=== PATIENT | female | born 1960 | race Caucasian/White ===

== ENCOUNTER 2021-09-11 23:03 | Emergency (ER) | payer OTHER, SELFPAY ==
[2021-09-11 23:04] VITALS: BP 136/82; PULSE 90; RESP 18; TEMP 37.3; O2SAT 97; BMI 29.8
--- NOTE | 2021-09-11 23:27 | XR_ITS ---
PROCEDURE INFORMATION: Exam: XR Chest Exam date and time: 09/11/2021 11:27 PM Age: 60 years old Clinical indication: Patient HX: Dry cough, denies chest pain or SOA. Nonsmoker TECHNIQUE: Imaging protocol: XR of the chest. Views: 2 views. COMPARISON: CR XR CHEST 2V 11/11/2019 4:42 PM FINDINGS: Lungs: There are several patchy/nodular opacities within the periphery of both lungs, right more conspicuous than left, likely representing multifocal pneumonia. Pleural spaces: No pleural effusion. No pneumothorax. Heart/Mediastinum: Normal heart size. Bones/joints: Unremarkable. IMPRESSION: Several bilateral patchy/nodular opacities, likely representing multifocal pneumonia. Follow-up to resolution is recommended.
--- NOTE | 2021-09-11 23:31 | HMH.EDURI ---
ED Disposition Clinical Impression: Pneumonia due to COVID-19 virus Disposition: Home, Self-Care Condition on Discharge: Good Instructions: DI for COVID-19 (Suspected or Confirmed ) Additional Instructions: use meds and call pcp for follow up Prescriptions: Brompheniramine/Pseudoephed/Dm [Bromfed Dm Cough Syrup] 10 ml PO QID #180 ml Prescription Printed dexAMETHasone [Decadron] 6 mg PO DAILY #7 tab Prescription Printed Azithromycin [Zithromax 250mg tab] 250 mg PO DIRECTED #6 tab Prescription Printed Referrals: Sendy Moran [Primary Care Provider] - - Critical Care Critical Care Time: No Attestation: On 09/11/21, the high probability of a clinically significant, sudden or life threatening deterioration of the following system(s) required my full and direct attention, intervention and personal management. The time I documented below is in addition to time spent performing reported procedures but includes the following listed in this critical care notation. Medical Decision Making - Medical Records Medical records reviewed: Yes: I reviewed the patient's medical records. - Jignesh Inquiry Pt receiving controlled substance: No Vital Signs: 09/11/21 23:04 Temperature 99.1 F Temperature Source Oral Pulse Rate [Apical] 90 Respiratory Rate 18 Blood Pressure [Right Arm] 136/82 Blood Pressure Mean [Right Arm] 100 Blood Pressure Source [Right Arm] Automatic Cuff Blood Pressure Position [Right Arm] Sitting 02 Sat by Pulse Oximetry 97 Oxygen Delivery Method Room Air - Lab Data Lab results reviewed: Yes: I reviewed the patient's lab results. Lab Results 09/11/21 23:15: SARS-CoV-2 (PCR) Detected A, Influenza A Untype (PCR) Not detected, Influenza Type B (PCR) Not detected Orders (Tests/Meds): ED MEDICATIONS Generic Name Dose Route Start Last Admin Trade Name Freq PRN Reason Stop Dose Admin Benzonatate 100 mg 09/12/21 01:15 Benzonatate 100mg Capsule PO 10/12/21 01:14 ONCE FLORINA Discontinued Medications Generic Name Dose Route Start Last Admin Trade Name Freq PRN Reason Stop Dose Admin Dexamethasone 10 mg 09/12/21 01:05 Dexamethasone 4mg Tablet PO 09/12/21 01:06 ONCE ONE - Radiology Data #1 Image(s): Chest Image Reviewed: Yes I have reviewed radiologist's interpretation Preliminary Findings: Abnormal (see report ) Medical Decision Narrative: has covid-19 with stable vital signs URI/Sore Throat HPI - General Chief Complaint: Shortness of Breath/Dyspnea Stated Complaint: Cough,right earache Time Seen by Provider: 09/11/21 23:32 Mode of Arrival: Ambulatory Source of Information: Patient, Medical Record Limitations: No Limitations Description of Symptoms (Recalled from ER Triage Doc. by RN): Patient states that 8 days ago she began running a fever with a headache, chills and cough. Since then she has had a dry hacking cough that she can't sleep for the cough - History of Present Illness HPI Narrative: uri sx and fever with cough with no known exposure MD Complaint: cough Onset (ago): day(s) Duration: intermittent Severity: moderate Able to tolerate fluids by mouth: Yes Associated symptoms: denies other symptoms Treatments prior to arrival: none - Related Data Home Medications Medication Instructions Recorded Confirmed Atorvastatin Calcium [Atorvastatin 10 mg PO HS 11/11/19 11/11/19 10mg Tab] Levothyroxine Sodium 75 mcg PO DAILY 11/11/19 11/11/19 [Levothyroxine 75mcg (0.075mg) Tab] Previous Rx's Medication Instructions Recorded Benzonatate [Benzonatate 200mg Cap] 200 mg PO TID PRN 10 Days #30 cap 11/11/19 Promethazine/Dextromethorphan 5 ml PO Q4HP PRN 10 Days #180 ml 11/11/19 [Promethazine-Dm Syrup] levoFLOXacin [Levaquin 500mg 500 mg PO DAILY #10 tab 11/11/19 tab] predniSONE [Prednisone 20mg 20 mg PO BID 5 Days #10 tab 11/11/19 Tab] Azithromycin [Zithromax 250mg 250 mg PO DIRECTE
[2021-09-11 23:39] LABS: Influenza A, PCR Not Detected (NotDetected); Influenza B, PCR Not Detected (NotDetected)
[2021-09-11 23:58] LABS: Coronavirus 19, PCR Detected (NotDetected)
[2021-09-12 01:21] VITALS: BP 151/80; PULSE 78; RESP 20; TEMP 36.9; O2SAT 98
[2021-09-12 01:26] VITALS: BP 151/80; PULSE 78; RESP 20; TEMP 36.8; O2SAT 98
== END 2021-09-12 01:28 | disposition home or self-care (01) ==
PROVIDERS: Emergency Provider Emergency Medicine; PCP Family Medicine
DX: U07.1 COVID-19 (principal); J12.82 Pneumonia due to coronavirus disease 2019
CPT/HCPCS: 71046; 99282; C9803; U0003; U0005

== ENCOUNTER 2023-05-02 07:59 | Emergency (ER) | payer OTHER, SELFPAY ==
[2023-05-02 08:01] VITALS: BP 136/91; PULSE 92; RESP 18; TEMP 36.6; O2SAT 97; BMI 28.2
--- NOTE | 2023-05-02 08:16 | XR_ITS ---
PROCEDURE INFORMATION: Exam: XR Chest Exam date and time: 05/02/2023 8:13 AM Age: 62 years old Clinical indication: Cough TECHNIQUE: Imaging protocol: Radiologic exam of the chest. Views: 2 views. COMPARISON: CR XR CHEST 2V 09/11/2021 11:31 PM FINDINGS: Lungs: Unremarkable. No consolidation. Pleural spaces: Unremarkable. No pleural effusion. No pneumothorax. Heart/Mediastinum: Unremarkable. No cardiomegaly. Bones/joints: Unremarkable. IMPRESSION: No acute findings.
--- NOTE | 2023-05-02 08:28 | EXP.UTC ---
Discharge Plan Disposition Patient Disposition: Home, Self-Care Condition: Good Prescriptions Prescriptions: New benzonatate [benzonatate] 100 mg capsule 100 mg PO TIDP PRN (Reason: Cough) Qty: 30 0RF methylprednisolone 4 mg Tablets,Dose Pack 4 mg PO DIRECTED Qty: 21 0RF cefdinir 300 mg capsule 300 mg PO BID Qty: 20 0RF No Action atorvastatin 10 MG tablet 10 mg PO HS levothyroxine 75 tablet 75 mcg PO DAILY promethazine-DM 120 ML syrup 5 ml PO Q4HP PRN (Reason: Cough) 10 Days Qty: 180 0RF benzonatate 200 MG capsule 200 mg PO TID PRN (Reason: Cough) 10 Days Qty: 30 0RF prednisone 20 MG tablet 20 mg PO BID 5 Days Qty: 10 0RF levofloxacin 500 MG tablet 500 mg PO DAILY Qty: 10 0RF azithromycin 250 MG tablet 250 mg PO DIRECTED Qty: 6 0RF Rx Instructions: Take two (2) tablets on day #1, then one (1) tablet day #2 thru #5 dexamethasone 6 MG tablet 6 mg PO DAILY Qty: 7 0RF thqjgqtsabfhqar-bmcyzcrws-WU 118 ML syrup 10 ml PO QID Qty: 180 0RF Referrals Follow up/Referrals: eSndy Moran [Primary Care Provider] - See instructions Activity Restrictions/Add. Instructions Additional Instructions/Restrictions: Drink plenty of fluids. Take tylenol for pain or fever. Take the medications as directed. Follow up with your regular doctor. GO TO THE ER FOR ANY WORSENING SYMPTOMS Don't start the oral steroids until tomorrow, since you had the shot here today. Clinical Impressions Clinical Impression: Acute bronchitis Instructions Patient Instructions: Acute Bronchitis, DI for Acute Bronchitis Discharge ED Provider: Chevy Hunt [facility] [place] HPI General Stated complaint: cough sore throat congestion Mode of Arrival: Ambulatory Source of Information: Patient Limitations: No Limitations Time Seen by Provider: 05/02/23 08:28 Description of Symptoms (Recalled from Triage Doc. by RN): Patient reports possibly having pneumonia. Complaint of cough, scratchy throat and lung pain. HEENT Symptoms (Recalled from RN notes): Yes Resp Symptoms (Recalled from RN notes): Yes Skin Symptoms (Recalled from RN notes): No MS Symptoms (Recalled from RN notes): No Functional Status (Recalled from RN notes): wnl History of Present Illness Provider Complaint: She states that for the past 4 days she has had sinus congestion and runny nose. Related Data Home Medications Medication Instructions Recorded Confirmed atorvastatin 10 mg tablet 10 mg PO HS Cholesterol 11/11/19 11/11/19 levothyroxine 75 mcg tablet 75 mcg PO DAILY THYROID REPLACEMENT 11/11/19 11/11/19 Previous Rx's Medication Instructions Recorded benzonatate 200 mg capsule 200 mg PO TID PRN Cough 10 days 11/11/19 #30 caps levofloxacin 500 mg tablet 500 mg PO DAILY #10 tabs 11/11/19 prednisone 20 mg tablet 20 mg PO BID 5 days #10 tabs 11/11/19 promethazine-DM 6.25 mg-15 mg/5 mL 5 ml PO Q4HP PRN Cough 10 days 11/11/19 oral syrup #180 mL azithromycin 250 mg tablet 250 mg PO DIRECTED #6 tabs 09/12/21 blfzydutdbzoqho-pfeddzpumqhqlmo-PP 10 ml PO QID #180 mL 09/12/21 2 mg-30 mg-10 mg/5 mL oral syrup dexamethasone 6 mg tablet 6 mg PO DAILY #7 tabs 09/12/21 benzonatate 100 mg capsule 100 mg PO TIDP PRN Cough #30 caps 05/02/23 cefdinir 300 mg capsule 300 mg PO BID #20 caps 05/02/23 methylprednisolone 4 mg tablets in 4 mg PO DIRECTED #21 tabs 05/02/23 a dose pack Allergies Allergy/AdvReac Type Severity Reaction Status Date / Time No Known Allergies Allergy Verified 11/11/19 16:42 Worker's Comp Is this a Worker's Comp case?: [facility] Disclaimer: The information contained in this section may have been updated after the patient was seen, as this information can be updated by other users. Social History Smoking Status: Former smoker alcohol intake: never current occupational status: other Travel in the last
[2023-05-02 09:07] VITALS: BP 136/91; PULSE 92; RESP 18; TEMP 36.6; O2SAT 97
== END 2023-05-02 09:08 | disposition home or self-care (01) ==
PROVIDERS: Emergency Provider Nurse Practitioner Family; PCP Family Medicine
DX: J20.9 Acute bronchitis, unspecified (principal); Z87.891 Personal history of nicotine dependence
CPT/HCPCS: 71046; 96372; 99204; 99212; G0463; J0696

== ENCOUNTER 2023-05-07 07:59 | Emergency (ER) | payer OTHER, SELFPAY ==
[2023-05-07 08:00] VITALS: BP 123/80; PULSE 87; RESP 18; TEMP 36.8; O2SAT 98; BMI 28.2
--- NOTE | 2023-05-07 08:21 | EXP.UTC ---
Discharge Plan Disposition Patient Disposition: Home, Self-Care Condition: Good Prescriptions Prescriptions: New amoxicillin-pot clavulanate 875-125 mg Tablet 1 tab PO Q12H Qty: 20 0RF No Action atorvastatin 10 MG tablet 10 mg PO HS levothyroxine 75 tablet 75 mcg PO DAILY promethazine-DM 120 ML syrup 5 ml PO Q4HP PRN (Reason: Cough) 10 Days Qty: 180 0RF benzonatate 200 MG capsule 200 mg PO TID PRN (Reason: Cough) 10 Days Qty: 30 0RF prednisone 20 MG tablet 20 mg PO BID 5 Days Qty: 10 0RF levofloxacin 500 MG tablet 500 mg PO DAILY Qty: 10 0RF azithromycin 250 MG tablet 250 mg PO DIRECTED Qty: 6 0RF Rx Instructions: Take two (2) tablets on day #1, then one (1) tablet day #2 thru #5 dexamethasone 6 MG tablet 6 mg PO DAILY Qty: 7 0RF pxwwpkicacniuzk-bibcrfnyl-KI 118 ML syrup 10 ml PO QID Qty: 180 0RF benzonatate [benzonatate] 100 mg capsule 100 mg PO TIDP PRN (Reason: Cough) Qty: 30 0RF methylprednisolone 4 mg Tablets,Dose Pack 4 mg PO DIRECTED Qty: 21 0RF cefdinir 300 mg capsule 300 mg PO BID Qty: 20 0RF Referrals Follow up/Referrals: Sendy Moran [Primary Care Provider] - See instructions Activity Restrictions/Add. Instructions Additional Instructions/Restrictions: Stop the cefdinir, start the amoxicillin that we prescribed today. Finish the steroids (methylprednisone) that you are already on. Take tylenol or ibuprofen for pain or fever. Take the medications as directed. Follow up with your regular doctor within 48 hours if you are no better. GO TO THE ER FOR ANY WORSENING SYMPTOMS Clinical Impressions Clinical Impression: Lymphadenitis Instructions Patient Instructions: DI for Lymphadenopathy Discharge ED Provider: Chevy Hunt [facility] [place] HPI General Stated complaint: Possible reaction to med, Neck inflammation Mode of Arrival: Ambulatory Source of Information: Patient Limitations: No Limitations Time Seen by Provider: 05/07/23 08:21 Description of Symptoms (Recalled from Triage Doc. by RN): Patient reports swollen neck. States she was started on medicine on Thursday and had some shots in the [facility]. Patient reports possible adverse reaction. HEENT Symptoms (Recalled from RN notes): No Resp Symptoms (Recalled from RN notes): No Skin Symptoms (Recalled from RN notes): No MS Symptoms (Recalled from RN notes): Yes Functional Status (Recalled from RN notes): wnl History of Present Illness Provider Complaint: She is back today with c/o swelling of the lymph nodes in her neck. Related Data Home Medications Medication Instructions Recorded Confirmed atorvastatin 10 mg tablet 10 mg PO HS Cholesterol 11/11/19 11/11/19 levothyroxine 75 mcg tablet 75 mcg PO DAILY THYROID REPLACEMENT 11/11/19 11/11/19 Previous Rx's Medication Instructions Recorded benzonatate 200 mg capsule 200 mg PO TID PRN Cough 10 days 11/11/19 #30 caps levofloxacin 500 mg tablet 500 mg PO DAILY #10 tabs 11/11/19 prednisone 20 mg tablet 20 mg PO BID 5 days #10 tabs 11/11/19 promethazine-DM 6.25 mg-15 mg/5 mL 5 ml PO Q4HP PRN Cough 10 days 11/11/19 oral syrup #180 mL azithromycin 250 mg tablet 250 mg PO DIRECTED #6 tabs 09/12/21 ovoyivgszfcbunl-madpgojgtkjpyqr-RL 10 ml PO QID #180 mL 09/12/21 2 mg-30 mg-10 mg/5 mL oral syrup dexamethasone 6 mg tablet 6 mg PO DAILY #7 tabs 09/12/21 benzonatate 100 mg capsule 100 mg PO TIDP PRN Cough #30 caps 05/02/23 cefdinir 300 mg capsule 300 mg PO BID #20 caps 05/02/23 methylprednisolone 4 mg tablets in 4 mg PO DIRECTED #21 tabs 05/02/23 a dose pack amoxicillin 875 mg-potassium 1 tab PO Q12H #20 tabs 05/07/23 clavulanate 125 mg tablet Allergies Allergy/AdvReac Type Severity Reaction Status Date / Time No Known Allergies Allergy Verified 11/11/19 16:42 Worker's Comp Is this a Worker's Comp case?: No [facility] Disclaimer: The information contained in this section may h
[2023-05-07 09:01] LABS: Monoscreen (Rapid) Negative (Negative)
[2023-05-07 09:30] LABS: Anion Gap 11.7 mEq/L (5-15); Blood Urea Nitrogen 16 mg/dl (7-17); Calcium 9.4 mg/dl (8.4-10.2); Carbon Dioxide 29 mmol/L (22.0-30.0); Chloride 103 mmol/L (98-107); Creatinine Clearance Estimated 71 mL/min (50-200); Estimated Glomerular Filt Rate 63 ml/min (>60); GFR (African American) 76 ML/MIN (>60); Glucose 103 mg/dl (74-100); Potassium 3.7 mmoL/L (3.5-5.1); Sodium 140 mmol/L (136-145)
[2023-05-07 10:35] LABS: Hematocrit 42.3 % (37.0-47.0); Hemoglobin 13.9 g/dL (12.2-16.2); Mean Corpuscular HGB Conc 32.9 g/dL (31.8-35.4); Mean Corpuscular Hemoglobin 29.6 pg (27.0-31.2); Red Cell Distribution Width 13.5 % (11.5-17.5)
[2023-05-07 10:36] LABS: Basophils % 0.1 % (0.1-2.0); Eosinophils # 0.1 K/mm3 (0.0-0.4); Eosinophils % 0.6 % (0.1-12.0); Lymphocytes # 4.8 K/mm3 (0.7-4.5); Lymphocytes % 29.5 % (10-50); Mean Platelet Volume 11.2 fl (7.4-10.4); Monocytes # 1.6 K/mm3 (0.1-1.0); Monocytes % 9.6 % (1.7-9.3); Neutrophils # 9.8 K/mm3 (1.8-7.8); Neutrophils % 59.7 % (37.0-80.0); Platelet Count 253 K/mm3 (142-424)
[2023-05-07 10:37] LABS: MANUAL DIFFERENTIAL MANUAL DIFFERENTIAL (MANUAL DIFF); White Blood Count 16.3 K/mm3 (4.8-10.8)
[2023-05-07 10:47] VITALS: BP 123/80; PULSE 87; RESP 18; TEMP 36.8; O2SAT 98
[2023-05-07 11:15] LABS: Lymphocytes % 31 % (10-50); Monocytes % 9 % (2-9); Neutrophils % 60 % (42-76); Platelet Estimate Normal; RBC Morphology Normal; Total Cells Counted 100
== END 2023-05-07 10:48 | disposition home or self-care (01) ==
PROVIDERS: Emergency Provider Nurse Practitioner Family; PCP Family Medicine
DX: I88.9 Nonspecific lymphadenitis, unspecified (principal); Z87.891 Personal history of nicotine dependence
CPT/HCPCS: 80048; 85007; 85025; 86318; 87070; 99212; 99214; G0463

== ENCOUNTER 2024-02-29 10:46 | Outpatient (CLI) | payer MEDICARE, SELFPAY ==
[2024-02-29 17:42] LABS: Microscopic, Urine URINE MICROSCOPIC (MICROSCOPIC)
[2024-02-29 18:19] LABS: Appearance,Urine CLEAR (Clear); Bilirubin,Urine Negative (Negative); Blood, Urine Negative (Negative); Color,Urine YELLOW (Yellow); Glucose,Urine (UA) Negative (Negative); Ketones,Urine Negative (Negative); Leukocyte Esterase,Urine 2+ (Negative); Nitrate,Urine Negative (Negative); Protein,Urine Negative (Negative); Specific Gravity, Urine <= 1.005 (1.005-1.030); Urobilinogen,Urine 0.2 EU/dl (0.2)
[2024-02-29 19:21] LABS: Squamous Epithelial Cell,Urine Occasional #/hpf (0-5); WBC,Urine Occasional #/hpf (0-3)
[2024-03-03 06:48] LABS: Neisseria gonorrhoeae, NAA Negative (Negative)
== END 2024-02-29 23:59 | disposition home or self-care (01) ==
LOC: LAB.DROPOF 03-01 10:47
PROVIDERS: PCP Nurse Practitioner Family; Visit Provider Nurse Practitioner Family
DX: N39.0 Urinary tract infection, site not specified (principal); Z11.3 Encounter for screening for infections with a predominantly sexual mode of transmission
CPT/HCPCS: 81001; 87086; 87491; 87591

== ENCOUNTER 2024-03-02 14:21 | Outpatient (CLI) | payer MEDICARE, SELFPAY ==
[2024-03-02 15:16] LABS: Basophils # 0.1 K/mm3 (0-0.2); Basophils % 1.1 % (0.1-2.0); Eosinophils # 0.1 K/mm3 (0.0-0.4); Eosinophils % 2.2 % (0.1-12.0); Hemoglobin 13.8 g/dL (12.2-16.2); Lymphocytes # 2.5 K/mm3 (0.7-4.5); Mean Corpuscular HGB Conc 32.2 g/dL (31.8-35.4); Mean Corpuscular Hemoglobin 30.7 pg (27.0-31.2); Mean Corpuscular Volume 95.5 fl (81-99); Mean Platelet Volume 9.3 fl (7.4-10.4); Monocytes # 0.3 K/mm3 (0.1-1.0); Monocytes % 5.5 % (1.7-9.3); Neutrophils # 2.9 K/mm3 (1.8-7.8); Neutrophils % 49.2 % (37.0-80.0); Platelet Count 230 K/mm3 (142-424); Red Blood Count 4.51 M/mm3 (4.20-5.40); Red Cell Distribution Width 14.3 % (11.5-17.5); White Blood Count 5.8 K/mm3 (4.8-10.8)
[2024-03-02 15:41] LABS: Chol/HDL Ratio 2.8 (1-3.5); Cholesterol 265 mg/dl (140-200); HDL Cholesterol 95 mg/dl (40-60); Triglycerides 135 mg/dl (30-150); VLDL Cholesterol 27 mg/dL (0-40)
[2024-03-02 15:44] LABS: Alanine Aminotransferase 23 U/L (12-78); Albumin Level 4.3 g/dl (3.5-5.0); Albumin/Globulin Ratio 1.7 (1.1-1.8); Alkaline Phosphatase 78 U/L (38-126); Anion Gap 13.1 mEq/L (5-15); Aspartate Amino Transferase 31 U/L (14-36); Bilirubin,Total 0.7 mg/dl (0.2-1.3); Blood Urea Nitrogen 18 mg/dl (7-17); Calcium 9.8 mg/dl (8.4-10.2); Carbon Dioxide 25 mmol/L (22.0-30.0); Chloride 106 mmol/L (98-107); Estimated Glomerular Filt Rate 63 ml/min (>60); GFR (African American) 76 ML/MIN (>60); Globulin 2.6 g/dL (1.3-3.2); Glucose 89 mg/dl (74-100); Potassium 4.1 mmoL/L (3.5-5.1); Sodium 140 mmol/L (136-145); Total Protein,Serum 6.9 g/dl (6.3-8.2)
[2024-03-02 15:52] LABS: Direct LDL Cholesterol 124.85 mg/dL (100-129)
[2024-03-02 15:58] LABS: Free T4 (Free Thyroxine) 1.28 ng/dl (0.78-2.19)
[2024-03-02 15:59] LABS: 25-OH Vitamin D, Total 34.9 ng/mL (30-100)
[2024-03-02 16:16] LABS: Thyroid Stimulating Hormone 1.99 uIU/mL (0.465-4.68)
[2024-03-02 16:35] LABS: Vitamin B12 254 pg/mL (239-931)
[2024-03-02 17:30] LABS: Hemoglobin A1C 5.3 % (4.0-6.0)
[2024-03-04 11:14] LABS: HIV Screen 4th Generation wRfx Non Reactive (Non Reactive)
[2024-03-04 13:04] LABS: Rapid Plasma Reagin Ab Titer Non Reactive titer (NonRea<1:1)
[2024-03-04 13:10] LABS: HBsAg Screen Negative (Negative); HCV Ab Non Reactive (Non Reactive); Hep A Ab, IGM Negative (Negative); Hep B Core Ab, IgM Negative (Negative)
== END 2024-03-02 23:59 | disposition home or self-care (01) ==
LOC: LAB.DROPOF 14:22
PROVIDERS: PCP Nurse Practitioner Family; Visit Provider Nurse Practitioner Family
DX: R53.83 Other fatigue (principal); R73.03 Prediabetes; Z11.3 Encounter for screening for infections with a predominantly sexual mode of transmission; E03.9 Hypothyroidism, unspecified; E55.9 Vitamin D deficiency, unspecified; Z13.220 Encounter for screening for lipoid disorders
CPT/HCPCS: 80053; 80061; 80074; 82306; 82607; 83036; 84439; 84443; 85025; 86593; 86703; G0432

== ENCOUNTER 2024-04-05 08:35 | Outpatient (CLI) | payer MEDICARE, SELFPAY ==
--- NOTE | 2024-04-05 08:36 | XR_ITS ---
FINAL REPORT TECHNIQUE: Bone densitometry calculations of the lumbar spine and left hip were obtained. CLINICAL HISTORY: screening osteoporosis COMPARISON: None FINDINGS: Using L1-4, the bone mineral density of the spine is 1.107 g/cm2, corresponding to T-score of 0.5. Using the left hip, the bone mineral density of the femoral neck is 0.881 g/cm2, corresponding to a T-score of -0.5. NOTE: T-score: Standard deviation compared with peak bone mass of young adult mean. *Following the recommendations of the International Society of Bone densitometry, classification of hip BMD is based on the lower of two T-scores; total hip or femoral neck. IMPRESSION: Normal bone mineral density of the lumbar spine and hip. Reviewed, Interpreted and Dictated by Sixto España MD Transcribed by Mylene Lechuga Authenticated and [facility]
== END 2024-04-05 23:59 | disposition home or self-care (01) ==
LOC: RAD 08:35
PROVIDERS: PCP Nurse Practitioner Family; Visit Provider Nurse Practitioner Family
DX: N95.9 Unspecified menopausal and perimenopausal disorder (principal); Z13.820 Encounter for screening for osteoporosis
CPT/HCPCS: 77080

== ENCOUNTER 2024-05-23 10:23 | Outpatient (CLI) | payer MEDICARE, SELFPAY ==
[2024-05-23 10:49] LABS: Blood Urea Nitrogen 14 mg/dl (7-17); Estimated Glomerular Filt Rate 72 ml/min (>60); GFR (African American) 87 ML/MIN (>60)
[2024-05-27 17:43] LABS: Atopobium vaginae Low - 0 Score (.); BVAB2 Low - 0 Score (.); Candida albicans NAA Negative (Negative); Candida glabrata Negative (Negative); Chlamydia Trachomatis NAA Negative (Negative); HSV 1 NAA Negative (Negative); HSV 2 NAA Negative (Negative); Megasphaera 1 Low - 0 Score (.); Neisseria gonorrhoeae NAA Negative (Negative); Trich vag NAA Negative (Negative)
== END 2024-05-23 23:59 | disposition home or self-care (01) ==
LOC: LAB 10:24
PROVIDERS: PCP Nurse Practitioner Family; Visit Provider Urology
DX: N39.0 Urinary tract infection, site not specified (principal); N89.8 Other specified noninflammatory disorders of vagina
CPT/HCPCS: 36415; 82565; 84520; 87491; 87529; 87591; 87661; 87798; 87801

== ENCOUNTER 2024-06-06 12:21 | Outpatient (CLI) | payer MEDICARE, MEDICAID, SELFPAY ==
--- NOTE | 2024-06-06 12:21 | XR_ITS ---
FINAL REPORT CLINICAL HISTORY: UTI COMPARISON: None FINDINGS: SINGLE VIEW ABDOMEN A single view of the abdomen was obtained. There is a nonobstructive bowel gas pattern. No abnormal calcifications are identified. There are few phleboliths in the right hemipelvis. IMPRESSION: No abnormal calcifications. Reviewed, Interpreted and Dictated by Han Gonzalez MD Transcribed by Angela Doyle Authenticated and [facility]
--- NOTE | 2024-06-06 12:21 | US_ITS ---
FINAL REPORT CLINICAL HISTORY: UTI COMPARISON: None FINDINGS: ULTRASOUND BLADDER WITH POST VOID RESIDUAL Bladder volumes were estimated based on 3 dimensional measurements, pre- and postvoid. Prevoid bladder volume: 366 mls Postvoid bladder volume: 14 mls IMPRESSION: Estimated bladder volumes as above with small postvoid residual . Reviewed, Interpreted and Dictated by Han Gonzalez MD Transcribed by Angela Doyle Authenticated and [facility]
--- NOTE | 2024-06-06 12:21 | US_ITS ---
FINAL REPORT CLINICAL HISTORY: .utis COMPARISON: None FINDINGS: RENAL ULTRASOUND Ultrasound images of the kidneys were obtained. The right kidney measures 9.8 cm in length. It is normal echogenicity. There is no hydronephrosis. The left kidney measures 9.7 cm in length. There is a 6 mm left renal cyst. There is no hydronephrosis. IMPRESSION: Left renal cyst. Reviewed, Interpreted and Dictated by Han Gonzalez MD Transcribed by Angela Doyle Authenticated and . [facility]
== END 2024-06-06 23:59 | disposition home or self-care (01) ==
LOC: RAD 12:21
PROVIDERS: PCP Nurse Practitioner Family; Visit Provider Urology
DX: N39.0 Urinary tract infection, site not specified (principal)
CPT/HCPCS: 74018; 76770; 76857

== ENCOUNTER 2024-12-26 09:22 | Outpatient (CLI) | payer MEDICARE, MEDICAID, SELFPAY | END 2024-12-26 23:59 | disposition home or self-care (01) | LOC: LAB.DROPOF 12-28 09:23 | PROVIDERS: PCP Nurse Practitioner Family; Visit Provider Student in an Organized Health Care Education/Training Program | DX: R35.0 Frequency of micturition (principal) | CPT/HCPCS: 87086; 87088; 87186 ==

== ENCOUNTER 2025-03-06 13:13 | Outpatient (CLI) | payer MEDICARE, MEDICAID, SELFPAY ==
[2025-03-06 18:17] LABS: Microscopic, Urine URINE MICROSCOPIC (MICROSCOPIC)
[2025-03-06 20:28] LABS: Appearance,Urine CLEAR (Clear); Bilirubin,Urine Negative (Negative); Blood, Urine Negative (Negative); Color,Urine YELLOW (Yellow); Glucose,Urine (UA) Negative (Negative); Ketones,Urine Negative (Negative); Leukocyte Esterase,Urine Negative (Negative); Nitrate,Urine Negative (Negative); Protein,Urine Negative (Negative); Urobilinogen,Urine 0.2 EU/dl (0.2)
[2025-03-06 20:59] LABS: Bacteria,Urine Trace /lpf; WBC,Urine Occasional #/hpf (0-3)
--- OUTSIDE RECORDS SUMMARY | 2025-03-06 22:09 | XMS_ITS | Data Portability ---
Author Organization [facility] Address [address] [facility] [place] [address] Assessment Encounter Date Assessment Date Assessment LastModified by Organization Details LastModified Time 05/27/2022 05/27/2022 Deirdre presents for annual wellness exam. She has some occasional shoulder soreness and hip arthritis, but continues to stay active. She has some recurrent symptoms of urinary frequency and what sounds like bladder spasms. She has been treated previously for possible urinary tract infections but in every case the cultures have not shown any infection. She does drink some dark colored sodas nearly daily and we discussed cutting back on those and see if the symptoms improve. We are awaiting the present urine culture and if needed we will treat. She is working on healthy lifestyle practices. She is up to date on mammogram. She had a negative cologuard screen in 2019 and a negative immunoassay last year, so will be due another cologuard next year. Medications are reviewed. Lipids have improved significantly on the generic lipitor and with her family history we recommend she continue that for primary cardiovascular prevention. She could try to cut it back to every other day and see if the muscle and joint pains decrease some. Labs are otherwise basically normal. Vaccines are reviewed and she has not taken the covid vaccines which we highly encourage. This years influenza vaccine is recommended by July when it becomes available at her pharmacy. We encourage weight management for best health. Not available 05/28/2022 23:48:38 10/17/2022 10/17/2022 Deirdre has an acute lower respiratory infection. She is prone to pneumonia and wheezing. We will cover with a zpack and treat the respiratory symptoms. She can use over counter cough syrups and expectorants. A rapid flu is negative but her symptoms warrant further evaluation with respiratory pathogens. Not available 10/17/2022 09:52:35 01/22/2023 01/22/2023 Deirdre has a symptomatic bladder infection that will be treated. She does drink her water. Culture is pending. Not available 01/22/2023 15:37:19 07/16/2023 07/16/2023 She likely had a bout of shingles a few months ago and now has symptoms of a mild post-herpetic neuralgia but it is not bad enough to use any medications she was just curious about it. Her BP is a bit elevated and improved during her visit. We will continue observation as she has a follow up soon. Not available 07/17/2023 07:53:46 08/04/2023 08/04/2023 Deirdre presents for annual wellness exam and pap smear. She has some occasional shoulder soreness and hip arthritis, but continues to stay active. She has an area of the skin on the left upper back that may have been a focus of shingles but presently appears to be slightly hyperpigmented and scaly so is most consistent with the development of lichen simplex. We will recommend breaking the scratch itch cycle with topical steroids. She is working on healthy lifestyle practices and has lost over 40 pounds the past six years. She is up to date on mammogram. She had a negative cologuard screen in 2019 and a negative immunoassay in 2020, so is due another cologuard this year. Medications are reviewed. Lipids have improved significantly on the generic lipitor and with her family history we recommend she continue that for primary cardiovascular prevention. Labs are otherwise basically normal. Vaccines are reviewed and she has not taken the covid vaccines which we highly encourage. This years influenza vaccine is recommended by July when it becomes available at her pharmacy but she declines that as well. She has taken the Shingles vaccines. A ten year calculated cardiovascular risk is low at 3.37%. We encourage weight management for best health. [email or web address] Not available 08/05/2023 22:53:12 Plan of Treatment Reminders Order Date Submit Date Provider Last Modified By Organization Details Last Modified Time Details Appointments None recorded. Lab noninvasive colorectal cancer DNA + occult blood screening, QL, stool 2022 023 REINALDO Not available 3 23:19:39 pap, LB 2022 023 REINALDO [facility], [address], [place], [address], 3 14:24:16 urinalysis, dipstick [address], [address] [place], [address], 3 13:59:24 culture, urine 2022 023 REINALDO [facility], [address], [place], [address], 3 07:38:25 urinalysis, dipstick [address], [address] [place], [address], 3 14:32:26 SARS CoV 2 RNA (COVID-19), QL, 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, [address] [place], [address], 2 09:54:23 culture, urine 2021 022 [facility], [address] [place], [address], 2 02:16:46 urinalysis, dipstick [address] [facility], [address] [place], [address], 2 10:11:47 Referral None recorded. Procedures None recorded. Surgeries None recorded. Imaging MAMMO, screening, digital, bilateral - due after 12/27/23[email or web address] [place] [address] ([facility], [address] [place], [address], 4 16:05:01 Medication Orders triamcinolo ne acetonide 0.1 % topical cream 2022 023 [facility], [address] [place], [address], 3 10:10:05 nitrofurant oin monohydrate /macrocryst als 100 mg capsule 2022 [address]23 [address] [place], [address], 3 09:14:30 gentamicin 40 mg/mL injection solution [address]/Pharmacy #3016, [address] [place], [address], 3 09:14:25 azithromyci n 250 mg tablet [address]/Pharmacy [facility]3016, [address] [place], [address], 3 14:26:36 methylpredn isolone 4 mg tablets in a dose pack 122021 [email or web address] n5 [facility], [address] [place], [address], 3 09:14:34 dexamethaso ne sodium phosphate 4 mg/mL injection solution 2021 [email or web address] [email or web address] [facility]/Pharmacy #3016, [address] [facility] [place], [address], 3 14:26:33 Ventolin HFA 90 mcg/actuati on aerosol inhaler 2021 REINALDO [facility], [address] [place], [address], 09:54:27 Patient TargetsNo targets recorded. Patient Instructions Encounter Date Encounter Id Patient Instructions Last Modified By Organization Details Last Modified Time 05/27/2022 [id number] learning about healthy weight Not available 05/28/2022 23:49:29 Reason for Referral None Reported. Results Created Date Observation Date Name Description Value Unit Range Abnormal Flag Note LastModifiedBy Organization Detail LastModifiedTime 05/26/2005/27/2022 LIPID PANEL , STAND EDVIN cholesterol, total 162 mg/dL <200 normal Not Available [facility] [address] [place], [address], 05/27/2022 08:18:56 05/26/2005/27/2022 LIPID PANEL , STAND EDVIN HDL cholesterol 71 mg/dL > or = 50 normal Not Available [facility] [address] [place], [address], 05/27/2022 08:18:56 05/26/2005/27/2022 LIPID PANEL , STAND EDVIN triglyceride s 113 mg/dL <150 normal Not Available [facility] [address] [place], [address], 05/27/2022 08:18:56 05/26/20 22 05/27/2022 LIPID PANEL , STAND EDVIN LDL-choleste rol 71 mg/dL _(trini c) normal Refer ence range : <100 Anne able range <100 mg/dL for prima ry preve ntion ; <70 mg/dL for patie nts with CHD or diabe tic patie nts with > or = 2 CHD risk facto rs. LDL-C is now calcu lated using the Velvet n-Hop kins calcu mary n, which is a valid ated novel metho d provi ding mya r accur acy than the Fried fausto equat ion in the estim ation of LDL-C . Velvet n SS et al. DESIREE. 2013; 310(1 9): 2061- 2068 (http ://ed ucati on.Viyet borisGingerd. [employer]/f aq/FA Q164) Not Available [facility] [address] [facility], [place], [address], 05/27/2022 08:18:56 05/26/20 22 05/27/2022 LIPID PANEL , STAND EDVIN chol/HDLC ratio 2.3 (calc ) <5.0 normal Not Available [facility] [address] [facility], [place], [address], 05/27/2022 08:18:56 05/26/20 22 05/27/2022 LIPID PANEL , STAND EDVIN non HDL cholesterol 91 mg/dL _(trini c) <130 normal For patie nts with diabe ovi plus 1 major ASCVD risk facto r, treat ing to a non-H DL-C goal of <100 mg/dL (LDL- C of <70 mg/dL ) is consi dered a thera peuti c optio n. Not Available [facility] [address], [place], [address], 05/27/2022 08:18:56 05/26/20 22 05/27/2022 COMPR EHENS HOMAR METAB OLIC PANEL glucose 105 mg/dL 65-99 high Fasti ng refer ence inter edy For someo ne witho ut known diabe ovi, a gluco se value betwe en 100 and 125 mg/dL is consi stent with predi abete s and shoul d be confi rmed with a follo w-up test. Not Available [facility] [address] [place], [address], 05/27/2022 08:18:57 05/26/20 22 05/27/2022 COMPR EHENS HOMAR METAB OLIC PANEL urea nitrogen (BUN) 14 mg/dL 7-25 normal Not Available [facility] [address] [place], [address], 05/27/2022 08:18:57 05/26/20 22 05/27/2022 COMPR EHENS HOMAR METAB OLIC PANEL creatinine 0.83 mg/dL 0.50-1 .05 normal Not Available [facility] [address] [place], [address], 05/27/2022 08:18:57 05/26/20 22 05/27/2022 COMPR EHENS HOMAR METAB OLIC PANEL eGFR 79 mL/mi n/1.7 3m2 > or = 60 normal The eGFR is based on the CKD-E PI 2020 equat ion. To calcu late the new eGFR from a previ ous Creat inine or Cysta tin C resul t, go to https ://chelsea mata.felipa gregg/mando hebert s/ kdoqi /gfr% 5Fcal culat or Not Available [facility] [address] [place], [address], 05/27/2022 08:18:57 05/26/20 22 05/27/2022 COMPR EHENS HOMAR METAB OLIC PANEL BUN/creatini ne ratio NOT APPLIC ABLE (calc ) 6-22 Not Available [facility] [address] [place], [address], 05/27/2022 08:18:57 05/26/20 22 05/27/2022 COMPR EHENS HOMAR METAB OLIC PANEL sodium 140 mmol/ L 135-14 6 normal Not Available [facility] [address] [place], [address], 05/27/2022 08:18:57 05/26/20 22 05/27/2022 COMPR EHENS HOMAR METAB OLIC PANEL potassium 4.1 mmol/ L 3.5-5. 3 normal Not Available [facility] [address] [place], [address], 05/27/2022 08:18:57 05/26/20 22 05/27/2022 COMPR EHENS HOMAR METAB OLIC PANEL chloride 108 mmol/ L 98-110 normal Not Available [facility] [address] [place], [address], 05/27/2022 08:18:57 05/26/20 22 05/27/2022 COMPR EHENS HOMAR METAB OLIC PANEL carbon dioxide 25 mmol/ L 20-32 normal Not Available [facility] [address] [place], [address], 05/27/2022 08:18:57 05/26/20 22 05/27/2022 COMPR EHENS HOMAR METAB OLIC PANEL calcium 9.5 mg/dL 8.6-10 .4 normal Not Available [facility] [address] [place], [address], 05/27/2022 08:18:57 05/26/20 22 05/27/2022 COMPR EHENS HOMAR METAB OLIC PANEL protein, total 6.4 g/dL 6.1-8. 1 normal Not Available [facility] [address] [place], [address], 05/27/2022 08:18:57 05/26/20 22 05/27/2022 COMPR EHENS HOMAR METAB OLIC PANEL albumin 4.3 g/dL 3.6-5. 1 normal Not Available [facility] [address] [place], [address], 05/27/2022 08:18:57 05/26/20 22 05/27/2022 COMPR EHENS HOMAR METAB OLIC PANEL globulin 2.1 g/dL_ (calc ) 1.9-3. 7 normal Not Available [facility] [address] [place], [address], 05/27/2022 08:18:57 05/26/20 22 05/27/2022 COMPR EHENS HOMAR METAB OLIC PANEL albumin/glob ulin ratio 2.0 (calc ) 1.0-2. 5 normal Not Available [facility] [employer] [facility] [address] [place], [address], 05/27/2022 08:18:57 05/26/20 22 05/27/2022 COMPR EHENS HOMAR METAB OLIC PANEL bilirubin, total 0.6 mg/dL 0.2-1. 2 normal Not Available [facility] [employer] [facility] [address] [place], [address], 05/27/2022 08:18:57 05/26/20 22 05/27/2022 COMPR EHENS HOMAR METAB OLIC PANEL alkaline phosphatase 93 U/L 37-153 normal Not Available [facility] [employer] [facility] [address] [place], [address], 05/27/2022 08:18:57 05/26/20 22 05/27/2022 COMPR EHENS HOMAR METAB OLIC PANEL AST 17 U/L 10-35 normal Not Available [facility] [employer] [facility] [address] [place] [place], [address], 05/27/2022 08:18:57 05/26/20 22 05/27/2022 COMPR EHENS HOMAR METAB OLIC PANEL ALT 14 U/L 6-29 normal Not Available [facility] [address] [place], [address], 05/27/2022 08:18:57 05/26/20 22 05/27/2022 TSH TSH 1.03 mIU/L 0.40-4 .50 normal Not Available [facility] [address] [place], [address], 05/27/2022 08:18:58 05/26/20 22 05/27/2022 CBC (INCL UDES DIFF/ PLT) white blood cell count 6.0 thous and/u L 3.8-10 .8 normal Not Available [facility] [address] [place], [address], 05/27/2022 08:18:58 05/26/20 22 05/27/2022 CBC (INCL UDES DIFF/ PLT) red blood cell count 4.48 charley on/uL 3.80-5 .10 normal Not Available [facility] [address] [place], [address], 05/27/2022 08:18:58 05/26/20 22 05/27/2022 CBC (INCL UDES DIFF/ PLT) hemoglobin 13.2 g/dL 11.7-1 5.5 normal Not Available [facility] [address] [place], [address], 05/27/2022 08:18:58 05/26/20 22 05/27/2022 CBC (INCL UDES DIFF/ PLT) hematocrit 41.4 % 35.0-4 5.0 normal Not Available [facility] [address] [place], [address], 05/27/2022 08:18:58 05/26/20 22 05/27/2022 CBC (INCL UDES DIFF/ PLT) MCV 92.4 fL 80.0-1 00.0 normal Not Available [facility] [address] [place], [address], 05/27/2022 08:18:58 05/26/20 22 05/27/2022 CBC (INCL UDES DIFF/ PLT) MCH 29.5 pg 27.0-3 3.0 normal Not Available [facility] [address] [place], [address], 05/27/2022 08:18:58 05/26/20 22 05/27/2022 CBC (INCL UDES DIFF/ PLT) MCHC 31.9 g/dL 32.0-3 6.0 low Not Available [facility] [address] [place], [address], 05/27/2022 08:18:58 05/26/20 22 05/27/2022 CBC (INCL UDES DIFF/ PLT) RDW 13.2 % 11.0-1 5.0 normal Not Available [facility] [address] [place], [address], 05/27/2022 08:18:58 05/26/20 22 05/27/2022 CBC (INCL UDES DIFF/ PLT) platelet count 210 thous and/u L 140-40 0 normal Not Available [facility] [address] [place], [address], 05/27/2022 08:18:58 05/26/20 22 05/27/2022 CBC (INCL UDES DIFF/ PLT) MPV 11.0 fL 7.5-12 .5 normal Not Available [facility] [address] [place], [address], 05/27/2022 08:18:58 05/26/20 22 05/27/2022 CBC (INCL UDES DIFF/ PLT) absolute neutrophils 2724 cells /uL 1500-7 800 normal Not Available [facility] [address], [address], 05/27/2022 08:18:58 05/26/20 22 05/27/2022 CBC (INCL UDES DIFF/ PLT) absolute lymphocytes 2580 cells /uL 850-39 00 normal Not Available [facility] [address] [place], [address], 05/27/2022 08:18:58 05/26/20 22 05/27/2022 CBC (INCL UDES DIFF/ PLT) absolute monocytes 558 cells /uL 200-95 0 normal Not Available [facility] [address], [place], [address], 05/27/2022 08:18:58 05/26/20 22 05/27/2022 CBC (INCL UDES DIFF/ PLT) absolute eosinophils 90 cells /uL 15-500 normal Not Available [facility] [address], [place], [address], 05/27/2022 08:18:58 05/26/20 22 05/27/2022 CBC (INCL UDES DIFF/ PLT) absolute basophils 48 cells /uL 0-200 normal Not Available [facility] [address], [place], [address], 05/27/2022 08:18:58 05/26/20 22 05/27/2022 CBC (INCL UDES DIFF/ PLT) neutrophils 45.4 % normal Not Available [facility] [address], [place], [address], 05/27/2022 08:18:58 05/26/20 22 05/27/2022 CBC (INCL UDES DIFF/ PLT) lymphocytes 43.0 % normal Not Available [facility] [address], [place], [address], 05/27/2022 08:18:58 05/26/20 22 05/27/2022 CBC (INCL UDES DIFF/ PLT) monocytes 9.3 % normal Not Available [facility] [address] [place], [address], 05/27/2022 08:18:58 05/26/20 22 05/27/2022 CBC (INCL UDES DIFF/ PLT) eosinophils 1.5 % normal Not Available [facility] [address] [place], [address], 05/27/2022 08:18:58 05/26/20 22 05/27/2022 CBC (INCL UDES DIFF/ PLT) basophils 0.8 % normal Not Available [facility] [address] [place], [address], 05/27/2022 08:18:58 05/27/20 22 05/29/2022 CULTU RE, URINE , ROUTI NE culture, urine, routine CULTU RE, URINE , ROUTI NE Micro Numbe r: [id number] Test Statu s: Final Speci men Sourc e: Urine Speci men Quali ty: Adequ ate Resul t: Mixed genit al bijan isola stefan. These super ficia l bacte maco are not indic ative of a urina ry tract infec tion. No furth er organ ism ident ifica tion is warra nted on this speci men. If clini luis indic ated, recol lect clean -catc h, mid-s tream urine and trans holly immed iatel y to Urine Cultu re Trans port Tube. Not Available [facility] [address] [place], [address], 05/29/2022 02:16:45 05/27/2005/27/2022 urina lysis , dipst ick Leukocytes Modera te Not Available [address], [address], 05/27/2022 10:11:09 05/27/20 22 05/27/2022 urina lysis , dipst ick Nitrite negati ve Not Available [facility] [address] [place], [address], 05/27/2022 10:11:09 05/27/20 22 05/27/2022 urina lysis , dipst ick Urobilinogen .[address] Not [address] [facility] [address] [place], [address], 05/27/2022 10:11:09 05/27/20 22 05/27/2022 urina lysis , dipst ick Protein Negati ve Not Available [facility] [address] [place], [address], 05/27/2022 10:11:09 05/27/20 22 05/27/2022 urina lysis , dipst ick pH 6.0 Not Available [facility] [address] [place], [address], 05/27/2022 10:11:09 05/27/20 22 05/27/2022 urina lysis , dipst ick Blood Negati ve Not Available [facility] [address] [place], [address], 05/27/2022 10:11:09 05/27/20 22 05/27/2022 urina lysis , dipst ick Specific [place] 1.[address] Not Available [facility] [address] [place], [address], 05/27/2022 10:11:09 05/27/20 22 05/27/2022 urina lysis , dipst ick Ketone Negati ve Not Available [facility] [address] [place], [address], 05/27/2022 10:11:09 05/27/20 22 05/27/2022 urina lysis , dipst ick Bilirubin Negati ve Not Available [facility] [address] [place], [address], 05/27/2022 10:11:09 05/27/20 22 05/27/2022 urina lysis , dipst ick Glucose Negati ve Not Available [facility] [address] [facility], [place], [address], 05/27/2022 10:11:09 10/17/20 22 10/18/2022 SARS COV2 RNA(C OVID1 9) AND RESP PATHO GEN PNL, NAAT sars cov 2 RNA DETECT ED not detect ed abnormal A Detec stefan resul t indic ates that the patie nt's speci men was posit homar for SARS- CoV-2 RNA. Test Metho d: Nucle ic Acid Ampli ficat ion Test inclu ding rever se trans cript ion polym erase chain react ion (RT-P CR) and trans cript ion media stefan ampli ficat ion (TMA) . The test metho d meets the [place] Cente rs for Disea se Contr ol and preve ntion (CDC) pre depar ture and arriv al requi remen t for viral test for COVID -19 dated 2020. Testi ng requi remen ts for nika harmon february solis e with time. The patie nt is respo nsibl e for deter minin g the test requi remen ts for each natio n while they are nika harmon. This test has been autho rized by the FDA under an Emerg ency Use Autho rizat ion (EUA) for use by autho rized labor atori es. Pleas e revie w the Fact Sheet s and FDA autho rized label ing avail able for healt h care provi ders and patie nts using the follo wing websi ovi: https ://ww w.que stdia gnost ics.c om/ho me/Co vid-1 9/HCP /NAAT /fact -shee t2 https ://ww w.que stdia gnost ics.c om/ho me/Co vid-1 9/Pat ients /NAAT / fact- sheet 2 Due to the curre nt publi c healt h emerg ency, [facility] is accep ting sampl es from appro priat e clini trini sourc es colle cted using wide varie ty of swabs and trans port media for COVID -19. Not detec stefan test resul ts deriv ed from speci mens recei carissa in non- comme rcial ly manuf actur ed viral colle ction kits or those not yet autho rized by FDA for COVID -19 testi ng shoul d be cauti ously evalu ated and take extra preca ution s such as addit ional clini trini monit oring , inclu ding colle ction of an addit ional speci men. Addit ional infor matio n about COVID -19 can be found at the [facility] websi te: www.Q uestD iagno [employer] .[employer]/ Covid 19. For patie nts with a Detec stefan or Incon clusi ve test resul t, pleas e see CDC's COVID -19 Treat ments and Medic ation s page locat ed at https ://ww w.cdc .gov/ coron aviru s/201 9-nco v/you r-hea lth/t reatm ents- for- sever e-ill ness. html for infor matdeborah n on COVID -19 thera peuti cs. For patie nts with a Not Detec stefan test resul t, pleas e see CDC's Vacci isha for COVID -19 page locat ed at https ://ww w.cdc .gov/ coron aviru s/201 9-nco v/vac cines /inde x.htm l for infor matio n on COVID -19 vacci isha. Not Available [facility] [address], [place], [address], 10/18/2022 19:58:56 10/17/20 22 10/18/2022 SARS COV2 RNA(C OVID1 9) AND RESP PATHO GEN PNL, NAAT adenovirus NOT DETECT ED not detect ed normal Not Available [facility] [address], [place], [address], 10/18/2022 19:58:56 10/17/20 22 10/18/2022 SARS COV2 RNA(C OVID1 9) AND RESP PATHO GEN PNL, NAAT rhinovirus/e nterovirus NOT DETECT ED not detect ed normal Not Available [facility] [address] [place], [address], 10/18/2022 19:58:56 10/17/20 22 10/18/2022 SARS COV2 RNA(C OVID1 9) AND RESP PATHO GEN PNL, NAAT influenza A NOT DETECT ED not detect ed normal Not Available [facility] [address] [place], [address], 10/18/2022 19:58:56 10/17/20 22 10/18/2022 SARS COV2 RNA(C OVID1 9) AND RESP PATHO GEN PNL, NAAT influenza A subtype H1 NOT DETECT ED not detect ed normal Not Available [facility] [address] [place], [address], 10/18/2022 19:58:56 10/17/20 22 10/18/2022 SARS COV2 RNA(C OVID1 9) AND RESP PATHO GEN PNL, NAAT influenza A subtype H3 NOT DETECT ED not detect ed normal Not Available [facility] [address] [place], [address], 10/18/2022 19:58:56 10/17/20 22 10/18/2022 SARS COV2 RNA(C OVID1 9) AND RESP PATHO GEN PNL, NAAT influenza B NOT DETECT ED not detect ed normal Not Available [facility] [address] [place], [address], 10/18/2022 19:58:56 10/17/20 22 10/18/2022 SARS COV2 RNA(C OVID1 9) AND RESP PATHO GEN PNL, NAAT human metapneumovi wendy NOT DETECT ED not detect ed normal Not Available [facility] [address], [place], [address], 10/18/2022 19:58:56 10/17/20 22 10/18/2022 SARS COV2 RNA(C OVID1 9) AND RESP PATHO GEN PNL, NAAT human RSV A NOT DETECT ED not detect ed normal Not Available [facility] [address] [facility] [place], [address], 10/18/2022 19:58:56 10/17/20 22 10/18/2022 SARS COV2 RNA(C OVID1 9) AND RESP PATHO GEN PNL, NAAT human RSV B NOT DETECT ED not detect ed normal Not Available [facility] [address] [facility], [place], [address], 10/18/2022 19:58:56 10/17/20 22 10/18/2022 SARS COV2 RNA(C OVID1 9) AND RESP PATHO GEN PNL, NAAT human parainflu virus 1 NOT DETECT ED not detect ed normal Not Available [facility] [address] [facility], [place], [address], 10/18/2022 19:58:56 10/17/20 22 10/18/2022 SARS COV2 RNA(C OVID1 9) AND RESP PATHO GEN PNL, NAAT human parainflu virus 2 NOT DETECT ED not detect ed normal Not Available [facility] [address], [place], [address], 10/18/2022 19:58:56 10/17/20 22 10/18/2022 SARS COV2 RNA(C OVID1 9) AND RESP PATHO GEN PNL, NAAT human parainflu virus 3 NOT DETECT ED not detect ed normal Not Available [facility] [address], [place], [address], 10/18/2022 19:58:56 10/17/20 22 10/18/2022 SARS COV2 RNA(C OVID1 9) AND RESP PATHO GEN PNL, NAAT human parainflu virus 4 NOT DETECT ED not detect ed normal Not Available [facility] [address] [place], [address], 10/18/2022 19:58:56 10/17/20 22 10/18/2022 SARS COV2 RNA(C OVID1 9) AND RESP PATHO GEN PNL, NAAT coronavirus 229E NOT DETECT ED not detect ed normal Not Available [facility] [address] [facility], [place], [address], 10/18/2022 19:58:56 10/17/20 22 10/18/2022 SARS COV2 RNA(C OVID1 9) AND RESP PATHO GEN PNL, NAAT coronavirus oc43 NOT DETECT ED not detect ed normal Not Available [facility] [address] [facility], [place], [address], 10/18/2022 19:58:56 10/17/20 22 10/18/2022 SARS COV2 RNA(C OVID1 9) AND RESP PATHO GEN PNL, NAAT coronavirus [id number] NOT DETECT ED not detect ed normal Not Available [facility] [address] [facility], [place], [address], 10/18/2022 19:58:56 10/17/20 22 10/18/2022 SARS COV2 RNA(C OVID1 9) AND RESP PATHO GEN PNL, NAAT coronavirus hku1 NOT DETECT ED not detect ed normal Not Available [facility] [address] [facility], [place], [address], 10/18/2022 19:58:56 10/17/20 22 10/18/2022 SARS COV2 RNA(C OVID1 9) AND RESP PATHO GEN PNL, NAAT human bocavirus NOT DETECT ED not detect ed normal Not Available [facility] [address], [place], [address], 10/18/2022 19:58:56 10/17/20 22 10/18/2022 SARS COV2 RNA(C OVID1 9) AND RESP PATHO GEN PNL, NAAT chlamydophil a pneumoniae NOT DETECT ED not detect ed normal Not Available [facility] [address] [place], [address], 10/18/2022 19:58:56 10/17/20 22 10/18/2022 SARS COV2 RNA(C OVID1 9) AND RESP PATHO GEN PNL, NAAT mycoplasma pneumoniae NOT DETECT ED not detect ed normal Not Available [facility] [address] [place], [address], 10/18/2022 19:58:56 10/17/20 22 10/18/2022 SARS COV2 RNA(C OVID1 9) AND RESP PATHO GEN PNL, NAAT comment THIS ASSAY WILL NOT DETEC T SARS- CoV-2 (COVI D-19) This test is perfo rmed using the Easy[employer] Lumin ex Techn ology . Limit ation s: A negat homar resul t does not rule out respi rator y patho gen infec tion below the sensi tivit y limit of the assay . The sensi tivit y depen ds on patho gen and sampl e type. This assay canno t relia selena disti nguis h betwe en Rhino virus and Enter oviru s due to rhett ic simil ariti es betwe en the virus es. Not Available [facility] [address] [facility], [place], [address], 10/18/2022 19:58:56 10/17/20 22 10/17/2022 rapid flu (A+B) rapid flu negati ve Not Available [address], [place], [address], 10/17/2022 09:50:59 01/23/20 23 01/24/2023 CULTU RE, URINE , ROUTI NE culture, urine, routine CULTU RE, URINE , ROUTI NE Micro Numbe r: [id number] Test Statu s: Final Speci men Sourc e: Urine Speci men Quali ty: Adequ ate Resul t: Mixed genit al bijan isola stefan. These super ficia l bacte maco are not indic ative of a urina ry tract infec tion. No furth er organ ism ident ifica tion is warra nted on this speci men. If clini luis indic ated, recol lect clean -catc h, mid-s tream urine and trans holly immed iatel y to Urine Cultu re Trans port Tube. Not Available [facility] [address] [facility], [place], [address], 01/24/2023 07:38:25 01/23/20 23 01/22/2023 urina lysis , dipst ick Leukocytes Small Not Available [facility] [address] [place], [address], 01/22/2023 14:31:20 01/23/20 23 01/22/2023 urina lysis , dipst ick Nitrite negati ve Not Available [facility] [address] [place], [address], 01/22/2023 14:31:20 01/23/20 23 01/22/2023 urina lysis , dipst ick Urobilinogen .[address] Not [address] [facility] [address] [place], [address], 01/22/2023 14:31:20 01/23/20 23 01/22/2023 urina lysis , dipst ick Protein Negati ve Not Available [facility] [address] [place], [address], 01/22/2023 14:31:20 01/23/20 23 01/22/2023 urina lysis , dipst ick pH 6.0 Not Available [facility] [address] [place], [address], 01/22/2023 14:31:20 01/23/20 23 01/22/2023 urina lysis , dipst ick Blood Negati ve Not Available [facility] [address] [place], [address], 01/22/2023 14:31:20 01/23/20 23 01/22/2023 urina lysis , dipst ick Specific [place] 1.030 Not Available [facility] [address] [place], [address], 01/22/2023 14:31:20 01/23/20 23 01/22/2023 urina lysis , dipst ick Ketone Negati ve Not Available [facility] [address] [place], [address], 01/22/2023 14:31:20 01/23/20 23 01/22/2023 urina lysis , dipst ick Bilirubin Negati ve Not Available [facility] [address] [place], [address], 01/22/2023 14:31:20 01/23/20 23 01/22/2023 urina lysis , dipst ick Glucose Negati ve Not Available [facility] [address] [place], [address], 01/22/2023 14:31:20 07/16/20 23 07/16/2023 urina lysis , dipst ick Leukocytes Negati ve Not Available [facility] [address] [place], [address], 07/16/2023 13:59:01 07/16/20 23 07/16/2023 urina lysis , dipst ick Nitrite negati ve Not Available [facility] [address] [place], [address], 07/16/2023 13:59:01 07/16/20 23 07/16/2023 urina lysis , dipst ick Urobilinogen .[address] Not [address] [facility] [address] [place], [address], 07/16/2023 13:59:01 07/16/20 23 07/16/2023 urina lysis , dipst ick Protein Negati ve Not Available [facility] [address] [place], [address], 07/16/2023 13:59:01 07/16/20 23 07/16/2023 urina lysis , dipst ick pH 6.0 Not Available [facility] [address] [place], [address], 07/16/2023 13:59:01 07/16/20 23 07/16/2023 urina lysis , dipst ick Blood Negati ve Not Available [facility] [address] [place], [address], 07/16/2023 13:59:01 07/16/20 23 07/16/2023 urina lysis , dipst ick Specific [place] 1.[address] Not [address] [facility] [address] [place], [address], 07/16/2023 13:59:01 07/16/20 23 07/16/2023 urina lysis , dipst ick Ketone Negati ve Not Available [facility] [address] [place], [address], 07/16/2023 13:59:01 07/16/20 23 07/16/2023 urina lysis , dipst ick Bilirubin Negati ve Not Available [facility] [address] [place], [address], 07/16/2023 13:59:01 07/16/20 23 07/16/2023 urina lysis , dipst ick Glucose Negati ve Not Available [facility] [address] [place], [address], 07/16/2023 13:59:01 07/30/2007/31/2023 LIPID PANEL (REFL ) cholesterol, total 168 mg/dL <200 normal Not Available [facility] [address] [facility], [place], [address], 07/31/2023 09:40:42 07/30/2007/31/2023 LIPID PANEL (REFL ) HDL cholesterol 69 mg/dL > or = 50 normal Not Available [facility] [address] [facility], [place], [address], 07/31/2023 09:40:42 07/30/2007/31/2023 LIPID PANEL (REFL ) triglyceride s 75 mg/dL <150 normal Not Available [facility] [address] [facility], [place], [address], 07/31/2023 09:40:42 07/30/2007/31/2023 LIPID PANEL (REFL ) LDL-choleste rol 83 mg/dL _(trini c) normal Refer ence range : <100 Anne able range <100 mg/dL for prima ry preve ntion ; <70 mg/dL for patie nts with CHD or diabe tic patie nts with > or = 2 CHD risk facto rs. LDL-C is now calcu lated using the Velvet pineda-Hop kins rylanu mary n, which is a valid ated novel lydiao manny roque r accur acy than the Fried fausto equat ion in the estim ation of LDL-C . Velvet pineda SS et al. DESIREE. 2013; 310(1 9): 2061- 2068 (http ://ed jhonatanati on.Qu Cornell benoits. com/f aq/FA Q164) Not Available [facility] [address], [place], [address], 07/31/2023 09:40:42 07/30/2007/31/2023 LIPID PANEL (REFL ) chol/HDLC ratio 2.4 (calc ) <5.0 normal Not Available [facility] [address] [place], [address], 07/31/2023 09:40:42 07/30/2007/31/2023 LIPID PANEL (REFL ) non HDL cholesterol 99 mg/dL _(trini c) <130 normal For patie nts with diabe ovi plus 1 major ASCVD risk facto r, treat ing to a non-H DL-C goal of <100 mg/dL (LDL- C of <70 mg/dL ) is consi dered a thera peuti c optio n. Not Available [facility] [address] [place], [address], 07/31/2023 09:40:42 07/30/2007/31/2023 COMPR EHENS HOMAR METAB OLIC PANEL glucose 101 mg/dL 65-99 high Fasti ng refer ence inter edy For someo ne witho ut known diabe ovi, a gluco se value betwe en 100 and 125 mg/dL is consi stent with predi abete s and shoul d be confi rmed with a follo w-up test. Not Available [facility] [address] [place], [address], 07/31/2023 09:40:42 07/30/2007/31/2023 COMPR EHENS HOMAR METAB OLIC PANEL urea nitrogen (BUN) 23 mg/dL 7-25 normal Not Available [facility] [address] [place], [address], 07/31/2023 09:40:42 07/30/2007/31/2023 COMPR EHENS HOMAR METAB OLIC PANEL creatinine 1.03 mg/dL 0.50-1 .05 normal Not Available [facility] [address] [place], [address], 07/31/2023 09:40:42 07/30/2007/31/2023 COMPR EHENS HOMAR METAB OLIC PANEL eGFR 61 mL/mi n/1.7 3m2 > or = 60 normal Not Available [facility] [address] [place], [address], 07/31/2023 09:40:42 07/30/2007/31/2023 COMPR EHENS HOMAR METAB OLIC PANEL BUN/creatini ne ratio SEE NOTE: (calc ) 6-22 Not Repor stefan: BUN and Creat inine are withi n refer ence range . Not Available [facility] [address] [place], [address], 07/31/2023 09:40:42 07/30/2007/31/2023 COMPR EHENS HOMAR METAB OLIC PANEL sodium 139 mmol/ L 135-14 6 normal Not Available [facility] [address] [place], [address], 07/31/2023 09:40:42 07/30/2007/31/2023 COMPR EHENS HOMAR METAB OLIC PANEL potassium 4.2 mmol/ L 3.5-5. 3 normal Not Available [facility] [address] [place], [address], 07/31/2023 09:40:42 07/30/2007/31/2023 COMPR EHENS HOMAR METAB OLIC PANEL chloride 107 mmol/ L 98-110 normal Not Available [facility] [address] [place], [address], 07/31/2023 09:40:42 07/30/2007/31/2023 COMPR EHENS HOMAR METAB OLIC PANEL carbon dioxide 25 mmol/ L 20-32 normal Not Available [facility] [address] [place], [address], 07/31/2023 09:40:42 07/30/2007/31/2023 COMPR EHENS HOMAR METAB OLIC PANEL calcium 9.3 mg/dL 8.6-10 .4 normal Not Available [facility] [address] [place] [place], [address], 07/31/2023 09:40:42 07/30/2007/31/2023 COMPR EHENS HOMAR METAB OLIC PANEL protein, total 6.4 g/dL 6.1-8. 1 normal Not Available [facility] [address] [facility] [facility] [place], [address], 07/31/2023 09:40:42 07/30/2007/31/2023 COMPR EHENS HOMAR METAB OLIC PANEL albumin 4.1 g/dL 3.6-5. 1 normal Not Available [facility] [address] [place], [address], 07/31/2023 09:40:42 07/30/2007/31/2023 COMPR EHENS HOMAR METAB OLIC PANEL globulin 2.3 g/dL_ (calc ) 1.9-3. 7 normal Not Available [facility] [address] [place], [address], 07/31/2023 09:40:42 07/30/2007/31/2023 COMPR EHENS HOMAR METAB OLIC PANEL albumin/glob ulin ratio 1.8 (calc ) 1.0-2. 5 normal Not Available [facility] [address] [place], [address], 07/31/2023 09:40:42 07/30/2007/31/2023 COMPR EHENS HOMAR METAB OLIC PANEL bilirubin, total 0.4 mg/dL 0.2-1. 2 normal Not Available [facility] [address] [place], [address], 07/31/2023 09:40:42 07/30/2007/31/2023 COMPR EHENS HOMAR METAB OLIC PANEL alkaline phosphatase 69 U/L 37-153 normal Not Available [facility] [employer] [facility] [address], [place], [address], 07/31/2023 09:40:42 07/30/2007/31/2023 COMPR EHENS HOMAR METAB OLIC PANEL AST 15 U/L 10-35 normal Not Available [facility] [address], [place], [address], 07/31/2023 09:40:42 07/30/2007/31/2023 COMPR EHENS HOMAR METAB OLIC PANEL ALT 13 U/L 6-29 normal Not Available [facility] [employer] [facility] [address] [facility], [place], [address], 07/31/2023 09:40:42 07/30/2007/31/2023 TSH TSH 2.44 mIU/L 0.40-4 .50 normal Not Available [facility] [facility] [address] [place], [address], 07/31/2023 09:40:43 07/30/2007/31/2023 CBC (INCL UDES DIFF/ PLT) white blood cell count 6.7 thous and/u L 3.8-10 .8 normal Not Available [employer] [facility] [address] [facility], [place], [address], 07/31/2023 09:40:44 07/30/2007/31/2023 CBC (INCL UDES DIFF/ PLT) red blood cell count 4.37 charley on/uL 3.80-5 .10 normal Not Available [facility] [address] [facility], [place], [address], 07/31/2023 09:40:44 07/30/2007/31/2023 CBC (INCL UDES DIFF/ PLT) hemoglobin 13.1 g/dL 11.7-1 5.5 normal Not Available [facility] [address] [place], [address], 07/31/2023 09:40:44 07/30/2007/31/2023 CBC (INCL UDES DIFF/ PLT) hematocrit 40.0 % 35.0-4 5.0 normal Not Available [facility] [address] [place], [address], 07/31/2023 09:40:44 07/30/2007/31/2023 CBC (INCL UDES DIFF/ PLT) MCV 91.5 fL 80.0-1 00.0 normal Not Available [facility] [address] [place], [address], 07/31/2023 09:40:44 07/30/2007/31/2023 CBC (INCL UDES DIFF/ PLT) MCH 30.0 pg 27.0-3 3.0 normal Not Available [facility] [address] [place], [address], 07/31/2023 09:40:44 07/30/2007/31/2023 CBC (INCL UDES DIFF/ PLT) MCHC 32.8 g/dL 32.0-3 6.0 normal Not Available [facility] [address] [place], [address], 07/31/2023 09:40:44 07/30/2007/31/2023 CBC (INCL UDES DIFF/ PLT) RDW 13.4 % 11.0-1 5.0 normal Not Available [facility] [address] [place], [address], 07/31/2023 09:40:44 07/30/2007/31/2023 CBC (INCL UDES DIFF/ PLT) platelet count 222 thous and/u L 140-40 0 normal Not Available [facility] [address] [place], [address], 07/31/2023 09:40:44 07/30/2007/31/2023 CBC (INCL UDES DIFF/ PLT) MPV 11.6 fL 7.5-12 .5 normal Not Available [facility] [address] [place], [address], 07/31/2023 09:40:44 07/30/2007/31/2023 CBC (INCL UDES DIFF/ PLT) absolute neutrophils 3229 cells /uL 1500-7 800 normal Not Available [facility] [address] [place], [address], 07/31/2023 09:40:44 07/30/2007/31/2023 CBC (INCL UDES DIFF/ PLT) absolute lymphocytes 2680 cells /uL 850-39 00 normal Not Available [facility] [address] [place], [address], 07/31/2023 09:40:44 07/30/2007/31/2023 CBC (INCL UDES DIFF/ PLT) absolute monocytes 643 cells /uL 200-95 0 normal Not Available [facility] [place], [address], 07/31/2023 09:40:44 07/30/2007/31/2023 CBC (INCL UDES DIFF/ PLT) absolute eosinophils 107 cells /uL 15-500 normal Not Available [facility] [address] [place], [address], 07/31/2023 09:40:44 07/30/2007/31/2023 CBC (INCL UDES DIFF/ PLT) absolute basophils 40 cells /uL 0-200 normal Not Available [facility] [address] [place] [address] [place], [address], 07/31/2023 09:40:44 07/30/2007/31/2023 CBC (INCL UDES DIFF/ PLT) neutrophils 48.2 % normal Not Available [facility] [address] [place], [address], 07/31/2023 09:40:44 07/30/2007/31/2023 CBC (INCL UDES DIFF/ PLT) lymphocytes 40.0 % normal Not Available [facility] [place], [address], 07/31/2023 09:40:44 07/30/2007/31/2023 CBC (INCL UDES DIFF/ PLT) monocytes 9.6 % normal Not Available [facility] [address] [place], [place] [address] [place], [address], 07/31/2023 09:40:44 07/30/2007/31/2023 CBC (INCL UDES DIFF/ PLT) eosinophils 1.6 % normal Not Available [facility] [place], [address], 07/31/2023 09:40:44 07/30/2007/31/2023 CBC (INCL UDES DIFF/ PLT) basophils 0.6 % normal Not Available [facility] [facility] [facility] [place], [address], 07/31/2023 09:40:44 08/04/2008/06/2023 THINP REP TIS PAP clinical information: normal Lina l exam Not Available [facility] [address] [place], [address], 08/06/2023 14:24:15 08/04/2008/06/2023 THINP REP TIS PAP LMP: normal UNKNO WN Not Available [facility] [address] [place], [address], 08/06/2023 14:24:15 08/04/2008/06/2023 THINP REP TIS PAP prev. Pap: normal UNKNO WN Not Available [facility] [address] [place], [address], 08/06/2023 14:24:15 08/04/2008/06/2023 THINP REP TIS PAP prev. BX: normal UNKNO WN Not Available [facility] [address] [place], [address], 08/06/2023 14:24:15 08/04/2008/06/2023 THINP REP TIS PAP source: normal Vagin a, Cervi x, Endoc ervix Not Available [facility] [address] [place], [address], 08/06/2023 14:24:15 08/04/2008/06/2023 THINP REP TIS PAP statement of adequacy: normal Satis facto ry for evalu ation . Endoc ervic al/tr ansfo rmati on zone compo nent prese nt. Not Available [facility] [address] [place], [address], 08/06/2023 14:24:15 08/04/2008/06/2023 THINP REP TIS PAP interpretati on/result: normal Cytol ogy Resul ts: Negat homar for intra epith elial lesio n or malig haydee . Not Available [facility] [address] [place], [address], 08/06/2023 14:24:15 08/04/2008/06/2023 THINP REP TIS PAP comment: normal This Pap test has been evalu ated with compu ter perla stefan techn ology . Not Available [facility] [employer] [facility] [address] [place], [address], 08/06/2023 14:24:15 08/04/20 23 08/06/2023 THINP REP TIS PAP cytotechnolo gist: normal ESL, CT( CP) CT Scree yvonne Locat ion: [facility] [place] [address] [facility] [place] [address] Not Available [facility] [address] [place], [address], 08/06/2023 14:24:15 08/04/20 23 08/06/2023 THINP REP TIS PAP comment EXPLA NATOR Y NOTE: The Pap is a scree yvonne test for cervi trini cance r. It is not a diagn ostic test and is subje ct to false negat homar and false posit homar resul ts. It is most relia ble when a satis facto ry sampl e, regul trish obtai alverto, is submi tted with relev ant clini trini findi ngs and histo ry, and when the Pap resul t is evalu ated along with histo vanessa and curre nt clini trini infor matio n. Not Available [facility] [address] [facility], [place], [address], 08/06/2023 14:24:15 08/11/20 23 08/11/2023 nonin vasiv e color ectal cance r DNA + occul t blood scree yvonne, QL, stool cologuard negati ve normal Not Available Not Available 18:04:55 12/27/19 23 12/26/2022 MAMMO , scree yvonne, digit al, bilat eral [facility] [address] [address] Phone: Fax: Name: DEIRDRE ORTEZ Exam Date: 023 : 9[birth year] Age 62 Gender : F Access ion: [id number] Physic jim: RONDA GAMBLE Facili ty: [place] Facili ty HSV: Outpat ient Exam: SCREEN MAMMO W CAD BILAT MAMMOG SURINDER SCREEN ING BILATE RAL WITH TOMOSY NTHESI S HISTOR Y: Routin e screen ing exam COMPAR MADELINE: December 20, 2021 FINDIN GS: Standa rd views were obtain ed. There are scatte red fibrog landul ar densit ies. Benign -appea ring calcif icatio ns are presen t. No mass, suspic ious calcif icatio ns or gracia ectura l distor tion is presen t. IMPRES MACARENA: No mammog raphic eviden ce of malign andrei. BI-RAD S 2: Benign RECOMM ENDATI ON: Annual mammog violeta CAD was utiliz ed during interp retati on. The patien t will be sent a letter from the mammog violeta depart ment with their mammog violeta findin gs. Dictat ed By: RONDA JENSEN Transc ribed By: RONDA JENSEN Transc ribed On: 023 3:30 PM Electr onical ly signed by: RONDA JENSEN 023 [facility] Legall y authen ticate d by POPE RONDA Deshpande DO 12-26 15:30: 31 CC'ed Logic: Orderi ng Provid er: CHANCE Blackwell CC Provid er: CHANCE Blackwell Attend ing Provid er: CHANCE Blacwkell Referr ing Provid er: CHANCE Blackwell Admitt ing Provid er: CHANCE almazan[address] [place] [address] (Radiology) [address] , [place], [address], 12/28/2022 18:32:26 05/02/20 23 05/02/2023 XR, chest , 2 view No observ ation record ed. franck [facility] [address], [place], [address], 05/02/2023 10:57:17 01/25/20 24 01/25/2024 MAMMO , scree yvonne, digit al, bilat eral [facility] [address] [place] [address] Phone: Fax: Name: DEIRDRE ORTEZ Exam Date: 01/25/20 : [birth year] Age 63 years Gender : F Access ion: [id number] Physic jim: RONDA GAMBLE Facili ty: [facility] Facili ty HSV: Outpat ient Exam: SCREEN MAMMO W CAD BILAT MAMMOG SURINDER SCREEN ING BILATE RAL HISTOR Y: Routin e screen ing exam COMPAR MADELINE: December 26, 2022 TECHNI QUE: Standa rd digita l 2-D views with 3-D tomosy nthesi s DENSIT Y: There are scatte red areas of fibrog landul ar densit y FINDIN GS: Benign calcif icatio ns. Scatte red areas of focal asymme try are noted. No suspic ious mass, suspic ious calcif icatio ns or gracia ectura l distor tion is presen t. IMPRES MACARENA: No mammog raphic eviden ce of malign andrei BI-RAD S 2: Benign findin g RECOMM ENDATI ON: Annual mammog violeta CAD was utiliz ed during interp retati on. The patien t will be sent a letter from the mammog violeta depart ment with their mammog violeta result s. Dictat ed By: ROXANNE CHANG Transc ribed By: ROXANNE CHANG Transc ribed On: 01/25/20 1:27 PM Electr onical ly signed by: ROXANNE CHANG 01/25/20 Thank you for referr ing DEIRDRE ORTEZ to [facility]. Legall y authen ticate d by BERNARDO Kaur MD 01-24 13:27: 57 CC'ed Logic: Orderi ng Provid er: CHANCE Blackwell CC Provid er: CHANCE Blackwell Attend ing Provid er: CHANCE Blackwell Referr ing Provid er: CHANCE Blackwell Admitt ing Provid er: CHANCE juárez [facility] (Radiology) [address], [place], [address], 01/25/2024 16:04:49 Result Notes None recorded. Problems Name Problem SNOMED Code Status Onset Date Resolution Date Notes Provider Name and Address Organization Details Recorded Time Generalized osteoarthri tis 806454316 Active Not Available [facility] 3 03:01:15 Disorder of bursa of shoulder region 28894441 Active 1999 chose not to have surgery Not Available [facility] 3 03:01:15 Urinary tract infectious disease 45231421 Active Not Available [facility] 3 03:01:15 Acute bronchopneu monia 940561698 Active Sendy Moran MD [address], [address] [place] [address] , [place] [facility] 4 14:26:56 Pain of hip region 76641518 Active Sendy Moran MD [address], [address] [place] [address] , [place] - [facility] 4 10:34:43 Anti-nuclea r factor detected 412558087 Active Sendy Moran MD [address], [address] [place] [address] , [place] - [facility] 4 10:34:43 Sinusitis 39826156 Active Sendy Moran MD [address], [address] [place] [address] , [place] - [facility] 4 10:34:43 Hyperlipide chinmay 78707266 Active Sendy Moran MD [address], [address] [place] [address] , [place] [facility] 4 10:34:43 Dysuria 89001755 Active Sendy Moran MD [address], [address] [place] [address] , [facility] 4 10:34:43 Palpitation s 86582758 Active Sendy Moran MD [address], [address] [place] [address] , [facility] 4 10:34:43 Arthritis of hip 07409187 Active Sendy Moran MD [address] [place] [address] , [place] [facility] 4 12:09:57 Acute sinusitis 59826971 Active Sendy Moran MD [address] [facility] 5 14:25:19 Serous otitis media 39395442 Active Sendy Moran MD [address] [facility] 5 14:25:19 Acute bronchitis 35305345 Active Sendy Moran MD [address] [facility] 5 14:25:19 Problem Notes None recorded. Procedures Surgical History Date Name Laterality Status Provider Name and Address Organization Details Recorded Time 8 I&D completed Sendy Moran MD [address], [address] [place] [address] [facility] 04/10/2018 21:48:32 7 I&D completed Sendy Moran MD [address], [address] [place] [address] [facility] 06/09/2017 14:43:13 7 Tonsillectomy completed [facility] 09/20/2012 13:18:49 Imaging Results Imaging Date Name Status LastModified by Organiz ation Details LastModified Time 12/26/2022 MAMMO, screening, digital, bilateral completed [address] (Radiology) [address] [facility] , [place], [address], 12/28/2022 18:32:26 05/02/2023 XR, chest, 2 view completed [address], [place], [address], 05/02/2023 10:57:17 01/25/2024 MAMMO, screening, digital, bilateral completed [address] (Radiology) [address] [facility] , [place], [address], 01/25/2024 16:04:49 Procedure Notes None recorded. Medical Equipment None Reported. Allergies Allergen ID Allergen Name Allergen Category Reaction Reaction Severity Criticality Documentation Date Start Date Code Code System Note Provider Name and Address Organization Details Recorded Time 89125 cefdinir medicatio n angioedem a severe high 07/16/2023 01952 RxNorm Sendy Moran MD [address] [facility], [address], [place], [address] [facility] 3 14:56:57 Medications Name Sig Start Date Stop Date Status Note LastModified by Organization Details LastModified Time amoxicilli n 500 mg capsule Take 2 capsules every 12 hours by oral route for 10 days. 11/24 completed Not Available Not Available Not Available promethazi ne-DM 6.25 mg-15 mg/5 mL oral syrup 05/21 completed Not Available Not Available Not Available prednisone 10 mg tablet 05/21 completed Not Available Not Available Not Available atorvastat in 10 mg tablet TAKE 1 TABLET BY MOUTH EVERY DAY IN THE EVENING OR TRY EVERY OTHER DAY. active Not Available Not Available No t Available azithromyc in 250 mg tablet TAKE 2 TABLETS BY MOUTH TODAY, THEN TAKE 1 TABLET DAILY FOR 4 DAYS 01/22 completed Not Available Not Available Not Available fluconazol e 150 mg tablet TAKE ONE TABLET TODAY AND ONE TABLET IN THREE DAYS 05/27 completed Not Available Not Available Not Available benzonatat e 200 mg capsule Take 1 capsule 3 times a day by oral route as needed. 05/21 completed Not Available Not Available Not Available Claritin 10 mg tablet Take 1 tablet every day by oral route as needed. 08/09 completed Not Available Not Available Not Available dexamethas one 6 mg tablet 01/27 completed Not Available Not Available Not Available ciprofloxa moises 250 mg tablet TAKE 1 TABLET BY MOUTH EVERY 12 HOURS 06/18 completed Not Available Not Available Not Available aspirin 81 mg tablet,del ayed release Take 3 tablets every day by oral route. 12/20 completed Not Available Not Available Not Available triamcinol one acetonide 0.1 % topical cream APPLY THIN COAT TO AFFECTED AREA TWICE A DAY NEEDED active Not Available Not Available No t Available levothyrox ine 25 mcg tablet Take 1 tablet every day by oral route. 04/09 completed Not Available Not Available Not Available levothyrox ine 75 mcg tablet TAKE 1 TABLET BY MOUTH EVERY DAY active Not Available Not Available No t Available hydrocorti sone 2.5 % topical cream with perineal applicator APPLY A THIN LAYER TO THE AFFECTED AREA(S) BY TOPICAL ROUTE 2-4 TIMES DAILY prn 04/06 completed states she is not on this med Not Available Not Available Not Available ceftriaxon e 1 gram solution for injection Take 1 g by injectio n route. 12/29 completed Not Available Not Available Not Available benzonatat e 100 mg capsule TAKE 1 CAPSULE BY MOUTH THREE TIMES A DAY NEEDED FOR COUGH 08/04 completed Not Available Not Available Not Available levothyrox ine 50 mcg tablet TAKE 1 TABLET BY MOUTH EVERY DAY 12/15 completed Not Available Not Available Not Available hydrocodon e 7.5 mg-acetami nophen 325 mg tablet TAKE 1 TO 2 TABLETS EVERY 4 TO 6 HOURS NEEDED FOR PAIN 05/27 completed Not Available Not Available Not Available hydrocorti sone 2.5 % topical cream APPLY A THIN LAYER TO THE AFFECTED AREA TOPICALL Y 2-4 TIMES A DAY NEEDED 08/09 completed Not Available Not Available Not Available dexamethas one sodium phosphate 4 mg/mL injection solution Inject 1 mL by intramus cular route. 01/22 completed Not Available Not Available Not Available levofloxac in 500 mg tablet 12/29 completed Not Available Not Available Not Available estradiol 0.01% (0.1 mg/gram) vaginal cream APPLY A PEA SIZED AMOUNT TO EXTERNAL URETHRAL AREA 3 NIGHTS WEEKLY AND INSERT 1 GRAM TWICE WEEKLY active Not Available Not Available No t Available gentamicin 40 mg/mL injection solution Take 2 mL by injectio n route. 08/04 completed Not Available Not Available Not Available methylpred nisolone 4 mg tablets in a dose pack TAKE 6 TABLETS ON DAY 1 DIRECTED ON PACKAGE AND DECREASE BY 1 TAB EACH DAY FOR A TOTAL OF 6 DAYS 08/04 completed Not Available Not Available Not Available albuterol sulfate HFA 90 mcg/actuat ion aerosol inhaler Inhale by inhalati on route for 16 days. active Not Available Not Available No t Available bromphenir amine-pseu doephedrin e-DM 2 mg-30 mg-10 mg/5 mL oral syrup Take 10 mL every 4-6 hours by oral route for 15 days. 05/27 completed Not Available Not Available Not Available cefdinir 300 mg capsule TAKE 1 CAPSULE BY MOUTH TWICE A DAY 08/04 completed Not Available Not Available Not Available naproxen 500 mg tablet 11/24 completed Not Available Not Available Not Available amoxicilli n 875 mg-potassi um clavulanat e 125 mg tablet TAKE 1 TABLET BY MOUTH EVERY 12 HOURS 08/04 completed Not Available Not Available Not Available nitrofuran toin monohydrat e/macrocry stals 100 mg capsule TAKE 1 CAPSULE BY MOUTH EVERY 12 HOURS WITH MEALS active Not Available Not Available No t Available Boostrix Tdap 2.5 Lf unit-8 mcg-5 Lf/0.5 mL intramuscu lar syringe TO BE ADMINIST ERED BY PHARMACI ST FOR IMMUNIZA TION 12/15 completed Not Available Not Available Not Available Aleve takes 1 rarely 12/05 completed Not Available Not Available Not Available ibuprofen only as needed. active Not Available Not Available No t Available Claritin 11/24 completed Not Available Not Available Not Available Flucelvax Quad [id number] (PF) 60 mcg (15 mcg x 4)/0.5 mL IM syringe TO BE ADMINIST ERED BY PHARMACI ST FOR IMMUNIZA TION 08/12 completed Not Available Not Available Not Available Vitals Date Recorded Body height Body mass index (BMI) Body weight Heart rate Oxygen saturation Oxygen saturation in Arterial blood by Pulse oximetry Body temperature Systolic blood pressure Diastolic blood pressure Provider Name and Address Organization Details Last Updated DateTime 2 167.64 cm 30.2 kg/m2 52445.4 7 g 80 /min 98 % 98 % 97 [degF] 129 mm[Hg] 78 mm[Hg] [facility] 2 10:07:41 Date Recorded Body height Body mass index (BMI) Body weight Heart rate Oxygen saturation Oxygen saturation in Arterial blood by Pulse oximetry Body temperature Systolic blood pressure Diastolic blood pressure Provider Name and Address Organization Details Last Updated DateTime 2 167.64 cm 29.7 kg/m2 80924.7 g 98 /min 98 % 98 % 96.8 [degF] 126 mm[Hg] 72 mm[Hg] [facility] 2 09:16:34 Date Recorded Body height Body weight Heart rate Oxygen saturation Oxygen saturation in Arterial blood by Pulse oximetry Body temperature Systolic blood pressure Diastolic blood pressure Provider Name and Address Organization Details Last Updated DateTime 3 167.64 cm 40119.6 9 g 86 /min 95 % 95 % 96.6 [degF] 140 mm[Hg] 85 mm[Hg] [facility] 3 14:25:54 Date Recorded Body height Body mass index (BMI) Body weight Heart rate Oxygen saturation Oxygen saturation in Arterial blood by Pulse oximetry Body temperature Systolic blood pressure Diastolic blood pressure Provider Name and Address Organization Details Last Updated DateTime 3 167.64 cm 28.2 kg/m2 05368.6 6 g 75 /min 96 % 96 % 97.5 [degF] 155 mm[Hg] 103 mm[Hg] [facility] 3 13:58:29 Date Recorded Systolic blood pressure Diastolic blood pressure Provider Name and Address Organization Details Last Updated DateTime 07/16/2023 148 mm[Hg] 83 mm[Hg] Sendy Moran MD [address] [facility], [facility], [place], [address], [facility] 07/16/2023 15:07:47 Date Recorded Body height Body mass index (BMI) Body weight Heart rate Oxygen saturation Oxygen saturation in Arterial blood by Pulse oximetry Body temperature Systolic blood pressure Diastolic blood pressure Provider Name and Address Organization Details Last Updated DateTime 3 167.64 cm 28.4 kg/m2 28238.6 6 g 98 /min 97 % 97 % 97 [degF] 116 mm[Hg] 80 mm[Hg] [facility] 3 09:13:18 Social History Question Answer Notes LastModified by Organizat ion Details LastModified Time Tobacco Smoking Status Never Smoker Not Available [facility] 08/14/2020 03:11:19 Do You Have An Advance Directive? No [id number] Information not available 08/14/2020 Animal Exposure? Yes Informat ion not available 09/20/2012 Auto Related Injury? No Information not available 09/20/2012 Is Blood Transfusion Acceptable In An Emergency? Yes [id number] Information not available 08/14/2020 What Is Your Level Of Caffeine Consumption? Moderate [id number] Information not available 08/14/2020 How Much Tobacco Do You Chew? None [id number] Information not available 08/14/2020 Diabetes No Information no t available 09/20/2012 What Type Of Diet Are You Following? REGULAR [id number] Information not available 08/14/2020 Education 9 GED Information no t available 09/20/2012 What Is The Highest Grade Or Level Of School You Have Completed Or The Highest Degree You Have Received? [id number] Information not available 08/04/2023 Family History Of Heart Disease? Yes Information not available 09/20/2012 Which Of Your Hands Is Dominant? Right [id number] Information not available 08/14/2020 High Blood Pressure No Information not available 09/20/2012 High Cholesterol No Informat ion not available 09/20/2012 Live Alone Or With Others? With Others Information not available 09/20/2012 Marital Status [email or web address] Informatio n not available 11/25/2016 What Was The Date Of Your Most Recent Tobacco Screening? 08/04/2023 Information not available 08/04/2023 How Many Children Do You Have? 2 [id number] Information not available 08/14/2020 What Is Your Relationship Status? Information not available 08/04/2023 Do You Use Your Seat Belt Or Car Seat Routinely? Yes [id number] Information not available 08/14/2020 Seat Belts Used Routinely Yes Information not available 09/20/2012 Smoke Alarm In Home Yes Information not available 09/20/2012 General Stress Level Medium Information not available 09/20/2012 Do You Use Sunscreen Routinely? No [id number] Information not available 08/14/2020 Work Related Injury? No Information not available 09/20/2012 Sex: Unknown Functional Status Question Answer Note LastModified by Organizat ion Details LastModified Time What is your level of alcohol consumption? None [id number] Information not available 08/14/2020 Are you currently employed? No [id number] Information not available 08/14/2020 Are you able to care for yourself? Yes [id number] Information not available 08/14/2020 What is your occupation? RETIRED [id number] Information not available 08/14/2020 What is your exercise level? Occasional [id number] Information not available 08/14/2020 Mental Status Question Answer Note LastModified by Organization D etails LastModified Time Do you feel stressed (tense, restless, nervous, or anxious, or unable to sleep at night)? [id number] Information not available 08/04/2023 Family History Relationship Description Onset Age of this Age Resolved Age Notes LastModified by Organization Details LastModified Time Mother Heart disease ALIVE (previ ously record ed as Heart Proble m) Not available 11/16/2014 13:52:36 Mother Malignant neoplastic disease 82 previo usly record ed as Cancer ,oral Not available 05/21/2020 09:16:33 Father Malignant neoplastic disease 73 previo usly record ed as Cancer Not available 11/16/2014 13:52:36 Brother Heart disease 50 has enlarg ed heart Not available 11/16/2014 13:52:36 Sister Cardiac pacemaker in situ 52 Not available 2017 15:46:34 Notes:strong family history on mother's side of heart problems Medical History Condition Response Coronary Artery Disease N Gout N Kidney Stones N Blood Diseases N Hyperthyroidism N Depression N Hypothyroidism N COPD N Developmental or Behavioral Disorders N Eczema, Hives or other skin conditions N Anxiety Disorder N Muscle, Joint, or Bone Problems N Vision or Eye Problems N Arthritis N Serious Illness or Injuries N Congenital Anomalies N Cancer N Stroke N Bladder or Kidney Problems N Hospital Admission other than N High Cholesterol N Liver Disease N Fibromyalgia N Kidney Disease N Heart Problems N Ear or Hearing Problems N ADD or ADHD N Thyroid Problems N Skin Problems N Anemia N Constipation N Diabetes N Bedwetting N Seizures/Epilepsy N Tuberculosis N Diverticulitis N Allergies Y Asthma N GERD/Reflux N Heart Disease N Pulmonary Embolism N Hypertension N Osteoporosis N Chicken Pox N Gynecological History Statement/Question Response Menses Monthly N If Post Menopausal, Age at Menopause 35 Obstetrics History GPAL:G 2 P 2 0 0 2 Type Value Full Term 2 Living 2 Total 2 Immunizations Vaccine Type Date Status Note Provider Nam e and Address Organization Details Recorded Time Influenza, split virus, quadrivalent, preservative 7 completed Sendy Moran MD [address] [facility], [place] [address], [place], [address], [facility] 09/18/2017 23:22:27 Tdap 8 completed Sendy Moran MD [address], [address], [facility] 12/19/2017 16:17:18 Influenza, split virus, quadrivalent, preservative 8 completed Sendy Moran MD [address], [address], [place] [facility] 10/15/2018 21:15:51 Influenza, split virus, quadrivalent, preservative 9 completed Sendy Moran MD [address], [address], [facility] 10/24/2019 11:27:59 Td (adult) 7 completed Sendy Moran MD [address], [address], [place] [facility] 09/20/2012 14:17:20 zoster recombinant 8 completed Sendy Moran MD [address], [address], [facility] 08/04/2023 09:58:10 zoster recombinant 8 completed Sendy Moran MD [address], [address], [facility] 08/04/2023 09:58:20 Past Encounters Encounter ID Performer Location Encounter Start Date Encounter Closed Date Diagnosis/Indication Diagnosis SNOMED-CT Code Diagnosis ICD10 Code Diagnosis Note [id number] Sendy Moran MD [facility] [address] [address] 09/20/2012 13:06:49 09/20/2012 19:43:29 [id number] Sendy Moran MD [facility] [address] [place] [address] 06/09/2014 13:29:06 06/09/2014 18:19:24 Acute bronchopneumonia 989405303 [id number] Sendy Moran MD [facility] [address] [address] 09/04/2014 08:54:53 09/04/2014 10:50:40 Adult health examination 307518729 Screening for cancer 50905321 Pain of hip region 79040999 Anti-nucle ar factor detected 134466050 Sinusitis 53171118 Hyperlipidemia 88572254 Screening mammography 57400038 Screening for malignant neoplasm of cervix 432947859 Dysuria 97412014 Palpitations 71526401 [id number] Sendy Moran MD [facility] [address] [place] [address] 11/16/2014 13:42:56 11/16/2014 16:46:33 Acute sinusitis 78895422 Serous otitis media 90553273 Acute bronchitis 01336685 [id number] Sendy Moran MD [facility] [address] [place] [id number] 11/25/2016 08:19:58 11/25/2016 18:31:51 History of urinary disease 301439269 Z87.448 Adult heal th examination 278650195 Z00.01 Screening mammography 24 014440 Z12.31 Screening for malignant neoplasm of cervix 012114791 Z12.4 Body mass index 30+ - obesity 590482433 Z68.33 Hyperlipidemia 88028012 E78.5 Screening for malignant neoplasm of colon 378092795 Z12.11 [id number] Sendy Moran MD [address] [address] 06/09/2017 13:43:53 06/10/2017 09:05:13 Urinary tract infectious disease 94314449 N39.0 Body mass index 30+ - obesity 698198494 Z68.32 [id number] Sendy Moran MD [facility] [address] [address] 12/10/2017 13:51:40 12/10/2017 16:01:26 Acute bronchitis 48214859 J20.9 [id number] Sendy Moran MD [facility] [address] [address] 12/15/2017 09:40:52 12/23/2017 09:42:32 Adult health examination 259959046 Z00.01 Screening for malignant neoplasm of colon 589020937 Z12.11 Depression screening 171 454003 Z13.89 Hypothyroidism 92646262 E03.9 Body mass index 30+ - obesity 956460580 Z68.30 Hemorrhoids 56110419 K64 .9 Hyperlipidemia 68489681 E78.5 [id number] Sendy Moran MD [facility] [address] [address] 04/09/2018 15:10:58 04/12/2018 16:38:05 Urinary tract infectious disease 87595895 N39.0 Hypothyroidism 83750490 E03.9 [id number] Sendy Moran MD [facility] [place] [id number] 08/03/2018 13:49:58 08/04/2018 08:26:12 Atypical chest pain 206568613 R07.89 Intermitte nt palpitations 322997691 R00.2 essu [id number] Sendy Moran MD [facility] [place] [id number] 08/09/2018 10:22:51 08/09/2018 13:42:21 Atypical chest pain 494721208 R07.89 Glucose le bjorn outside reference range 283928774 R73.09 Hyperlipidemia 52454393 E78.5 [id number] Sendy Moran MD [facility] [address] [address] 12/20/2018 13:24:51 12/26/2018 15:00:54 Adult health examination 105432641 Z00.01 Hypothyroidism 69303297 E03.9 Hyperlipidemia 02221235 E78.5 Depression screening 171 064606 Z13.89 Body mass index 30+ - obesity 583539828 Z68.30 [id number] Sendy Moran MD [facility] [address] [address] 09/30/2019 15:14:26 10/03/2019 08:47:20 Increased frequency of urination 166964666 R35.0 Screening for malignant neoplasm of colon 218097428 Z12.11 Hypothyroidism 69528968 E03.9 Hyperlipidemia 66903075 E78.5 k Depression screening 171 577001 Z13.89 Body mass index 30+ - obesity 972256088 Z68.30 [id number] Sendy Moran MD [facility] [address] [address] 10/24/2019 10:25:42 10/24/2019 12:09:05 Acute lower respiratory tract infection 254861566 J22 [id number] Sendy Moran MD [facility] [address] [address] 05/21/2020 08:57:05 05/22/2020 08:12:35 Hyperlipidemia 89310242 E78.5 Adult heal th examination 247979688 Z00.01 Hypothyroidism 18705810 E03.9 Depression screening 171 101619 Z13.89 Body mass index 30+ - obesity 754527637 Z68.30 Screening for malignant neoplasm of cervix 723420986 Z12.4 Hypertensi on screening 070164385 Z13.6 [id number] Sendy Moran MD [facility] [address] [address] 05/24/2021 09:43:08 05/27/2021 09:43:32 Increased frequency of urination 748529676 R35.0 Urinary tr act infectious disease 28649932 N39.0 Adult heal th examination 372277884 Z00.01 Hyperlipidemia 67335464 E78.5 Hypothyroidism 38346430 E03.9 Depression screening 171 539395 Z13.89 Body mass index 30+ - obesity 622452899 Z68.31 Hypertensi on screening 531247880 Z13.6 Screening for malignant neoplasm of colon 180436109 Z12.11 [id number] Sendy Moran MD [facility] [address] [address] 01/27/2022 13:28:44 01/28/2022 08:18:10 Urinary tract infectious disease 25133334 N39.0 Recurrent urinary tract infection 853406475 N39.0 [id number] Sendy Moran MD [facility] [address] [address] 05/27/2022 09:54:52 05/29/2022 10:15:50 Increased frequency of urination 050522823 R35.0 Urinary tr act infectious disease 25256784 N39.0 Adult heal th examination 210778229 Z00.01 Hyperlipidemia 88591822 E78.5 Hypothyroidism 60976692 E03.9 Depression screening 171 439278 Z13.89 Body mass index 30+ - obesity 509573227 Z68.30 Hypertensi on screening 110979357 Z13.6 [id number] Sendy Moran MD [facility] [address] [place] [address] 10/17/2022 09:15:18 10/17/2022 16:53:09 Acute lower respiratory tract infection 852430678 2 [facility] 59404551 R06.2 [id number] Sendy Moran MD [facility] [address] [place] [address] 01/22/2023 14:11:35 01/22/2023 15:54:47 Increased frequency of urination 298636028 R35.0 Urinary tr act infectious disease 44035248 N39.0 [id number] Sendy Moran MD [facility] [address] [place] [id number] 07/16/2023 13:35:28 07/17/2023 09:17:51 Increased frequency of urination 273125211 R35.0 Intercosta l post-herpetic neuralgia 315605915 B02.29 Abnormal b lood pressure 79032030 Z01.31 [id number] Sendy Moran MD [address] [address] 08/04/2023 08:38:50 08/06/2023 09:14:30 Adult health examination 515031797 Z00.01 Hyperlipidemia 66692759 E78.5 Hypothyroidism 50350181 E03.9 Depression screening 171 999412 Z13.89 Hypertensi on screening 388221403 Z13.6 Screening for malignant neoplasm of cervix 727463581 Z12.4 Screening for malignant neoplasm of colon 515111972 Z12.11 Lichen sim plex chronicus 56553608 L28.0 Screening mammography 24 077923 Z12.31 Health Concerns Section Related Observation LastModified by Organization Detai ls LastModified Time None Recorded Concern Status LastModified by Organization Details LastModified Time None Recorded Advance Directives Directive N: Payers Encounter Date Sequence Insurance Name Policy Number Policy Diez Covered Member ID Diez Member ID Guarantor Name 05/27/2022 1 [employer] [facility] (MEDICAID HMO) Deirdre Ortez [id number] Deirdre Ortez 10/17/2022 1 [employer] [facility] (MEDICAID HMO) Deirdre Harty [id number] Deirdre Manleyaley 01/22/2023 1 [employer] [facility] (MEDICAID HMO) Deirdre Manleyaley [id number] Deirdre Manleyaley 07/16/2023 1 [employer] [facility] (MEDICAID HMO) Deirdre Manleyaley [id number] Deirdre Manleyaley 08/04/2023 1 [employer] [facility] (MEDICAID HMO) Deirdre Harty [id number] Deirdre Ortez Notes Date Note Type Note Provider Name and Address Organization Details Recorded Time 05/27/2022 text/html Feels her only problem is arthritis pain; left hip and both knees and ankles especially when she gets up in the morning. Sometimes gets muscle spasms in the toes. Sendy Moran MD [address], [address], [facility] 05/28/2022 23:49:35 10/17/2022 text/html started with congestion last night and it is productive phlegm. She has a history of past pneumonias She has not had the flu or covid vaccines. She had covid last August. Started with a sore throat. Sendy Moran MD [address] [address], [place], [address], [facility] 10/17/2022 09:56:54 01/22/2023 text/html started with frequency and dysuria for 3 days No fevers or chills. Sendy Moran MD [address], [address], [facility] 01/22/2023 15:39:48 07/16/2023 text/html she had shingles over left posterior shoulder about 5 months ago and now has a skin sensation that itches and sometimes saha just below the left scapulaNo rash or skin issue noted now.Has lost 12 pounds.She had sinus and was given cefdinir and had neck swelling so they changed her to augmentin. Sendy Moran MD [address] [facility], [address], [place], [address], [facility] 07/17/2023 07:54:06 OBGyn Episode No OBEpisode recorded.
== END 2025-03-06 23:59 | disposition home or self-care (01) ==
LOC: LAB.DROPOF 22:07
PROVIDERS: PCP Nurse Practitioner Family; Visit Provider Nurse Practitioner Family
DX: Z00.00 Encounter for general adult medical examination without abnormal findings (principal); N39.0 Urinary tract infection, site not specified; E03.9 Hypothyroidism, unspecified; R73.03 Prediabetes; R53.83 Other fatigue; Z13.220 Encounter for screening for lipoid disorders
CPT/HCPCS: 81001; 87086

== ENCOUNTER 2025-03-11 09:06 | Outpatient (CLI) | payer MEDICARE, MEDICAID, SELFPAY ==
--- OUTSIDE RECORDS SUMMARY | 2025-03-11 09:10 | XMS_ITS | Data Portability ---
Author Organization [facility] ADMIN Address [address] [place] [id number] Assessment No assessment recorded. Plan of Treatment Reminders Order Date Submit Date Provider Last Modified By Organization Details Last Modified Time Details Appointments None record ed. Lab None record ed. Referral None record ed. Procedures None record ed. Surgeries None record ed. Imaging None record ed. Medication Orders None record ed. Patient TargetsNo targets recorded. Patient InstructionsNo instructions recorded. Reason for Referral None Reported. Results Created Date Observation Date Name Description Value Unit Range Abnormal Flag Note LastModifiedBy Organization Detail LastModifiedTime 09/01/20 23 09/01/2023 audio gram No observ ation record ed. BARCODE Not Available 2022 14:03:44 Result Notes None recorded. 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 Procedures Surgical History None recorded. Imaging Results Imaging Date Name Status LastModified by Organiz ation Details LastModified Time 09/01/2023 audiogram completed BARCODE Information no t available 09/01/2023 14:03:44 Procedure Notes None recorded. Medical Equipment None Reported. Medications Name Sig Start Date Stop Date Status Note LastModified by Organization Details LastModified Time atorvastatin 10 mg tablet TAKE 1 TABLET BY MOUTH EVERY DAY IN THE EVENING OR TRY EVERY OTHER DAY. active Not Available Not Available No t Available Vitals None Recorded Social History None recorded. Functional Status None recorded. Mental Status None recorded. Family History Nothing Reported. Medical History No medical history recorded. Gynecological HistoryNo gynecological history recorded. Obstetrics History GPAL:G 0 P 0 0 0 0 Past Encounters Encounter ID Performer Location Encounter Start Date Encounter Closed Date Diagnosis/Indication Diagnosis SNOMED-CT Code Diagnosis ICD10 Code Diagnosis Note [id number] JACKIE [facility] [facility], [facility] [place] [address] 09/01/2023 13:17:08 09/01/2023 13:34:36 Mixed conductive and sensorineural hearing loss of right ear [id number] 9105 H90.A31 Health Concerns Section Related Observation LastModified by Organization Detai ls LastModified Time None Recorded Concern Status LastModified by Organization Details LastModified Time None Recorded Advance Directives Directive None Recorded Payers Insurance Date Sequence Insurance Name Policy Number Policy Diez Covered Member ID Diez Member ID Guarantor Name 09/01/2023 1 [facility] (MEDICAID HMO) Deirdre Chapman [id number] Deirdre Chapman Notes Date Note Type Note Provider Name and Address Organization Details Recorded Time 09/01/2023 text/html Ms. Chapman was s een today for an audiologic evaluation due to long-standing, asymmetrical (R worse than L) hearing loss. Ms. Chapman reports that she had a tympanoplasty of the RE approx. 30 years ago. She reports that she has not been able to hear as well in the RE since that operation. 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 Audiometric testing revealed a mild, sloping to moderate, high freq SNHL in the LE with good word rec scores. Findings in the RE revealed a mild, sloping to moderate, mixed hearing loss with good word rec scores. Type A Tympanogram LEType A(s) in the RE (reduced compliance) 1-Discussed findings with Ms. Chapman. 2-F/u hearing testing annually to monitor. 3-F/u for hearing aid trial if she decides this is something that she wants to do. PAVAN SIM, AUD [address] [facility], [place], [address], [facility] [place] [facility] [place] 09/01/2023 13:40:13 OBGyn Episode No OBEpisode recorded.
--- OUTSIDE RECORDS SUMMARY | 2025-03-11 09:10 | XMS_ITS | Data Portability ---
Author Organization [facility] Address [address] [facility] [place] [place] [id number] Assessment Encounter Date Assessment Date Assessment LastModified [...] 3 23:19:39 pap, LB 2022 023 REINALDO [facility], [address], [place], [address], 3 14:24:16 urinalysis, dipstick [address], [address] [place], [address], 3 13:59:24 culture, urine 2022 023 REINALDO [facility], [address], [place], [address], 3 07:38:25 urinalysis, dipstick [address], [address] [place], [address], 3 14:32:26 SARS CoV 2 RNA (COVID-19), QL, 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 Procedures None recorded. Surgeries None recorded. Imaging MAMMO, screening, digital, bilateral - due after 12/27/23[address] [place] [address] ([facility], [address] [place], [address], 4 16:05:01 Medication Orders triamcinolo ne acetonide 0.1 % topical cream 2022 023 [facility]acy [facility]3016, [address] [place], [address], 3 10:10:05 nitrofurant oin monohydrate /macrocryst als 100 mg capsule 2022 023 [address] [place], [address], 3 09:14:30 gentamicin 40 mg/mL injection solution [address]/Pharmacy #3016, [address] [place], [address], 3 09:14:25 azithromyci n 250 mg tablet [address]/Pharmacy #3016, [address] [place], [address], 3 14:26:36 methylpredn isolone 4 mg tablets in a dose pack 122021 jstapleto n5 [facility], [address] [place], [address], 3 09:14:34 dexamethaso ne sodium phosphate 4 mg/mL injection solution 2021 jstapleto n5 [facility]/Pharmacy #3016, [address] [facility] [place], [address], 3 14:26:33 Ventolin HFA 90 mcg/actuati on aerosol inhaler 2021 REINALDO [facility]/Pharmacy #3016, [address] [place], [address], 09:54:27 Patient TargetsNo targets recorded. Patient Instructions Encounter Date Encounter Id Patient Instructions Last Modified By Organization Details Last Modified Time 05/27/2022 [id number] learning about healthy weight Not available 05/28/2022 23:49:29 Reason for Referral None Reported. Results Created Date Observation Date Name Description Value Unit Range Abnormal Flag Note LastModifiedBy Organization Detail LastModifiedTime 05/26/2005/27/2022 LIPID PANEL , STAND EDVIN cholesterol, total 162 mg/dL <200 normal Not Available [facility] [address] [place], [address], 05/27/2022 08:18:56 05/26/2005/27/2022 LIPID PANEL , STAND EDVIN HDL cholesterol 71 mg/dL > or = 50 normal Not Available [facility] [address] [facility] [place], [address], 05/27/2022 08:18:56 05/26/2005/27/2022 LIPID PANEL , STAND EDVIN triglyceride s 113 mg/dL <150 normal Not Available [facility] [address] [facility] [place], [address], 05/27/2022 08:18:56 05/26/20 22 05/27/2022 LIPID PANEL [...] 310(1 9): 2061- 2068 (http ://ed ucati on.[employer] borisHands-On Mobile. MK2Media/f aq/FA Q164) Not Available [facility] [address] [facility], [place], [address], 05/27/2022 08:18:56 05/26/20 22 05/27/2022 LIPID PANEL , STAND EDVIN chol/HDLC ratio 2.3 (calc ) <5.0 normal Not Available [facility] [address] [facility], [place], [address], 05/27/2022 08:18:56 05/26/20 22 05/27/2022 LIPID PANEL , STAND EDVIN non HDL cholesterol 91 mg/dL _(trini c) <130 normal For patie nts with diabe ovi plus 1 major ASCVD risk facto r, treat ing to a non-H DL-C goal of <100 mg/dL (LDL- C of <70 mg/dL ) is consi dered a thera peuti c optio n. Not Available [facility] [address] [address], [place], [address], 05/27/2022 08:18:56 05/26/20 22 05/27/2022 COMPR EHENS HOMAR METAB OLIC PANEL glucose 105 mg/dL 65-99 high Fasti ng refer ence inter edy For someo ne witho ut known diabe ovi, a gluco se value betwe en 100 and 125 mg/dL is consi stent with predi abete s and shoul d be confi rmed with a follo w-up test. Not Available [facility] [address] [place], [address], 05/27/2022 08:18:57 05/26/20 22 05/27/2022 COMPR EHENS HOMAR METAB OLIC PANEL urea nitrogen (BUN) 14 mg/dL 7-25 normal Not Available [facility] [address] [place], [address], 05/27/2022 08:18:57 05/26/20 22 05/27/2022 COMPR EHENS HOMAR METAB OLIC PANEL creatinine 0.83 mg/dL 0.50-1 .05 normal Not Available [facility] [address] [place], [address], 05/27/2022 08:18:57 05/26/20 22 05/27/2022 COMPR EHENS [...] culat or Not Available [facility] [address] [place], [address], 05/27/2022 08:18:57 05/26/20 22 05/27/2022 COMPR EHENS HOMAR METAB OLIC PANEL BUN/creatini ne ratio NOT APPLIC ABLE (calc ) 6-22 Not Available [facility] [address] [place], [address], 05/27/2022 08:18:57 05/26/20 22 05/27/2022 COMPR EHENS HOMAR METAB OLIC PANEL sodium 140 mmol/ L 135-14 6 normal Not Available [facility] [address] [facility] [place], [address], 05/27/2022 08:18:57 05/26/20 22 05/27/2022 COMPR EHENS HOMAR METAB OLIC PANEL potassium 4.1 mmol/ L 3.5-5. 3 normal Not Available [facility] [address] [facility] [place], [address], 05/27/2022 08:18:57 05/26/20 22 05/27/2022 COMPR EHENS HOMAR METAB OLIC PANEL chloride 108 mmol/ L 98-110 normal Not Available [facility] [address] [facility] [place], [address], 05/27/2022 08:18:57 05/26/20 22 05/27/2022 COMPR EHENS HOMAR METAB OLIC PANEL carbon dioxide 25 mmol/ L 20-32 normal Not Available [facility] [address] [facility] [place], [address], 05/27/2022 08:18:57 05/26/20 22 05/27/2022 COMPR EHENS HOMAR METAB OLIC PANEL calcium 9.5 mg/dL 8.6-10 .4 normal Not Available [facility] [address] [facility] [place], [address], 05/27/2022 08:18:57 05/26/20 22 05/27/2022 COMPR EHENS HOMAR METAB OLIC PANEL protein, total 6.4 g/dL 6.1-8. 1 normal Not Available [facility] [address] [facility] [place], [address], 05/27/2022 08:18:57 05/26/20 22 05/27/2022 COMPR EHENS HOMAR METAB OLIC PANEL albumin 4.3 g/dL 3.6-5. 1 normal Not Available [facility] [address] [place], [address], 05/27/2022 08:18:57 05/26/20 22 05/27/2022 COMPR EHENS HOMAR METAB OLIC PANEL globulin 2.1 g/dL_ (calc ) 1.9-3. 7 normal Not Available [facility] [address] [place], [address], 05/27/2022 08:18:57 05/26/20 22 05/27/2022 COMPR EHENS HOMAR METAB OLIC PANEL albumin/glob ulin ratio 2.0 (calc ) 1.0-2. 5 normal Not Available [facility] [employer] [facility] [address] [place], [address], 05/27/2022 08:18:57 05/26/20 22 05/27/2022 COMPR EHENS HOMAR METAB OLIC PANEL bilirubin, total 0.6 mg/dL 0.2-1. 2 normal Not Available [facility] [employer] [facility] [address] [place], [address], 05/27/2022 08:18:57 05/26/20 22 05/27/2022 COMPR EHENS HOMAR METAB OLIC PANEL alkaline phosphatase 93 U/L 37-153 normal Not Available [facility] [employer] [facility] [facility] [address] [place], [address], 05/27/2022 08:18:57 05/26/20 22 05/27/2022 COMPR EHENS HOMAR METAB OLIC PANEL AST 17 U/L 10-35 normal Not Available [facility] [employer] [facility] [address] [place], [address], 05/27/2022 08:18:57 05/26/20 22 05/27/2022 COMPR EHENS HOMAR METAB OLIC PANEL ALT 14 U/L 6-29 normal Not Available [facility] [address] [facility] [place], [address], 05/27/2022 08:18:57 05/26/20 22 05/27/2022 TSH TSH 1.03 mIU/L 0.40-4 .50 normal Not Available [facility] [address] [facility] [place], [address], 05/27/2022 08:18:58 05/26/20 22 05/27/2022 CBC (INCL UDES DIFF/ PLT) white blood cell count 6.0 thous and/u L 3.8-10 .8 normal Not Available [facility] [address] [facility] [place], [address], 05/27/2022 08:18:58 05/26/20 22 05/27/2022 CBC (INCL UDES DIFF/ PLT) red blood cell count 4.48 charley on/uL 3.80-5 .10 normal Not Available [facility] [address] [facility] [place], [address], 05/27/2022 08:18:58 05/26/20 22 05/27/2022 CBC (INCL UDES DIFF/ PLT) hemoglobin 13.2 g/dL 11.7-1 5.5 normal Not Available [facility] [address] [facility] [place], [address], 05/27/2022 08:18:58 05/26/20 22 05/27/2022 CBC (INCL UDES DIFF/ PLT) hematocrit 41.4 % 35.0-4 5.0 normal Not Available [facility] [address] [facility] [place], [address], 05/27/2022 08:18:58 05/26/20 22 05/27/2022 CBC (INCL UDES DIFF/ PLT) MCV 92.4 fL 80.0-1 00.0 normal Not Available [facility] [address] [place], [address], 05/27/2022 08:18:58 05/26/20 22 05/27/2022 CBC (INCL UDES DIFF/ PLT) MCH 29.5 pg 27.0-3 3.0 normal Not Available [facility] [address] [place], [address], 05/27/2022 08:18:58 05/26/20 22 05/27/2022 CBC (INCL UDES DIFF/ PLT) MCHC 31.9 g/dL 32.0-3 6.0 low Not Available [facility] [address] [place], [address], 05/27/2022 08:18:58 05/26/20 22 05/27/2022 CBC (INCL UDES DIFF/ PLT) RDW 13.2 % 11.0-1 5.0 normal Not Available [facility] [address] [place], [address], 05/27/2022 08:18:58 05/26/20 22 05/27/2022 CBC (INCL UDES DIFF/ PLT) platelet count 210 thous and/u L 140-40 0 normal Not Available [facility] [address] [place], [address], 05/27/2022 08:18:58 05/26/20 22 05/27/2022 CBC (INCL UDES DIFF/ PLT) MPV 11.0 fL 7.5-12 .5 normal Not Available [facility] [address] [place], [address], 05/27/2022 08:18:58 05/26/20 22 05/27/2022 CBC (INCL UDES DIFF/ PLT) absolute neutrophils 2724 cells /uL 1500-7 800 normal Not Available [facility] [address] [place], [address], 05/27/2022 08:18:58 05/26/20 22 05/27/2022 CBC (INCL UDES DIFF/ PLT) absolute lymphocytes 2580 cells /uL 850-39 00 normal Not Available [facility] [address] [place], [address], 05/27/2022 08:18:58 05/26/20 22 05/27/2022 CBC (INCL UDES DIFF/ PLT) absolute monocytes 558 cells /uL 200-95 0 normal Not Available [facility] [address], [place], [address], 05/27/2022 08:18:58 05/26/20 22 05/27/2022 CBC (INCL UDES DIFF/ PLT) absolute eosinophils 90 cells /uL 15-500 normal Not Available [facility] [address] [facility] [address], [place], [address], 05/27/2022 08:18:58 05/26/20 22 05/27/2022 CBC (INCL UDES DIFF/ PLT) absolute basophils 48 cells /uL 0-200 normal Not Available [facility] [address], [place], [address], 05/27/2022 08:18:58 05/26/20 22 05/27/2022 CBC (INCL UDES DIFF/ PLT) neutrophils 45.4 % normal Not Available [facility] [address], [place], [address], 05/27/2022 08:18:58 05/26/20 22 05/27/2022 CBC (INCL UDES DIFF/ PLT) lymphocytes 43.0 % normal Not Available [facility] [address], [place], [address], 05/27/2022 08:18:58 05/26/20 22 05/27/2022 CBC (INCL UDES DIFF/ PLT) monocytes 9.3 % normal Not Available [facility] [address] [place], [address], 05/27/2022 08:18:58 05/26/20 22 05/27/2022 CBC (INCL UDES DIFF/ PLT) eosinophils 1.5 % normal Not Available [facility] [address] [place], [address], 05/27/2022 08:18:58 05/26/20 22 05/27/2022 CBC (INCL UDES DIFF/ PLT) basophils 0.8 % normal Not Available [facility] [address] [place], [address], 05/27/2022 08:18:58 05/27/20 22 05/29/2022 CULTU RE, URINE , ROUTI NE culture, urine, routine CULTU RE, URINE , ROUTI NE Micro Numbe r: [id number] Test Statu s: Final Speci men [...] port Tube. Not Available [facility] [address] [place], [address], 05/29/2022 02:16:45 05/27/2005/27/2022 urina lysis , dipst ick Leukocytes Modera te Not Available [address], [address], 05/27/2022 10:11:09 05/27/20 22 05/27/2022 urina lysis , dipst ick Nitrite negati ve Not Available [facility] [address] [place], [address], 05/27/2022 10:11:09 05/27/20 22 05/27/2022 urina lysis , dipst ick Urobilinogen .2 Not Available [facility] [address] [place], [address], 05/27/2022 10:11:09 05/27/20 22 05/27/2022 urina lysis , dipst ick Protein Negati ve Not Available [facility] [address] [place], [address], 05/27/2022 10:11:09 05/27/20 22 05/27/2022 urina lysis , dipst ick pH 6.0 Not Available [facility] [address] [place], [address], 05/27/2022 10:11:09 05/27/20 22 05/27/2022 urina lysis , dipst ick Blood Negati ve Not Available [facility] [address] [place], [address], 05/27/2022 10:11:09 05/27/20 22 05/27/2022 urina lysis , dipst ick Specific Munday 1.010 Not Available [facility] [address] [place], [address], 05/27/2022 10:11:09 05/27/20 22 05/27/2022 urina lysis , dipst ick Ketone Negati ve Not Available [facility] [address] [place], [address], 05/27/2022 10:11:09 05/27/20 22 05/27/2022 urina lysis , dipst ick Bilirubin Negati ve Not Available [facility] [address] [place], [address], 05/27/2022 10:11:09 05/27/20 22 05/27/2022 urina lysis , dipst ick Glucose Negati ve Not Available [facility] [address] [facility], [place], [address], 05/27/2022 10:11:09 10/17/20 22 10/18/2022 SARS COV2 [...] ostic s websi te: www.Q uestD iagno Jibestream .MK2Media/ Covid 19. For patie nts with a [...] vacci isha. Not Available [facility] [address], [place], [address], 10/18/2022 19:58:56 10/17/20 22 10/18/2022 SARS COV2 RNA(C OVID1 9) AND RESP PATHO GEN PNL, NAAT adenovirus NOT DETECT ED not detect ed normal Not Available [facility] [address], [place], [address], 10/18/2022 19:58:56 10/17/20 22 10/18/2022 SARS COV2 RNA(C OVID1 9) AND RESP PATHO GEN PNL, NAAT rhinovirus/e nterovirus NOT DETECT ED not detect ed normal Not Available [facility] [address] [facility] [place], [address], 10/18/2022 19:58:56 10/17/20 22 10/18/2022 SARS COV2 RNA(C OVID1 9) AND RESP PATHO GEN PNL, NAAT influenza A NOT DETECT ED not detect ed normal Not Available [facility] [address] [facility] [place], [address], 10/18/2022 19:58:56 10/17/20 22 10/18/2022 SARS COV2 RNA(C OVID1 9) AND RESP PATHO GEN PNL, NAAT influenza A subtype H1 NOT DETECT ED not detect ed normal Not Available [facility] [address] [facility] [place], [address], 10/18/2022 19:58:56 10/17/20 22 10/18/2022 SARS COV2 RNA(C OVID1 9) AND RESP PATHO GEN PNL, NAAT influenza A subtype H3 NOT DETECT ED not detect ed normal Not Available [facility] [address] [facility] [place], [address], 10/18/2022 19:58:56 10/17/20 22 10/18/2022 SARS COV2 RNA(C OVID1 9) AND RESP PATHO GEN PNL, NAAT influenza B NOT DETECT ED not detect ed normal Not Available [facility] [address] [facility] [place], [address], 10/18/2022 19:58:56 10/17/20 22 10/18/2022 SARS COV2 RNA(C OVID1 9) AND RESP PATHO GEN PNL, NAAT human metapneumovi wendy NOT DETECT ED not detect ed normal Not Available [facility] [address], [place], [address], 10/18/2022 19:58:56 10/17/20 22 10/18/2022 SARS COV2 RNA(C OVID1 9) AND RESP PATHO GEN PNL, NAAT human RSV A NOT DETECT ED not detect ed normal Not Available [facility] [address] [facility], [place], [address], 10/18/2022 19:58:56 10/17/20 22 10/18/2022 SARS COV2 RNA(C OVID1 9) AND RESP PATHO GEN PNL, NAAT human RSV B NOT DETECT ED not detect ed normal Not Available [facility] [address] [facility], [place], [address], 10/18/2022 19:58:56 10/17/20 22 10/18/2022 SARS COV2 RNA(C OVID1 9) AND RESP PATHO GEN PNL, NAAT human parainflu virus 1 NOT DETECT ED not detect ed normal Not Available [facility] [address] [facility], [place], [address], 10/18/2022 19:58:56 10/17/20 22 10/18/2022 SARS COV2 RNA(C OVID1 9) AND RESP PATHO GEN PNL, NAAT human parainflu virus 2 NOT DETECT ED not detect ed normal Not Available [facility] [address], [place], [address], 10/18/2022 19:58:56 10/17/20 22 10/18/2022 SARS COV2 RNA(C OVID1 9) AND RESP PATHO GEN PNL, NAAT human parainflu virus 3 NOT DETECT ED not detect ed normal Not Available [facility] [address], [place], [address], 10/18/2022 19:58:56 10/17/20 22 10/18/2022 SARS COV2 RNA(C OVID1 9) AND RESP PATHO GEN PNL, NAAT human parainflu virus 4 NOT DETECT ED not detect ed normal Not Available [facility] [address] [facility] [place], [address], 10/18/2022 19:58:56 10/17/20 22 10/18/2022 SARS COV2 RNA(C OVID1 9) AND RESP PATHO GEN PNL, NAAT coronavirus 229E NOT DETECT ED not detect ed normal Not Available [facility] [address] [facility], [place], [address], 10/18/2022 19:58:56 10/17/20 22 10/18/2022 SARS COV2 RNA(C OVID1 9) AND RESP PATHO GEN PNL, NAAT coronavirus oc43 NOT DETECT ED not detect ed normal Not Available [facility] [address] [facility], [place], [address], 10/18/2022 19:58:56 10/17/20 22 10/18/2022 SARS COV2 RNA(C OVID1 9) AND RESP PATHO GEN PNL, NAAT coronavirus nl63 NOT DETECT ED not detect ed normal Not Available [facility] [address] [facility], [place], [address], 10/18/2022 19:58:56 10/17/20 22 10/18/2022 SARS COV2 RNA(C OVID1 9) AND RESP PATHO GEN PNL, NAAT coronavirus hku1 NOT DETECT ED not detect ed normal Not Available [facility] [address] [facility], [place], [address], 10/18/2022 19:58:56 10/17/20 22 10/18/2022 SARS COV2 RNA(C OVID1 9) AND RESP PATHO GEN PNL, NAAT human bocavirus NOT DETECT ED not detect ed normal Not Available [facility] [address] [facility] [address] [facility] [address], [place], [address], 10/18/2022 19:58:56 10/17/20 22 10/18/2022 SARS COV2 RNA(C OVID1 9) AND RESP PATHO GEN PNL, NAAT chlamydophil a pneumoniae NOT DETECT ED not detect ed normal Not Available [facility] [address] [facility] [place], [address], 10/18/2022 19:58:56 10/17/20 22 10/18/2022 SARS COV2 RNA(C OVID1 9) AND RESP PATHO GEN PNL, NAAT mycoplasma pneumoniae NOT DETECT ED not detect ed normal Not Available [facility] [address] [place], [address], 10/18/2022 19:58:56 10/17/20 22 10/18/2022 SARS COV2 RNA(C OVID1 9) AND RESP PATHO GEN PNL, NAAT comment THIS ASSAY WILL NOT DETEC T SARS- CoV-2 (COVI D-19) This test is perfo rmed using the Exergyn Lumin ex Techn ology . Limit ation [...] virus es. Not Available [facility] [address] [facility], [place], [address], 10/18/2022 19:58:56 10/17/20 22 10/17/2022 rapid flu (A+B) rapid flu negati ve Not Available [address], [place], [address], 10/17/2022 09:50:59 01/23/20 23 01/24/2023 CULTU RE, URINE , ROUTI NE culture, urine, routine CULTU RE, URINE , ROUTI NE Micro Numbe r: [id number] Test Statu s: Final Speci men [...] port Tube. Not Available [facility] [address] [facility], [place], [address], 01/24/2023 07:38:25 01/23/20 23 01/22/2023 urina lysis , dipst ick Leukocytes Small Not Available [facility] [address] [place], [address], 01/22/2023 14:31:20 01/23/20 23 01/22/2023 urina lysis , dipst ick Nitrite negati ve Not Available [facility] [address] [place], [address], 01/22/2023 14:31:20 01/23/20 23 01/22/2023 urina lysis , dipst ick Urobilinogen .2 Not Available [facility] [address] [place], [address], 01/22/2023 14:31:20 01/23/20 23 01/22/2023 urina lysis , dipst ick Protein Negati ve Not Available [facility] [address] [place], [address], 01/22/2023 14:31:20 01/23/20 23 01/22/2023 urina lysis , dipst ick pH 6.0 Not Available [facility] [address] [place], [address], 01/22/2023 14:31:20 01/23/20 23 01/22/2023 urina lysis , dipst ick Blood Negati ve Not Available [facility] [address] [place], [address], 01/22/2023 14:31:20 01/23/20 23 01/22/2023 urina lysis , dipst ick Specific Munday 1.030 Not Available [facility] [address] [place], [address], 01/22/2023 14:31:20 01/23/20 23 01/22/2023 urina lysis , dipst ick Ketone Negati ve Not Available [facility] [address] [place], [address], 01/22/2023 14:31:20 01/23/20 23 01/22/2023 urina lysis , dipst ick Bilirubin Negati ve Not Available [facility] [address] [place], [address], 01/22/2023 14:31:20 01/23/20 23 01/22/2023 urina lysis , dipst ick Glucose Negati ve Not Available [facility] [address] [place], [address], 01/22/2023 14:31:20 07/16/20 23 07/16/2023 urina lysis , dipst ick Leukocytes Negati ve Not Available [facility] [address] [place], [address], 07/16/2023 13:59:01 07/16/20 23 07/16/2023 urina lysis , dipst ick Nitrite negati ve Not Available [facility] [address] [place], [address], 07/16/2023 13:59:01 07/16/20 23 07/16/2023 urina lysis , dipst ick Urobilinogen .2 Not Available [facility] [address] [place], [address], 07/16/2023 13:59:01 07/16/20 23 07/16/2023 urina lysis , dipst ick Protein Negati ve Not Available [facility] [facility] [address] [place], [address], 07/16/2023 13:59:01 07/16/20 23 07/16/2023 urina lysis , dipst ick pH 6.0 Not Available [facility] [address] [place], [address], 07/16/2023 13:59:01 07/16/20 23 07/16/2023 urina lysis , dipst ick Blood Negati ve Not Available [facility] [address] [place], [address], 07/16/2023 13:59:01 07/16/20 23 07/16/2023 urina lysis , dipst ick Specific Munday 1.010 Not Available [facility] [address] [place], [address], 07/16/2023 13:59:01 07/16/20 23 07/16/2023 urina lysis , dipst ick Ketone Negati ve Not Available [facility] [address] [place], [address], 07/16/2023 13:59:01 07/16/20 23 07/16/2023 urina lysis , dipst ick Bilirubin Negati ve Not Available [facility] [address] [place], [address], 07/16/2023 13:59:01 07/16/20 23 07/16/2023 urina lysis , dipst ick Glucose Negati ve Not Available [facility] [address] [place], [address], 07/16/2023 13:59:01 07/30/2007/31/2023 LIPID PANEL (REFL ) cholesterol, total 168 mg/dL <200 normal Not Available [facility] [address] [facility], [place], [address], 07/31/2023 09:40:42 07/30/2007/31/2023 LIPID PANEL (REFL ) HDL cholesterol 69 mg/dL > or = 50 normal Not Available [facility] [address] [facility], [place], [address], 07/31/2023 09:40:42 07/30/2007/31/2023 LIPID PANEL (REFL ) triglyceride s 75 mg/dL <150 normal Not Available [facility] [address] [facility], [place], [address], 07/31/2023 09:40:42 07/30/2007/31/2023 LIPID PANEL (REFL ) [...] aq/FA Q164) Not Available [facility] [address], [place], [address], 07/31/2023 09:40:42 07/30/2007/31/2023 LIPID PANEL (REFL ) chol/HDLC ratio 2.4 (calc ) <5.0 normal Not Available [facility] [address] [facility] [place], [address], 07/31/2023 09:40:42 07/30/2007/31/2023 LIPID PANEL (REFL ) non HDL cholesterol 99 mg/dL _(trini c) <130 normal For patie nts with diabe ovi plus 1 major ASCVD risk facto r, treat ing to a non-H DL-C goal of <100 mg/dL (LDL- C of <70 mg/dL ) is consi dered a thera peuti c optio n. Not Available [facility] [address] [facility] [place], [address], 07/31/2023 09:40:42 07/30/2007/31/2023 COMPR EHENS HOMAR METAB OLIC PANEL glucose 101 mg/dL 65-99 high Fasti ng refer ence inter edy For someo ne witho ut known diabe ovi, a gluco se value betwe en 100 and 125 mg/dL is consi stent with predi abete s and shoul d be confi rmed with a follo w-up test. Not Available [facility] [address] [facility] [place], [address], 07/31/2023 09:40:42 07/30/2007/31/2023 COMPR EHENS HOMAR METAB OLIC PANEL urea nitrogen (BUN) 23 mg/dL 7-25 normal Not Available [facility] [address] [facility] [place], [address], 07/31/2023 09:40:42 07/30/2007/31/2023 COMPR EHENS HOMAR METAB OLIC PANEL creatinine 1.03 mg/dL 0.50-1 .05 normal Not Available [facility] [address] [facility] [place], [address], 07/31/2023 09:40:42 07/30/2007/31/2023 COMPR EHENS HOMAR METAB OLIC PANEL eGFR 61 mL/mi n/1.7 3m2 > or = 60 normal Not Available [facility] [address] [facility] [place], [address], 07/31/2023 09:40:42 07/30/2007/31/2023 COMPR EHENS HOMAR METAB OLIC PANEL BUN/creatini ne ratio SEE NOTE: (calc ) 6-22 Not Repor stefan: BUN and Creat inine are withi n refer ence range . Not Available [facility] [address] [facility] [place], [address], 07/31/2023 09:40:42 07/30/2007/31/2023 COMPR EHENS HOMAR METAB OLIC PANEL sodium 139 mmol/ L 135-14 6 normal Not Available [facility] [address] [facility] [place], [address], 07/31/2023 09:40:42 07/30/2007/31/2023 COMPR EHENS HOMAR METAB OLIC PANEL potassium 4.2 mmol/ L 3.5-5. 3 normal Not Available [facility] [address] [facility] [place], [address], 07/31/2023 09:40:42 07/30/2007/31/2023 COMPR EHENS HOMAR METAB OLIC PANEL chloride 107 mmol/ L 98-110 normal Not Available [facility] [address] [facility] [place], [address], 07/31/2023 09:40:42 07/30/2007/31/2023 COMPR EHENS HOMAR METAB OLIC PANEL carbon dioxide 25 mmol/ L 20-32 normal Not Available [facility] [address] [place], [address], 07/31/2023 09:40:42 07/30/2007/31/2023 COMPR EHENS HOMAR METAB OLIC PANEL calcium 9.3 mg/dL 8.6-10 .4 normal Not Available [facility] [address] [facility] [place], [address], 07/31/2023 09:40:42 07/30/2007/31/2023 COMPR EHENS HOMAR METAB OLIC PANEL protein, total 6.4 g/dL 6.1-8. 1 normal Not Available [facility] [address] [facility] [place], [address], 07/31/2023 09:40:42 07/30/2007/31/2023 COMPR EHENS HOMAR METAB OLIC PANEL albumin 4.1 g/dL 3.6-5. 1 normal Not Available [facility] [address] [facility] [place], [address], 07/31/2023 09:40:42 07/30/2007/31/2023 COMPR EHENS HOMAR METAB OLIC PANEL globulin 2.3 g/dL_ (calc ) 1.9-3. 7 normal Not Available [facility] [address] [facility] [place], [address], 07/31/2023 09:40:42 07/30/2007/31/2023 COMPR EHENS HOMAR METAB OLIC PANEL albumin/glob ulin ratio 1.8 (calc ) 1.0-2. 5 normal Not Available [facility] [address] [facility] [place], [address], 07/31/2023 09:40:42 07/30/2007/31/2023 COMPR EHENS HOMAR METAB OLIC PANEL bilirubin, total 0.4 mg/dL 0.2-1. 2 normal Not Available [facility] [address] [facility] [place], [address], 07/31/2023 09:40:42 07/30/2007/31/2023 COMPR EHENS HOMRA METAB OLIC PANEL alkaline phosphatase 69 U/L 37-153 normal Not Available [facility] [employer] [facility] [address] [facility] [place], [place], [address], 07/31/2023 09:40:42 07/30/2007/31/2023 COMPR EHENS HOMAR METAB OLIC PANEL AST 15 U/L 10-35 normal Not Available [facility] [address] [facility] [address], [place], [address], 07/31/2023 09:40:42 07/30/2007/31/2023 COMPR EHENS HOMAR METAB OLIC PANEL ALT 13 U/L 6-29 normal Not Available [facility] [employer] [facility] [address] [facility], [place], [address], 07/31/2023 09:40:42 07/30/2007/31/2023 TSH TSH 2.44 mIU/L 0.40-4 .50 normal Not Available [employer] [facility] [address] [facility] [place], [address], 07/31/2023 09:40:43 07/30/2007/31/2023 CBC (INCL UDES DIFF/ PLT) white blood cell count 6.7 thous and/u L 3.8-10 .8 normal Not Available [employer] [facility] [address] [facility], [place], [address], 07/31/2023 09:40:44 07/30/2007/31/2023 CBC (INCL UDES DIFF/ PLT) red blood cell count 4.37 charley on/uL 3.80-5 .10 normal Not Available [facility] [address] [facility], [place], [address], 07/31/2023 09:40:44 07/30/2007/31/2023 CBC (INCL UDES DIFF/ PLT) hemoglobin 13.1 g/dL 11.7-1 5.5 normal Not Available [facility] [address] [place], [address], 07/31/2023 09:40:44 07/30/2007/31/2023 CBC (INCL UDES DIFF/ PLT) hematocrit 40.0 % 35.0-4 5.0 normal Not Available [facility] [address] [facility] [place], [address], 07/31/2023 09:40:44 07/30/2007/31/2023 CBC (INCL UDES DIFF/ PLT) MCV 91.5 fL 80.0-1 00.0 normal Not Available [facility] [address] [place], [address], 07/31/2023 09:40:44 07/30/2007/31/2023 CBC (INCL UDES DIFF/ PLT) MCH 30.0 pg 27.0-3 3.0 normal Not Available [facility] [address] [place], [address], 07/31/2023 09:40:44 07/30/2007/31/2023 CBC (INCL UDES DIFF/ PLT) MCHC 32.8 g/dL 32.0-3 6.0 normal Not Available [facility] [address] [place], [address], 07/31/2023 09:40:44 07/30/2007/31/2023 CBC (INCL UDES DIFF/ PLT) RDW 13.4 % 11.0-1 5.0 normal Not Available [facility] [address] [place], [address], 07/31/2023 09:40:44 07/30/2007/31/2023 CBC (INCL UDES DIFF/ PLT) platelet count 222 thous and/u L 140-40 0 normal Not Available [facility] [address] [facility] [place], [address], 07/31/2023 09:40:44 07/30/2007/31/2023 CBC (INCL UDES DIFF/ PLT) MPV 11.6 fL 7.5-12 .5 normal Not Available [facility] [address] [facility] [place], [address], 07/31/2023 09:40:44 07/30/2007/31/2023 CBC (INCL UDES DIFF/ PLT) absolute neutrophils 3229 cells /uL 1500-7 800 normal Not Available [facility] [address] [facility] [place], [address], 07/31/2023 09:40:44 07/30/2007/31/2023 CBC (INCL UDES DIFF/ PLT) absolute lymphocytes 2680 cells /uL 850-39 00 normal Not Available [facility] [address] [facility] [place], [address], 07/31/2023 09:40:44 07/30/2007/31/2023 CBC (INCL UDES DIFF/ PLT) absolute monocytes 643 cells /uL 200-95 0 normal Not Available [facility] [facility] [place], [address], 07/31/2023 09:40:44 07/30/2007/31/2023 CBC (INCL UDES DIFF/ PLT) absolute eosinophils 107 cells /uL 15-500 normal Not Available [facility] [address] [facility] [place], [address], 07/31/2023 09:40:44 07/30/2007/31/2023 CBC (INCL UDES DIFF/ PLT) absolute basophils 40 cells /uL 0-200 normal Not Available [facility] [address] [place] [address] [place], [address], 07/31/2023 09:40:44 07/30/2007/31/2023 CBC (INCL UDES DIFF/ PLT) neutrophils 48.2 % normal Not Available [facility] [address] [facility] [place], [address], 07/31/2023 09:40:44 07/30/2007/31/2023 CBC (INCL UDES DIFF/ PLT) lymphocytes 40.0 % normal Not Available [facility] [place], [address], 07/31/2023 09:40:44 07/30/2007/31/2023 CBC (INCL UDES DIFF/ PLT) monocytes 9.6 % normal Not Available [facility] [address] [place], [place] [address]aline[facility] [place], [address], 07/31/2023 09:40:44 07/30/2007/31/2023 CBC (INCL UDES DIFF/ PLT) eosinophils 1.6 % normal Not Available [facility] [place], [address], 07/31/2023 09:40:44 07/30/2007/31/2023 CBC (INCL UDES DIFF/ PLT) basophils 0.6 % normal Not Available [facility] [place], [address], 07/31/2023 09:40:44 08/04/2008/06/2023 THINP REP TIS PAP clinical information: normal Lina l exam Not Available [facility] [address] [place], [address], 08/06/2023 14:24:15 08/04/2008/06/2023 THINP REP TIS PAP LMP: normal UNKNO WN Not Available [facility] [address] [place], [address], 08/06/2023 14:24:15 08/04/2008/06/2023 THINP REP TIS PAP prev. Pap: normal UNKNO WN Not Available [facility] [address] [facility] [place], [address], 08/06/2023 14:24:15 08/04/2008/06/2023 THINP REP TIS PAP prev. BX: normal UNKNO WN Not Available [facility] [address] [place], [address], 08/06/2023 14:24:15 08/04/2008/06/2023 THINP REP TIS PAP source: normal Vagin a, Cervi x, Endoc ervix Not Available [facility] [address] [place], [address], 08/06/2023 14:24:15 08/04/2008/06/2023 THINP REP TIS PAP statement of adequacy: normal Satis facto ry for evalu ation . Endoc ervic al/tr ansfo rmati on zone compo nent prese nt. Not Available [facility] [address] [place], [address], 08/06/2023 14:24:15 08/04/2008/06/2023 THINP REP TIS PAP interpretati on/result: normal Cytol ogy Resul ts: Negat homar for intra epith elial lesio n or malig haydee . Not Available [facility] [address] [facility] [place], [address], 08/06/2023 14:24:15 08/04/2008/06/2023 THINP REP TIS PAP comment: normal This Pap test has been evalu ated with compu ter perla stefan techn ology . Not Available [facility] [employer] [facility] [address] [place], [address], 08/06/2023 14:24:15 08/04/20 23 08/06/2023 THINP REP TIS PAP cytotechnolo gist: normal ESL, CT( CP) CT Scree yvonne Locat ion: [facility] [place] [address] [facility] [address] Not Available [facility] [address] [place], [address], 08/06/2023 14:24:15 08/04/20 23 08/06/2023 THINP REP [...] matio n. Not Available [facility] [address] [facility], [place], [address], 08/06/2023 14:24:15 08/11/20 23 08/11/2023 nonin vasiv e color ectal cance r DNA + occul t blood scree yvonne, QL, stool cologuard negati ve normal Not Available Not Available 18:04:55 12/27/19 23 12/26/2022 MAMMO , scree yvonne, digit al, bilat eral [facility] [address] [address] Phone: Fax: Name: DEIRDRE ORTEZ Exam Date: 023 : 9[birth year] Age 62 Gender : F Access ion: [id number] Physic jim: RONDA GAMBLE Facili ty: [facility] Facili ty HSV: Outpat ient Exam: SCREEN [...] [facility] Legall y authen ticate d by POPE RONDA Deshpande DO 12-26 15:30: 31 CC'ed Logic: Orderi ng Provid er: CHANCE Blackwell CC Provid er: CHANCE Blackwell Attend ing Provid er: CHANCE Blackwell Referr ing Provid er: CHANCE Blackwell Admitt ing Provid er: CHANCE almazan[address] [place] [address] (Radiology) [address] , [place], [address], 12/28/2022 18:32:26 05/02/20 23 05/02/2023 XR, chest , 2 view No observ ation record ed. franck [facility] [address], [place], [address], 05/02/2023 10:57:17 01/25/20 24 01/25/2024 MAMMO , scree yvonne, digit al, bilat eral [facility] [address] [place] [address] Phone: Fax: Name: DEIRDRE ORTEZ Exam Date: 01/25/20 : [birth year] Age 63 years Gender : F Access ion: [id number] Physic jim: RONDA GAMBLE Facili ty: [facility] Facili ty HSV: Outpat ient Exam: SCREEN [...] for referr ing DEIRDRE ORTEZ to [facility]. Legall y authen ticate d by BERNARDO Kaur MD 01-24 13:27: 57 CC'ed Logic: Orderi ng Provid er: CHANCE Blackwell CC Provid er: CHANCE Blackwell Attend ing Provid er: CHANCE Blackwell Referr ing Provid er: CHANCE Blackwell Admitt ing Provid er: CHANCE juárez [facility] (Radiology) [address], [place], [address], 01/25/2024 16:04:49 Result Notes None recorded. Problems Name Problem SNOMED Code Status Onset Date Resolution Date Notes Provider Name and Address Organization Details Recorded Time Generalized osteoarthri tis 120180973 Active Not Available [facility] 3 03:01:15 Disorder of bursa of shoulder region 80199303 Active 1999 chose not to have surgery Not Available [facility] 3 03:01:15 Urinary tract infectious disease 28923601 Active Not Available [facility] 3 03:01:15 Acute bronchopneu monia 073516782 Active Sendy Moran MD [address], [address] [place] [address] , [place] [facility] 4 14:26:56 Pain of hip region 75877385 Active Sendy Moran MD [address], [address] [place] [address] , [place] - [facility] 4 10:34:43 Anti-nuclea r factor detected 056566188 Active Sendy Moran MD [address], [address] [place] [address] , [place] [facility] 4 10:34:43 Sinusitis 47997640 Active Sendy Moran MD [address], [address] [place] [address] , [place] - [facility] 4 10:34:43 Hyperlipide chinmay 14424170 Active Sendy Moran MD [address], [address] [place] [address] , [place] [facility] 4 10:34:43 Dysuria 17754039 Active Sendy Moran MD [address], [address] [place] [address] , [facility] [facility] 4 10:34:43 Palpitation s 10399199 Active Sendy Moran MD [address], [address] [place] [address] , [facility] 4 10:34:43 Arthritis of hip 77562976 Active Sendy Moran MD [address] [place] [address] , [place] [facility] 4 12:09:57 Acute sinusitis 31028467 Active Sendy Moran MD [address] [facility] 5 14:25:19 Serous otitis media 37224948 Active Sendy Moran MD [address] [facility] 5 14:25:19 Acute bronchitis 94961366 Active Sendy Moran MD [address] [facility] 5 14:25:19 Problem Notes None recorded. Procedures Surgical History Date Name Laterality Status Provider Name and Address Organization Details Recorded Time 8 I&D completed Sendy Moran MD [address], [address] [place] [address] [facility] 04/10/2018 21:48:32 7 I&D completed Sendy Moran MD [address], [address] [place] [address] [facility] 06/09/2017 14:43:13 7 Tonsillectomy completed [facility] 09/20/2012 13:18:49 Imaging Results Imaging Date Name Status LastModified by Organiz ation Details LastModified Time 12/26/2022 MAMMO, screening, digital, bilateral completed [address] (Radiology) [address] , [place], [address], 12/28/2022 18:32:26 05/02/2023 XR, chest, 2 view [address], [place], [address], 05/02/2023 10:57:17 01/25/2024 MAMMO, screening, digital, bilateral completed [address] (Radiology) [address] , [place], [address], 01/25/2024 16:04:49 Procedure Notes None recorded. Medical Equipment None Reported. Allergies Allergen ID Allergen Name Allergen Category Reaction Reaction Severity Criticality Documentation Date Start Date Code Code System Note Provider Name and Address Organization Details Recorded Time 40446 cefdinir medicatio n angioedem a severe high 07/16/2023 20143 RxNorm Sendy Moran MD [address] [facility], [address], [place], [address] - [facility] 3 [...] Available Not Available Not Available Flucelvax Quad 2830-0165 (PF) 60 mcg (15 mcg x 4)/0.5 [...] Updated DateTime 2 167.64 cm 30.2 kg/m2 28279.4 7 g 80 /min 98 % 98 [...] Updated DateTime 2 167.64 cm 29.7 kg/m2 34749.7 g 98 /min 98 % 98 % 96.8 [degF] 126 mm[Hg] 72 mm[Hg] Y[facility]iko [facility] 2 09:16:34 Date Recorded Body height Body weight Heart rate Oxygen saturation Oxygen saturation in Arterial blood by Pulse oximetry Body temperature Systolic blood pressure Diastolic blood pressure Provider Name and Address Organization Details Last Updated DateTime 3 167.64 cm 13621.6 9 g 86 /min 95 % 95 [...] Updated DateTime 3 167.64 cm 28.2 kg/m2 07443.6 6 g 75 /min 96 % 96 % 97.5 [degF] 155 mm[Hg] 103 mm[Hg] [facility] 3 13:58:29 Date Recorded Systolic blood pressure Diastolic blood pressure Provider Name and Address Organization Details Last Updated DateTime 07/16/2023 148 mm[Hg] 83 mm[Hg] Sendy Moran MD [address] [facility], [facility], [place], [address], [facility] 07/16/2023 15:07:47 Date Recorded Body height Body mass index (BMI) Body weight Heart rate Oxygen saturation Oxygen saturation in Arterial blood by Pulse oximetry Body temperature Systolic blood pressure Diastolic blood pressure Provider Name and Address Organization Details Last Updated DateTime 3 167.64 cm 28.4 kg/m2 00790.6 6 g 98 /min 97 % 97 % 97 [degF] 116 mm[Hg] 80 mm[Hg] Yumiko Hernandez [facility] 3 09:13:18 Social History Question Answer Notes LastModified by Organizat ion Details LastModified Time Tobacco Smoking Status Never Smoker Not Available [facility] 08/14/2020 03:11:19 Do You Have An Advance Directive? No [id number] Information not available 08/14/2020 Animal Exposure? Yes Informat ion not available 09/20/2012 Auto Related Injury? No Information not available 09/20/2012 Is Blood Transfusion Acceptable In An Emergency? Yes [id number] Information not available 08/14/2020 What Is Your Level Of Caffeine Consumption? Moderate [id number] Information not available 08/14/2020 How Much Tobacco Do You Chew? None [id number] Information not available 08/14/2020 Diabetes No Information no t available 09/20/2012 What Type Of Diet Are You Following? REGULAR [id number] Information not available 08/14/2020 Education 9 GED Information no t available 09/20/2012 What Is The Highest Grade Or Level Of School You Have Completed Or The Highest Degree You Have Received? [id number] Information not available 08/04/2023 Family History Of Heart Disease? Yes Information not available 09/20/2012 Which Of Your Hands Is Dominant? Right [id number] Information not available 08/14/2020 High Blood Pressure No Information not available 09/20/2012 High Cholesterol No Informat ion not available 09/20/2012 Live Alone Or With Others? With Others Information not available 09/20/2012 Marital Status [email or web address] Informatio n not available 11/25/2016 What Was The Date Of Your Most Recent Tobacco Screening? 08/04/2023 Information not available 08/04/2023 How Many Children Do You Have? 2 [id number] Information not available 08/14/2020 What Is Your Relationship Status? Information not available 08/04/2023 Do You Use Your Seat Belt Or Car Seat Routinely? Yes [id number] Information not available 08/14/2020 Seat Belts Used Routinely Yes Information not available 09/20/2012 Smoke Alarm In Home Yes Information not available 09/20/2012 General Stress Level Medium Information not available 09/20/2012 Do You Use Sunscreen Routinely? No [id number] Information not available 08/14/2020 Work Related Injury? No Information not available 09/20/2012 Sex: Unknown Functional Status Question Answer Note LastModified by Organizat ion Details LastModified Time What is your level of alcohol consumption? None [id number] Information not available 08/14/2020 Are you currently employed? No [id number] Information not available 08/14/2020 Are you able to care for yourself? Yes [id number] Information not available 08/14/2020 What is your occupation? RETIRED [id number] Information not available 08/14/2020 What is your exercise level? Occasional [id number] Information not available 08/14/2020 Mental Status Question Answer Note LastModified by Organization D etails LastModified Time Do you feel stressed (tense, restless, nervous, or anxious, or unable to sleep at night)? [id number] Information not available 08/04/2023 Family History Relationship [...] Stones N Blood Diseases N Hyperthyroidism N Hypothyroidism N Depression N COPD N Developmental or Behavioral Disorders [...] N Seizures/Epilepsy N Tuberculosis N Diverticulitis N Asthma N Allergies Y GERD/Reflux N Heart Disease N Pulmonary Embolism [...] preservative 7 completed Sendy Moran MD 2016 [facility], [place] [address], [place], [address], [facility] 09/18/2017 23:22:27 Tdap 8 completed Sendy Moran MD [address], [address], [facility] 12/19/2017 16:17:18 Influenza, split virus, quadrivalent, preservative 8 completed Sendy Moran MD [address], [address], [place] [facility] 10/15/2018 21:15:51 Influenza, split virus, quadrivalent, preservative 9 completed Sendy Moran MD [address], [address], [facility] 10/24/2019 11:27:59 Td (adult) 7 completed Sendy Moran MD [address], [address], [facility] 09/20/2012 14:17:20 zoster recombinant 8 completed Sendy Moran MD [address], [address], [facility] 08/04/2023 09:58:10 zoster recombinant 8 completed Sendy Moran MD [address], [address], [facility] 08/04/2023 09:58:20 Past Encounters Encounter ID Performer Location Encounter Start Date Encounter Closed Date Diagnosis/Indication Diagnosis SNOMED-CT Code Diagnosis ICD10 Code Diagnosis Note [id number] Sendy Moran MD [facility] [address] [id number] 09/20/2012 13:06:49 09/20/2012 19:43:29 [id number] Sendy Moran MD [facility] [address] [place] [id number] 06/09/2014 13:29:06 06/09/2014 18:19:24 Acute bronchopneumonia 670801781 [id number] Sendy Moran MD [facility] [address] [address] 09/04/2014 08:54:53 09/04/2014 10:50:40 Adult health examination 196369096 Screening for cancer 96822087 Pain of hip region 21486977 Anti-nucle ar factor detected 885495818 Sinusitis 96779483 Hyperlipidemia 95945908 Screening mammography 44893346 Screening for malignant neoplasm of cervix 546515483 Dysuria 96155388 Palpitations 44664017 [id number] Sendy Moran MD [facility] [address] [place] [id number] 7 11/16/2014 13:42:56 11/16/2014 16:46:33 Acute sinusitis 59987086 Serous otitis media 48802498 Acute bronchitis 03137431 [id number] Sendy Moran MD [facility] [address] [place] [id number] 11/25/2016 08:19:58 11/25/2016 18:31:51 History of urinary disease 518569933 Z87.448 Adult heal th examination 081040734 Z00.01 Screening mammography 24 955152 Z12.31 Screening for malignant neoplasm of cervix 092453078 Z12.4 Body mass index 30+ - obesity 396861626 Z68.33 Hyperlipidemia 06445749 E78.5 Screening for malignant neoplasm of colon 699737690 Z12.11 [id number] Sendy Moran MD [address] [address] 06/09/2017 13:43:53 06/10/2017 09:05:13 Urinary tract infectious disease 79735406 N39.0 Body mass index 30+ - obesity 676485496 Z68.32 [id number] Sendy Moran MD [facility] [address] [address] 12/10/2017 13:51:40 12/10/2017 16:01:26 Acute bronchitis 81294768 J20.9 [id number] Sendy Moran MD [facility] [address] [address] 12/15/2017 09:40:52 12/23/2017 09:42:32 Adult health examination 337079595 Z00.01 Screening for malignant neoplasm of colon 707908725 Z12.11 Depression screening 171 832423 Z13.89 Hypothyroidism 50963990 E03.9 Body mass index 30+ - obesity 671388817 Z68.30 Hemorrhoids 08607691 K64 .9 Hyperlipidemia 74107955 E78.5 [id number] Sendy Moran MD [facility] [address] [address] 04/09/2018 15:10:58 04/12/2018 16:38:05 Urinary tract infectious disease 06396555 N39.0 Hypothyroidism 93781744 E03.9 [id number] Sendy Moran MD [facility] [place] [id number] 08/03/2018 13:49:58 08/04/2018 08:26:12 Atypical chest pain 459299910 R07.89 Intermitte nt palpitations 146764008 R00.2 essu [id number] Snedy Moran MD [facility] [place] [id number] 7 08/09/2018 10:22:51 08/09/2018 13:42:21 Atypical chest pain 701447016 R07.89 Glucose le bjorn outside reference range 256127678 R73.09 Hyperlipidemia 33021071 E78.5 [id number] Sendy Moran MD [facility] [address] [address] 12/20/2018 13:24:51 12/26/2018 15:00:54 Adult health examination 171557530 Z00.01 Hypothyroidism 73678602 E03.9 Hyperlipidemia 32049289 E78.5 Depression screening 171 221730 Z13.89 Body mass index 30+ - obesity 936602500 Z68.30 [id number] Sendy Moran MD [facility] [address] [address] 09/30/2019 15:14:26 10/03/2019 08:47:20 Increased frequency of urination 177437218 R35.0 Screening for malignant neoplasm of colon 604810515 Z12.11 Hypothyroidism 66031546 E03.9 Hyperlipidemia 40530201 E78.5 k Depression screening 171 559943 Z13.89 Body mass index 30+ - obesity 040787614 Z68.30 [id number] Sendy Moran MD [facility] [address] [address] 10/24/2019 10:25:42 10/24/2019 12:09:05 Acute lower respiratory tract infection 348653158 J22 [id number] Sendy Moran MD [facility] [address] [id number] 05/21/2020 08:57:05 05/22/2020 08:12:35 Hyperlipidemia 43584428 E78.5 Adult heal th examination 229564843 Z00.01 Hypothyroidism 11740645 E03.9 Depression screening 171 642742 Z13.89 Body mass index 30+ - obesity 329484694 Z68.30 Screening for malignant neoplasm of cervix 900838515 Z12.4 Hypertensi on screening 379745980 Z13.6 [id number] Sendy Moran MD [facility] [address] [id number] 05/24/2021 09:43:08 05/27/2021 09:43:32 Increased frequency of urination 014606473 R35.0 Urinary tr act infectious disease 04977299 N39.0 Adult heal th examination 706530924 Z00.01 Hyperlipidemia 62469848 E78.5 Hypothyroidism 92293326 E03.9 Depression screening 171 079829 Z13.89 Body mass index 30+ - obesity 039840713 Z68.31 Hypertensi on screening 514395453 Z13.6 Screening for malignant neoplasm of colon 368335224 Z12.11 [id number] Sendy Moran MD [facility] [address] [id number] 01/27/2022 13:28:44 01/28/2022 08:18:10 Urinary tract infectious disease 20063786 N39.0 Recurrent urinary tract infection 772432271 N39.0 [id number] Sendy Moran MD [facility] [address] [id number] 7 05/27/2022 09:54:52 05/29/2022 10:15:50 Increased frequency of urination 008354395 R35.0 Urinary tr act infectious disease 52508250 N39.0 Adult heal th examination 370546035 Z00.01 Hyperlipidemia 03489073 E78.5 Hypothyroidism 45075098 E03.9 Depression screening 171 418185 Z13.89 Body mass index 30+ - obesity 868504012 Z68.30 Hypertensi on screening 507290644 Z13.6 [id number] Sendy Moran MD [facility] [address] [place] [id number] 7 10/17/2022 09:15:18 10/17/2022 16:53:09 Acute lower respiratory tract infection 511075422 2 [facility] 44625396 R06.2 [id number] Sendy Moran MD [facility] [address] [place] [id number] 7 01/22/2023 14:11:35 01/22/2023 15:54:47 Increased frequency of urination 960188130 R35.0 Urinary tr act infectious disease 32961468 N39.0 [id number] Sendy Moran MD [facility] [address] [place] [id number] 07/16/2023 13:35:28 07/17/2023 09:17:51 Increased frequency of urination 795010726 R35.0 Intercosta l post-herpetic neuralgia 884966307 B02.29 Abnormal b lood pressure 72434226 Z01.31 [id number] Sendy Moran MD [address] [address] 08/04/2023 08:38:50 08/06/2023 09:14:30 Adult health examination 240234130 Z00.01 Hyperlipidemia 10018645 E78.5 Hypothyroidism 42999199 E03.9 Depression screening 171 549787 Z13.89 Hypertensi on screening 265494530 Z13.6 Screening for malignant neoplasm of cervix 366205555 Z12.4 Screening for malignant neoplasm of colon 198115200 Z12.11 Lichen sim plex chronicus 72500111 L28.0 Screening mammography 24 668738 Z12.31 Health Concerns Section Related Observation LastModified by Organization Detai ls LastModified Time None Recorded Concern Status LastModified by Organization Details LastModified Time None Recorded Advance Directives Directive N: Payers Encounter Date Sequence Insurance Name Policy Number Policy Diez Covered Member ID Diez Member ID Guarantor Name 05/27/2022 1 [facility] (MEDICAID HMO) Deirdre Ortez [id number] Deirdre Ortez 10/17/2022 1 [facility] [facility] (MEDICAID HMO) Deirdre Harty [id number] Deirdre Manleyaley 01/22/2023 1 [employer] [facility] (MEDICAID HMO) Deirdre Manleyaley [id number] Deirdre Manleyaley 07/16/2023 1 [employer] [facility] (MEDICAID HMO) Deirdre Manleyaley [id number] Deirdre Manleyaley 08/04/2023 1 [employer] [facility] (MEDICAID HMO) Deirdre Harty [id number] Deirdre Ortez Notes Date Note Type Note Provider Name and Address Organization Details Recorded Time 05/27/2022 text/html Feels her only problem is arthritis pain; left hip and both knees and ankles especially when she gets up in the morning. Sometimes gets muscle spasms in the toes. Sendy Moran MD [address], [address], [facility] 05/28/2022 23:49:35 10/17/2022 text/html started with congestion last night and it is productive phlegm. She has a history of past pneumonias She has not had the flu or covid vaccines. She had covid last August. Started with a sore throat. Sendy Moran MD [address] [address], [place], [address], [facility] 10/17/2022 09:56:54 01/22/2023 text/html started with frequency and dysuria for 3 days No fevers or chills. Sendy Moran MD [address], [address], [facility] 01/22/2023 15:39:48 07/16/2023 text/html she had shingles over left posterior shoulder about 5 months ago and now has a skin sensation that itches and sometimes saha just below the left scapulaNo rash or skin issue noted now.Has lost 12 pounds.She had sinus and was given cefdinir and had neck swelling so they changed her to augmentin. Sendy Moran MD 2017 [facility], [address], [place], [address], [facility] 07/17/2023 07:54:06 OBGyn Episode No OBEpisode recorded.
[2025-03-11 09:50] LABS: Basophils % 0.5 % (0.1-2.0); Eosinophils # 0.2 Kmm3 (0.0-0.4); Eosinophils % 2.6 % (0.1-12.0); Hematocrit 40.8 % (37.0-47.0); Hemoglobin 12.8 g/dL (12.2-16.2); Immature Granulocytes # 0 10^3uL; Immature Granulocytes % 0 %; Lymphocytes # 2.2 K/mm3 (0.7-4.5); Lymphocytes % 37.6 % (10-50); Mean Corpuscular HGB Conc 31.4 g/dL (31.8-35.4); Mean Corpuscular Hemoglobin 28.8 pg (27.0-31.2); Mean Corpuscular Volume 91.9 fl (81-99); Mean Platelet Volume 11.2 fl (7.4-10.4); Monocytes # 0.5 K/mm3 (0.1-1.0); Monocytes % 8.3 % (1.7-9.3); Nucleated Red Blood Cells # 0 10^3/uL; Nucleated Red Blood Cells % 0 %; Platelet Count 215 K/mm3 (142-424); Red Blood Count 4.44 M/mm3 (4.20-5.40); Red Cell Distribution Width 13.6 % (11.5-17.5); Red Cell Distribution Width-SD 46.1 fL; White Blood Count 5.9 K/mm3 (4.8-10.8)
[2025-03-11 11:07] LABS: Albumin Level 4.2 g/dl (3.5-5.0); Chloride 110 mmol/L (98-107); Sodium 139 mmol/L (136-145)
[2025-03-11 11:08] LABS: Potassium 4.5 mmoL/L (3.5-5.1)
[2025-03-11 11:10] LABS: Alanine Aminotransferase 21 U/L (12-78); Albumin/Globulin Ratio 1.8 (1.1-1.8); Alkaline Phosphatase 77 U/L (38-126); Anion Gap 6.5 mEq/L (5-15); Aspartate Amino Transferase 27 U/L (14-36); Bilirubin,Total 0.4 mg/dl (0.2-1.3); Blood Urea Nitrogen 21 mg/dl (7-17); Carbon Dioxide 27 mmol/L (22.0-30.0); Cholesterol 252 mg/dl (140-200); Estimated Glomerular Filt Rate 72 ml/min (>60); GFR (African American) 87 ML/MIN (>60); Globulin 2.4 g/dL (1.3-3.2); Iron 67 ug/dL (37-170); Total Protein,Serum 6.6 g/dl (6.3-8.2); Triglycerides 146 mg/dl (30-150); VLDL Cholesterol 29 mg/dL (0-40)
[2025-03-11 11:11] LABS: Calcium 9.5 mg/dl (8.4-10.2); Chol/HDL Ratio 3.5 (1-3.5); Glucose 107 mg/dl (74-100); HDL Cholesterol 72 mg/dl (40-60)
[2025-03-11 11:22] LABS: Direct LDL Cholesterol 111.18 mg/dL (100-129)
[2025-03-11 11:26] LABS: Total Iron Binding Capacity 240 ug/dL (265-497)
[2025-03-11 11:29] LABS: Free T4 (Free Thyroxine) 1.21 ng/dl (0.78-2.19)
[2025-03-11 11:42] LABS: Thyroid Stimulating Hormone 1.62 uIU/mL (0.465-4.68)
[2025-03-11 11:46] LABS: Ferritin 66.9 ng/ml (11.1-264)
[2025-03-11 13:32] LABS: Hemoglobin A1C 5.3 % (4.0-6.0)
[2025-03-11 13:34] LABS: Vitamin B12 249 pg/mL (239-931)
== END 2025-03-11 23:59 | disposition home or self-care (01) ==
LOC: LAB 09:08
PROVIDERS: PCP Nurse Practitioner Family; Visit Provider Nurse Practitioner Family
DX: Z00.00 Encounter for general adult medical examination without abnormal findings (principal); N39.0 Urinary tract infection, site not specified; E03.9 Hypothyroidism, unspecified; E11.9 Type 2 diabetes mellitus without complications; G47.33 Obstructive sleep apnea (adult) (pediatric); R41.3 Other amnesia; R53.83 Other fatigue; I10 Essential (primary) hypertension; Z13.220 Encounter for screening for lipoid disorders
CPT/HCPCS: 36415; 80053; 80061; 82607; 82728; 83036; 83540; 83550; 84439; 84443; 85025

== ENCOUNTER 2025-04-05 10:37 | Outpatient (CLI) | payer MEDICARE, MEDICAID, SELFPAY ==
--- OUTSIDE RECORDS SUMMARY | 2025-04-05 10:42 | XMS_ITS | Data Portability ---
Author Organization [facility] ADMIN Address [address] [place] [address] Assessment No assessment recorded. 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 Medical Equipment None Reported. [...] SNOMED-CT Code Diagnosis ICD10 Code Diagnosis Note [id number] JACKIE [facility]YS [facility] [place] [address], [facility] [place] [address]561[facility] 09/01/2023 13:17:08 09/01/2023 13:34:36 Mixed conductive and sensorineural hearing loss of right ear 2058195977 9105 H90.A31 Health Concerns Section Related Observation LastModified by Organization Detai ls LastModified Time None Recorded Concern Status LastModified by Organization Details LastModified Time None Recorded Advance Directives Directive None Recorded Payers Insurance Date Sequence Insurance Name Policy Number Policy Diez Covered Member ID Diez Member ID Guarantor Name 09/01/2023 1 [facility] (MEDICAID HMO) Dierdre Chapman [id number] Deirdre Chapman Notes Date Note Type Note [...] is something that she wants to do. JACKIE HAYS [address] [facility], [place], [address], [facility] [place] 09/01/2023 13:40:13 OBGyn Episode No OBEpisode recorded.
--- OUTSIDE RECORDS SUMMARY | 2025-04-05 10:42 | XMS_ITS | Data Portability ---
Author Organization [facility] Address [address] [facility] [place] [address] Assessment Encounter Date Assessment Date Assessment LastModified [...] 3 23:19:39 pap, LB 2022 023 REINALDO [facility], [address], [place], [address], 3 14:24:16 urinalysis, dipstick [address], [address] [place], [address], 3 13:59:24 culture, urine 2022 023 REINALDO [facility], [address], [place], [address], 3 07:38:25 urinalysis, dipstick [address], [address] [place], [address], 3 14:32:26 SARS CoV 2 RNA (COVID-19), QL, release of information clerk-PCR, respiratory specimen [address] [facility], [address] [place], [address], 3 09:35:24 respiratory pathogens DNA and RNA panel, PCR, nasopharynx [address] [facility], [address] [place], [address], 3 09:35:24 rapid flu (A+B) 2021 022 [facility], [address] [place], [address], 2 09:54:23 culture, urine 2021 022 [facility], [address] [place], [address], 2 02:16:46 urinalysis, dipstick [address] [facility], [address] [place], [address], 2 10:11:47 Referral None recorded. Procedures None recorded. Surgeries None recorded. Imaging MAMMO, screening, digital, bilateral - due after 12/27/23[address] [place] [address] ([facility], [address] [place], [address], 4 16:05:01 Medication Orders triamcinolo ne acetonide 0.1 % topical cream 2022 023 [facility]3016, [address] [place], [address], 3 10:10:05 nitrofurant oin monohydrate /macrocryst als 100 mg capsule 2022 [address]23 [address] [place], [address], 3 09:14:30 gentamicin 40 mg/mL injection solution [address]/Pharmacy #3016, [address] [place], [address], 3 09:14:25 azithromyci n 250 mg tablet [address]/Pharmacy [facility]016, [address] [place], [address], 3 14:26:36 methylpredn isolone 4 mg tablets in a dose pack 122021 jstapleto n5 [facility], [address] [place], [address], 3 09:14:34 dexamethaso ne sodium phosphate 4 mg/mL injection solution 2021 jstapleto n5 [facility], [address] [facility] [place], [address], 3 14:26:33 Ventolin HFA 90 mcg/actuati on aerosol inhaler 2021 REINALDO [facility]3016, [address] [place], [address], 09:54:27 Patient TargetsNo targets recorded. Patient Instructions Encounter Date Encounter Id Patient Instructions Last Modified By Organization Details Last Modified Time 05/27/2022 [id number] learning about healthy weight Not available 05/28/2022 23:49:29 Reason for Referral None Reported. Results Created Date Observation Date Name Description Value Unit Range Abnormal Flag Note LastModifiedBy Organization Detail LastModifiedTime 05/26/2005/27/2022 LIPID PANEL , STAND EDVIN cholesterol, total 162 mg/dL <200 normal Not Available [facility] [address] [place], [address], 05/27/2022 08:18:56 05/26/2005/27/2022 LIPID PANEL , STAND EDVIN HDL cholesterol 71 mg/dL > or = 50 normal Not Available [facility] [address] [facility] [place], [address], 05/27/2022 08:18:56 05/26/2005/27/2022 LIPID PANEL , STAND EDVIN triglyceride s 113 mg/dL <150 normal Not Available [facility] [address] [facility] [place], [address], 05/27/2022 08:18:56 05/26/20 22 05/27/2022 LIPID PANEL [...] 310(1 9): 2061- 2068 (http ://ed ucati on.RF nano borisGotaCopy. [employer]/f aq/FA Q164) Not Available [facility] [address] [facility] [place], [address], 05/27/2022 08:18:56 05/26/20 22 05/27/2022 LIPID PANEL , STAND EDVIN chol/HDLC ratio 2.3 (calc ) <5.0 normal Not Available [facility] [address] [facility], [place], [address], 05/27/2022 08:18:56 05/26/20 22 05/27/2022 LIPID PANEL , STAND EDVIN non HDL cholesterol 91 mg/dL _(trini c) <130 normal For patie nts with diabe ovi plus 1 major ASCVD risk facto r, treat ing to a non-H DL-C goal of <100 mg/dL (LDL- C of <70 mg/dL ) is consi dered a thera peuti c optio n. Not Available [facility] [address] [facility] [address], [place], [address], 05/27/2022 08:18:56 05/26/20 22 05/27/2022 COMPR EHENS HOMAR METAB OLIC PANEL glucose 105 mg/dL 65-99 high Fasti ng refer ence inter edy For someo ne witho ut known diabe ovi, a gluco se value betwe en 100 and 125 mg/dL is consi stent with predi abete s and shoul d be confi rmed with a follo w-up test. Not Available [facility] [address] [place], [address], 05/27/2022 08:18:57 05/26/20 22 05/27/2022 COMPR EHENS HOMAR METAB OLIC PANEL urea nitrogen (BUN) 14 mg/dL 7-25 normal Not Available [facility] [address] [place], [address], 05/27/2022 08:18:57 05/26/20 22 05/27/2022 COMPR EHENS HOMAR METAB OLIC PANEL creatinine 0.83 mg/dL 0.50-1 .05 normal Not Available [facility] [address] [place], [address], 05/27/2022 08:18:57 05/26/20 22 05/27/2022 COMPR EHENS [...] culat or Not Available [facility] [address] [place], [address], 05/27/2022 08:18:57 05/26/20 22 05/27/2022 COMPR EHENS HOMAR METAB OLIC PANEL BUN/creatini ne ratio NOT APPLIC ABLE (calc ) 6-22 Not Available [facility] [address] [place], [address], 05/27/2022 08:18:57 05/26/20 22 05/27/2022 COMPR EHENS HOMAR METAB OLIC PANEL sodium 140 mmol/ L 135-14 6 normal Not Available [facility] [address] [facility] [place], [address], 05/27/2022 08:18:57 05/26/20 22 05/27/2022 COMPR EHENS HOMAR METAB OLIC PANEL potassium 4.1 mmol/ L 3.5-5. 3 normal Not Available [facility] [address] [facility] [place], [address], 05/27/2022 08:18:57 05/26/20 22 05/27/2022 COMPR EHENS HOMAR METAB OLIC PANEL chloride 108 mmol/ L 98-110 normal Not Available [facility] [address] [facility] [place], [address], 05/27/2022 08:18:57 05/26/20 22 05/27/2022 COMPR EHENS HOMAR METAB OLIC PANEL carbon dioxide 25 mmol/ L 20-32 normal Not Available [facility] [address] [facility] [place], [address], 05/27/2022 08:18:57 05/26/20 22 05/27/2022 COMPR EHENS HOMAR METAB OLIC PANEL calcium 9.5 mg/dL 8.6-10 .4 normal Not Available [facility] [address] [facility] [place], [address], 05/27/2022 08:18:57 05/26/20 22 05/27/2022 COMPR EHENS HOMAR METAB OLIC PANEL protein, total 6.4 g/dL 6.1-8. 1 normal Not Available [facility] [address] [facility] [place], [address], 05/27/2022 08:18:57 05/26/20 22 05/27/2022 COMPR EHENS HOMAR METAB OLIC PANEL albumin 4.3 g/dL 3.6-5. 1 normal Not Available [facility] [address] [place], [address], 05/27/2022 08:18:57 05/26/20 22 05/27/2022 COMPR EHENS HOMAR METAB OLIC PANEL globulin 2.1 g/dL_ (calc ) 1.9-3. 7 normal Not Available [facility] [address] [place], [address], 05/27/2022 08:18:57 05/26/20 22 05/27/2022 COMPR EHENS HOMAR METAB OLIC PANEL albumin/glob ulin ratio 2.0 (calc ) 1.0-2. 5 normal Not Available [facility] [address] [place], [address], 05/27/2022 08:18:57 05/26/20 22 05/27/2022 COMPR EHENS HOMAR METAB OLIC PANEL bilirubin, total 0.6 mg/dL 0.2-1. 2 normal Not Available [facility] [address] [place], [address], 05/27/2022 08:18:57 05/26/20 22 05/27/2022 COMPR EHENS HOMAR METAB OLIC PANEL alkaline phosphatase 93 U/L 37-153 normal Not Available [facility] [address] [place], [address], 05/27/2022 08:18:57 05/26/20 22 05/27/2022 COMPR EHENS HOMAR METAB OLIC PANEL AST 17 U/L 10-35 normal Not Available [facility] [address] [place], [address], 05/27/2022 08:18:57 05/26/20 22 05/27/2022 COMPR EHENS HOMAR METAB OLIC PANEL ALT 14 U/L 6-29 normal Not Available [facility] [address] [facility] [place], [address], 05/27/2022 08:18:57 05/26/20 22 05/27/2022 TSH TSH 1.03 mIU/L 0.40-4 .50 normal Not Available [facility] [address] [facility] [place], [address], 05/27/2022 08:18:58 05/26/20 22 05/27/2022 CBC (INCL UDES DIFF/ PLT) white blood cell count 6.0 thous and/u L 3.8-10 .8 normal Not Available [facility] [address] [facility] [place], [address], 05/27/2022 08:18:58 05/26/20 22 05/27/2022 CBC (INCL UDES DIFF/ PLT) red blood cell count 4.48 charley on/uL 3.80-5 .10 normal Not Available [facility] [address] [facility] [place], [address], 05/27/2022 08:18:58 05/26/20 22 05/27/2022 CBC (INCL UDES DIFF/ PLT) hemoglobin 13.2 g/dL 11.7-1 5.5 normal Not Available [facility] [address] [facility] [place], [address], 05/27/2022 08:18:58 05/26/20 22 05/27/2022 CBC (INCL UDES DIFF/ PLT) hematocrit 41.4 % 35.0-4 5.0 normal Not Available [facility] [address] [facility] [place], [address], 05/27/2022 08:18:58 05/26/20 22 05/27/2022 CBC (INCL UDES DIFF/ PLT) MCV 92.4 fL 80.0-1 00.0 normal Not Available [facility] [address] [place], [address], 05/27/2022 08:18:58 05/26/20 22 05/27/2022 CBC (INCL UDES DIFF/ PLT) MCH 29.5 pg 27.0-3 3.0 normal Not Available [facility] [address] [place], [address], 05/27/2022 08:18:58 05/26/20 22 05/27/2022 CBC (INCL UDES DIFF/ PLT) MCHC 31.9 g/dL 32.0-3 6.0 low Not Available [facility] [address] [place], [address], 05/27/2022 08:18:58 05/26/20 22 05/27/2022 CBC (INCL UDES DIFF/ PLT) RDW 13.2 % 11.0-1 5.0 normal Not Available [facility] [address] [place], [address], 05/27/2022 08:18:58 05/26/20 22 05/27/2022 CBC (INCL UDES DIFF/ PLT) platelet count 210 thous and/u L 140-40 0 normal Not Available [facility] [address] [place], [address], 05/27/2022 08:18:58 05/26/20 22 05/27/2022 CBC (INCL UDES DIFF/ PLT) MPV 11.0 fL 7.5-12 .5 normal Not Available [facility] [address] [place], [address], 05/27/2022 08:18:58 05/26/20 22 05/27/2022 CBC (INCL UDES DIFF/ PLT) absolute neutrophils 2724 cells /uL 1500-7 800 normal Not Available [facility] [address] [place], [address], 05/27/2022 08:18:58 05/26/20 22 05/27/2022 CBC (INCL UDES DIFF/ PLT) absolute lymphocytes 2580 cells /uL 850-39 00 normal Not Available [facility] [address] [place], [address], 05/27/2022 08:18:58 05/26/20 22 05/27/2022 CBC (INCL UDES DIFF/ PLT) absolute monocytes 558 cells /uL 200-95 0 normal Not Available [facility] [address], [place], [address], 05/27/2022 08:18:58 05/26/20 22 05/27/2022 CBC (INCL UDES DIFF/ PLT) absolute eosinophils 90 cells /uL 15-500 normal Not Available [facility] [address] [facility] [address], [place], [address], 05/27/2022 08:18:58 05/26/20 22 05/27/2022 CBC (INCL UDES DIFF/ PLT) absolute basophils 48 cells /uL 0-200 normal Not Available [facility] [address], [place], [address], 05/27/2022 08:18:58 05/26/20 22 05/27/2022 CBC (INCL UDES DIFF/ PLT) neutrophils 45.4 % normal Not Available [facility] [address], [place], [address], 05/27/2022 08:18:58 05/26/20 22 05/27/2022 CBC (INCL UDES DIFF/ PLT) lymphocytes 43.0 % normal Not Available [facility] [address], [place], [address], 05/27/2022 08:18:58 05/26/20 22 05/27/2022 CBC (INCL UDES DIFF/ PLT) monocytes 9.3 % normal Not Available [facility] [address] [place], [address], 05/27/2022 08:18:58 05/26/20 22 05/27/2022 CBC (INCL UDES DIFF/ PLT) eosinophils 1.5 % normal Not Available [facility] [address] [place], [address], 05/27/2022 08:18:58 05/26/20 22 05/27/2022 CBC (INCL UDES DIFF/ PLT) basophils 0.8 % normal Not Available [facility] [address] [place], [address], 05/27/2022 08:18:58 05/27/20 22 05/29/2022 CULTU RE, URINE , ROUTI NE culture, urine, routine CULTU RE, URINE , ROUTI NE Micro Numbe r: [id number] Test Statu s: Final Speci men [...] port Tube. Not Available [facility] [address] [place], [address], 05/29/2022 02:16:45 05/27/2005/27/2022 urina lysis , dipst ick Leukocytes Modera te Not Available [address], [address], 05/27/2022 10:11:09 05/27/20 22 05/27/2022 urina lysis , dipst ick Nitrite negati ve Not Available [facility] [address] [place], [address], 05/27/2022 10:11:09 05/27/20 22 05/27/2022 urina lysis , dipst ick Urobilinogen .2 Not Available [facility] [address] [place], [address], 05/27/2022 10:11:09 05/27/20 22 05/27/2022 urina lysis , dipst ick Protein Negati ve Not Available [facility] [address] [place], [address], 05/27/2022 10:11:09 05/27/20 22 05/27/2022 urina lysis , dipst ick pH 6.0 Not Available [facility] [address] [place], [address], 05/27/2022 10:11:09 05/27/20 22 05/27/2022 urina lysis , dipst ick Blood Negati ve Not Available [facility] [address] [place], [address], 05/27/2022 10:11:09 05/27/20 22 05/27/2022 urina lysis , dipst ick Specific [place] 1.010 Not Available [facility] [address] [place], [address], 05/27/2022 10:11:09 05/27/20 22 05/27/2022 urina lysis , dipst ick Ketone Negati ve Not Available [facility] [address] [place], [address], 05/27/2022 10:11:09 05/27/20 22 05/27/2022 urina lysis , dipst ick Bilirubin Negati ve Not Available [facility] [address] [place], [address], 05/27/2022 10:11:09 05/27/20 22 05/27/2022 urina lysis , dipst ick Glucose Negati ve Not Available [facility] [address] [facility], [place], [address], 05/27/2022 10:11:09 10/17/20 22 10/18/2022 SARS COV2 [...] ostic s websi te: www.Q uestD iagno [employer] .[employer]/ Covid 19. For patie nts with a [...] vacci isha. Not Available [facility] [address], [place], [address], 10/18/2022 19:58:56 10/17/20 22 10/18/2022 SARS COV2 RNA(C OVID1 9) AND RESP PATHO GEN PNL, NAAT adenovirus NOT DETECT ED not detect ed normal Not Available [facility] [address], [place], [address], 10/18/2022 19:58:56 10/17/20 22 10/18/2022 SARS COV2 RNA(C OVID1 9) AND RESP PATHO GEN PNL, NAAT rhinovirus/e nterovirus NOT DETECT ED not detect ed normal Not Available [facility] [address] [facility] [place], [address], 10/18/2022 19:58:56 10/17/20 22 10/18/2022 SARS COV2 RNA(C OVID1 9) AND RESP PATHO GEN PNL, NAAT influenza A NOT DETECT ED not detect ed normal Not Available [facility] [address] [facility] [place], [address], 10/18/2022 19:58:56 10/17/20 22 10/18/2022 SARS COV2 RNA(C OVID1 9) AND RESP PATHO GEN PNL, NAAT influenza A subtype H1 NOT DETECT ED not detect ed normal Not Available [facility] [address] [facility] [place], [address], 10/18/2022 19:58:56 10/17/20 22 10/18/2022 SARS COV2 RNA(C OVID1 9) AND RESP PATHO GEN PNL, NAAT influenza A subtype H3 NOT DETECT ED not detect ed normal Not Available [facility] [address] [facility] [place], [address], 10/18/2022 19:58:56 10/17/20 22 10/18/2022 SARS COV2 RNA(C OVID1 9) AND RESP PATHO GEN PNL, NAAT influenza B NOT DETECT ED not detect ed normal Not Available [facility] [address] [facility] [place], [address], 10/18/2022 19:58:56 10/17/20 22 10/18/2022 SARS COV2 RNA(C OVID1 9) AND RESP PATHO GEN PNL, NAAT human metapneumovi wendy NOT DETECT ED not detect ed normal Not Available [facility] [address], [place], [address], 10/18/2022 19:58:56 10/17/20 22 10/18/2022 SARS COV2 RNA(C OVID1 9) AND RESP PATHO GEN PNL, NAAT human RSV A NOT DETECT ED not detect ed normal Not Available [facility] [address] [facility] [place], [address], 10/18/2022 19:58:56 10/17/20 22 10/18/2022 SARS COV2 RNA(C OVID1 9) AND RESP PATHO GEN PNL, NAAT human RSV B NOT DETECT ED not detect ed normal Not Available [facility] [address] [facility], [place], [address], 10/18/2022 19:58:56 10/17/20 22 10/18/2022 SARS COV2 RNA(C OVID1 9) AND RESP PATHO GEN PNL, NAAT human parainflu virus 1 NOT DETECT ED not detect ed normal Not Available [facility] [address] [facility], [place], [address], 10/18/2022 19:58:56 10/17/20 22 10/18/2022 SARS COV2 RNA(C OVID1 9) AND RESP PATHO GEN PNL, NAAT human parainflu virus 2 NOT DETECT ED not detect ed normal Not Available [facility] [address] [facility] [address] [address], [place], [address], 10/18/2022 19:58:56 10/17/20 22 10/18/2022 SARS COV2 RNA(C OVID1 9) AND RESP PATHO GEN PNL, NAAT human parainflu virus 3 NOT DETECT ED not detect ed normal Not Available [facility] [address], [place], [address], 10/18/2022 19:58:56 10/17/20 22 10/18/2022 SARS COV2 RNA(C OVID1 9) AND RESP PATHO GEN PNL, NAAT human parainflu virus 4 NOT DETECT ED not detect ed normal Not Available [facility] [address] [facility] [place], [address], 10/18/2022 19:58:56 10/17/20 22 10/18/2022 SARS COV2 RNA(C OVID1 9) AND RESP PATHO GEN PNL, NAAT coronavirus 229E NOT DETECT ED not detect ed normal Not Available [facility] [address] [facility], [place], [address], 10/18/2022 19:58:56 10/17/20 22 10/18/2022 SARS COV2 RNA(C OVID1 9) AND RESP PATHO GEN PNL, NAAT coronavirus oc43 NOT DETECT ED not detect ed normal Not Available [facility] [address] [facility] [place], [address], 10/18/2022 19:58:56 10/17/20 22 10/18/2022 SARS COV2 RNA(C OVID1 9) AND RESP PATHO GEN PNL, NAAT coronavirus nl63 NOT DETECT ED not detect ed normal Not Available [facility] [address] [facility], [place], [address], 10/18/2022 19:58:56 10/17/20 22 10/18/2022 SARS COV2 RNA(C OVID1 9) AND RESP PATHO GEN PNL, NAAT coronavirus hku1 NOT DETECT ED not detect ed normal Not Available [facility] [address] [facility], [place], [address], 10/18/2022 19:58:56 10/17/20 22 10/18/2022 SARS COV2 RNA(C OVID1 9) AND RESP PATHO GEN PNL, NAAT human bocavirus NOT DETECT ED not detect ed normal Not Available [facility] [address] [facility] [address], [place], [address], 10/18/2022 19:58:56 10/17/20 22 10/18/2022 SARS COV2 RNA(C OVID1 9) AND RESP PATHO GEN PNL, NAAT chlamydophil a pneumoniae NOT DETECT ED not detect ed normal Not Available [facility] [address] [facility] [place], [address], 10/18/2022 19:58:56 10/17/20 22 10/18/2022 SARS COV2 RNA(C OVID1 9) AND RESP PATHO GEN PNL, NAAT mycoplasma pneumoniae NOT DETECT ED not detect ed normal Not Available [facility] [address] [place], [address], 10/18/2022 19:58:56 10/17/20 22 10/18/2022 SARS COV2 RNA(C OVID1 9) AND RESP PATHO GEN PNL, NAAT comment THIS ASSAY WILL NOT DETEC T SARS- CoV-2 (COVI D-19) This test is perfo rmed using the [employer]umin ex Techn ology . Limit ation [...] virus es. Not Available [facility] [address] [facility] [place], [address], 10/18/2022 19:58:56 10/17/20 22 10/17/2022 rapid flu (A+B) rapid flu negati ve Not Available [address], [place], [address], 10/17/2022 09:50:59 01/23/20 23 01/24/2023 CULTU RE, URINE , ROUTI NE culture, urine, routine CULTU RE, URINE , ROUTI NE Micro Numbe r: [id number] Test Statu s: Final Speci men Sourc e: Urine Speci men Quali ty: Adequ ate Resul t: Mixed genit al bijan isola setfan. These super ficia l bacte maco are not indic ative of a urina ry tract infec tion. No furth er organ ism ident ifica tion is warra nted on this speci men. If clini luis indic ated, recol lect clean -catc h, mid-s tream urine and trans holly immed iatel y to Urine Cultu re Trans port Tube. Not Available [facility] [address] [facility], [place], [address], 01/24/2023 07:38:25 01/23/20 23 01/22/2023 urina lysis , dipst ick Leukocytes Small Not Available [facility] [address] [place], [address], 01/22/2023 14:31:20 01/23/20 23 01/22/2023 urina lysis , dipst ick Nitrite negati ve Not Available [facility] [address] [place], [address], 01/22/2023 14:31:20 01/23/20 23 01/22/2023 urina lysis , dipst ick Urobilinogen .2 Not Available [facility] [address] [place], [address], 01/22/2023 14:31:20 01/23/20 23 01/22/2023 urina lysis , dipst ick Protein Negati ve Not Available [facility] [address] [place], [address], 01/22/2023 14:31:20 01/23/20 23 01/22/2023 urina lysis , dipst ick pH 6.0 Not Available [facility] [address] [place], [address], 01/22/2023 14:31:20 01/23/20 23 01/22/2023 urina lysis , dipst ick Blood Negati ve Not Available [facility] [address] [place], [address], 01/22/2023 14:31:20 01/23/20 23 01/22/2023 urina lysis , dipst ick Specific [place] 1.030 Not Available [facility] [address] [place], [address], 01/22/2023 14:31:20 01/23/20 23 01/22/2023 urina lysis , dipst ick Ketone Negati ve Not Available [facility] [address] [place], [address], 01/22/2023 14:31:20 01/23/20 23 01/22/2023 urina lysis , dipst ick Bilirubin Negati ve Not Available [facility] [address] [place], [address], 01/22/2023 14:31:20 01/23/20 23 01/22/2023 urina lysis , dipst ick Glucose Negati ve Not Available [facility] [address] [place], [address], 01/22/2023 14:31:20 07/16/20 23 07/16/2023 urina lysis , dipst ick Leukocytes Negati ve Not Available [facility] [address] [place], [address], 07/16/2023 13:59:01 07/16/20 23 07/16/2023 urina lysis , dipst ick Nitrite negati ve Not Available [facility] [address] [place], [address], 07/16/2023 13:59:01 07/16/20 23 07/16/2023 urina lysis , dipst ick Urobilinogen .2 Not Available [facility] [address] [place], [address], 07/16/2023 13:59:01 07/16/20 23 07/16/2023 urina lysis , dipst ick Protein Negati ve Not Available [facility] [address] [place], [address], 07/16/2023 13:59:01 07/16/20 23 07/16/2023 urina lysis , dipst ick pH 6.0 Not Available [facility] [address] [place], [address], 07/16/2023 13:59:01 07/16/20 23 07/16/2023 urina lysis , dipst ick Blood Negati ve Not Available [facility] [address] [place], [address], 07/16/2023 13:59:01 07/16/20 23 07/16/2023 urina lysis , dipst ick Specific [place] 1.010 Not Available [facility] [address] [place], [address], 07/16/2023 13:59:01 07/16/20 23 07/16/2023 urina lysis , dipst ick Ketone Negati ve Not Available [facility] [address] [place], [address], 07/16/2023 13:59:01 07/16/20 23 07/16/2023 urina lysis , dipst ick Bilirubin Negati ve Not Available [facility] [address] [place], [address], 07/16/2023 13:59:01 07/16/20 23 07/16/2023 urina lysis , dipst ick Glucose Negati ve Not Available [facility] [address] [place], [address], 07/16/2023 13:59:01 07/30/2007/31/2023 LIPID PANEL (REFL ) cholesterol, total 168 mg/dL <200 normal Not Available [facility] [address] [facility], [place], [address], 07/31/2023 09:40:42 07/30/2007/31/2023 LIPID PANEL (REFL ) HDL cholesterol 69 mg/dL > or = 50 normal Not Available [facility] [address] [facility], [place], [address], 07/31/2023 09:40:42 07/30/2007/31/2023 LIPID PANEL (REFL ) triglyceride s 75 mg/dL <150 normal Not Available [facility] [address] [facility], [place], [address], 07/31/2023 09:40:42 07/30/2007/31/2023 LIPID PANEL (REFL ) [...] 2061- 2068 (http ://ed jhonatanati on.Qu Cornell beniots. com/f aq/FA Q164) Not Available [facility] [address], [place], [address], 07/31/2023 09:40:42 07/30/2007/31/2023 LIPID PANEL (REFL ) chol/HDLC ratio 2.4 (calc ) <5.0 normal Not Available [facility] [address] [facility] [place], [address], 07/31/2023 09:40:42 07/30/2007/31/2023 LIPID PANEL (REFL ) non HDL cholesterol 99 mg/dL _(trini c) <130 normal For patie nts with diabe ovi plus 1 major ASCVD risk facto r, treat ing to a non-H DL-C goal of <100 mg/dL (LDL- C of <70 mg/dL ) is consi dered a thera peuti c optio n. Not Available [facility] [address] [facility] [place], [address], 07/31/2023 09:40:42 07/30/2007/31/2023 COMPR EHENS HOMAR METAB OLIC PANEL glucose 101 mg/dL 65-99 high Fasti ng refer ence inter edy For someo ne witho ut known diabe ovi, a gluco se value betwe en 100 and 125 mg/dL is consi stent with predi abete s and shoul d be confi rmed with a follo w-up test. Not Available [facility] [address] [facility] [place], [address], 07/31/2023 09:40:42 07/30/2007/31/2023 COMPR EHENS HOMAR METAB OLIC PANEL urea nitrogen (BUN) 23 mg/dL 7-25 normal Not Available [facility] [address] [facility] [place], [address], 07/31/2023 09:40:42 07/30/2007/31/2023 COMPR EHENS HOMAR METAB OLIC PANEL creatinine 1.03 mg/dL 0.50-1 .05 normal Not Available [facility] [address] [facility] [place], [address], 07/31/2023 09:40:42 07/30/2007/31/2023 COMPR EHENS HOMAR METAB OLIC PANEL eGFR 61 mL/mi n/1.7 3m2 > or = 60 normal Not Available [facility] [address] [facility] [place], [address], 07/31/2023 09:40:42 07/30/2007/31/2023 COMPR EHENS HOMAR METAB OLIC PANEL BUN/creatini ne ratio SEE NOTE: (calc ) 6-22 Not Repor stefan: BUN and Creat inine are withi n refer ence range . Not Available [facility] [address] [facility] [place], [address], 07/31/2023 09:40:42 07/30/2007/31/2023 COMPR EHENS HOMAR METAB OLIC PANEL sodium 139 mmol/ L 135-14 6 normal Not Available [facility] [address] [facility] [place], [address], 07/31/2023 09:40:42 07/30/2007/31/2023 COMPR EHENS HOMAR METAB OLIC PANEL potassium 4.2 mmol/ L 3.5-5. 3 normal Not Available [facility] [address] [facility] [place], [address], 07/31/2023 09:40:42 07/30/2007/31/2023 COMPR EHENS HOMAR METAB OLIC PANEL chloride 107 mmol/ L 98-110 normal Not Available [facility] [address] [facility] [place], [address], 07/31/2023 09:40:42 07/30/2007/31/2023 COMPR EHENS HOMAR METAB OLIC PANEL carbon dioxide 25 mmol/ L 20-32 normal Not Available [facility] [address] [place], [address], 07/31/2023 09:40:42 07/30/2007/31/2023 COMPR EHENS HOMAR METAB OLIC PANEL calcium 9.3 mg/dL 8.6-10 .4 normal Not Available [facility] [address] [facility] [place], [address], 07/31/2023 09:40:42 07/30/2007/31/2023 COMPR EHENS HOMAR METAB OLIC PANEL protein, total 6.4 g/dL 6.1-8. 1 normal Not Available [facility] [address] [facility] [place], [address], 07/31/2023 09:40:42 07/30/2007/31/2023 COMPR EHENS HOMAR METAB OLIC PANEL albumin 4.1 g/dL 3.6-5. 1 normal Not Available [facility] [address] [facility] [place], [address], 07/31/2023 09:40:42 07/30/2007/31/2023 COMPR EHENS HOMAR METAB OLIC PANEL globulin 2.3 g/dL_ (calc ) 1.9-3. 7 normal Not Available [facility] [address] [facility] [place], [address], 07/31/2023 09:40:42 07/30/2007/31/2023 COMPR EHENS HOMAR METAB OLIC PANEL albumin/glob ulin ratio 1.8 (calc ) 1.0-2. 5 normal Not Available [facility] [address] [facility] [place], [address], 07/31/2023 09:40:42 07/30/2007/31/2023 COMPR EHENS HOMAR METAB OLIC PANEL bilirubin, total 0.4 mg/dL 0.2-1. 2 normal Not Available [facility] [address] [facility] [place], [address], 07/31/2023 09:40:42 07/30/2007/31/2023 COMPR EHENS HOMAR METAB OLIC PANEL alkaline phosphatase 69 U/L 37-153 normal Not Available [facility] [address] [facility] [address], [place], [address], 07/31/2023 09:40:42 07/30/2007/31/2023 COMPR EHENS HOMAR METAB OLIC PANEL AST 15 U/L 10-35 normal Not Available [facility] [address] [facility] [address], [place], [address], 07/31/2023 09:40:42 07/30/2007/31/2023 COMPR EHENS HOMAR METAB OLIC PANEL ALT 13 U/L 6-29 normal Not Available [facility] [address] [facility], [place], [address], 07/31/2023 09:40:42 07/30/2007/31/2023 TSH TSH 2.44 mIU/L 0.40-4 .50 normal Not Available [facility] [address] [facility] [place], [address], 07/31/2023 09:40:43 07/30/2007/31/2023 CBC (INCL UDES DIFF/ PLT) white blood cell count 6.7 thous and/u L 3.8-10 .8 normal Not Available [facility] [address] [facility], [place], [address], 07/31/2023 09:40:44 07/30/2007/31/2023 CBC (INCL UDES DIFF/ PLT) red blood cell count 4.37 charley on/uL 3.80-5 .10 normal Not Available [facility] [address] [facility], [place], [address], 07/31/2023 09:40:44 07/30/2007/31/2023 CBC (INCL UDES DIFF/ PLT) hemoglobin 13.1 g/dL 11.7-1 5.5 normal Not Available [facility] [address] [place], [address], 07/31/2023 09:40:44 07/30/2007/31/2023 CBC (INCL UDES DIFF/ PLT) hematocrit 40.0 % 35.0-4 5.0 normal Not Available [facility] [address] [facility] [place], [address], 07/31/2023 09:40:44 07/30/2007/31/2023 CBC (INCL UDES DIFF/ PLT) MCV 91.5 fL 80.0-1 00.0 normal Not Available [facility] [address] [place], [address], 07/31/2023 09:40:44 07/30/2007/31/2023 CBC (INCL UDES DIFF/ PLT) MCH 30.0 pg 27.0-3 3.0 normal Not Available [facility] [address] [place], [address], 07/31/2023 09:40:44 07/30/2007/31/2023 CBC (INCL UDES DIFF/ PLT) MCHC 32.8 g/dL 32.0-3 6.0 normal Not Available [facility] [address] [place], [address], 07/31/2023 09:40:44 07/30/2007/31/2023 CBC (INCL UDES DIFF/ PLT) RDW 13.4 % 11.0-1 5.0 normal Not Available [facility] [address] [place], [address], 07/31/2023 09:40:44 07/30/2007/31/2023 CBC (INCL UDES DIFF/ PLT) platelet count 222 thous and/u L 140-40 0 normal Not Available [facility] [address] [facility] [place], [address], 07/31/2023 09:40:44 07/30/2007/31/2023 CBC (INCL UDES DIFF/ PLT) MPV 11.6 fL 7.5-12 .5 normal Not Available [facility] [address] [facility] [place], [address], 07/31/2023 09:40:44 07/30/2007/31/2023 CBC (INCL UDES DIFF/ PLT) absolute neutrophils 3229 cells /uL 1500-7 800 normal Not Available [facility] [address] [facility] [place], [address], 07/31/2023 09:40:44 07/30/2007/31/2023 CBC (INCL UDES DIFF/ PLT) absolute lymphocytes 2680 cells /uL 850-39 00 normal Not Available [facility] [address] [facility] [place], [address], 07/31/2023 09:40:44 07/30/2007/31/2023 CBC (INCL UDES DIFF/ PLT) absolute monocytes 643 cells /uL 200-95 0 normal Not Available [facility] [facility] [place], [address], 07/31/2023 09:40:44 07/30/2007/31/2023 CBC (INCL UDES DIFF/ PLT) absolute eosinophils 107 cells /uL 15-500 normal Not Available [facility] [address] [facility] [place], [address], 07/31/2023 09:40:44 07/30/2007/31/2023 CBC (INCL UDES DIFF/ PLT) absolute basophils 40 cells /uL 0-200 normal Not Available [facility] [address] [place] [address] [place], [address], 07/31/2023 09:40:44 07/30/2007/31/2023 CBC (INCL UDES DIFF/ PLT) neutrophils 48.2 % normal Not Available [facility] [address] [facility] [place], [address], 07/31/2023 09:40:44 07/30/2007/31/2023 CBC (INCL UDES DIFF/ PLT) lymphocytes 40.0 % normal Not Available [facility] [place], [address], 07/31/2023 09:40:44 07/30/2007/31/2023 CBC (INCL UDES DIFF/ PLT) monocytes 9.6 % normal Not Available [facility] [address] [place], [place] [address]aline[facility] [place], [address], 07/31/2023 09:40:44 07/30/2007/31/2023 CBC (INCL UDES DIFF/ PLT) eosinophils 1.6 % normal Not Available [facility] [place], [address], 07/31/2023 09:40:44 07/30/2007/31/2023 CBC (INCL UDES DIFF/ PLT) basophils 0.6 % normal Not Available [facility]5 [facility] [place], [address], 07/31/2023 09:40:44 08/04/2008/06/2023 THINP REP TIS PAP clinical information: normal Lina l exam Not Available [facility] [address] [place], [address], 08/06/2023 14:24:15 08/04/2008/06/2023 THINP REP TIS PAP LMP: normal UNKNO WN Not Available [facility] [address] [place], [address], 08/06/2023 14:24:15 08/04/2008/06/2023 THINP REP TIS PAP prev. Pap: normal UNKNO WN Not Available [facility] [address] [facility] [place], [address], 08/06/2023 14:24:15 08/04/2008/06/2023 THINP REP TIS PAP prev. BX: normal UNKNO WN Not Available [facility] [address] [place], [address], 08/06/2023 14:24:15 08/04/2008/06/2023 THINP REP TIS PAP source: normal Vagin a, Cervi x, Endoc ervix Not Available [facility] [address] [place], [address], 08/06/2023 14:24:15 08/04/2008/06/2023 THINP REP TIS PAP statement of adequacy: normal Satis facto ry for evalu ation . Endoc ervic al/tr ansfo rmati on zone compo nent prese nt. Not Available [facility] [address] [place], [address], 08/06/2023 14:24:15 08/04/2008/06/2023 THINP REP TIS PAP interpretati on/result: normal Cytol ogy Resul ts: Negat homar for intra epith elial lesio n or malig haydee . Not Available [facility] [address] [facility] [place], [address], 08/06/2023 14:24:15 08/04/2008/06/2023 THINP REP TIS PAP comment: normal This Pap test has been evalu ated with compu ter perla stefan techn ology . Not Available [facility] [address] [place], [address], 08/06/2023 14:24:15 08/04/20 23 08/06/2023 THINP REP TIS PAP cytotechnolo gist: normal ESL, CT( CP) CT Scree yvonne [facility]at ion: [facility] [place] [address] [place] [address] Not Available [facility] [address] [place], [address], 08/06/2023 14:24:15 08/04/20 23 08/06/2023 THINP REP [...] matio n. Not Available [facility] [address] [facility], [place], [address], 08/06/2023 14:24:15 08/11/20 23 08/11/2023 nonin vasiv e color ectal cance r DNA + occul t blood scree yvonne, QL, stool cologuard negati ve normal Not Available Not Available 18:04:55 12/27/19 23 12/26/2022 MAMMO , scree yvonne, digit al, bilat eral [facility] [address] [address] Phone: Fax: Name: DEIRDRE ORTEZ Exam Date: 023 : [birth year] Age 62 Gender : F Access ion: [id number] Physic jim: RONDA GAMBLE Facili ty: [facility] Facili ty HSV: Outpat ient [...] [facility] Legall y authen ticate d by POPE RONDA Deshpande DO 12-26 15:30: 31 CC'ed Logic: Orderi ng Provid er: CHANCE Blackwell CC Provid er: CHANCE Blackwell Attend ing Provid er: CHANCE Blackwell Referr ing Provid er: CHANCE Blackwell Admitt ing Provid er: CHANCE [email or web address] [place] [address] (Radiology) [address] , [place], [address], 12/28/2022 18:32:26 05/02/20 23 05/02/2023 XR, chest , 2 view No observ ation record ed. franck [facility] [address], [place], [address], 05/02/2023 10:57:17 01/25/20 24 01/25/2024 MAMMO , scree yvonne, digit al, bilat eral [facility] [address] [place] [address] Phone: Fax: Name: DEIRDRE ORTEZ Exam Date: 01/25/20 : [birth year] Age 63 years Gender : F Access ion: [id number] Physic jim: RONDA GAMBLE Facili ty: [facility] Facili ty HSV: Outpat ient Exam: [...] for referr ing DEIRDRE ORTEZ to [facility]. Legall y authen ticate d by BERNARDO Kaur MD 01-24 13:27: 57 CC'ed Logic: Orderi ng Provid er: CHANCE Blackwell CC Provid er: CHANCE Blackwell Attend ing Provid er: CHANCE Blackwell Referr ing Provid er: CHANCE Blackwell Admitt ing Provid er: CHANCE [email or web address] [facility] (Radiology) [address] [place], [address], 01/25/2024 16:04:49 Result Notes Documentation Provider Name and Address Organization Details Recorded Time Mammo, Screening, Digital, Bilateral : [address] [place] [address] Name: DEIRDRE ORTEZ Exam Date: 12/26/2022 : 1960 Age 62 Gender: F Physician: SENDY MORAN Facility: [facility] Facility HSV: Outpatient Exam: SCREEN MAMMO W CAD BILAT MAMMOGRAM SCREENING BILATERAL WITH TOMOSYNTHESIS HISTORY: Routine screening exam COMPARISON: December 20, 2021 FINDINGS: Standard views were obtained. There are scattered fibroglandular densities. Benign-appearing calcifications are present. No mass, suspicious calcifications or architectural distortion is present. IMPRESSION: No mammographic evidence of malignancy. BI-RADS 2: Benign RECOMMENDATION: Annual mammography CAD was utilized during interpretation. The patient will be sent a letter from the mammography department with their mammography findings. Dictated By: RONDA JENSEN Transcribed By: RONDA JENSEN Transcribed On: 12/26/2022 3:30 PM Electronically signed by: RONDA JENSEN 12/26/2022 Thank you for referring DEIRDRE ORTEZ to [facility]. Legally authenticated by POPE RONDA Deshpande DO 2022-12-26 15:30:31 CC'ed Logic: Ordering Provider: LUISA MCCORD CC Provider: LUISA MCCORD Attending Provider: LUISA MCCORD Referring Provider: LUISA MCCORD Admitting Provider: LUISA Moran MD [address] [facility], [address], [place], [address], [place] [facility] 12/28/2022 18:32:26 Mammo, Screening, Digital, Bilateral : [address] [place] [address] Name: DEIRDRE ORTEZ Exam Date: 01/25/2024 : 1960 Age 63 years Gender: F Physician: SENDY MORAN Facility: [facility] Facility HSV: Outpatient Exam: SCREEN MAMMO W CAD BILAT MAMMOGRAM SCREENING BILATERAL HISTORY: Routine screening exam COMPARISON: December 26, 2022 TECHNIQUE: Standard digital 2-D views with 3-D tomosynthesis DENSITY: There are scattered areas of fibroglandular density FINDINGS: Benign calcifications. Scattered areas of focal asymmetry are noted. No suspicious mass, suspicious calcifications or architectural distortion is present. IMPRESSION: No mammographic evidence of malignancy BI-RADS 2: Benign finding RECOMMENDATION: Annual mammography CAD was utilized during interpretation. The patient will be sent a letter from the mammography department with their mammography results. Dictated By: ROXANNE CHANG Transcribed By: ROXANNE CHANG Transcribed On: 01/25/2024 1:27 PM Electronically signed by: ROXANNE CHANG 01/25/2024 Thank you for referring DEIRDRE ORTEZ to [facility]. Legally authenticated by MARIA DEL ROSARIO Kaur MD 2024-01-25 13:27:57 CC'ed Logic: Ordering Provider: LUISA MCCORD CC Provider: LUISA MCCORD Attending Provider: LUISA MCCORD Referring Provider: LUISA MCCORD Admitting Provider: LUISA Moran MD [address] [facility], [facility] [address], [address], [place] [facility] 01/25/2024 16:04:49 Problems Name Problem SNOMED Code Status Onset Date Resolution Date Notes Provider Name and Address Organization Details Recorded Time Generalized osteoarthri tis 302401451 Active Not Available [facility] 3 03:01:15 Disorder of bursa of shoulder region 88516217 Active 1999 chose not to have surgery Not Available [facility] 3 03:01:15 Urinary tract infectious disease 26003147 Active Not Available [facility] 3 03:01:15 Acute bronchopneu monia 224373203 Active Sendy Moran MD [address] [facility], [facility] [address], [place], [address] [place] [address] , [place] [facility] 4 14:26:56 Pain of hip region 02417106 Active Sendy Moran MD [address], [address] [place] [address] , [place] [facility] 4 10:34:43 Anti-nuclea r factor detected 013337595 Active Sendy Moran MD [address], [address] [place] [address] , [place] [facility] 4 10:34:43 Sinusitis 14922189 Active Sendy Moran MD [address], [address] [place] [address] , [place] [facility] 4 10:34:43 Hyperlipide chinmay 55343456 Active Sendy Moran MD [address], [address] [place] [address] , [place] [facility] 4 10:34:43 Dysuria 07285387 Active Sendy Moran MD [address], [address] [place] [address] , [place] [facility] 4 10:34:43 Palpitation s 97990378 Active Sendy Moran MD [address], [address] [place] [address] , [place] [facility] 4 10:34:43 Arthritis of hip 85638641 Active Sendy Moran MD [address] [place] [address] , [place] [facility] 4 12:09:57 Acute sinusitis 65267826 Active Sendy Moran MD [address] [place] [address] , [place] [facility] 5 14:25:19 Serous otitis media 70706741 Active Sendy Moran MD [address], [address] [place] [address] , [place] [facility] 5 14:25:19 Acute bronchitis 88202869 Active Sendy Moran MD [address] [place] [address] , [place] [facility] 5 14:25:19 Problem Notes None recorded. Procedures Surgical History Date Name Laterality Status Provider Name and Address Organization Details Recorded Time 8 I&D completed Sendy Moran MD [address] [place] [address], [place] [facility] 04/10/2018 21:48:32 7 I&D completed Sendy Moran MD [address] [place] [address], [place] [facility] 06/09/2017 14:43:13 7 Tonsillectomy completed [facility] 09/20/2012 13:18:49 Imaging Results None recorded. Procedure Notes None recorded. Medical Equipment None Reported. Allergies Allergen ID Allergen Name Allergen Category Reaction Reaction Severity Criticality Documentation Date Start Date Code Code System Note Provider Name and Address Organization Details Recorded Time 72251 cefdinir medicatio n angioedem a severe high 07/16/2023 27824 RxNorm Sendy Moran MD [address], [address] [place] [address], [place] [facility] 3 14:56:57 Medications Name Sig Start [...] Available Not Available Not Available Flucelvax Quad 7565-4531 (PF) 60 mcg (15 mcg x 4)/0.5 mL IM syringe TO BE ADMINIST ERED BY PHARMACI ST FOR IMMUNIZA TION 08/12 completed Not Available Not Available Not Available Vitals Date Recorded Body height Body weight Heart rate Oxygen saturation Oxygen saturation in Arterial blood by Pulse oximetry Body temperature Systolic blood pressure Diastolic blood pressure Provider Name and Address Organization Details Last Updated DateTime 3 167.64 cm 08057.6 9 g 86 /min 95 % 95 % 96.6 [degF] 140 mm[Hg] 85 mm[Hg] [facility] 3 14:25:54 Date Recorded Body height Body mass index (BMI) Body weight Heart rate Oxygen saturation Oxygen saturation in Arterial blood by Pulse oximetry Body temperature Systolic blood pressure Diastolic blood pressure Provider Name and Address Organization Details Last Updated DateTime 2 167.64 cm 30.2 kg/m2 26969.4 7 g 80 /min 98 % 98 % 97 [degF] 129 mm[Hg] 78 mm[Hg] [facility] 2 10:07:41 Date Recorded Systolic blood pressure Diastolic blood pressure Provider Name and Address Organization Details Last Updated DateTime 07/16/2023 148 mm[Hg] 83 mm[Hg] Sendy Moran MD 2017 [facility], [address], [place], [address], [facility] 07/16/2023 15:07:47 Date Recorded Body height Body mass index (BMI) Body weight Heart rate Oxygen saturation Oxygen saturation in Arterial blood by Pulse oximetry Body temperature Systolic blood pressure Diastolic blood pressure Provider Name and Address Organization Details Last Updated DateTime 3 167.64 cm 28.2 kg/m2 84741.6 6 g 75 /min 96 % 96 % 97.5 [degF] 155 mm[Hg] 103 mm[Hg] [facility] 3 13:58:29 Date Recorded Body height Body mass index (BMI) Body weight Heart rate Oxygen saturation Oxygen saturation in Arterial blood by Pulse oximetry Body temperature Systolic blood pressure Diastolic blood pressure Provider Name and Address Organization Details Last Updated DateTime 3 167.64 cm 28.4 kg/m2 39131.6 6 g 98 /min 97 % 97 % 97 [degF] 116 mm[Hg] 80 mm[Hg] [facility] 3 09:13:18 Date Recorded Body height Body mass index (BMI) Body weight Heart rate Oxygen saturation Oxygen saturation in Arterial blood by Pulse oximetry Body temperature Systolic blood pressure Diastolic blood pressure Provider Name and Address Organization Details Last Updated DateTime 2 167.64 cm 29.7 kg/m2 52052.7 g 98 /min 98 % 98 % 96.8 [degF] 126 mm[Hg] 72 mm[Hg] [facility] 2 09:16:34 Social History Question Answer Notes LastModified by Organizat ion Details LastModified Time Tobacco Smoking Status Never Smoker Not Available [facility] 08/14/2020 03:11:19 Do You Have An Advance Directive? No [id number] Information not available 08/14/2020 Animal Exposure? Yes Informat ion not available 09/20/2012 Auto Related Injury? No Information not available 09/20/2012 Is Blood Transfusion Acceptable In An Emergency? Yes [id number] Information not available 08/14/2020 What Is Your Level Of Caffeine Consumption? Moderate [id number] Information not available 08/14/2020 How Much Tobacco Do You Chew? None [id number] Information not available 08/14/2020 Diabetes No Information no t available 09/20/2012 What Type Of Diet Are You Following? REGULAR [id number] Information not available 08/14/2020 Education 9 GED Information no t available 09/20/2012 What Is The Highest Grade Or Level Of School You Have Completed Or The Highest Degree You Have Received? [id number] Information not available 08/04/2023 Family History Of Heart Disease? Yes Information not available 09/20/2012 Which Of Your Hands Is Dominant? Right [id number] Information not available 08/14/2020 High Blood Pressure No Information not available 09/20/2012 High Cholesterol No Informat ion not available 09/20/2012 Live Alone Or With Others? With Others Information not available 09/20/2012 Marital Status [email or web address] Informatio n not available 11/25/2016 What Was The Date Of Your Most Recent Tobacco Screening? 08/04/2023 Information not available 08/04/2023 How Many Children Do You Have? 2 [id number] Information not available 08/14/2020 What Is Your Relationship Status? Information not available 08/04/2023 Do You Use Your Seat Belt Or Car Seat Routinely? Yes [id number] Information not available 08/14/2020 Seat Belts Used Routinely Yes Information not available 09/20/2012 Smoke Alarm In Home Yes Information not available 09/20/2012 General Stress Level Medium Information not available 09/20/2012 Do You Use Sunscreen Routinely? No [id number] Information not available 08/14/2020 Work Related Injury? No Information not available 09/20/2012 Sex: Unknown Functional Status Question Answer Note LastModified by Organizat ion Details LastModified Time What is your level of alcohol consumption? None [id number] Information not available 08/14/2020 Are you currently employed? No [id number] Information not available 08/14/2020 Are you able to care for yourself? Yes [id number] Information not available 08/14/2020 What is your occupation? RETIRED [id number] Information not available 08/14/2020 What is your exercise level? Occasional [id number] Information not available 08/14/2020 Mental Status Question Answer Note LastModified by Organization D etails LastModified Time Do you feel stressed (tense, restless, nervous, or anxious, or unable to sleep at night)? [id number] Information not available 08/04/2023 Family History Relationship [...] Blood Diseases N Hyperthyroidism N Depression N COPD N Hypothyroidism N Developmental or Behavioral Disorders N Eczema, [...] Disease N Pulmonary Embolism N Hypertension N Chicken Pox N Osteoporosis N Gynecological History Statement/Question Response Menses Monthly N If Post Menopausal, Age at Menopause 35 Obstetrics History GPAL:G 2 P 2 0 0 2 Type Value Full Term 2 Living 2 Total 2 Immunizations Vaccine Type Date Status Note Provider Nam e and Address Organization Details Recorded Time Influenza, split virus, quadrivalent, preservative 7 completed Sendy Moran MD 2017 [facility], [facility], [place], [place], [address] [place] [address], [place] - [facility] 09/18/2017 23:22:27 Tdap 8 completed Sendy Moran MD [address] [place] [address], [place], [address] [place] [address], [place] [facility] 12/19/2017 16:17:18 Influenza, split virus, quadrivalent, preservative 8 completed Sendy Moran MD [address], [address] [place] [address], [place] - [facility] 10/15/2018 21:15:51 Influenza, split virus, quadrivalent, preservative 9 completed Sendy Moran MD [address] [place] [address], [address] [place] [address], [place] [facility] 10/24/2019 11:27:59 Td (adult) 7 completed Sendy Moran MD [address] [place] [address], [place], [address] [place] [address], [place] [facility] 09/20/2012 14:17:20 zoster recombinant 8 completed Sendy Moran MD [address] [place] [address], [address] [place] [address], [place] [facility] 08/04/2023 09:58:10 zoster recombinant 8 completed Sendy Moran MD [address] [place] [address], [address] [place] [address], [place] - [facility] 08/04/2023 09:58:20 Past Encounters Encounter ID Performer Location Encounter Start Date Encounter Closed Date Diagnosis/Indication Diagnosis SNOMED-CT Code Diagnosis ICD10 Code Diagnosis Note [id number] Sendy Moran MD [address] [address] 09/20/2012 13:06:49 09/20/2012 19:43:29 [id number] Sendy Moran MD [facility] [address] [address] 06/09/2014 13:29:06 06/09/2014 18:19:24 Acute bronchopneumonia 890857471 [id number] Sendy Moran MD [address] [address] 09/04/2014 08:54:53 09/04/2014 10:50:40 Adult health examination 236831129 Screening for cancer 52307999 Pain of hip region 33040845 Anti-nucle ar factor detected 646983679 Sinusitis 56290308 Hyperlipidemia 45506551 Screening mammography 98189555 Screening for malignant neoplasm of cervix 112372932 Dysuria 85321638 Palpitations 55670920 [id number] Sendy Moran MD [facility] [address] [address] 11/16/2014 13:42:56 11/16/2014 16:46:33 Acute sinusitis 05385979 Serous otitis media 09345168 Acute bronchitis 83234075 [id number] Sendy Moran MD [address] [address] 11/25/2016 08:19:58 11/25/2016 18:31:51 History of urinary disease 081739699 Z87.448 Adult heal th examination 506876584 Z00.01 Screening mammography 24 280575 Z12.31 Screening for malignant neoplasm of cervix 418402920 Z12.4 Body mass index 30+ - obesity 882621122 Z68.33 Hyperlipidemia 74645634 E78.5 Screening for malignant neoplasm of colon 523770994 Z12.11 [id number] Sendy Moran MD [facility] [address] [address] 06/09/2017 13:43:53 06/10/2017 09:05:13 Urinary tract infectious disease 72312283 N39.0 Body mass index 30+ - obesity 823481588 Z68.32 [id number] Sendy Moran MD [facility] [address] [address] 12/10/2017 13:51:40 12/10/2017 16:01:26 Acute bronchitis 45326975 J20.9 [id number] Sendy Moran MD [facility] [address] [address] 12/15/2017 09:40:52 12/23/2017 09:42:32 Adult health examination 897955118 Z00.01 Screening for malignant neoplasm of colon 893019781 Z12.11 Depression screening 171 218599 Z13.89 Hypothyroidism 81634601 E03.9 Body mass index 30+ - obesity 960655700 Z68.30 Hemorrhoids 31355764 K64 .9 Hyperlipidemia 93902617 E78.5 [id number] Sendy Moran MD [facility] [address] [address] 04/09/2018 15:10:58 04/12/2018 16:38:05 Urinary tract infectious disease 72962894 N39.0 Hypothyroidism 88071742 E03.9 [id number] Sendy Moran MD [facility] [address] [address] 08/03/2018 13:49:58 08/04/2018 08:26:12 Atypical chest pain 677561658 R07.89 Intermitte nt palpitations 282119247 R00.2 essu [id number] Sendy Moran MD [facility] [address] [address] 08/09/2018 10:22:51 08/09/2018 13:42:21 Atypical chest pain 893440140 R07.89 Glucose le bjorn outside reference range 632813985 R73.09 Hyperlipidemia 41952207 E78.5 [id number] Sendy Moran MD [facility] [address] [address] 12/20/2018 13:24:51 12/26/2018 15:00:54 Adult health examination 930684297 Z00.01 Hypothyroidism 76456903 E03.9 Hyperlipidemia 02043002 E78.5 Depression screening 171 288676 Z13.89 Body mass index 30+ - obesity 342334795 Z68.30 [id number] Sendy Moran MD [facility] [address] [address] 09/30/2019 15:14:26 10/03/2019 08:47:20 Increased frequency of urination 024777820 R35.0 Screening for malignant neoplasm of colon 315057187 Z12.11 Hypothyroidism 08151846 E03.9 Hyperlipidemia 70028972 E78.5 k Depression screening 171 597762 Z13.89 Body mass index 30+ - obesity 766748939 Z68.30 [id number] Sendy Moran MD [facility] [address] [address] 10/24/2019 10:25:42 10/24/2019 12:09:05 Acute lower respiratory tract infection 974321806 J22 [id number] Sendy Moran MD [facility] [address] [address] 05/21/2020 08:57:05 05/22/2020 08:12:35 Hyperlipidemia 03521809 E78.5 Adult heal th examination 745373501 Z00.01 Hypothyroidism 11666739 E03.9 Depression screening 171 340110 Z13.89 Body mass index 30+ - obesity 804461273 Z68.30 Screening for malignant neoplasm of cervix 755313535 Z12.4 Hypertensi on screening 810294133 Z13.6 [id number] Sendy Moran MD [address] [address] 05/24/2021 09:43:08 05/27/2021 09:43:32 Increased frequency of urination 274934913 R35.0 Urinary tr act infectious disease 31709872 N39.0 Adult heal th examination 821030700 Z00.01 Hyperlipidemia 23312552 E78.5 Hypothyroidism 60174878 E03.9 Depression screening 171 368425 Z13.89 Body mass index 30+ - obesity 503398686 Z68.31 Hypertensi on screening 663042017 Z13.6 Screening for malignant neoplasm of colon 002661949 Z12.11 [id number] Sendy Moran MD [address] [address] 01/27/2022 13:28:44 01/28/2022 08:18:10 Urinary tract infectious disease 81021697 N39.0 Recurrent urinary tract infection 566962413 N39.0 [id number] Sendy Moran MD [facility] [place] [id number] 7 05/27/2022 09:54:52 05/29/2022 10:15:50 Increased frequency of urination 714241867 R35.0 Urinary tr act infectious disease 75997595 N39.0 Adult heal th examination 428615508 Z00.01 Hyperlipidemia 82304077 E78.5 Hypothyroidism 36960684 E03.9 Depression screening 171 550548 Z13.89 Body mass index 30+ - obesity 363174017 Z68.30 Hypertensi on screening 538958364 Z13.6 [id number] Sendy Moran MD [facility] [address] [place], [place] [address] 10/17/2022 09:15:18 10/17/2022 16:53:09 Acute lower respiratory tract infection 497612220 J22 Wheezing 51900991 R06.2 [id number] Sendy Moran MD [facility] [address] [place], [place] [address] 01/22/2023 14:11:35 01/22/2023 15:54:47 Increased frequency of urination 932772794 R35.0 Urinary tr act infectious disease 66037524 N39.0 [id number] Sendy Moran MD [facility] [place] [address] 7 07/16/2023 13:35:28 07/17/2023 09:17:51 Increased frequency of urination 065565433 R35.0 Intercosta l post-herpetic neuralgia 530429685 B02.29 Abnormal b lood pressure 11140288 Z01.31 [id number] Sendy Moran MD [facility] [address] [place] [address] 08/04/2023 08:38:50 08/06/2023 09:14:30 Adult health examination 123024032 Z00.01 Hyperlipidemia 13093574 E78.5 Hypothyroidism 33748836 E03.9 Depression screening 171 921086 Z13.89 Hypertensi on screening 142026999 Z13.6 Screening for malignant neoplasm of cervix 170219767 Z12.4 Screening for malignant neoplasm of colon 393264630 Z12.11 Lichen sim plex chronicus 87517546 L28.0 Screening mammography 24 922348 Z12.31 Health Concerns Section Related Observation LastModified by Organization Detai ls LastModified Time None Recorded Concern Status LastModified by Organization Details LastModified Time None Recorded Advance Directives Directive N: Payers Insurance Date Sequence Insurance Name Policy Number Policy Diez Covered Member ID Diez Member ID Guarantor Name 05/26/2022 1 [employer] ONE (PPO) [id number] Deirdre J Ari [id number] Deirdre J Ari 05/26/2022 1 [employer] (PPO) [id number] Deirdre J Ari [id number] Deirdre J Ari 05/26/2022 1 [id number] Deirdre J Ari [id number] Deirdre J Ari 05/26/2022 1 [place] [id number] Deirdre J Ari [id number] Deirdre Feng Ari 05/26/2022 1 [id number] Deirdre J Ari [id number] Deirdre J Ari 09/02/2023 1 [facility] eDirdre Toney Ari [id number] Deirdre J Ari Notes Date Note Type Note Provider Name and Address Organization Details Recorded Time 05/27/2022 text/html Feels her only problem is arthritis pain; left hip and both knees and ankles especially when she gets up in the morning. Sometimes gets muscle spasms in the toes. Sendy Moran MD 2017 [facility], [address], [place], [address], [facility] 05/28/2022 23:49:35 10/17/2022 text/html started with congestion last night and it is productive phlegm. She has a history of past pneumonias She has not had the flu or covid vaccines. She had covid last August. Started with a sore throat. Sendy oMran MD 2017 [facility], [place], [address], [facility] 10/17/2022 09:56:54 01/22/2023 text/html started with frequency and dysuria for 3 days No fevers or chills. Sendy Moran MD [address] [place] [address], [place], [address], [facility] 01/22/2023 15:39:48 07/16/2023 text/html she had shingles over left posterior shoulder about 5 months ago and now has a skin sensation that itches and sometimes saha just below the left scapulaNo rash or skin issue noted now.Has lost 12 pounds.She had sinus and was given cefdinir and had neck swelling so they changed her to augmentin. Sendy Moran MD [address] [place] [address], [place], [address], [facility] 07/17/2023 07:54:06 OBGyn Episode No OBEpisode recorded.
--- OUTSIDE RECORDS SUMMARY | 2025-04-05 10:42 | XMS_ITS | Clinical Summary ---
Author Organization Healthcare Address [address] [place] [address] Care Team Providers Care Architecture Professor Name Role Phone Sendy Moran MD Primary Care Provider Family History Medical History Relation Name Comments Other cancer Father Other cancer Mother Relation Name Status Comments Father Mother Social History Tobacco Use Types Packs/Day Years Used Date Smoking Tobacco: Never Comments Unknown Sex and Gender Information Value Date Recorded Sex Assigned at Not on file Legal Sex Female 8:28 PM EDT Gender Identity Not on file Sexual Orientation Not on file Last Filed Vital Signs Vital Sign Reading Time Taken Comments Blood Pressure - - Pulse - - Temperature - - Respiratory Rate - - Oxygen Saturation - - Inhaled Oxygen Concentration - - Weight 93.1 kg (205 lb 4 oz) 11/08/2014 12:54 PM EST Height 167.6 cm (5' 6 ) 11/08/2014 12:54 PM EST Body Mass Index 33.13 11/08/2014 12:54 PM EST Plan of Treatment Health Maintenance Due Date Last Done Comments [facility]-Bone Density Scan 1960 [facility]-Depression Screening 1960 [facility]-Infant/Child/Adol SDOH Screenings 1960 [facility]- SDOH Screenings 1976 [facility]-Adult SDOH Screenings 1976 [facility]-DTaP,Tdap,and Td Vaccines (1 - Tdap) 1977 CT Colonography 2003 Colonoscopy 2003 FIT-DNA 2003 FIT 2003 FOBT 2003 Sigmoidoscopy 2003 [facility]-Colorectal Cancer Screening 2003 [facility]-Pneumococcal Vaccine: 50+ Years (1 of 1 - PCV) 2008 [facility]-Zoster Vaccines (1 of 2) 2008 VBN-UPIWK-95 Vaccine ( season) 2024 [facility]-Influenza Vaccine (Season Ended) 2025 [facility]-RSV Vaccine: 60+ Years or (1 - 1-dose 75+ series) 2033 [facility]-Cervical Cancer Screening Discontinued [facility]-HPV/Cotest Discontinued 10/08/2005, 07/20, 09/13/2002, Additional history exists [facility]-Pap Smear Discontinued 10/08/2005, 07/20, 09/13/2002, Additional history exists HPV Vaccines Aged Out No longer eligi ble based on patient's age to complete this topic [facility]-HIB Vaccines Aged Out No longer e ligible based on patient's age to complete this topic [facility]-Hepatitis A Vaccines Aged Out No longer eligible based on patient's age to complete this topic [facility]-IPV Vaccines Aged Out No longer e ligible based on patient's age to complete this topic [facility]-Rotavirus Vaccines Aged Out No lo nger eligible based on patient's age to complete this topic Procedures Procedure Name Priority Date/Time Associated Diagnosis Comments CYTO DATA CONVERSION Routine 10/08/2005 12:00 AM EST from Last 3 Months or Most Recently Relevant to Health Maintenance Results * Cytology (10/08/2005 12:00 AM EST) 10/08/2005 10/09/2005 11: 34 AM EST Narrative [facility]QUEST - 10/15/2005 10:12 AM EST [facility] MR #: [id number] [facility] [facility] [place] [address] 1960 (Age: 44) FW Collect Date: 10/08/2005 00:00 Receipt Date: 10/09/2005 11:34 Page 1 DEPARTMENT OF PATHOLOGY AND LABORATORY MEDICINE CYTOPATHOLOGY REPORT Email: [email or web address] [phone] ATTENDING MD/Practitioner: Rishi Hahn Service: [facility] Location: [facility] Reported: 10/15/2005 10:12 Collected: 10/08/2005 00:00 INTERPRETATION THIN PREP (CERVICAL/VAGINAL): NEGATIVE FOR INTRAEPITHELIAL LESION OR MALIGNANCY. SATISFACTORY FOR EVALUATION; ENDOCERVICAL/ TRANSFORMATION ZONE COMPONENT PRESENT. Slide scanned and imaged by [employer] ThinPrep Imaging System with manual review of all selected luque. Electronically Signed Out By ANDREW Pedro (ASCP) ANDREW Delatorre(ASCP) ANDREW Pedro (ASCP) Cervical cytology is a screening test primarily for squamous cancers and precursors and has associated false negative and positive results. New technologies such as liquid based sampling may decrease but will not eliminate all false negative results. Regular screening and follow-up of unexplained clinical signs and symptoms are recommended to minimize false negative results. Please see the ASCCP website (www.asccp.org) for followup recommendations. If HPV testing was requested, correlation with the results is suggested (please call Microbiology at [phone] for results). CLINICAL INFORMATION: Menstrual History: Cyclic Date of Last Menstrual Period: 09/12/05 Other Clinical Conditions: Per computer, patient has a history of previous abnormal pap: and bx 09/2003 If ASCUS and > 24 years of age, HPV/DNA testing requested. SPECIMEN DESCRIPTION: A: THIN PREP (CERVICAL/VAGINAL) THIN PREP PROCESS CELLULAR ENHANCEMENT ICD: 622.11 MILD DYSPLASIA OF CERVIX (NORMAN I) F: A; DX IMAGE 19940 SNOMED CODES: A; T4M384 C44402 M-04117 M-41588 In cases where a pathologist has signed out the report, the service has been rendered in part by a resident. The signing pathologist has performed and is responsible for the reported pathologic evaluation. Ni Washburn APRN LAB PATHOLOGY ORDERABLES F inal Result Red Stamp from Last 3 Months or Most Recently Relevant to Health Maintenance Care Teams Architecture Professor Relationship Specialty Start Date End Date Sendy Moran MD [address] [place] [address] [address] [place] [id number] PCP - General 03/01/21
--- NOTE | 2025-04-05 11:00 | MM_ITS ---
PROCEDURE INFORMATION: Exam: MG Bilateral Screening 3D Mammography Exam date and time: 04/05/2025 10:57 AM Age: 64 years old Clinical indication: Screening. A maternal aunt had breast cancer. TECHNIQUE: Imaging protocol: Bilateral Screening tomosynthesis and 2D mammography including computer-aided detection (CAD) when performed. COMPARISON: 1. MG SCREEN MAMMO W CAD BILAT 01/25/2024 11:24 AM 2. MG SCREEN MAMMO W CAD BILAT 12/26/2022 10:48 AM 3. MG SCREEN MAMMO W CAD BILAT 12/20/2021 1:00 PM 4. MG Screening-Bilateral Mammography 12/19/2020 1:00 PM FINDINGS: MAMMOGRAPHY: Breast composition: There are scattered areas of fibroglandular density. Mass: No suspicious mass. Architectural distortion: None. Calcifications: No suspicious calcifications. Asymmetric density: None. Skin thickening: None. Axillary adenopathy: None. IMPRESSION: No mammographic evidence of malignancy. Annual screening is recommended unless otherwise clinically indicated. ASSESSMENT: BI-RADS Category 1: Negative.
== END 2025-04-05 23:59 | disposition home or self-care (01) ==
LOC: RAD 10:38
PROVIDERS: PCP Nurse Practitioner Family; Visit Provider Nurse Practitioner Family
DX: Z12.31 Encounter for screening mammogram for malignant neoplasm of breast (principal); Z00.00 Encounter for general adult medical examination without abnormal findings; R92.323 Mammographic fibroglandular density, bilateral breasts; N39.0 Urinary tract infection, site not specified; E03.9 Hypothyroidism, unspecified; R73.03 Prediabetes; R53.83 Other fatigue; Z13.220 Encounter for screening for lipoid disorders
CPT/HCPCS: 77063; 77067

== ENCOUNTER 2025-04-13 08:30 | Outpatient (CLI) | payer MEDICARE, MEDICAID, SELFPAY ==
[2025-04-13 16:07] LABS: Cholesterol 156 mg/dl (140-200); HDL Cholesterol 77 mg/dl (40-60); Triglycerides 82 mg/dl (30-150); VLDL Cholesterol 16 mg/dL (0-40)
[2025-04-13 16:18] LABS: Direct LDL Cholesterol 51.29 mg/dL (100-129)
--- OUTSIDE RECORDS SUMMARY | 2025-04-14 10:22 | XMS_ITS | Data Portability ---
Author Organization [facility] ADMIN Address [address] [place] [address] Assessment No assessment recorded. 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 Medical [...] SNOMED-CT Code Diagnosis ICD10 Code Diagnosis Note [id number] JACKIE HAYS [facility] P-2340 [address] [facility] [place] [address] 09/01/2023 13:17:08 09/01/2023 13:34:36 Mixed conductive and sensorineural hearing loss of right ear 5689968998 9105 H90.A31 Health Concerns Section Related Observation LastModified by Organization Detai ls LastModified Time None Recorded Concern Status LastModified by Organization Details LastModified Time None Recorded Advance Directives Directive None Recorded Payers Insurance Date Sequence Insurance Name Policy Number Policy Diez Covered Member ID Diez Member ID Guarantor Name 09/01/2023 1 [facility] (MEDICAID HMO) Deirdre Chapman [id number] Deirdre Chapman Notes Date Note Type Note [...] that she wants to do. JACKIE HAYS [address] [facility], [place], [address], [facility] [place] 09/01/2023 13:40:13 OBGyn Episode No OBEpisode recorded.
--- OUTSIDE RECORDS SUMMARY | 2025-04-14 10:22 | XMS_ITS | Clinical Summary ---
Author Organization Healthcare Address [address] [place] [address] Care Team Providers Care Mobile Home Installer Name Role Phone Sendy Moran MD Primary [...] 2008 UKY-Zoster Vaccines (1 of 2) 2008 [id number] Vaccine ( season) 2024 UKY-Influenza Vaccine (Season [...] Narrative SUNQUEST - 10/15/2005 10:12 AM EST [facility] MR #: [id number] [facility] [address] [id number] (Age: 44) FW Collect Date: 10/08/2005 00:00 Receipt Date: 10/09/2005 11:34 Page 1 DEPARTMENT OF PATHOLOGY AND LABORATORY MEDICINE CYTOPATHOLOGY REPORT Email: [email or web address] [phone] ATTENDING MD/Practitioner: Rishi Hahn Service: [facility] [place] [facility] [place]: 10/15/2005 10:12 Collected: 10/08/2005 00:00 INTERPRETATION THIN PREP (CERVICAL/VAGINAL): NEGATIVE FOR INTRAEPITHELIAL LESION OR MALIGNANCY. SATISFACTORY FOR EVALUATION; ENDOCERVICAL/ TRANSFORMATION ZONE COMPONENT PRESENT. Slide scanned and imaged by [employer] ThinPrep Imaging System with manual review of all selected luque. Electronically Signed Out By ANDREW Pedro (ASCP) ANDREW Delatorre(ASCP) NADREW Pedro (ASCP) Cervical cytology is a screening [...] results is suggested (please call Microbiology at [phone] for results). CLINICAL INFORMATION: Menstrual History: Cyclic Date of Last Menstrual Period: 09/12/05 Other Clinical Conditions: Per computer, patient has a history of previous abnormal pap: and bx 09/2003 If ASCUS and > 24 years of age, HPV/DNA testing requested. SPECIMEN DESCRIPTION: A: THIN PREP (CERVICAL/VAGINAL) THIN PREP PROCESS CELLULAR ENHANCEMENT ICD: 622.11 MILD DYSPLASIA OF CERVIX (NORMAN I) F: A; DX IMAGE [id number] SNOMED CODES: A; [id number] In cases where a pathologist has signed out the report, the service has been rendered in part by a resident. The signing pathologist has performed and is responsible for the reported pathologic evaluation. Ni Washburn APRN LAB PATHOLOGY ORDERABLES F inal Result Hashdoc from Last 3 Months or Most Recently Relevant to Health Maintenance Care Teams Mobile Home Installer Relationship Specialty Start Date End Date Sendy Moran MD [address] [place] [address] [address] [place] [id number] PCP - General 03/01/21
--- OUTSIDE RECORDS SUMMARY | 2025-04-14 10:22 | XMS_ITS | Data Portability ---
Author Organization [facility] Address [address] [facility] [facility] [facility] [place] [address] Assessment Encounter Date Assessment Date Assessment LastModified [...] weight management for best health. Not available 08/05/2023 22:53:12 Plan of Treatment Reminders Order Date Submit Date Provider Last Modified By Organization Details Last Modified Time Details Appointments None recorded. Lab noninvasive colorectal cancer DNA + occult blood screening, QL, stool 2022 023 REINALDO Not available 3 23:19:39 pap, LB 2022 023 [facility], [address], [place], [address], 3 14:24:16 urinalysis, dipstick [address], [address] [place], [address], 3 13:59:24 culture, urine 2022 023 [facility], [address], [place], [address], 3 07:38:25 urinalysis, dipstick [address], [address] [place], [address], 3 14:32:26 SARS CoV 2 RNA (COVID-19), QL, 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, 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 Procedures None recorded. Surgeries None recorded. Imaging MAMMO, screening, digital, bilateral - due after 12/27/2320[email or web address] [place] [address] ([facility]), [address] [place], [address], 4 16:05:01 Medication Orders triamcinolo ne acetonide 0.1 % topical cream [address] [facility]016, [address] [place], [address], 3 10:10:05 nitrofurant oin monohydrate /macrocryst als 100 mg capsule [address]/Pharmacy #3016, [address] [place], [address], 3 09:14:30 gentamicin 40 mg/mL injection solution [address]/Pharmacy [facility]3016, [address] [place], [address], 3 09:14:25 azithromyci n 250 mg tablet [address]/Pharmacy #3016, [address] [place], [address], 3 14:26:36 methylpredn isolone 4 mg tablets in a dose pack 2021 [email or web address] [email or web address] [facility], [address] [place], [address], 3 09:14:34 dexamethaso ne sodium phosphate 4 mg/mL injection solution 2021 022 [email or web address] n5 [facility]/Pharmacy #3016, [address] [place], [address], 3 14:26:33 Ventolin HFA 90 mcg/actuati on aerosol inhaler 2021 REINALDO [facility]/Pharmacy #3016, [address] [place], [address], 09:54:27 Patient TargetsNo targets recorded. Patient Instructions Encounter Date Encounter Id Patient Instructions Last Modified By Organization Details Last Modified Time 05/27/2022 [id number] learning about healthy weight Not available 05/28/2022 23:49:29 Reason for Referral None Reported. Results Created Date Observation Date Name Description Value Unit Range Abnormal Flag Note LastModifiedBy Organization Detail LastModifiedTime 05/26/2005/27/2022 LIPID PANEL , STAND EDVIN cholesterol, total 162 mg/dL <200 normal Not Available [facility] [address] [place], [address], 05/27/2022 08:18:56 05/26/2005/27/2022 LIPID PANEL , STAND EDVIN HDL cholesterol 71 mg/dL > or = 50 normal Not Available [facility] [address] [facility] [place], [address], 05/27/2022 08:18:56 05/26/2005/27/2022 LIPID PANEL , STAND EDVIN triglyceride s 113 mg/dL <150 normal Not Available [facility] [address] [facility] [place], [address], 05/27/2022 08:18:56 05/26/20 22 05/27/2022 LIPID PANEL [...] 310(1 9): 2061- 2068 (http ://ed ucati on.Qu Cornell Kodkod. com/f aq/FA Q164) Not Available [facility] [address] [facility], [place], [address], 05/27/2022 08:18:56 05/26/20 22 05/27/2022 LIPID PANEL , STAND EDVIN chol/HDLC ratio 2.3 (calc ) <5.0 normal Not Available [facility] [address] [facility], [place], [address], 05/27/2022 08:18:56 05/26/20 22 05/27/2022 LIPID PANEL , STAND EDVIN non HDL cholesterol 91 mg/dL _(trini c) <130 normal For patie nts with diabe ovi plus 1 major ASCVD risk facto r, treat ing to a non-H DL-C goal of <100 mg/dL (LDL- C of <70 mg/dL ) is consi dered a thera peuti c optio n. Not Available [facility] [address] [facility], [place], [address], 05/27/2022 08:18:56 05/26/20 22 05/27/2022 COMPR EHENS HOMAR METAB OLIC PANEL glucose 105 mg/dL 65-99 high Fasti ng refer ence inter edy For someo ne witho ut known diabe ovi, a gluco se value betwe en 100 and 125 mg/dL is consi stent with predi abete s and shoul d be confi rmed with a follo w-up test. Not Available [facility] [address] [place], [address], 05/27/2022 08:18:57 05/26/20 22 05/27/2022 COMPR EHENS HOMAR METAB OLIC PANEL urea nitrogen (BUN) 14 mg/dL 7-25 normal Not Available [facility] [address] [place], [address], 05/27/2022 08:18:57 05/26/20 22 05/27/2022 COMPR EHENS HOMAR METAB OLIC PANEL creatinine 0.83 mg/dL 0.50-1 .05 normal Not Available [facility] [address] [place], [address], 05/27/2022 08:18:57 05/26/20 22 05/27/2022 COMPR EHENS [...] culat or Not Available [facility] [address] [place], [address], 05/27/2022 08:18:57 05/26/20 22 05/27/2022 COMPR EHENS HOMAR METAB OLIC PANEL BUN/creatini ne ratio NOT APPLIC ABLE (calc ) 6-22 Not Available [facility] [address] [place], [address], 05/27/2022 08:18:57 05/26/20 22 05/27/2022 COMPR EHENS HOMAR METAB OLIC PANEL sodium 140 mmol/ L 135-14 6 normal Not Available [facility] [address] [facility] [place], [address], 05/27/2022 08:18:57 05/26/20 22 05/27/2022 COMPR EHENS HOMAR METAB OLIC PANEL potassium 4.1 mmol/ L 3.5-5. 3 normal Not Available [facility] [address] [facility] [place], [address], 05/27/2022 08:18:57 05/26/20 22 05/27/2022 COMPR EHENS HOMAR METAB OLIC PANEL chloride 108 mmol/ L 98-110 normal Not Available [facility] [address] [facility] [place], [address], 05/27/2022 08:18:57 05/26/20 22 05/27/2022 COMPR EHENS HOMAR METAB OLIC PANEL carbon dioxide 25 mmol/ L 20-32 normal Not Available [facility] [address] [facility] [place], [address], 05/27/2022 08:18:57 05/26/20 22 05/27/2022 COMPR EHENS HOMAR METAB OLIC PANEL calcium 9.5 mg/dL 8.6-10 .4 normal Not Available [facility] [address] [facility] [place], [address], 05/27/2022 08:18:57 05/26/20 22 05/27/2022 COMPR EHENS HOMAR METAB OLIC PANEL protein, total 6.4 g/dL 6.1-8. 1 normal Not Available [facility] [address] [facility] [place], [address], 05/27/2022 08:18:57 05/26/20 22 05/27/2022 COMPR EHENS HOMAR METAB OLIC PANEL albumin 4.3 g/dL 3.6-5. 1 normal Not Available [facility] [address] [place], [address], 05/27/2022 08:18:57 05/26/20 22 05/27/2022 COMPR EHENS HOMAR METAB OLIC PANEL globulin 2.1 g/dL_ (calc ) 1.9-3. 7 normal Not Available [facility] [address] [place], [address], 05/27/2022 08:18:57 05/26/20 22 05/27/2022 COMPR EHENS HOMAR METAB OLIC PANEL albumin/glob ulin ratio 2.0 (calc ) 1.0-2. 5 normal Not Available [facility] [address] [place], [address], 05/27/2022 08:18:57 05/26/20 22 05/27/2022 COMPR EHENS HOMAR METAB OLIC PANEL bilirubin, total 0.6 mg/dL 0.2-1. 2 normal Not Available [facility] [address] [place], [address], 05/27/2022 08:18:57 05/26/20 22 05/27/2022 COMPR EHENS HOMAR METAB OLIC PANEL alkaline phosphatase 93 U/L 37-153 normal Not Available [facility] [address] [place], [address], 05/27/2022 08:18:57 05/26/20 22 05/27/2022 COMPR EHENS HOMAR METAB OLIC PANEL AST 17 U/L 10-35 normal Not Available [facility] [address] [place], [address], 05/27/2022 08:18:57 05/26/20 22 05/27/2022 COMPR EHENS HOMAR METAB OLIC PANEL ALT 14 U/L 6-29 normal Not Available [facility] [address] [facility] [place], [address], 05/27/2022 08:18:57 05/26/20 22 05/27/2022 TSH TSH 1.03 mIU/L 0.40-4 .50 normal Not Available [facility] [address] [facility] [place], [address], 05/27/2022 08:18:58 05/26/20 22 05/27/2022 CBC (INCL UDES DIFF/ PLT) white blood cell count 6.0 thous and/u L 3.8-10 .8 normal Not Available [facility] [address] [facility] [place], [address], 05/27/2022 08:18:58 05/26/20 22 05/27/2022 CBC (INCL UDES DIFF/ PLT) red blood cell count 4.48 charley on/uL 3.80-5 .10 normal Not Available [facility] [address] [facility] [place], [address], 05/27/2022 08:18:58 05/26/20 22 05/27/2022 CBC (INCL UDES DIFF/ PLT) hemoglobin 13.2 g/dL 11.7-1 5.5 normal Not Available [facility] [address] [facility] [place], [address], 05/27/2022 08:18:58 05/26/20 22 05/27/2022 CBC (INCL UDES DIFF/ PLT) hematocrit 41.4 % 35.0-4 5.0 normal Not Available [facility] [address] [facility] [place], [address], 05/27/2022 08:18:58 05/26/20 22 05/27/2022 CBC (INCL UDES DIFF/ PLT) MCV 92.4 fL 80.0-1 00.0 normal Not Available [facility] [address] [place], [address], 05/27/2022 08:18:58 05/26/20 22 05/27/2022 CBC (INCL UDES DIFF/ PLT) MCH 29.5 pg 27.0-3 3.0 normal Not Available [facility] [address] [place], [address], 05/27/2022 08:18:58 05/26/20 22 05/27/2022 CBC (INCL UDES DIFF/ PLT) MCHC 31.9 g/dL 32.0-3 6.0 low Not Available [facility] [address] [place], [address], 05/27/2022 08:18:58 05/26/20 22 05/27/2022 CBC (INCL UDES DIFF/ PLT) RDW 13.2 % 11.0-1 5.0 normal Not Available [facility] [address] [place], [address], 05/27/2022 08:18:58 05/26/20 22 05/27/2022 CBC (INCL UDES DIFF/ PLT) platelet count 210 thous and/u L 140-40 0 normal Not Available [facility] [address] [place], [address], 05/27/2022 08:18:58 05/26/20 22 05/27/2022 CBC (INCL UDES DIFF/ PLT) MPV 11.0 fL 7.5-12 .5 normal Not Available [facility] [address] [place], [address], 05/27/2022 08:18:58 05/26/20 22 05/27/2022 CBC (INCL UDES DIFF/ PLT) absolute neutrophils 2724 cells /uL 1500-7 800 normal Not Available [facility] [address] [place], [address], 05/27/2022 08:18:58 05/26/20 22 05/27/2022 CBC (INCL UDES DIFF/ PLT) absolute lymphocytes 2580 cells /uL 850-39 00 normal Not Available [facility] [address] [place], [address], 05/27/2022 08:18:58 05/26/20 22 05/27/2022 CBC (INCL UDES DIFF/ PLT) absolute monocytes 558 cells /uL 200-95 0 normal Not Available [facility] [address], [place], [address], 05/27/2022 08:18:58 05/26/20 22 05/27/2022 CBC (INCL UDES DIFF/ PLT) absolute eosinophils 90 cells /uL 15-500 normal Not Available [facility] [address], [place], [address], 05/27/2022 08:18:58 05/26/20 22 05/27/2022 CBC (INCL UDES DIFF/ PLT) absolute basophils 48 cells /uL 0-200 normal Not Available [facility] [address], [place], [address], 05/27/2022 08:18:58 05/26/20 22 05/27/2022 CBC (INCL UDES DIFF/ PLT) neutrophils 45.4 % normal Not Available [facility] [address], [place], [address], 05/27/2022 08:18:58 05/26/20 22 05/27/2022 CBC (INCL UDES DIFF/ PLT) lymphocytes 43.0 % normal Not Available [facility] [address], [place], [address], 05/27/2022 08:18:58 05/26/20 22 05/27/2022 CBC (INCL UDES DIFF/ PLT) monocytes 9.3 % normal Not Available [facility] [address] [place], [address], 05/27/2022 08:18:58 05/26/20 22 05/27/2022 CBC (INCL UDES DIFF/ PLT) eosinophils 1.5 % normal Not Available [facility] [address] [place], [address], 05/27/2022 08:18:58 05/26/20 22 05/27/2022 CBC (INCL UDES DIFF/ PLT) basophils 0.8 % normal Not Available [facility] [address] [place], [address], 05/27/2022 08:18:58 05/27/20 22 05/29/2022 CULTU RE, URINE , ROUTI NE culture, urine, routine CULTU RE, URINE , ROUTI NE Micro Numbe r: [id number] Test Statu s: Final Speci men [...] port Tube. Not Available [facility] [address] [facility], [place], [address], 05/29/2022 02:16:45 05/27/2005/27/2022 urina lysis , dipst ick Leukocytes Modera te Not Available [address], [place], [address], 05/27/2022 10:11:09 05/27/20 22 05/27/2022 urina lysis , dipst ick Nitrite negati ve Not Available [facility] [address] [place], [address], 05/27/2022 10:11:09 05/27/20 22 05/27/2022 urina lysis , dipst ick Urobilinogen .2 Not Available [facility] [address] [place], [address], 05/27/2022 10:11:09 05/27/20 22 05/27/2022 urina lysis , dipst ick Protein Negati ve Not Available [facility] [address] [place], [address], 05/27/2022 10:11:05/27/20 22 05/27/2022 urina lysis , dipst ick pH 6.0 Not Available [facility] [address] [place], [address], 05/27/2022 10:11:09 05/27/20 22 05/27/2022 urina lysis , dipst ick Blood Negati ve Not Available [facility] [address] [place], [address], 05/27/2022 10:11:09 05/27/20 22 05/27/2022 urina lysis , dipst ick Specific [place] 1.010 Not Available [facility] [address] [place], [address], 05/27/2022 10:11:09 05/27/20 22 05/27/2022 urina lysis , dipst ick Ketone Negati ve Not Available [facility] [address] [place], [address], 05/27/2022 10:11:09 05/27/20 22 05/27/2022 urina lysis , dipst ick Bilirubin Negati ve Not Available [facility] [address] [place], [address], 05/27/2022 10:11:09 05/27/20 22 05/27/2022 urina lysis , dipst ick Glucose Negati ve Not Available [facility] [address] [facility], [place], [address], 05/27/2022 10:11:09 10/17/20 22 10/18/2022 SARS COV2 [...] ng requi remen ts for nika harmon ga solis e with time. The patie nt is respo nsibl e for deter minimiriam g the test requi remen ts for [...] the [facility] websi te: www.[employer] uab&jb properties and servicesD [employer]/ Covid 19. For patie nts with a Detec stefan or Incon clusi ve test resul t, pleas e see CDC's COVID -19 Treat ments and Medic ation s page locat ed at https ://ww w.cdc .gov/ coron aviru s/201 9-nco v/you r-hea [facility]/t reatm ents- for- sever e-ill ness. html for infor matio n on COVID -19 thera peuti cs. For patie nts with a Not Detec stefan test resul t, pleas e see CDC's Vacci isha for COVID -19 page locat ed at https ://ww w.cdc .gov/ coron aviru s/201 9-nco v/vac cines /inde x.htm l for infor matio n on COVID -19 vacci isha. Not Available [facility] [address], [place], [address], 10/18/2022 19:58:56 10/17/20 22 10/18/2022 SARS COV2 RNA(C OVID1 9) AND RESP PATHO GEN PNL, NAAT adenovirus NOT DETECT ED not detect ed normal Not Available [facility] [address], [place], [address], 10/18/2022 19:58:56 10/17/20 22 10/18/2022 SARS COV2 RNA(C OVID1 9) AND RESP PATHO GEN PNL, NAAT rhinovirus/e nterovirus NOT DETECT ED not detect ed normal Not Available [facility] [address] [facility] [place], [address], 10/18/2022 19:58:56 10/17/20 22 10/18/2022 SARS COV2 RNA(C OVID1 9) AND RESP PATHO GEN PNL, NAAT influenza A NOT DETECT ED not detect ed normal Not Available [facility] [address] [facility] [place], [address], 10/18/2022 19:58:56 10/17/20 22 10/18/2022 SARS COV2 RNA(C OVID1 9) AND RESP PATHO GEN PNL, NAAT influenza A subtype H1 NOT DETECT ED not detect ed normal Not Available [facility] [address] [facility] [place], [address], 10/18/2022 19:58:56 10/17/20 22 10/18/2022 SARS COV2 RNA(C OVID1 9) AND RESP PATHO GEN PNL, NAAT influenza A subtype H3 NOT DETECT ED not detect ed normal Not Available [facility] [address] [facility] [place], [address], 10/18/2022 19:58:56 10/17/20 22 10/18/2022 SARS COV2 RNA(C OVID1 9) AND RESP PATHO GEN PNL, NAAT influenza B NOT DETECT ED not detect ed normal Not Available [facility] [address] [facility] [place], [address], 10/18/2022 19:58:56 10/17/20 22 10/18/2022 SARS COV2 RNA(C OVID1 9) AND RESP PATHO GEN PNL, NAAT human metapneumovi wendy NOT DETECT ED not detect ed normal Not Available [facility] [address], [place], [address], 10/18/2022 19:58:56 10/17/20 22 10/18/2022 SARS COV2 RNA(C OVID1 9) AND RESP PATHO GEN PNL, NAAT human RSV A NOT DETECT ED not detect ed normal Not Available [facility] [address] [facility], [place], [address], 10/18/2022 19:58:56 10/17/20 22 10/18/2022 SARS COV2 RNA(C OVID1 9) AND RESP PATHO GEN PNL, NAAT human RSV B NOT DETECT ED not detect ed normal Not Available [facility] [address], [place], [address], 10/18/2022 19:58:56 10/17/20 22 10/18/2022 SARS COV2 RNA(C OVID1 9) AND RESP PATHO GEN PNL, NAAT human parainflu virus 1 NOT DETECT ED not detect ed normal Not Available [facility] [address] [facility], [place], [address], 10/18/2022 19:58:56 10/17/20 22 10/18/2022 SARS COV2 RNA(C OVID1 9) AND RESP PATHO GEN PNL, NAAT human parainflu virus 2 NOT DETECT ED not detect ed normal Not Available [facility] [address], [place], [address], 10/18/2022 19:58:56 10/17/20 22 10/18/2022 SARS COV2 RNA(C OVID1 9) AND RESP PATHO GEN PNL, NAAT human parainflu virus 3 NOT DETECT ED not detect ed normal Not Available [facility] [address], [place], [address], 10/18/2022 19:58:56 10/17/20 22 10/18/2022 SARS COV2 RNA(C OVID1 9) AND RESP PATHO GEN PNL, NAAT human parainflu virus 4 NOT DETECT ED not detect ed normal Not Available [facility] [address] [facility], [place], [address], 10/18/2022 19:58:56 10/17/20 22 10/18/2022 SARS COV2 RNA(C OVID1 9) AND RESP PATHO GEN PNL, NAAT coronavirus 229E NOT DETECT ED not detect ed normal Not Available [facility] [address], [place], [address], 10/18/2022 19:58:56 10/17/20 22 10/18/2022 SARS COV2 RNA(C OVID1 9) AND RESP PATHO GEN PNL, NAAT coronavirus oc43 NOT DETECT ED not detect ed normal Not Available [facility] [address], [place], [address], 10/18/2022 19:58:56 10/17/20 22 10/18/2022 SARS COV2 RNA(C OVID1 9) AND RESP PATHO GEN PNL, NAAT coronavirus nl63 NOT DETECT ED not detect ed normal Not Available [facility] [address], [place], [address], 10/18/2022 19:58:56 10/17/20 22 10/18/2022 SARS COV2 RNA(C OVID1 9) AND RESP PATHO GEN PNL, NAAT coronavirus hku1 NOT DETECT ED not detect ed normal Not Available [facility] [address], [place], [address], 10/18/2022 19:58:56 10/17/20 22 10/18/2022 SARS COV2 RNA(C OVID1 9) AND RESP PATHO GEN PNL, NAAT human bocavirus NOT DETECT ED not detect ed normal Not Available [facility] [address], [place], [address], 10/18/2022 19:58:56 10/17/20 22 10/18/2022 SARS COV2 RNA(C OVID1 9) AND RESP PATHO GEN PNL, NAAT chlamydophil a pneumoniae NOT DETECT ED not detect ed normal Not Available [facility] [address] [facility], [place], [address], 10/18/2022 19:58:56 10/17/20 22 10/18/2022 SARS COV2 RNA(C OVID1 9) AND RESP PATHO GEN PNL, NAAT mycoplasma pneumoniae NOT DETECT ED not detect ed normal Not Available [facility] [address] [facility], [place], [address], 10/18/2022 19:58:56 10/17/20 22 10/18/2022 SARS COV2 RNA(C OVID1 9) AND RESP PATHO GEN PNL, NAAT comment THIS ASSAY WILL NOT DETEC T SARS- CoV-2 (COVI D-19) This test is perfo rmed using the [employer] ex Techn ology . Limit ation [...] virus es. Not Available [facility] [address] [facility] [facility], [place], [address], 10/18/2022 19:58:56 10/17/20 22 10/17/2022 rapid flu (A+B) rapid flu negati ve Not Available [address], [place], [address], 10/17/2022 09:50:59 01/23/20 23 01/24/2023 CULTU RE, URINE , ROUTI NE culture, urine, routine CULTU RE, URINE , ROUTI NE Micro Numbe r: [id number] Test Statu s: Final Speci men [...] port Tube. Not Available [facility] [address] [facility], [place], [address], 01/24/2023 07:38:25 01/23/20 23 01/22/2023 urina lysis , dipst ick Leukocytes Small Not Available [facility] [address] [place], [address], 01/22/2023 14:31:20 01/23/20 23 01/22/2023 urina lysis , dipst ick Nitrite negati ve Not Available [facility] [address] [place], [address], 01/22/2023 14:31:20 01/23/20 23 01/22/2023 urina lysis , dipst ick Urobilinogen .2 Not Available [facility] [address] [place], [address], 01/22/2023 14:31:20 01/23/20 23 01/22/2023 urina lysis , dipst ick Protein Negati ve Not Available [facility] [address] [place], [address], 01/22/2023 14:31:20 01/23/20 23 01/22/2023 urina lysis , dipst ick pH 6.0 Not Available [facility] [address] [place], [address], 01/22/2023 14:31:20 01/23/20 23 01/22/2023 urina lysis , dipst ick Blood Negati ve Not Available [facility] [address] [place], [address], 01/22/2023 14:31:20 01/23/20 23 01/22/2023 urina lysis , dipst ick Specific Elgin 1.030 Not Available [facility] [address] [place], [address], 01/22/2023 14:31:20 01/23/20 23 01/22/2023 urina lysis , dipst ick Ketone Negati ve Not Available [facility] [address] [place], [address], 01/22/2023 14:31:20 01/23/20 23 01/22/2023 urina lysis , dipst ick Bilirubin Negati ve Not Available [facility] [address] [place], [address], 01/22/2023 14:31:20 01/23/20 23 01/22/2023 urina lysis , dipst ick Glucose Negati ve Not Available [facility] [address] [place], [address], 01/22/2023 14:31:20 07/16/20 23 07/16/2023 urina lysis , dipst ick Leukocytes Negati ve Not Available [facility] [address] [place], [address], 07/16/2023 13:59:01 07/16/20 23 07/16/2023 urina lysis , dipst ick Nitrite negati ve Not Available [facility] [address] [place], [address], 07/16/2023 13:59:01 07/16/20 23 07/16/2023 urina lysis , dipst ick Urobilinogen .2 Not Available [place] [place], [address], 07/16/2023 13:59:01 07/16/20 23 07/16/2023 urina lysis , dipst ick Protein Negati ve Not Available [facility] [address] [place], [address], 07/16/2023 13:59:01 07/16/20 23 07/16/2023 urina lysis , dipst ick pH 6.0 Not Available [facility] [address] [place], [address], 07/16/2023 13:59:01 07/16/20 23 07/16/2023 urina lysis , dipst ick Blood Negati ve Not Available [facility] [address] [place], [address], 07/16/2023 13:59:01 07/16/20 23 07/16/2023 urina lysis , dipst ick Specific [place] 1.010 Not Available [address], [address], 07/16/2023 13:59:01 07/16/20 23 07/16/2023 urina lysis , dipst ick Ketone Negati ve Not Available [facility] [address] [place], [address], 07/16/2023 13:59:01 07/16/20 23 07/16/2023 urina lysis , dipst ick Bilirubin Negati ve Not Available [facility] [address] [place], [address], 07/16/2023 13:59:01 07/16/20 23 07/16/2023 urina lysis , dipst ick Glucose Negati ve Not Available [facility] [address] [facility], [place], [address], 07/16/2023 13:59:01 07/30/2007/31/2023 LIPID PANEL (REFL ) cholesterol, total 168 mg/dL <200 normal Not Available [facility] [address], [place], [address], 07/31/2023 09:40:42 07/30/2007/31/2023 LIPID PANEL (REFL ) HDL cholesterol 69 mg/dL > or = 50 normal Not Available [facility] [address], [place], [address], 07/31/2023 09:40:42 07/30/2007/31/2023 LIPID PANEL (REFL ) triglyceride s 75 mg/dL <150 normal Not Available [facility] [address], [place], [address], 07/31/2023 09:40:42 07/30/2007/31/2023 LIPID PANEL (REFL ) LDL-choleste rol 83 mg/dL _(trini c) normal Refer ence range : <100 Anne able range <100 mg/dL for prima ry preve ntion ; <70 mg/dL for patie nts with CHD or diabe tic patie nts with > or = 2 CHD risk facto rs. LDL-C is now calcu lated using the Velvet n-Hop kins rylanu mary n, which is a valid ated novel lydiao d loulou roque r accur acy than the Fried fausto equat ion in the estim ation of LDL-C . Velvet pineda SS et al. DESIREE. 2013; 310(1 9): 2061- 2068 (http ://ed jhonatanati on.Qu Cornell benoits. com/f aq/FA Q164) Not Available [facility] [address], [place], [address], 07/31/2023 09:40:42 07/30/2007/31/2023 LIPID PANEL (REFL ) chol/HDLC ratio 2.4 (calc ) <5.0 normal Not Available [facility] [address] [place] [place], [address], 07/31/2023 09:40:42 07/30/2007/31/2023 LIPID PANEL (REFL ) non HDL cholesterol 99 mg/dL _(trini c) <130 normal For patie nts with diabe ovi plus 1 major ASCVD risk facto r, treat ing to a non-H DL-C goal of <100 mg/dL (LDL- C of <70 mg/dL ) is consi dered a thera peuti c optio n. Not Available [facility] [facility] [address] [facility] [place], [address], 07/31/2023 09:40:42 07/30/2007/31/2023 COMPR EHENS HOMAR METAB OLIC PANEL glucose 101 mg/dL 65-99 high Fasti ng refer ence inter edy For someo ne witho ut known diabe ovi, a gluco se value betwe en 100 and 125 mg/dL is consi stent with predi abete s and shoul d be confi rmed with a follo w-up test. Not Available [facility] [address] [facility] [place], [address], 07/31/2023 09:40:42 07/30/2007/31/2023 COMPR EHENS HOMAR METAB OLIC PANEL urea nitrogen (BUN) 23 mg/dL 7-25 normal Not Available [facility] [address] [facility] [place], [address], 07/31/2023 09:40:42 07/30/2007/31/2023 COMPR EHENS HOMAR METAB OLIC PANEL creatinine 1.03 mg/dL 0.50-1 .05 normal Not Available [facility] [address] [facility] [place], [address], 07/31/2023 09:40:42 07/30/2007/31/2023 COMPR EHENS HOMAR METAB OLIC PANEL eGFR 61 mL/mi n/1.7 3m2 > or = 60 normal Not Available [facility] [address] [place], [address], 07/31/2023 09:40:42 07/30/2007/31/2023 COMPR EHENS HOMAR METAB OLIC PANEL BUN/creatini ne ratio SEE NOTE: (calc ) 6-22 Not Repor stefan: BUN and Creat inine are withi n refer ence range . Not Available [facility] [address] [place], [address], 07/31/2023 09:40:42 07/30/2007/31/2023 COMPR EHENS HOMAR METAB OLIC PANEL sodium 139 mmol/ L 135-14 6 normal Not Available [facility] [address] [place], [address], 07/31/2023 09:40:42 07/30/2007/31/2023 COMPR EHENS HOMAR METAB OLIC PANEL potassium 4.2 mmol/ L 3.5-5. 3 normal Not Available [facility] [address] [place], [address], 07/31/2023 09:40:42 07/30/2007/31/2023 COMPR EHENS HOMAR METAB OLIC PANEL chloride 107 mmol/ L 98-110 normal Not Available [facility] [address] [facility] [place], [address], 07/31/2023 09:40:42 07/30/2007/31/2023 COMPR EHENS HOMAR METAB OLIC PANEL carbon dioxide 25 mmol/ L 20-32 normal Not Available [facility] [address] [place], [address], 07/31/2023 09:40:42 07/30/2007/31/2023 COMPR EHENS HOMAR METAB OLIC PANEL calcium 9.3 mg/dL 8.6-10 .4 normal Not Available [facility] [address] [facility] [place], [address], 07/31/2023 09:40:42 07/30/2007/31/2023 COMPR EHENS HOMAR METAB OLIC PANEL protein, total 6.4 g/dL 6.1-8. 1 normal Not Available [facility] [address] [place], [address], 07/31/2023 09:40:42 07/30/2007/31/2023 COMPR EHENS HOMAR METAB OLIC PANEL albumin 4.1 g/dL 3.6-5. 1 normal Not Available [facility] [address] [place], [address], 07/31/2023 09:40:42 07/30/2007/31/2023 COMPR EHENS HOMAR METAB OLIC PANEL globulin 2.3 g/dL_ (calc ) 1.9-3. 7 normal Not Available [facility] [address] [facility] [place], [address], 07/31/2023 09:40:42 07/30/2007/31/2023 COMPR EHENS HOMAR METAB OLIC PANEL albumin/glob ulin ratio 1.8 (calc ) 1.0-2. 5 normal Not Available [facility] [address] [facility] [place], [address], 07/31/2023 09:40:42 07/30/2007/31/2023 COMPR EHENS HOMAR METAB OLIC PANEL bilirubin, total 0.4 mg/dL 0.2-1. 2 normal Not Available [facility] [address] [facility] [place], [address], 07/31/2023 09:40:42 07/30/2007/31/2023 COMPR EHENS HOMAR METAB OLIC PANEL alkaline phosphatase 69 U/L 37-153 normal Not Available [facility] t PT [employer] [facility] [address] [facility], [place], [address], 07/31/2023 09:40:42 07/30/2007/31/2023 COMPR EHENS HOMAR METAB OLIC PANEL AST 15 U/L 10-35 normal Not Available [facility] [address] [facility], [place], [address], 07/31/2023 09:40:42 07/30/2007/31/2023 COMPR EHENS HOMAR METAB OLIC PANEL ALT 13 U/L 6-29 normal Not Available [facility] PT [employer] [facility] [address] [facility], [place], [address], 07/31/2023 09:40:42 07/30/2007/31/2023 TSH TSH 2.44 mIU/L 0.40-4 .50 normal Not Available [employer] [facility] [address] [facility] [place], [address], 07/31/2023 09:40:43 07/30/2007/31/2023 CBC (INCL UDES DIFF/ PLT) white blood cell count 6.7 thous and/u L 3.8-10 .8 normal Not Available [employer] [facility] [address] [facility], [place], [address], 07/31/2023 09:40:44 07/30/2007/31/2023 CBC (INCL UDES DIFF/ PLT) red blood cell count 4.37 charley on/uL 3.80-5 .10 normal Not Available [employer] [facility] [address] [facility], [place], [address], 07/31/2023 09:40:44 07/30/2007/31/2023 CBC (INCL UDES DIFF/ PLT) hemoglobin 13.1 g/dL 11.7-1 5.5 normal Not Available [facility] [address] [facility] [place], [address], 07/31/2023 09:40:44 07/30/2007/31/2023 CBC (INCL UDES DIFF/ PLT) hematocrit 40.0 % 35.0-4 5.0 normal Not Available [facility] [address] [facility] [place], [address], 07/31/2023 09:40:44 07/30/2007/31/2023 CBC (INCL UDES DIFF/ PLT) MCV 91.5 fL 80.0-1 00.0 normal Not Available [facility] [address] [place], [address], 07/31/2023 09:40:44 07/30/2007/31/2023 CBC (INCL UDES DIFF/ PLT) MCH 30.0 pg 27.0-3 3.0 normal Not Available [facility] [address] [facility] [place], [address], 07/31/2023 09:40:44 07/30/2007/31/2023 CBC (INCL UDES DIFF/ PLT) MCHC 32.8 g/dL 32.0-3 6.0 normal Not Available [facility] [address] [facility] [place], [address], 07/31/2023 09:40:44 07/30/2007/31/2023 CBC (INCL UDES DIFF/ PLT) RDW 13.4 % 11.0-1 5.0 normal Not Available [facility] [address] [facility] [place], [address], 07/31/2023 09:40:44 07/30/2007/31/2023 CBC (INCL UDES DIFF/ PLT) platelet count 222 thous and/u L 140-40 0 normal Not Available [facility] [address] [facility], [place], [address], 07/31/2023 09:40:44 07/30/2007/31/2023 CBC (INCL UDES DIFF/ PLT) MPV 11.6 fL 7.5-12 .5 normal Not Available [facility] [address] [facility], [place], [address], 07/31/2023 09:40:44 07/30/2007/31/2023 CBC (INCL UDES DIFF/ PLT) absolute neutrophils 3229 cells /uL 1500-7 800 normal Not Available [facility] [address] [facility], [place], [address], 07/31/2023 09:40:44 07/30/2007/31/2023 CBC (INCL UDES DIFF/ PLT) absolute lymphocytes 2680 cells /uL 850-39 00 normal Not Available [facility], [place], [address], 07/31/2023 09:40:44 07/30/2007/31/2023 CBC (INCL UDES DIFF/ PLT) absolute monocytes 643 cells /uL 200-95 0 normal Not Available [facility] [address] [facility], [place], [address], 07/31/2023 09:40:44 07/30/2007/31/2023 CBC (INCL UDES DIFF/ PLT) absolute eosinophils 107 cells /uL 15-500 normal Not Available [facility] [address] [facility], [place], [address], 07/31/2023 09:40:44 07/30/2007/31/2023 CBC (INCL UDES DIFF/ PLT) absolute basophils 40 cells /uL 0-200 normal Not Available [facility] [address] [facility] [place], [address], 07/31/2023 09:40:44 07/30/2007/31/2023 CBC (INCL UDES DIFF/ PLT) neutrophils 48.2 % normal Not Available [facility] [address] [facility] [place], [address], 07/31/2023 09:40:44 07/30/2007/31/2023 CBC (INCL UDES DIFF/ PLT) lymphocytes 40.0 % normal Not Available [facility] [address] [facility] [place], [address], 07/31/2023 09:40:44 07/30/2007/31/2023 CBC (INCL UDES DIFF/ PLT) monocytes 9.6 % normal Not Available [facility] [address] [facility] [place], [address], 07/31/2023 09:40:44 07/30/2007/31/2023 CBC (INCL UDES DIFF/ PLT) eosinophils 1.6 % normal Not Available [facility] [address] [facility] [place], [address], 07/31/2023 09:40:44 07/30/2007/31/2023 CBC (INCL UDES DIFF/ PLT) basophils 0.6 % normal Not Available [facility] [address] [facility] [place], [address], 07/31/2023 09:40:44 08/04/2008/06/2023 THINP REP TIS PAP clinical information: normal Lina l exam Not Available [facility] [address], [place], [address], 08/06/2023 14:24:15 08/04/2008/06/2023 THINP REP TIS PAP LMP: normal UNKNO WN Not Available [facility] [address] [facility], [place], [address], 08/06/2023 14:24:15 08/04/2008/06/2023 THINP REP TIS PAP prev. Pap: normal UNKNO WN Not Available [facility] [address] [facility] [place], [address], 08/06/2023 14:24:15 08/04/2008/06/2023 THINP REP TIS PAP prev. BX: normal UNKNO WN Not Available [facility] [address] [place], [address], 08/06/2023 14:24:15 08/04/2008/06/2023 THINP REP TIS PAP source: normal Vagin a, Cervi x, Endoc ervix Not Available [facility] [address] [facility] [place], [address], 08/06/2023 14:24:15 08/04/2008/06/2023 THINP REP TIS PAP statement of adequacy: normal Satis facto ry for evalu ation . Endoc ervic al/tr ansfo rmati on zone compo nent prese nt. Not Available [facility] [address] [place], [address], 08/06/2023 14:24:15 08/04/2008/06/2023 THINP REP TIS PAP interpretati on/result: normal Cytol ogy Resul ts: Negat homra for intra epith elial lesio n or malig haydee . Not Available [facility] [address] [facility] [place], [address], 08/06/2023 14:24:15 08/04/2008/06/2023 THINP REP TIS PAP comment: normal This Pap test has been evalu ated with compu ter perla stefan techn ology . Not Available [facility] [address] [facility], [place], [address], 08/06/2023 14:24:15 08/04/20 23 08/06/2023 THINP REP TIS PAP cytotechnolo gist: normal ESL, CT( CP) CT Scree yvonne Locat ion: [facility] [place] [address] [facility] [place] [address] Not Available [facility] [address] [facility] [place], [address], 08/06/2023 14:24:15 08/04/20 23 08/06/2023 THINP REP [...] matio n. Not Available [facility] [address] [facility], [place], [address], 08/06/2023 14:24:15 08/11/20 23 08/11/2023 nonin vasiv e color ectal cance r DNA + occul t blood scree yvonne, QL, stool cologuard negati ve normal Not Available Not Available 18:04:55 12/27/19 23 12/26/2022 MAMMO , scree yvonne, digit al, bilat eral [facility] [address] [address] Phone: Fax: Name: DEIRDRE ORTEZ Exam Date: 023 : [birth year] Age 62 Gender : F Access ion: [id number] Physic jim: RONDA GAMBLE Facili ty: [facility] Facili ty HSV: Outpat ient Exam: [...] [facility] Legall y authen ticate d by POPE RONDA Deshpande DO 12-26 15:30: 31 CC'ed Logic: Orderi ng Provid er: CHANCE Blackwell CC Provid er: CHANCE Blackwell Attend ing Provid er: CHANCE Blackwell Referr ing Provid er: CHANCE Blackwell Admitt ing Provid er: CHANCE [email or web address] [place] [address] (Radiology) [address] , [place], [address], 12/28/2022 18:32:26 05/02/20 23 05/02/2023 XR, chest , 2 view No observ ation record ed. franck [facility] [address], [place], [address], 05/02/2023 10:57:17 01/25/20 24 01/25/2024 MAMMO , scree yvonne, digit al, bilat eral [facility] [address] [place] [address] Phone: Fax: Name: DEIRDRE ORTEZ Exam Date: 01/25/20 : [birth year] Age 63 years Gender : F Access ion: [id number] Physic jim: RONDA GAMBLE Facili ty: [facility] Facili ty HSV: Outpat ient [...] for referr ing DEIRDRE [facility]TEZ to [facility]. Legall y authen ticate d by BERNARDO Kaur MD 01-24 13:27: 57 CC'ed Logic: Orderi ng Provid er: CHANCE Blackwell CC Provid er: CHANCE Blackwell Attend ing Provid er: CHANCE Blackwell Referr ing Provid er: CHANCE Blackwell Admitt ing Provid er: CHANCE [email or web address] [facility] (Radiology) [address] [place], [address], 01/25/2024 16:04:49 Result Notes Documentation Provider Name and Address Organization Details Recorded Time Mammo, Screening, Digital, Bilateral : [address] [place] [address] Name: DEIRDRE ORTEZ Exam Date: 12/26/2022 : 1960 Age 62 Gender: F Physician: SENDY MORAN Facility: [facility] Facility HSV: Outpatient Exam: SCREEN MAMMO W [...] Thank you for referring DEIRDRE ORTEZ to [facility]. Legally authenticated by POPE RONDA Deshpande DO 2022-12-26 15:30:31 CC'ed Logic: Ordering Provider: LUISA MCCORD CC Provider: LUISA MCCORD Attending Provider: LUISA MCCORD Referring Provider: LUISA MCCORD Admitting Provider: LUISA Moran MD [address] [facility], [address], [place], [address], [place] [facility] PB[facility]ianaSVeronique 12/28/2022 18:32:26 Mammo, Screening, Digital, Bilateral : [address] [place] [address] Name: DEIRDRE ORTEZ Exam Date: 01/25/2024 : 1960 Age 63 years Gender: F Physician: SENDY MORAN Facility: [facility] Facility HSV: Outpatient Exam: SCREEN MAMMO W [...] Thank you for referring DEIRDRE ORTEZ to [facility]. Legally authenticated by MARIA DEL ROSARIO Kaur MD 2024-01-25 13:27:57 CC'ed Logic: Ordering Provider: LUISA MCCORD CC Provider: LUISA MCCORD Attending Provider: LUISA MCCORD Referring Provider: LUISA MCCORD Admitting Provider: LUISA Moran MD [address], [address] [place] [facility]CB[facility]iana 01/25/2024 16:04:49 Problems Name Problem SNOMED Code Status Onset Date Resolution Date Notes Provider Name and Address Organization Details Recorded Time Generalized osteoarthri tis 035156117 Active Not Available [facility] 3 03:01:15 Disorder of bursa of shoulder region 61176049 Active 1999 chose not to have surgery Not Available [employer] 3 03:01:15 Urinary tract infectious disease 68812392 Active Not Available [facility] 3 03:01:15 Acute bronchopneu monia 380458909 Active Sendy Moran MD [address], [address] [place] [address] , [facility] - [facility] 4 14:26:56 Pain of hip region 48852481 Active Sendy Moran MD [address], [address] [place] [address] , [place] [facility] 4 10:34:43 Anti-nuclea r factor detected 671957615 Active Sendy Moran MD [address], [address] [place] [address] , [facility] - [facility] 4 10:34:43 Sinusitis 21979987 Active Sendy Moran MD [address] [place] [address] , [facility] - [facility] 4 10:34:43 Hyperlipide chinmay 13493968 Active Sendy Moran MD [address], [address] [place] [address] , [place] [facility] 4 10:34:43 Dysuria 69365269 Active Sendy Moran MD [address], [address] [place] [address] , [place] [facility] 4 10:34:43 Palpitation s 64931624 Active Sendy Moran MD [address], [address] [place] [address] , [place] [facility] 4 10:34:43 Arthritis of hip 88232688 Active Sendy Moran MD [address] [place] [address] , [place] [facility] 4 12:09:57 Acute sinusitis 07274012 Active Sendy Moran MD [address] [place] [address] , [place] [facility] 5 14:25:19 Serous otitis media 65881352 Active Sendy Moran MD [address] [place] [address] , [place] [facility] 5 14:25:19 Acute bronchitis 11838596 Active Sendy Moran MD [address] [place] [address] , [place] [facility] 5 14:25:19 Problem Notes None recorded. Procedures Surgical History Date Name Laterality Status Provider Name and Address Organization Details Recorded Time 8 I&D completed Sendy Moarn MD [address] [place] [address], [place] [facility] 04/10/2018 21:48:32 7 I&D completed Sendy Moran MD [address] [place] [address], [place] [facility] 06/09/2017 14:43:13 7 Tonsillectomy completed [facility] 09/20/2012 13:18:49 Imaging Results None recorded. Procedure Notes None recorded. Medical Equipment None Reported. Allergies Allergen ID Allergen Name Allergen Category Reaction Reaction Severity Criticality Documentation Date Start Date Code Code System Note Provider Name and Address Organization Details Recorded Time 92557 cefdinir medicatio n angioedem a severe high 07/16/2023 03230 RxNorm Sendy Moran MD [address], [address] [place] [address], [place] [facility] 3 14:56:57 Medications Name [...] Available Not Available Not Available Flucelvax Quad [id number] (PF) 60 mcg (15 mcg x 4)/0.5 [...] Details Last Updated DateTime 3 167.64 cm 01691.6 9 g 86 /min 95 % 95 % 96.6 [degF] 140 mm[Hg] 85 mm[Hg] [facility] 3 14:25:54 Date Recorded Body height Body mass index (BMI) Body weight Heart rate Oxygen saturation Oxygen saturation in Arterial blood by Pulse oximetry Body temperature Systolic blood pressure Diastolic blood pressure Provider Name and Address Organization Details Last Updated DateTime 2 167.64 cm 30.2 kg/m2 85691.4 7 g 80 /min 98 % 98 % 97 [degF] 129 mm[Hg] 78 mm[Hg] [facility] 2 10:07:41 Date Recorded Systolic blood pressure Diastolic blood pressure Provider Name and Address Organization Details Last Updated DateTime 07/16/2023 148 mm[Hg] 83 mm[Hg] Sendy Moran MD [address] [facility], [address], [place], [address], [place] [facility] 07/16/2023 15:07:47 Date Recorded Body height Body mass index (BMI) Body weight Heart rate Oxygen saturation Oxygen saturation in Arterial blood by Pulse oximetry Body temperature Systolic blood pressure Diastolic blood pressure Provider Name and Address Organization Details Last Updated DateTime 3 167.64 cm 28.2 kg/m2 56185.6 6 g 75 /min 96 % 96 % 97.5 [degF] 155 mm[Hg] 103 mm[Hg] [facility] 3 13:58:29 Date Recorded Body height Body mass index (BMI) Body weight Heart rate Oxygen saturation Oxygen saturation in Arterial blood by Pulse oximetry Body temperature Systolic blood pressure Diastolic blood pressure Provider Name and Address Organization Details Last Updated DateTime 3 167.64 cm 28.4 kg/m2 89551.6 6 g 98 /min 97 % 97 % 97 [degF] 116 mm[Hg] 80 mm[Hg] [facility] 3 09:13:18 Date Recorded Body height Body mass index (BMI) Body weight Heart rate Oxygen saturation Oxygen saturation in Arterial blood by Pulse oximetry Body temperature Systolic blood pressure Diastolic blood pressure Provider Name and Address Organization Details Last Updated DateTime 2 167.64 cm 29.7 kg/m2 82803.7 g 98 /min 98 % 98 % 96.8 [degF] 126 mm[Hg] 72 mm[Hg] [facility] 2 09:16:34 Social History Question Answer Notes LastModified by Organizat ion Details LastModified Time Tobacco Smoking Status Never [facility]oker Not Available [facility] 08/14/2020 03:11:19 Do You Have An Advance Directive? No [id number] Information not available 08/14/2020 Animal Exposure? Yes Informat ion not available 09/20/2012 Auto Related Injury? No Information not available 09/20/2012 Is Blood Transfusion Acceptable In An Emergency? Yes [id number] Information not available 08/14/2020 What Is Your Level Of Caffeine Consumption? Moderate [id number] Information not available 08/14/2020 How Much Tobacco Do You Chew? None [id number] Information not available 08/14/2020 Diabetes No Information no t available 09/20/2012 What Type Of Diet Are You Following? REGULAR [id number] Information not available 08/14/2020 Education 9 GED Information no t available 09/20/2012 What Is The Highest Grade Or Level Of School You Have Completed Or The Highest Degree You Have Received? [id number] Information not available 08/04/2023 Family History Of Heart Disease? Yes Information not available 09/20/2012 Which Of Your Hands Is Dominant? Right [id number] Information not available 08/14/2020 High Blood Pressure No Information not available 09/20/2012 High Cholesterol No Informat ion not available 09/20/2012 Live Alone Or With Others? With Others Information not available 09/20/2012 Marital Status [email or web address] Informatio n not available 11/25/2016 What Was The Date Of Your Most Recent Tobacco Screening? 08/04/2023 Information not available 08/04/2023 How Many Children Do You Have? 2 [id number] Information not available 08/14/2020 What Is Your Relationship Status? Information not available 08/04/2023 Do You Use Your Seat Belt Or Car Seat Routinely? Yes [id number] Information not available 08/14/2020 Seat Belts Used Routinely Yes Information not available 09/20/2012 Smoke Alarm In Home Yes Information not available 09/20/2012 General Stress Level Medium Information not available 09/20/2012 Do You Use Sunscreen Routinely? No [id number] Information not available 08/14/2020 Work Related Injury? No Information not available 09/20/2012 Sex: Unknown Functional Status Question Answer Note LastModified by Organizat ion Details LastModified Time What is your level of alcohol consumption? None [id number] Information not available 08/14/2020 Are you currently employed? No [id number] Information not available 08/14/2020 Are you able to care for yourself? Yes [id number] Information not available 08/14/2020 What is your occupation? RETIRED [id number] Information not available 08/14/2020 What is your exercise level? Occasional [id number] Information not available 08/14/2020 Mental Status Question Answer Note LastModified by Organization D etails LastModified Time Do you feel stressed (tense, restless, nervous, or anxious, or unable to sleep at night)? [id number] Information not available 08/04/2023 Family History Relationship [...] preservative 7 completed Sendy Moran MD [address] [address], [place], [address], [place] [facility] 09/18/2017 23:22:27 Tdap 8 completed Sendy Moran MD [address] [place] [address], [place], [place], [address] [place] [address], [place] [facility] 12/19/2017 16:17:18 Influenza, split virus, quadrivalent, preservative 8 completed Sendy Moran MD [address], [address] [place] [address], [place] [facility] 10/15/2018 21:15:51 Influenza, split virus, quadrivalent, preservative 9 completed Sendy Moran MD [address], [address] [place] [address], [place] [facility] 10/24/2019 11:27:59 Td (adult) 7 completed Sendy Moran MD [address] [address], [place], [place], [address] [place] [address], [place] [facility] 09/20/2012 14:17:20 zoster recombinant 8 completed Sendy Moran MD [address], [address], [place] - [facility] 08/04/2023 09:58:10 zoster recombinant 8 completed Sendy Moran MD [address], [address] [place] [address], [place] [facility] 08/04/2023 09:58:20 Past Encounters Encounter ID Performer Location Encounter Start Date Encounter Closed Date Diagnosis/Indication Diagnosis SNOMED-CT Code Diagnosis ICD10 Code Diagnosis Note [id number] Sendy Moran MD [facility] [address] [place] [address] 7 09/20/2012 13:06:49 09/20/2012 19:43:29 [id number] Sendy Moran MD [facility] [address] [address] 7 06/09/2014 13:29:06 06/09/2014 18:19:24 Acute bronchopneumonia 950231578 [id number] Sendy Moran MD [facility] [address] [address] 09/04/2014 08:54:53 09/04/2014 10:50:40 Adult health examination 075349225 Screening for cancer 74513985 Pain of hip region 08952959 Anti-nucle ar factor detected 899545924 Sinusitis 75875605 Hyperlipidemia 77508964 Screening mammography 63538464 Screening for malignant neoplasm of cervix 626675225 Dysuria 81361072 Palpitations 82128472 [id number] Sendy Moran MD [address] [address] 11/16/2014 13:42:56 11/16/2014 16:46:33 Acute sinusitis 37201706 Serous otitis media 30941771 Acute bronchitis 92188479 [id number] Sendy Moran MD [address] [address] 11/25/2016 08:19:58 11/25/2016 18:31:51 History of urinary disease 044014954 Z87.448 Adult heal th examination 626611035 Z00.01 Screening mammography 24 481942 Z12.31 Screening for malignant neoplasm of cervix 855014592 Z12.4 Body mass index 30+ - obesity 084435613 Z68.33 Hyperlipidemia 34703457 E78.5 Screening for malignant neoplasm of colon 662315059 Z12.11 [id number] Sendy Moran MD [facility] [address] [address] 7 06/09/2017 13:43:53 06/10/2017 09:05:13 Urinary tract infectious disease 70602588 N39.0 Body mass index 30+ - obesity 125438580 Z68.32 [id number] Sendy Moran MD [facility] [address] [address] 12/10/2017 13:51:40 12/10/2017 16:01:26 Acute bronchitis 25562073 J20.9 [id number] Sendy Moran MD [facility] [address] [address] 12/15/2017 09:40:52 12/23/2017 09:42:32 Adult health examination 907044634 Z00.01 Screening for malignant neoplasm of colon 962992393 Z12.11 Depression screening 171 853780 Z13.89 Hypothyroidism 36739698 E03.9 Body mass index 30+ - obesity 665608227 Z68.30 Hemorrhoids 40248848 K64 .9 Hyperlipidemia 00962639 E78.5 [id number] Sendy Moran MD [facility] [address] [id number] 7 04/09/2018 15:10:58 04/12/2018 16:38:05 Urinary tract infectious disease 69858548 N39.0 Hypothyroidism 70925068 E03.9 [id number] Sendy Moran MD [facility] [address] [address] 7 08/03/2018 13:49:58 08/04/2018 08:26:12 Atypical chest pain 261167519 R07.89 Intermitte nt palpitations 718496146 R00.2 essu [id number] Sendy Moran MD [address] [place] [address] 7 08/09/2018 10:22:51 08/09/2018 13:42:21 Atypical chest pain 232929799 R07.89 Glucose le bjorn outside reference range 103093251 R73.09 Hyperlipidemia 40635528 E78.5 [id number] Sendy Moran MD [facility] [address] [address] 12/20/2018 13:24:51 12/26/2018 15:00:54 Adult health examination 344108583 Z00.01 Hypothyroidism 16061896 E03.9 Hyperlipidemia 23984009 E78.5 Depression screening 171 258763 Z13.89 Body mass index 30+ - obesity 848334056 Z68.30 [id number] Sendy Moran MD [facility] [address] [address] 7 09/30/2019 15:14:26 10/03/2019 08:47:20 Increased frequency of urination 993871355 R35.0 Screening for malignant neoplasm of colon 368807153 Z12.11 Hypothyroidism 14927099 E03.9 Hyperlipidemia 94841231 E78.5 k Depression screening 171 197875 Z13.89 Body mass index 30+ - obesity 345999680 Z68.30 [id number] Sendy Moran MD [facility] [address] [place] [address] 7 10/24/2019 10:25:42 10/24/2019 12:09:05 Acute lower respiratory tract infection 162647005 J22 [id number] Sendy Moran MD [facility] [address] [address] 05/21/2020 08:57:05 05/22/2020 08:12:35 Hyperlipidemia 69901576 E78.5 Adult heal th examination 646259391 Z00.01 Hypothyroidism 04736767 E03.9 Depression screening 171 956681 Z13.89 Body mass index 30+ - obesity 674471917 Z68.30 Screening for malignant neoplasm of cervix 727363829 Z12.4 Hypertensi on screening 271916447 Z13.6 [id number] Sendy Moran MD [address] [address] 05/24/2021 09:43:08 05/27/2021 09:43:32 Increased frequency of urination 635649260 R35.0 Urinary tr act infectious disease 44232816 N39.0 Adult heal th examination 579945093 Z00.01 Hyperlipidemia 02292828 E78.5 Hypothyroidism 21633770 E03.9 Depression screening 171 133932 Z13.89 Body mass index 30+ - obesity 249190475 Z68.31 Hypertensi on screening 012016906 Z13.6 Screening for malignant neoplasm of colon 865758090 Z12.11 [id number] Sendy Moran MD [facility] [address] [address] 01/27/2022 13:28:44 01/28/2022 08:18:10 Urinary tract infectious disease 28388292 N39.0 Recurrent urinary tract infection 066036394 N39.0 [id number] Sendy Moran MD [facility] [address] [place] [id number] 7 05/27/2022 09:54:52 05/29/2022 10:15:50 Increased frequency of urination 218429138 R35.0 Urinary tr act infectious disease 40494977 N39.0 Adult heal th examination 244962571 Z00.01 Hyperlipidemia 20743272 E78.5 Hypothyroidism 71021893 E03.9 Depression screening 171 587448 Z13.89 Body mass index 30+ - obesity 388021589 Z68.30 Hypertensi on screening 900900657 Z13.6 [id number] Sendy Moran MD [facility] [address] [place] [address] 7 10/17/2022 09:15:18 10/17/2022 16:53:09 Acute lower respiratory tract infection 769418484 J22 Wheezing 77683309 R06.2 [id number] Sendy Moran MD [facility] [address] [place], [place] [address] 01/22/2023 14:11:35 01/22/2023 15:54:47 Increased frequency of urination 055532126 R35.0 Urinary tr act infectious disease 79327436 N39.0 [id number] Sendy Moran MD [address] [id number] 7 07/16/2023 13:35:28 07/17/2023 09:17:51 Increased frequency of urination 596702742 R35.0 Intercosta l post-herpetic neuralgia 942475243 B02.29 Abnormal b lood pressure 88527321 Z01.31 [id number] Sendy Moran MD [facility] [address] [address] 08/04/2023 08:38:50 08/06/2023 09:14:30 Adult health examination 916617783 Z00.01 Hyperlipidemia 97437989 E78.5 Hypothyroidism 34135287 E03.9 Depression screening 171 132323 Z13.89 Hypertensi on screening 800339855 Z13.6 Screening for malignant neoplasm of cervix 159034275 Z12.4 Screening for malignant neoplasm of colon 525088803 Z12.11 Lichen sim plex chronicus 77522353 L28.0 Screening mammography 24 015660 Z12.31 Health Concerns Section Related Observation LastModified by Organization Detai ls LastModified Time None Recorded Concern Status LastModified by Organization Details LastModified Time None Recorded Advance Directives Directive N: Payers Insurance Date Sequence Insurance Name Policy Number Policy Diez Covered Member ID Diez Member ID Guarantor Name 05/26/2022 1 [employer] ONE (PPO) [id number] Deirdre J Ari [id number] Deirdre J Ari 05/26/2022 1 [employer] (PPO) [id number] Deirdre J Ari [id number] Deirdre J Ari 05/26/2022 1 [id number] Deirdre Toney Ari [id number] Deirdre Toney Ari 05/26/2022 1 [place] [id number] Deirdre J Ari [id number] Deirdre Feng Ari 05/26/2022 1 [id number] Deirdre J Ari [id number] Deirdre J Ari 09/02/2023 1 [facility] (MEDICAID HMO) Deirdre Toney Ari [id number] Deirdre Toney Ari Notes Date Note Type Note Provider Name and Address Organization Details Recorded Time 05/27/2022 text/html Feels her only problem is arthritis pain; left hip and both knees and ankles especially when she gets up in the morning. Sometimes gets muscle spasms in the toes. Sendy Moran MD [address] [facility], [address], [place], [address], [facility] 05/28/2022 23:49:35 10/17/2022 text/html started with congestion last night and it is productive phlegm. She has a history of past pneumonias She has not had the flu or covid vaccines. She had covid last August. Started with a sore throat. Sendy Moran MD [address] [address], [place], [address], [facility] 10/17/2022 09:56:54 01/22/2023 text/html started with frequency and dysuria for 3 days No fevers or chills. eSndy Moran MD [address] [address], [place], [address], [facility] 01/22/2023 15:39:48 07/16/2023 text/html she had shingles over left posterior shoulder about 5 months ago and now has a skin sensation that itches and sometimes saha just below the left scapulaNo rash or skin issue noted now.Has lost 12 pounds.She had sinus and was given cefdinir and had neck swelling so they changed her to augmentin. Sendy Moran MD [address] [facility], [address] [address], [place], [address], [facility] 07/17/2023 07:54:06 OBGyn Episode No OBEpisode recorded.
== END 2025-04-13 23:59 | disposition home or self-care (01) ==
LOC: LAB.DROPOF 04-14 10:19
PROVIDERS: PCP Nurse Practitioner Family; Visit Provider Nurse Practitioner Family
DX: E78.5 Hyperlipidemia, unspecified (principal)
CPT/HCPCS: 80061

== ENCOUNTER 2025-07-06 12:00 | Emergency (ER) | payer MEDICARE, MEDICAID, SELFPAY ==
--- NOTE | 2025-07-06 12:04 | ECG_ITS ---
APPROVED REPORT Exam: Resting ECG HR:132 bpm ECG Measurements Heart Rate 132 AXES QRSd 93 QRS 82 QT 231 T 29 QTc 309 Conclusion ATRIAL FIBRILLATION WITH RAPID VENTRICULAR RESPONSE NONSPECIFIC ST & T-WAVE ABNORMALITY ABNORMAL RHYTHM ECG Electronically signed by : ERVIN RODRIGUEZ, 07/09/2025 08:31:45
[2025-07-06 12:05] VITALS: BP 186/101; PULSE 79; RESP 19; TEMP 36.8; O2SAT 99; BMI 27.3
--- OUTSIDE RECORDS SUMMARY | 2025-07-06 12:14 | XMS_ITS | Clinical Summary ---
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 Phone Sendy Moran MD Primary [...] 2008 [facility]-Zoster Vaccines (1 of 2) 2008 [id number] Vaccine (2023- season) 2025 [facility]-Influenza Vaccine (#1) 2025 [facility]-RSV Vaccine: 60+ Years or (1 [...] Narrative SUNQUEST - 10/15/2005 10:12 AM EST [facility] MR #: [id number] [facility] [address] 1960 (Age: 44) FW Collect Date: 10/08/2005 00:00 Receipt Date: 10/09/2005 11:34 Page 1 DEPARTMENT OF PATHOLOGY AND LABORATORY MEDICINE CYTOPATHOLOGY REPORT Email: [email or web address] ATTENDING MD/Practitioner: Rishi Hahn Service: [facility] [place] Location: [facility] Reported: 10/15/2005 10:12 Collected: 10/08/2005 00:00 INTERPRETATION THIN PREP (CERVICAL/VAGINAL): NEGATIVE FOR INTRAEPITHELIAL LESION OR MALIGNANCY. SATISFACTORY FOR EVALUATION; ENDOCERVICAL/ TRANSFORMATION ZONE COMPONENT PRESENT. Slide scanned and imaged by [employer] ThinPrep Imaging System with manual review of [...] results is suggested (please call Microbiology at [phone] for results). CLINICAL INFORMATION: Menstrual History: Cyclic Date of Last Menstrual Period: 09/12/05 Other Clinical Conditions: Per computer, patient has a history of previous abnormal pap: and bx 09/2003 If ASCUS and > 24 years of age, HPV/DNA testing requested. SPECIMEN DESCRIPTION: A: THIN PREP (CERVICAL/VAGINAL) THIN PREP PROCESS CELLULAR ENHANCEMENT ICD: 622.11 MILD DYSPLASIA OF CERVIX (NORMAN I) F: A; DX IMAGE 56028 SNOMED CODES: A; R4D812 [id number] In cases where a pathologist has signed out the report, the service has been rendered in part by a resident. The signing pathologist has performed and is responsible for the reported pathologic evaluation. 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
--- OUTSIDE RECORDS SUMMARY | 2025-07-06 12:14 | XMS_ITS | Clinical Summary ---
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 Not on file 07/2023 Does Anyone Keep You from Co ntacting Others or Doint Things Outside the Home? Not on file 07/28/2023 Physical Sign of Abuse Present Not on file 1 Housing Stability Answer Date Recorded Current Living Arrangements Not on file 07/19 Potentially Unsafe Housing Conditions Not on allison e 07/28/2023 Family and Community Support Answer Jaiden e Recorded Help with Day-to-Day Activities Not on file 07/28/2023 Lonely or Isolated Not on file 07/28/2023 Employment Answer Date Recorded Do you want help finding or keeping work or a nasim b? Not on file 07/28/2023 Disabilities Answer Date Recorded Concentrating, Remembering, or Making Decisions Difficulty Not on file 07/28/2023 Doing Errands Independently Difficulty Not on fi le 07/28/2023 Education Answer Date Recorded Help with school or training? Not on file Preferred Language Not on file 07/28/2023 Comments Unknown Sex and Gender Information Value Date Recorded Sex Assigned at Not on file Legal Sex Female 1:48 PM EDT Gender Identity Not on file Sexual Orientation Not on file Plan of Treatment Health Maintenance Due Date Last Done Comments ANNUAL PHYSICAL 1960 DXA SCAN 1960 HEPATITIS C SCREENING 1960 TDAP/TD VACCINES (1 - Tdap) 1977 MAMMOGRAM 1998 COLOGUARD 2003 COLON CANCER SCREENING 5 YEAR SIGMOIDOSCOPY 2003 COLONOSCOPY 2003 [address] CANCER SCREENING 2003 CT COLONOGRAPHY 2003 FECAL OCCULT BLOOD TEST 2003 FIT Testing (1 year) 2003 Pneumococcal Vaccine 50+ (1 of 1 - PCV) 2008 ZOSTER VACCINE (1 of 2) 2008 INFLUENZA VACCINE 05/19/2025 COVID-19 Vaccine (1 - season) 2025
--- NOTE | 2025-07-06 12:21 | PC.NURSE ---
stroke alert called
--- NOTE | 2025-07-06 12:21 | CT_ITS ---
FINAL REPORT CLINICAL HISTORY: possible stroke, spontaneous vertigo severe COMPARISON: None FINDINGS: CTA HEAD TECHNIQUE: Thin section axial CT with contrast with 3D MIP reconstruction This study was performed with techniques to keep radiation doses as low as reasonably achievable, (ALARA). Individualized dose reduction techniques using automated exposure control or adjustment of mA and/or kV according to the patient''s size were employed. FINDINGS: No aneurysm is seen. Major intracranial vessels are patent without significant stenosis. . IMPRESSION: Unremarkable This study was performed using automated techniques to achieve radiation exposure as low as reasonably achievable Reviewed, Interpreted and Dictated by Sixto España MD Transcribed by Mylene Lechuga Authenticated and [facility]
--- NOTE | 2025-07-06 12:21 | CT_ITS ---
FINAL REPORT CLINICAL HISTORY: possible stroke, spontaneous vertigo severe COMPARISON: None FINDINGS: CT NECK ANGIO, WITHOUT AND WITH CONTRAST TECHNIQUE: Thin section axial CT with contrast with multiplanar 3D MIP reconstruction. This study was performed with techniques to keep radiation doses as low as reasonably achievable, (ALARA). Individualized dose reduction techniques using automated exposure control or adjustment of mA and/or kV according to the patient''s size were employed. NASCET criteria and technique was utilized during interpretation. FINDINGS: Aortic arch: Arch shows no significant narrowing. Great vessel origins are widely patent. Right carotid: No significant stenosis is seen of the cervical common or internal carotid artery. Left carotid: No significant stenosis is seen of the cervical common or internal carotid artery. Vertebrals: Left vertebral artery is dominant. No significant stenosis is present. IMPRESSION: No significant stenosis of the cervical carotid arteries This study was performed using automated techniques to achieve radiation exposure as low as reasonably Reviewed, Interpreted and Dictated by Sixto España MD Transcribed by Mylene Lechuga Authenticated and [facility]
--- NOTE | 2025-07-06 12:21 | CT_ITS ---
FINAL REPORT TECHNIQUE: Noncontrast exam This study was performed with techniques to keep radiation doses as low as reasonably achievable, (ALARA). Individualized dose reduction techniques using automated exposure control or adjustment of mA and/or kV according to the patient''s size were employed. CLINICAL HISTORY: possible stroke, spontaneous vertigo severe COMPARISON: None FINDINGS: No abnormal density is seen. Ventricles are normal. There is no hemorrhage. No mass effect is seen. Bone windows show no evidence of fracture. IMPRESSION: No acute findings Reviewed, Interpreted and Dictated by Sixto España MD Transcribed by Mylene Lechuga Authenticated and [facility]
--- NOTE | 2025-07-06 12:22 | HMH.EDGENADL ---
Discharge Plan Disposition Patient Disposition: Xfer Short-Term Hosp Prescriptions Prescriptions: No Action estradiol 0.01 % (0.1 mg/gram) cream See Rx Instructions vaginal .COMPLEX Qty: 42.5 2RF Rx Instructions: Using finger technique daily for two weeks and then twice weekly vaginally; coQ10 (ubiquinol) [Qunol Beny CoQ10] 100 mg capsule 100 mg PO BID levothyroxine 75 mcg tablet 75 mcg PO DAILY Qty: 90 3RF rosuvastatin 10 mg tablet 10 mg PO QHS Qty: 90 3RF fluconazole 150 mg tablet 150 mg PO Q3D Qty: 2 0RF Referrals Follow up/Referrals: Bernie Louis APRN [Primary Care Provider, Family Practice] - See instructions Clinical Impressions Clinical Impression: Stroke-like symptoms, Atrial fibrillation with RVR Stand Alone Forms Stand Alone Forms: Transfer Record - ED Print Language Print Language: Icelandic Discharge ED Provider: Jimmy Sanchez General Adult HPI General Chief complaint: Arrhythmia/Palpitations Stated complaint: CP Time Seen by Provider: 07/06/25 12:10 Mode of Arrival: Wheelchair Source of Information: Patient Description of Symptoms (Recalled from ER Triage Doc. by RN): pt presents to ED with c/o dizziness, her heart felt funny. pt reports that she felt that she was going to pass out, but she did not. this incident happened approx 2 hours ago. 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 Patient was sitting still at home when she had intractable dizziness and nausea, no headache, it is worse with movement but occurs at rest. No trauma. Last known normal 10 AM per family no chest pain although she does feel as if her heart is beating irregularly no abdominal pain no other acute complaints at this time. Please note that above description of symptoms, in this electronic medical record under categorization of recalled from ER triage doctor by RN are reflective of an initial nursing assessment, however, is not reflective of my full history and physical exam that was personally taken and clarified. Consequentially, this preceding description of symptoms, which may include the patient's categorized chief complaint in the EMR, do not reflect my personal clinical impression, and the ultimate description of history of present illness and patient stated complaints should be deferred to this section of the note. Unless stated otherwise or congruent with this section of the note, additional signs, symptoms, or incongruence should be interpreted as inaccurate with my clinical impression. Related Data Home Medications ?Medication ?Instructions ?Recorded ?Confirmed coQ10 (ubiquinol) 100 mg capsule 100 mg PO BID 03/06/25 04/13/25 (Qunol Beny CoQ10) Previous Rx's ?Medication ?Instructions ?Recorded estradiol 0.01% (0.1 mg/gram) See Rx Instructions vaginal 06/27/24 vaginal cream .COMPLEX #42.5 grams levothyroxine 75 mcg tablet 75 mcg PO DAILY THYROID 07/15/24 REPLACEMENT #90 tabs rosuvastatin 10 mg tablet 10 mg PO QHS #90 tabs 03/14/25 fluconazole 150 mg tablet 150 mg PO Q3D 2 doses #2 tabs 05/30/25 Allergies Allergy/AdvReac Type Severity Reaction Status Date / Time Sulfa (Sulfonamide Allergy Anaphylaxis Verified 07/06/25 12:24 Antibiotics) cefdinir AdvReac Unknown Verified 07/06/25 12:24 allergy reaction [facility] Disclaimer: The information contained in this section may have been updated after the patient was seen, as this information can be updated by other users. Medical History (Updated 07/06/25 @ 14:41 by Jimmy Sanchez MD) Screening for lipid disorders Encounter for screening examination for sexually transmitted disease UTI (urinary tract infection) Annual physical exam Establishing care with new doctor, encounter for Recurrent urinary tract infection Pneumonia Pneumonia due to COVID-19 virus Acute bronchitis Degenerative disorder of bone Hyperlipemia Borderline diabetes Surgical History Hx of tonsillectomy Family History Mother , age 80s Cancer oral Father , age 80s Cancer lung Social History Smoking Status: Never smoker alcohol intake: never current occupational status: retired Travel in the last 8 weeks?: None Have you lived/traveled outside [place] in past 30 days?: No Contact w/someone who lives/traveled outside [place] past 30 days?: No Exposure to someone with infectious disease in past 14 days?: No Do you have a fever (greater than 100.4 F or 38 C)?: No Have you tested positive for COVID-19?: No Exposed to someone with COVID-19 in past 14 days?: No Do you have a sore throat?: No Do you have a cough?: No Do you have any weakness?: No Do you have any diarrhea?: No Are you experiencing any unusual bleeding?: No Do you have any muscle aches/pain?: No Do you have any abdominal pain?: No Are you experiencing loss of taste or smell?: No Other Medical History Have you received the Flu Vaccine for this season: No Have you received the Pneumonia Vaccine: No ROS Obtained: Yes Systems reviewed as appropriate & no additional complaints except as documented Physical Exam General General appearance: alert Comment: Appearing uncomfortable in bed Head Head exam: atraumatic and normocephalic Eye Eye exam: Present PERRL and EOMI ENT ENT exam: Present mucous membranes moist Neck Neck exam: Present normal inspection Chest Chest inspection: Present normal inspection and symmetric chest wall rise Respiratory Respiratory exam: Present normal lung sounds bilaterally; Absent respiratory distress Cardiovascular Cardiovascular exam: Present regular rate and normal rhythm Abdominal Exam Abdominal exam: Present soft; Absent tenderness Extremities Exam Extremities exam: Present normal inspection Neurological Exam Neurological exam: Present alert, oriented X3 and CN II-XII intact; Absent motor sensory deficit Psychiatric Psychiatric exam: Present normal affect Skin Skin exam: Present warm and dry Medical Decision Making Medical Records Screening: Per USPSTF and CDC recommendations, given the prevalence of disease in our region, it is our hospital?s policy to screen for HIV and viral Hepatitis for all patients aged 18 and over and those with ongoing risk factors. Jignesh Inquiry Pt receiving controlled substance: No Vital Signs: 07/06/25 12:05 07/06/25 12:43 Temperature 98.2 F Temperature Source Oral Pulse Rate 86 Pulse Rate [Left Radial] 79 Respiratory Rate 19 Blood Pressure 156/73 H Blood Pressure [Right Arm] 186/101 H Blood Pressure Mean [Right Arm] 129 02 Sat by Pulse Oximetry 99 98 Lab Data Lab Results 07/06/25 12:10: WBC 8.9, RBC 4.60, Hgb 13.8, Hct 41.1, MCV 89.3, MCH 30.0, MCHC 33.6, RDW 13.5, Plt Count 230, MPV 11.0 H, Neut % (Auto) 41.8, Lymph % (Auto) 46.6, [place] % (Auto) 9.4 H, Eos % (Auto) 0.7, Baso % (Auto) 0.8, Neut # (Auto) 3.7, Lymph # (Auto) 4.1, [place] # (Auto) 0.8, Eos # (Auto) 0.1, Baso # (Auto) 0.1, PT 10.9, INR 0.98, APTT 24.2, Sodium 138, Potassium 3.6, Chloride 102, Carbon Dioxide 25, Anion Gap 14.6, BUN 15, Creatinine 0.80, Estimated Creat Clear 69, Estimated GFR 72, Est GFR ( Amer) 87, Glucose 126 H, Calcium 9.9, Total Bilirubin 0.7, AST 34, ALT 23, Alkaline Phosphatase 89, Troponin I < 0.01, Total Protein 7.9, Albumin 4.9, Globulin 3.0, Albumin/Globulin Ratio 1.6, Triglycerides 181 H, Cholesterol 177, LDL Cholesterol Direct 52.29 L, VLDL Cholesterol 36, HDL Cholesterol 79 H, Cholesterol/HDL Ratio 2.2, Plasma/Serum Alcohol < 10, HCV Ab BEBE w/Rflx PCR Qn Negative, HIV Ag/Ab Combo Qual Negative 07/06/25 12:55: Urine Color Yellow, Urine Appearance Clear, Urine pH 7.0, Ur Specific [place] 1.010, Urine Protein Negative, Urine Glucose (UA) Negative, Urine Ketones Negative, Urine Blood Negative, Urine Nitrate Negative, Urine Bilirubin Negative, Urine Urobilinogen 0.2, Ur Leukocyte Esterase Negative, Urine RBC None, Urine WBC Occasional, Ur Squamous Epith Cells Occasional, Urine Bacteria Trace, Urine Opiates Screen Negative, Urine Methadone Screen Negative, Ur Barbituates Screen Negative, Ur Phencyclidine Scrn Negative, Ur Amphetamines Screen Negative, U Benzodiazepines Scrn Negative, Urine Cocaine Screen Negative, U Marijuana (THC) Screen Negative 07/06/25 12:10 07/06/25 12:10 Orders (Tests/Meds): ED MEDICATIONS Generic Name Dose Route Start Last Admin Trade Name Freq PRN Reason Stop Dose Admin Sodium Chloride 10 ml 07/06/25 12:21 Sodium Chloride 0.9% 10ml Flush Syringe IV 08/05/25 12:20 NEEDED PRN Maintain IV Site Sodium Chloride 10 ml 07/06/25 12:34 07/06/25 12:36 Sodium Chloride 0.9% 10ml Syr (Rad Only) IV 08/05/25 12:33 10 ml NEEDED PRN Administration Maintain IV Site Discontinued Medications Generic Name Dose Route Start Last Admin Trade Name Ronalq PRN Reason Stop Dose Admin Iopamidol 80 ml 07/06/25 12:27 07/06/25 12:27 Iopamidol-370 (76%);100ml Bottle IV 07/06/25 12:28 80 ml ONCE ONE Administration Iopamidol 80 ml 07/06/25 12:34 07/06/25 12:36 Iopamidol-370 (76%);100ml Bottle IV 07/06/25 12:35 80 ml ONCE ONE Administration Metoprolol Tartrate 5 mg 07/06/25 13:26 07/06/25 13:28 Metoprolol Tartrate 5mg/5ml Vial IV 07/06/25 13:27 5 mg ONCE ONE Administration Ondansetron HCl 4 mg 07/06/25 12:25 07/06/25 12:51 Ondansetron 4mg/2ml Vial IV 07/06/25 12:26 4 mg ONCE ONE Administration Sodium Chloride 50 ml 07/06/25 12:27 07/06/25 12:27 0.9 % Sodium Chloride 50 Ml Vial IV 07/06/25 12:28 50 ml ONCE ONE Administration Sodium Chloride 10 ml 07/06/25 12:27 07/06/25 12:27 Sodium Chloride 0.9% 10ml Syr (Rad Only) IV 07/06/25 12:28 10 ml ONCE ONE Administration Tenecteplase 20 mg 07/06/25 13:30 07/06/25 13:31 Tenecteplase 50mg Vial (Stroke) IV 07/06/25 13:31 20 mg ONCE ONE Administration ORDERS Category Date Time Status CT angio chest - dissection Stat Cat Scan 07/06/25 12:[address] angio head Stat Cat Scan 07/06/25 12:[address] angio neck Stat Cat Scan 07/06/25 12:[address] head/brain wo con Stat Cat Scan 07/06/25 12:21 Completed Activated Partial Thrombo Time Stat Lab 07/06/25 12:10 Completed Complete Blood Count Auto Diff Stat Lab 07/06/25 12:10 Completed Comprehensive Metabolic Panel Stat Lab 07/06/25 12:10 Completed Drug Screen,Urine Stat Lab 07/06/25 12:55 Completed Ethyl Alcohol Stat Lab 07/06/25 12:10 Completed HIV Combo Stat Lab 07/06/25 12:10 Completed Hepatitis C Ab Qual. W/ RFX Stat Lab 07/06/25 12:10 Completed Lipid Panel Stat Lab 07/06/25 12:10 Completed Prothrombin Time INR Stat Lab 07/06/25 12:10 Completed Troponin I Stat Lab 07/06/25 12:10 Completed Urinalysis and Microscopic Stat Lab 07/06/25 12:55 Completed ECG Data Tracing #1: Independently interpreted by me rate of 69, rhythm is regular, axis is normal, no ST elevation in anatomical contiguous leads, QTc 396 Tracing #2: Independently interpreted by me rate is 132 rhythm is regular, axis is normal, no ST elevation in anatomical contiguous leads, QTc 309. Medical Decision Narrative: In summary patient is a 64-year-old female past medical history of scrota above who presents emergency department for evaluation of acute vertigo. Patient is hemodynamically stable and appearing uncomfortable upon arrival, afebrile with a nonfocal neurologic exam, I have not yet walked the patient. She states that she is so dizzy she cannot walk. [place] negative bilaterally. Given severe acute onset vertigo differential includes posterior stroke, vestibular neuritis, among others. Workup will be conducted with ED stroke protocol, hematologic labs, EKG. initial EKG sinus rhythm heart rate 69 no ischemic changes. NIH is 0 patient is ambulatory. Noncontrasted CT scan of the head CTA of the head and neck stroke protocol performed no acute pathology no critical stenosis no intracranial hemorrhage. CTA chest no acute pathology. Upon repeat evaluation patient had persistent vomiting and vertigo. Heart rate is now noticed to be in the 130s and is irregular repeat EKG A-fib with RVR. Patient continues to be well-perfused with systolics greater than 150. I discussed case with stroke adult care manager and we agree that if patient is in the window we should offer TNK. Prolonged shared decision making discussion was had with family at bedside as current differential includes posterior circulation stroke given the setting of atrial fibrillation that is a new diagnosis predisposes her to clots with intractable vertigo. She is made aware of the risk of hemorrhagic conversion. It is possible that she is poorly tolerating her atrial fibrillation with rapid ventricular spots however I do not think it would cause her to be dizzy to the point where she would vomit given that her systolic should maintain cerebral perfusion pressure. It is more likely she is having posterior circulation pathology. Given this we decided to proceed with TNK which was administered given she had no contraindications, after talking to stroke adult care manager we will push metoprolol to try and get moderate control of her rate and we do not want to drop her pressures too low. Patient will go via [facility] to [facility] for continued evaluation at this time. Critical Care Critical Care Time Critical Care Time: No
[2025-07-06 12:26] LABS: Hematocrit 41.1 % (37.0-47.0); Hemoglobin 13.8 g/dL (12.2-16.2); Immature Granulocytes % 0.7 %; Mean Corpuscular HGB Conc 33.6 g/dL (31.8-35.4); Mean Corpuscular Hemoglobin 30.0 pg (27.0-31.2); Mean Corpuscular Volume 89.3 fl (81-99); Nucleated Red Blood Cells % 0 %; Platelet Count 230 K/mm3 (142-424); Red Blood Count 4.60 M/mm3 (4.20-5.40); Red Cell Distribution Width-SD 44.2 fL; White Blood Count 8.9 K/mm3 (4.8-10.8)
[2025-07-06] MEDS: IOPAMIDOL-370 (76%);100ML BOTTLE 80 ML IV ×2 (12:27→12:36)
[2025-07-06] MEDS: SODIUM CHLORIDE 0.9% 10ML SYR (RAD ONLY) 10 ML IV ×2 (12:27→12:36)
[2025-07-06] MEDS: 0.9 % SODIUM CHLORIDE 50 ML VIAL IV (12:27)
--- NOTE | 2025-07-06 12:29 | CT_ITS ---
FINAL REPORT TECHNIQUE: Thin section axial CT with contrast with multiplanar reconstruction This study was performed with techniques to keep radiation doses as low as reasonably achievable, (ALARA). Individualized dose reduction techniques using automated exposure control or adjustment of mA and/or kV according to the patient's size were employed. CLINICAL HISTORY: dizzy CP COMPARISON: None FINDINGS: Pulmonary vessels enhance in normal fashion without evidence of embolism. Thoracic aorta shows no dissection or aneurysm. No pulmonary mass or infiltrate is present. There is no significant pleural effusion. There is no significant pericardial effusion. No mediastinal or hilar adenopathy is present. IMPRESSION: 1. No evidence of pulmonary embolism Reviewed, Interpreted and Dictated by Sixto España MD Transcribed by Mylene Lechuga Authenticated and [facility]
[2025-07-06 12:31] LABS: Albumin Level 4.9 g/dl (3.5-5.0); Chloride 102 mmol/L (98-107); Potassium 3.6 mmoL/L (3.5-5.1); Sodium 138 mmol/L (136-145)
[2025-07-06 12:34] LABS: Activated Partial Thrombo Time 24.2 seconds (22.8-30.6); Alanine Aminotransferase 23 U/L (12-78); Albumin/Globulin Ratio 1.6 (1.1-1.8); Alkaline Phosphatase 89 U/L (38-126); Anion Gap 14.6 mEq/L (5-15); Aspartate Amino Transferase 34 U/L (14-36); Bilirubin,Total 0.7 mg/dl (0.2-1.3); Blood Urea Nitrogen 15 mg/dl (7-17); Calcium 9.9 mg/dl (8.4-10.2); Carbon Dioxide 25 mmol/L (22.0-30.0); Cholesterol 177 mg/dl (140-200); Creatinine Clearance Estimated 69 mL/min (50-200); Creatinine,Serum 0.80 mg/dl (0.52-1.04); Estimated Glomerular Filt Rate 72 ml/min (>60); GFR (African American) 87 ML/MIN (>60); Globulin 3.0 g/dL (1.3-3.2); Glucose 126 mg/dl (74-100); INR 0.98 (0.9-1.1); Prothrombin Time 10.9 seconds (10.1-12.5); Total Protein,Serum 7.9 g/dl (6.3-8.2); Triglycerides 181 mg/dl (30-150)
[2025-07-06 12:35] LABS: HDL Cholesterol 79 mg/dl (40-60)
[2025-07-06 12:43] VITALS: BP 156/73; PULSE 86; O2SAT 98
--- NOTE | 2025-07-06 12:46 | PC.NURSE ---
pt back to room
[2025-07-06] MEDS: ONDANSETRON 4MG/2ML VIAL 4 MG IV (12:51)
[2025-07-06 12:53] LABS: Troponin I < 0.01 ng/ml (0.00-0.034)
[2025-07-06 13:00] LABS: Microscopic, Urine URINE MICROSCOPIC (MICROSCOPIC)
[2025-07-06 13:04] LABS: Bilirubin,Urine Negative (Negative); Color,Urine YELLOW (Yellow); Glucose,Urine (UA) Negative (Negative); Ketones,Urine Negative (Negative); Leukocyte Esterase,Urine Negative (Negative); PH,Urine 7.0 (5.0-8.5); Protein,Urine Negative (Negative); Specific Gravity, Urine 1.010 (1.005-1.030); Urobilinogen,Urine 0.2 EU/dl (0.2)
--- NOTE | 2025-07-06 13:05 | PC.NURSE ---
on phone with [facility]
[2025-07-06 13:14] LABS: Bacteria,Urine Trace /lpf; Squamous Epithelial Cell,Urine Occasional #/hpf (0-5); WBC,Urine Occasional #/hpf (0-3)
[2025-07-06 13:17] LABS: Amphetamine/Metha Screen,Urine Negative ng/ml (<1000); Barbiturates Screen,Urine Negative ng/ml (<200)
[2025-07-06 13:18] LABS: Benzodiazepines Screen,Urine Negative ng/ml (<200)
[2025-07-06 13:20] LABS: Methadone Screen,Urine Negative ng/ml (<300)
[2025-07-06 13:21] LABS: Opiate Screen,Urine Negative ng/ml (<300); Phencyclidine Screen,Urine Negative ng/ml (<25)
[2025-07-06] MEDS: METOPROLOL TARTRATE 5MG/5ML VIAL 5 MG IV (13:28)
--- NOTE | 2025-07-06 13:29 | PC.NURSE ---
Contacted [employer] for transfer flight to , they will check with [facility] and contact us back.
--- NOTE | 2025-07-06 13:30 | PC.NURSE ---
TNK checklist completed
[2025-07-06] MEDS: TENECTEPLASE 50MG VIAL (STROKE) 20 MG IV (13:31)
--- NOTE | 2025-07-06 13:43 | PC.NURSE ---
report called to michael at [facility] on [address]
[2025-07-06 14:06] LABS: Hepatitis C Ab Qual. W/ RFX NEGATIVE (Negative)
[2025-07-06 14:43] VITALS: BP 145/76; PULSE 108; RESP 19; TEMP 37.1; O2SAT 97
== END 2025-07-06 14:44 | disposition short-term general hospital (02) ==
PROVIDERS: Emergency Provider Emergency Medicine; PCP Nurse Practitioner Family
DX: R29.818 Other symptoms and signs involving the nervous system (principal); I48.91 Unspecified atrial fibrillation; R42 Dizziness and giddiness; R11.0 Nausea; E78.5 Hyperlipidemia, unspecified; E06.3 Autoimmune thyroiditis
CPT/HCPCS: 70450; 70496; 70498; 71275; 80053; 80061; 80307; 80320; 81001; 84484; 85025; 85610; 85730; 86803; 87389; 93005; 96374; 96375; 99285; J2405; J3101; Q9967

== ENCOUNTER 2025-08-15 14:14 | Outpatient (CLI) | payer MEDICARE, MEDICAID, SELFPAY ==
--- OUTSIDE RECORDS SUMMARY | 2025-08-15 14:37 | XMS_ITS | Data Portability ---
Author Organization [facility] ADMIN Address [address] [place] [phone] Assessment No assessment recorded. 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 Medical [...] Diagnosis SNOMED-CT Code Diagnosis ICD10 Code Diagnosis IMO Codes Diagnosis Note [id number] JACKIE HAYS ENT Associate s [facility] [id number] [facility], [place] [address] 09/01/2023 13:17:08 09/01/2023 13:34:36 Mixed conductive and sensorineural hearing loss of right ear [id number] H90.A31 Health Concerns Section Related Observation LastModified by Organization Detai ls LastModified Time None Recorded Concern Status LastModified by Organization Details LastModified Time None Recorded Advance Directives Directive None Recorded Payers Insurance Date Sequence Insurance Name Policy Number Policy Diez Covered Member ID Diez Member ID Guarantor Name 09/01/2023 1 [facility] (MEDICAID HMO) Deirdre Chapman [id number] Deirdre Chapman Notes Date Note Type Note Provider Name and Address Organization Details Recorded Time 09/01/2023 text/html Ms. Chapman was seen today for an audiologic evaluation due to [...] that she wants to do. JACKIE HAYS [address] [facility], [place], [address], [facility] - [place] & [place] 09/01/2023 13:40:13 OBGyn Episode No OBEpisode recorded.
--- OUTSIDE RECORDS SUMMARY | 2025-08-15 14:37 | XMS_ITS | Data Portability ---
Author Organization [facility] Address [address] [facility] [place] [id number] Assessment Encounter Date Assessment Date Assessment LastModified [...] available 3 23:19:39 pap, LB 2022 023 [email or web address], [address], [place], [address], 3 14:24:16 urinalysis, dipstick [address], [address] [place], [address], 3 13:59:24 culture, urine 2022 023 [facility], [address], [place], [address], 3 07:38:25 urinalysis, dipstick [address], [address] [place], [address], 3 14:32:26 SARS CoV 2 RNA (COVID-19), QL, 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 Procedures None recorded. Surgeries None recorded. Imaging MAMMO, screening, digital, bilateral - due after 12/27/2320[address] [place] [address] ([facility]), [address] [place], [address], 4 16:05:01 Medication Orders triamcinolo ne acetonide 0.1 % topical cream 2022 023 [facility]3016, [address] [place], [address], 3 10:10:05 nitrofurant oin monohydrate /macrocryst als 100 mg capsule [address]/Pharmacy #3016, [address] [place], [address], 3 09:14:30 gentamicin 40 mg/mL injection solution [address]/Pharmacy #3016, [address] [place], [address], 3 09:14:25 azithromyci n 250 mg tablet [address]/Pharmacy #3016, [address] [place], [address], 3 14:26:36 methylpredn isolone 4 mg tablets in a dose pack 2021 [email or web address] n5 [facility], [address] [place], [address], 3 09:14:34 dexamethaso ne sodium phosphate 4 mg/mL injection solution 2021 022 jstapleto n5 [facility]/Pharmacy #3016, [address] [place], [address], 3 14:26:33 Ventolin HFA 90 mcg/actuati on aerosol inhaler 2021 REINALDO [facility]/Pharmacy #3016, [address] [place], [address], 09:54:27 Patient TargetsNo targets recorded. Patient Instructions Encounter Date Encounter Id Patient Instructions Last Modified By Organization Details Last Modified Time 05/27/2022 [id number] learning about healthy weight Not available 05/28/2022 23:49:29 Reason for Referral None Reported. Results Created Date Observation Date Name Description Value Unit Range Abnormal Flag Note LastModifiedBy Organization Detail LastModifiedTime 05/26/2005/27/2022 LIPID PANEL , STAND EDVIN cholesterol, total 162 mg/dL <200 normal Not Available [facility] [address] [place], [address], 05/27/2022 08:18:56 05/26/2005/27/2022 LIPID PANEL , STAND EDVIN HDL cholesterol 71 mg/dL > or = 50 normal Not Available [facility] [place] [facility] [address] [facility] [place], [address], 05/27/2022 08:18:56 05/26/2005/27/2022 LIPID PANEL , STAND EDVIN triglyceride s 113 mg/dL <150 normal Not Available [facility] [place] [facility] [address] [facility] [place], [address], 05/27/2022 08:18:56 05/26/20 22 05/27/2022 LIPID PANEL [...] [id number] (http ://ed ucati on.Qu Cornell 1000jobboersen.de. com/f aq/FA Q164) Not Available [facility] [place] [address] [facility] [place], [address], 05/27/2022 08:18:56 05/26/20 22 05/27/2022 LIPID PANEL , STAND EDVIN chol/HDLC ratio 2.3 (calc ) <5.0 normal Not Available [facility] [place] [facility] [address] [facility], [place], [address], 05/27/2022 08:18:56 05/26/20 22 05/27/2022 LIPID PANEL , STAND EDVIN non HDL cholesterol 91 mg/dL _(trini c) <130 normal For patie nts with diabe ovi plus 1 major ASCVD risk facto r, treat ing to a non-H DL-C goal of <100 mg/dL (LDL- C of <70 mg/dL ) is consi dered a thera peuti c optio n. Not Available [facility] [place] [facility] [address], [place], [address], 05/27/2022 08:18:56 05/26/20 22 05/27/2022 COMPR EHENS HOMAR METAB OLIC PANEL glucose 105 mg/dL 65-99 high Fasti ng refer ence inter edy For someo ne witho ut known diabe ovi, a gluco se value betwe en 100 and 125 mg/dL is consi stent with predi abete s and shoul d be confi rmed with a follo w-up test. Not Available [facility] [address] [place], [address], 05/27/2022 08:18:57 05/26/20 22 05/27/2022 COMPR EHENS HOMAR METAB OLIC PANEL urea nitrogen (BUN) 14 mg/dL 7-25 normal Not Available [facility] [address] [place], [address], 05/27/2022 08:18:57 05/26/20 22 05/27/2022 COMPR EHENS HOMAR METAB OLIC PANEL creatinine 0.83 mg/dL 0.50-1 .05 normal Not Available [facility] [address] [place], [address], 05/27/2022 08:18:57 05/26/20 22 05/27/2022 COMPR EHENS [...] culat or Not Available [facility] [address] [place], [address], 05/27/2022 08:18:57 05/26/20 22 05/27/2022 COMPR EHENS HOMAR METAB OLIC PANEL BUN/creatini ne ratio NOT APPLIC ABLE (calc ) 6-22 Not Available [facility] [address] [place], [address], 05/27/2022 08:18:57 05/26/20 22 05/27/2022 COMPR EHENS HOMAR METAB OLIC PANEL sodium 140 mmol/ L 135-14 6 normal Not Available [facility] [address] [facility] [place], [address], 05/27/2022 08:18:57 05/26/20 22 05/27/2022 COMPR EHENS HOMAR METAB OLIC PANEL potassium 4.1 mmol/ L 3.5-5. 3 normal Not Available [facility] [address] [place], [address], 05/27/2022 08:18:57 05/26/20 22 05/27/2022 COMPR EHENS HOMAR METAB OLIC PANEL chloride 108 mmol/ L 98-110 normal Not Available [facility] [address] [place], [address], 05/27/2022 08:18:57 05/26/20 22 05/27/2022 COMPR EHENS HOMAR METAB OLIC PANEL carbon dioxide 25 mmol/ L 20-32 normal Not Available [facility] [address] [facility] [place], [address], 05/27/2022 08:18:57 05/26/20 22 05/27/2022 COMPR EHENS HOMAR METAB OLIC PANEL calcium 9.5 mg/dL 8.6-10 .4 normal Not Available [facility] [address] [facility] [place], [address], 05/27/2022 08:18:57 05/26/20 22 05/27/2022 COMPR EHENS HOMAR METAB OLIC PANEL protein, total 6.4 g/dL 6.1-8. 1 normal Not Available [facility] [address] [facility] [place], [address], 05/27/2022 08:18:57 05/26/20 22 05/27/2022 COMPR EHENS HOMAR METAB OLIC PANEL albumin 4.3 g/dL 3.6-5. 1 normal Not Available [facility] [address] [place], [address], 05/27/2022 08:18:57 05/26/20 22 05/27/2022 COMPR EHENS HOMAR METAB OLIC PANEL globulin 2.1 g/dL_ (calc ) 1.9-3. 7 normal Not Available [facility] [address] [place], [address], 05/27/2022 08:18:57 05/26/20 22 05/27/2022 COMPR EHENS HOMAR METAB OLIC PANEL albumin/glob ulin ratio 2.0 (calc ) 1.0-2. 5 normal Not Available [facility] [address] [place], [address], 05/27/2022 08:18:57 05/26/20 22 05/27/2022 COMPR EHENS HOMAR METAB OLIC PANEL bilirubin, total 0.6 mg/dL 0.2-1. 2 normal Not Available [facility] [address] [place], [address], 05/27/2022 08:18:57 05/26/20 22 05/27/2022 COMPR EHENS HOMAR METAB OLIC PANEL alkaline phosphatase 93 U/L 37-153 normal Not Available [facility] [address] [place], [address], 05/27/2022 08:18:57 05/26/20 22 05/27/2022 COMPR EHENS HOMAR METAB OLIC PANEL AST 17 U/L 10-35 normal Not Available [facility] [address] [place], [address], 05/27/2022 08:18:57 05/26/20 22 05/27/2022 COMPR EHENS HOMAR METAB OLIC PANEL ALT 14 U/L 6-29 normal Not Available [facility] [address] [place], [address], 05/27/2022 08:18:57 05/26/20 22 05/27/2022 TSH TSH 1.03 mIU/L 0.40-4 .50 normal Not Available [facility] [address] [place], [address], 05/27/2022 08:18:58 05/26/20 22 05/27/2022 CBC (INCL UDES DIFF/ PLT) white blood cell count 6.0 thous and/u L 3.8-10 .8 normal Not Available [facility] [address] [place], [address], 05/27/2022 08:18:58 05/26/20 22 05/27/2022 CBC (INCL UDES DIFF/ PLT) red blood cell count 4.48 charley on/uL 3.80-5 .10 normal Not Available [facility] [address] [place] [place], [address], 05/27/2022 08:18:58 05/26/20 22 05/27/2022 CBC (INCL UDES DIFF/ PLT) hemoglobin 13.2 g/dL 11.7-1 5.5 normal Not Available [facility] [address] [place], [address], 05/27/2022 08:18:58 05/26/20 22 05/27/2022 CBC (INCL UDES DIFF/ PLT) hematocrit 41.4 % 35.0-4 5.0 normal Not Available [facility] [address] [place], [address], 05/27/2022 08:18:58 05/26/20 22 05/27/2022 CBC (INCL UDES DIFF/ PLT) MCV 92.4 fL 80.0-1 00.0 normal Not Available [facility] [address] [place], [address], 05/27/2022 08:18:58 05/26/20 22 05/27/2022 CBC (INCL UDES DIFF/ PLT) MCH 29.5 pg 27.0-3 3.0 normal Not Available [facility] [place] [address] [place], [address], 05/27/2022 08:18:58 05/26/20 22 05/27/2022 CBC (INCL UDES DIFF/ PLT) MCHC 31.9 g/dL 32.0-3 6.0 low Not Available [facility] [address] [place], [address], 05/27/2022 08:18:58 05/26/20 22 05/27/2022 CBC (INCL UDES DIFF/ PLT) RDW 13.2 % 11.0-1 5.0 normal Not Available [facility] [address] [place], [address], 05/27/2022 08:18:58 05/26/20 22 05/27/2022 CBC (INCL UDES DIFF/ PLT) platelet count 210 thous and/u L 140-40 0 normal Not Available [facility] [address] [place], [address], 05/27/2022 08:18:58 05/26/20 22 05/27/2022 CBC (INCL UDES DIFF/ PLT) MPV 11.0 fL 7.5-12 .5 normal Not Available [facility] [address] [place], [address], 05/27/2022 08:18:58 05/26/20 22 05/27/2022 CBC (INCL UDES DIFF/ PLT) absolute neutrophils 2724 cells /uL 1500-7 800 normal Not Available [facility] [address] [place], [address], 05/27/2022 08:18:58 05/26/20 22 05/27/2022 CBC (INCL UDES DIFF/ PLT) absolute lymphocytes 2580 cells /uL 850-39 00 normal Not Available [facility] [address] [place], [address], 05/27/2022 08:18:58 05/26/20 22 05/27/2022 CBC (INCL UDES DIFF/ PLT) absolute monocytes 558 cells /uL 200-95 0 normal Not Available [facility] [address], [place], [address], 05/27/2022 08:18:58 05/26/20 22 05/27/2022 CBC (INCL UDES DIFF/ PLT) absolute eosinophils 90 cells /uL 15-500 normal Not Available [facility] [address], [place], [address], 05/27/2022 08:18:58 05/26/20 22 05/27/2022 CBC (INCL UDES DIFF/ PLT) absolute basophils 48 cells /uL 0-200 normal Not Available [facility] [address], [place], [address], 05/27/2022 08:18:58 05/26/20 22 05/27/2022 CBC (INCL UDES DIFF/ PLT) neutrophils 45.4 % normal Not Available [facility] [address], [place], [address], 05/27/2022 08:18:58 05/26/20 22 05/27/2022 CBC (INCL UDES DIFF/ PLT) lymphocytes 43.0 % normal Not Available [facility] [address], [place], [address], 05/27/2022 08:18:58 05/26/20 22 05/27/2022 CBC (INCL UDES DIFF/ PLT) monocytes 9.3 % normal Not Available [facility] [address] [place], [address], 05/27/2022 08:18:58 05/26/20 22 05/27/2022 CBC (INCL UDES DIFF/ PLT) eosinophils 1.5 % normal Not Available [facility] [address] [place], [address], 05/27/2022 08:18:58 05/26/20 22 05/27/2022 CBC (INCL UDES DIFF/ PLT) basophils 0.8 % normal Not Available [facility] [address] [place], [address], 05/27/2022 08:18:58 05/27/20 22 05/29/2022 CULTU RE, URINE , ROUTI NE culture, urine, routine CULTU RE, URINE , ROUTI NE Micro Numbe r: [id number] Test Statu s: Final Speci men [...] port Tube. Not Available [facility] [place] [facility] [address] [facility], [place], [address], 05/29/2022 02:16:45 05/27/2005/27/2022 urina lysis , dipst ick Leukocytes Modera te Not Available [address], [place], [address], 05/27/2022 10:11:09 05/27/20 22 05/27/2022 urina lysis , dipst ick Nitrite negati ve Not Available [facility] [address] [place], [address], 05/27/2022 10:11:09 05/27/20 22 05/27/2022 urina lysis , dipst ick Urobilinogen .2 Not Available [facility] [address] [place], [address], 05/27/2022 10:11:09 05/27/20 22 05/27/2022 urina lysis , dipst ick Protein Negati ve Not Available [facility] [address] [place], [address], 05/27/2022 10:11:05/27/20 22 05/27/2022 urina lysis , dipst ick pH 6.0 Not Available [facility] [address] [place], [address], 05/27/2022 10:11:09 05/27/20 22 05/27/2022 urina lysis , dipst ick Blood Negati ve Not Available [facility] [address] [place], [address], 05/27/2022 10:11:09 05/27/20 22 05/27/2022 urina lysis , dipst ick Specific [place] 1.010 Not Available [facility] [address] [place], [address], 05/27/2022 10:11:09 05/27/20 22 05/27/2022 urina lysis , dipst ick Ketone Negati ve Not Available [facility] [address] [place], [address], 05/27/2022 10:11:09 05/27/20 22 05/27/2022 urina lysis , dipst ick Bilirubin Negati ve Not Available [facility] [address] [place], [address], 05/27/2022 10:11:09 05/27/20 22 05/27/2022 urina lysis , dipst ick Glucose Negati ve Not Available [facility] [address] [facility], [place], [address], 05/27/2022 10:11:09 10/17/20 22 10/18/2022 SARS COV2 [...] the [facility] websi te: www.NurseBuddy uWatertronixD UsabilityTools.com/ Covid 19. For patie nts with a Detec stefan or Incon clusi ve test resul t, pleas e see CDC's COVID -19 Treat ments and Medic ation s page locat ed at https ://ww w.cdc .gov/ coron aviru s/201 9-nco v/you r-hea [facility]/t reatm ents- for- sever e-ill ness. html [...] vacci isha. Not Available [facility] [address], [place], [address], 10/18/2022 19:58:56 10/17/20 22 10/18/2022 SARS COV2 RNA(C OVID1 9) AND RESP PATHO GEN PNL, NAAT adenovirus NOT DETECT ED not detect ed normal Not Available [facility] [address], [place], [address], 10/18/2022 19:58:56 10/17/20 22 10/18/2022 SARS COV2 RNA(C OVID1 9) AND RESP PATHO GEN PNL, NAAT rhinovirus/e nterovirus NOT DETECT ED not detect ed normal Not Available [facility] [address] [place], [address], 10/18/2022 19:58:56 10/17/20 22 10/18/2022 SARS COV2 RNA(C OVID1 9) AND RESP PATHO GEN PNL, NAAT influenza A NOT DETECT ED not detect ed normal Not Available [facility] [address] [place], [address], 10/18/2022 19:58:56 10/17/20 22 10/18/2022 SARS COV2 RNA(C OVID1 9) AND RESP PATHO GEN PNL, NAAT influenza A subtype H1 NOT DETECT ED not detect ed normal Not Available [facility] [address] [facility] [place], [address], 10/18/2022 19:58:56 10/17/20 22 10/18/2022 SARS COV2 RNA(C OVID1 9) AND RESP PATHO GEN PNL, NAAT influenza A subtype H3 NOT DETECT ED not detect ed normal Not Available [facility] [address] [place], [address], 10/18/2022 19:58:56 10/17/20 22 10/18/2022 SARS COV2 RNA(C OVID1 9) AND RESP PATHO GEN PNL, NAAT influenza B NOT DETECT ED not detect ed normal Not Available [facility] [address] [place], [address], 10/18/2022 19:58:56 10/17/20 22 10/18/2022 SARS COV2 RNA(C OVID1 9) AND RESP PATHO GEN PNL, NAAT human metapneumovi wendy NOT DETECT ED not detect ed normal Not Available [facility] [address], [place], [address], 10/18/2022 19:58:56 10/17/20 22 10/18/2022 SARS COV2 RNA(C OVID1 9) AND RESP PATHO GEN PNL, NAAT human RSV A NOT DETECT ED not detect ed normal Not Available [facility] [address] [facility], [place], [address], 10/18/2022 19:58:56 10/17/20 22 10/18/2022 SARS COV2 RNA(C OVID1 9) AND RESP PATHO GEN PNL, NAAT human RSV B NOT DETECT ED not detect ed normal Not Available [facility] [address], [place], [address], 10/18/2022 19:58:56 10/17/20 22 10/18/2022 SARS COV2 RNA(C OVID1 9) AND RESP PATHO GEN PNL, NAAT human parainflu virus 1 NOT DETECT ED not detect ed normal Not Available [facility] [address] [facility], [place], [address], 10/18/2022 19:58:56 10/17/20 22 10/18/2022 SARS COV2 RNA(C OVID1 9) AND RESP PATHO GEN PNL, NAAT human parainflu virus 2 NOT DETECT ED not detect ed normal Not Available [facility] [address], [place], [address], 10/18/2022 19:58:56 10/17/20 22 10/18/2022 SARS COV2 RNA(C OVID1 9) AND RESP PATHO GEN PNL, NAAT human parainflu virus 3 NOT DETECT ED not detect ed normal Not Available [facility] [address], [place], [address], 10/18/2022 19:58:56 10/17/20 22 10/18/2022 SARS COV2 RNA(C OVID1 9) AND RESP PATHO GEN PNL, NAAT human parainflu virus 4 NOT DETECT ED not detect ed normal Not Available [facility] [address] [facility], [place], [address], 10/18/2022 19:58:56 10/17/20 22 10/18/2022 SARS COV2 RNA(C OVID1 9) AND RESP PATHO GEN PNL, NAAT coronavirus 229E NOT DETECT ED not detect ed normal Not Available [facility] [place] [facility] [address], [place], [address], 10/18/2022 19:58:56 10/17/20 22 10/18/2022 SARS COV2 RNA(C OVID1 9) AND RESP PATHO GEN PNL, NAAT coronavirus oc43 NOT DETECT ED not detect ed normal Not Available [facility] [address], [place], [address], 10/18/2022 19:58:56 10/17/20 22 10/18/2022 SARS COV2 RNA(C OVID1 9) AND RESP PATHO GEN PNL, NAAT coronavirus nl63 NOT DETECT ED not detect ed normal Not Available [facility] [place] [facility] [address] [place], [address], 10/18/2022 19:58:56 10/17/20 22 10/18/2022 SARS COV2 RNA(C OVID1 9) AND RESP PATHO GEN PNL, NAAT coronavirus hku1 NOT DETECT ED not detect ed normal Not Available [facility] [place] [address], [place], [address], 10/18/2022 19:58:56 10/17/20 22 10/18/2022 SARS COV2 RNA(C OVID1 9) AND RESP PATHO GEN PNL, NAAT human bocavirus NOT DETECT ED not detect ed normal Not Available [facility] [place] [facility] [address], [place], [address], 10/18/2022 19:58:56 10/17/20 22 10/18/2022 SARS COV2 RNA(C OVID1 9) AND RESP PATHO GEN PNL, NAAT chlamydophil a pneumoniae NOT DETECT ED not detect ed normal Not Available [facility] [address] [facility] [place], [address], 10/18/2022 19:58:56 10/17/20 22 10/18/2022 SARS COV2 RNA(C OVID1 9) AND RESP PATHO GEN PNL, NAAT mycoplasma pneumoniae NOT DETECT ED not detect ed normal Not Available [facility] [address] [facility], [place], [address], 10/18/2022 19:58:56 10/17/20 22 10/18/2022 SARS COV2 RNA(C OVID1 9) AND RESP PATHO GEN PNL, NAAT comment THIS ASSAY WILL NOT DETEC T SARS- CoV-2 (COVI D-19) This test is perfo rmed using the [employer] Lumin ex Techn ology . Limit ation [...] virus es. Not Available [facility] [address] [facility], [place], [address], 10/18/2022 19:58:56 10/17/20 22 10/17/2022 rapid flu (A+B) rapid flu negati ve Not Available [address], [place], [address], 10/17/2022 09:50:59 01/23/20 23 01/24/2023 CULTU RE, URINE , ROUTI NE culture, urine, routine CULTU RE, URINE , ROUTI NE Micro Numbe r: [id number] Test Statu s: Final Speci men [...] port Tube. Not Available [facility] [address] [facility], [place], [address], 01/24/2023 07:38:25 01/23/20 23 01/22/2023 urina lysis , dipst ick Leukocytes Small Not Available [facility] [address] [place], [address], 01/22/2023 14:31:20 01/23/20 23 01/22/2023 urina lysis , dipst ick Nitrite negati ve Not Available [facility] [address] [place], [address], 01/22/2023 14:31:20 01/23/20 23 01/22/2023 urina lysis , dipst ick Urobilinogen .2 Not Available [facility] [address] [place], [address], 01/22/2023 14:31:20 01/23/20 23 01/22/2023 urina lysis , dipst ick Protein Negati ve Not Available [facility] [address] [place], [address], 01/22/2023 14:31:20 01/23/20 23 01/22/2023 urina lysis , dipst ick pH 6.0 Not Available [facility] [address] [place], [address], 01/22/2023 14:31:20 01/23/20 23 01/22/2023 urina lysis , dipst ick Blood Negati ve Not Available [facility] [address] [place], [address], 01/22/2023 14:31:20 01/23/20 23 01/22/2023 urina lysis , dipst ick Specific [place] 1.030 Not Available [facility] [address] [place], [address], 01/22/2023 14:31:20 01/23/20 23 01/22/2023 urina lysis , dipst ick Ketone Negati ve Not Available [facility] [address] [place], [address], 01/22/2023 14:31:20 01/23/20 23 01/22/2023 urina lysis , dipst ick Bilirubin Negati ve Not Available [facility] [address] [place], [address], 01/22/2023 14:31:20 01/23/20 23 01/22/2023 urina lysis , dipst ick Glucose Negati ve Not Available [facility] [address] [place], [address], 01/22/2023 14:31:20 07/16/20 23 07/16/2023 urina lysis , dipst ick Leukocytes Negati ve Not Available [facility] [address] [place], [address], 07/16/2023 13:59:01 07/16/20 23 07/16/2023 urina lysis , dipst ick Nitrite negati ve Not Available [facility] [address] [place], [address], 07/16/2023 13:59:01 07/16/20 23 07/16/2023 urina lysis , dipst ick Urobilinogen .2 Not Available [facility] [address] [place], [address], 07/16/2023 13:59:01 07/16/20 23 07/16/2023 urina lysis , dipst ick Protein Negati ve Not Available [facility] [facility] [address] [place], [address], 07/16/2023 13:59:01 07/16/20 23 07/16/2023 urina lysis , dipst ick pH 6.0 Not Available [facility] [address] [place], [address], 07/16/2023 13:59:01 07/16/20 23 07/16/2023 urina lysis , dipst ick Blood Negati ve Not Available [facility] [address] [place], [address], 07/16/2023 13:59:01 07/16/20 23 07/16/2023 urina lysis , dipst ick Specific [place] 1.010 Not Available [address], [address], 07/16/2023 13:59:01 07/16/20 23 07/16/2023 urina lysis , dipst ick Ketone Negati ve Not Available [facility] [address] [place], [address], 07/16/2023 13:59:01 07/16/20 23 07/16/2023 urina lysis , dipst ick Bilirubin Negati ve Not Available [facility] [address] [place], [address], 07/16/2023 13:59:01 07/16/20 23 07/16/2023 urina lysis , dipst ick Glucose Negati ve Not Available [facility] [address] [facility], [place], [address], 07/16/2023 13:59:01 07/30/2007/31/2023 LIPID PANEL (REFL ) cholesterol, total 168 mg/dL <200 normal Not Available [facility] [address], [place], [address], 07/31/2023 09:40:42 07/30/2007/31/2023 LIPID PANEL (REFL ) HDL cholesterol 69 mg/dL > or = 50 normal Not Available [facility] [address], [place], [address], 07/31/2023 09:40:42 07/30/2007/31/2023 LIPID PANEL (REFL ) triglyceride s 75 mg/dL <150 normal Not Available [facility] [address], [place], [address], 07/31/2023 09:40:42 07/30/2007/31/2023 LIPID PANEL (REFL ) [...] aq/FA Q164) Not Available [facility] [address], [place], [address], 07/31/2023 09:40:42 07/30/2007/31/2023 LIPID PANEL (REFL ) chol/HDLC ratio 2.4 (calc ) <5.0 normal Not Available [facility] [address] [place], [address], 07/31/2023 09:40:42 07/30/2007/31/2023 LIPID PANEL (REFL ) non HDL cholesterol 99 mg/dL _(trini c) <130 normal For patie nts with diabe ovi plus 1 major ASCVD risk facto r, treat ing to a non-H DL-C goal of <100 mg/dL (LDL- C of <70 mg/dL ) is consi dered a thera peuti c optio n. Not Available [facility] [address] [place], [address], 07/31/2023 09:40:42 07/30/2007/31/2023 COMPR EHENS HOMAR METAB OLIC PANEL glucose 101 mg/dL 65-99 high Fasti ng refer ence inter edy For someo ne witho ut known diabe ovi, a gluco se value betwe en 100 and 125 mg/dL is consi stent with predi abete s and shoul d be confi rmed with a follo w-up test. Not Available [facility] [address] [place] [place], [address], 07/31/2023 09:40:42 07/30/2007/31/2023 COMPR EHENS HOMAR METAB OLIC PANEL urea nitrogen (BUN) 23 mg/dL 7-25 normal Not Available [facility] [address] [place], [address], 07/31/2023 09:40:42 07/30/2007/31/2023 COMPR EHENS HOMAR METAB OLIC PANEL creatinine 1.03 mg/dL 0.50-1 .05 normal Not Available [facility] [address] [place] [place], [address], 07/31/2023 09:40:42 07/30/2007/31/2023 COMPR EHENS HOMAR METAB OLIC PANEL eGFR 61 mL/mi n/1.7 3m2 > or = 60 normal Not Available [facility] [address] [place], [address], 07/31/2023 09:40:42 07/30/2007/31/2023 COMPR EHENS HOMAR METAB OLIC PANEL BUN/creatini ne ratio SEE NOTE: (calc ) 6-22 Not Repor stefan: BUN and Creat inine are withi n refer ence range . Not Available [facility] [address] [place], [address], 07/31/2023 09:40:42 07/30/2007/31/2023 COMPR EHENS HOMAR METAB OLIC PANEL sodium 139 mmol/ L 135-14 6 normal Not Available [facility] [address] [place], [address], 07/31/2023 09:40:42 07/30/2007/31/2023 COMPR EHENS HOMAR METAB OLIC PANEL potassium 4.2 mmol/ L 3.5-5. 3 normal Not Available [facility] [address] [place], [address], 07/31/2023 09:40:42 07/30/2007/31/2023 COMPR EHENS HOMAR METAB OLIC PANEL chloride 107 mmol/ L 98-110 normal Not Available [facility] [address] [place], [address], 07/31/2023 09:40:42 07/30/2007/31/2023 COMPR EHENS HOMAR METAB OLIC PANEL carbon dioxide 25 mmol/ L 20-32 normal Not Available [facility] [address] [place], [address], 07/31/2023 09:40:42 07/30/2007/31/2023 COMPR EHENS HOMAR METAB OLIC PANEL calcium 9.3 mg/dL 8.6-10 .4 normal Not Available [facility] [address], [address], 07/31/2023 09:40:42 07/30/2007/31/2023 COMPR EHENS HOMAR METAB OLIC PANEL protein, total 6.4 g/dL 6.1-8. 1 normal Not Available [facility] [address] [place], [address], 07/31/2023 09:40:42 07/30/2007/31/2023 COMPR EHENS HOMAR METAB OLIC PANEL albumin 4.1 g/dL 3.6-5. 1 normal Not Available [facility] [address] [place], [address], 07/31/2023 09:40:42 07/30/2007/31/2023 COMPR EHENS HOMAR METAB OLIC PANEL globulin 2.3 g/dL_ (calc ) 1.9-3. 7 normal Not Available [facility] [address] [place], [address], 07/31/2023 09:40:42 07/30/2007/31/2023 COMPR EHENS HOMAR METAB OLIC PANEL albumin/glob ulin ratio 1.8 (calc ) 1.0-2. 5 normal Not Available [facility] [address] [place], [address], 07/31/2023 09:40:42 07/30/2007/31/2023 COMPR EHENS HOMAR METAB OLIC PANEL bilirubin, total 0.4 mg/dL 0.2-1. 2 normal Not Available [facility] [address] [place], [address], 07/31/2023 09:40:42 07/30/2007/31/2023 COMPR EHENS HOMAR METAB OLIC PANEL alkaline phosphatase 69 U/L 37-153 normal Not Available [facility] [place] [facility] [address] [facility], [place], [address], 07/31/2023 09:40:42 07/30/2007/31/2023 COMPR EHENS HOMAR METAB OLIC PANEL AST 15 U/L 10-35 normal Not Available [facility] [address] [facility], [place], [address], 07/31/2023 09:40:42 07/30/2007/31/2023 COMPR EHENS HOMAR METAB OLIC PANEL ALT 13 U/L 6-29 normal Not Available [facility] [employer] [facility] [address] [facility], [place], [address], 07/31/2023 09:40:42 07/30/2007/31/2023 TSH TSH 2.44 mIU/L 0.40-4 .50 normal Not Available [facility] [address] [place], [address], 07/31/2023 09:40:43 07/30/2007/31/2023 CBC (INCL UDES DIFF/ PLT) white blood cell count 6.7 thous and/u L 3.8-10 .8 normal Not Available [facility] [address] [facility], [place], [address], 07/31/2023 09:40:44 07/30/2007/31/2023 CBC (INCL UDES DIFF/ PLT) red blood cell count 4.37 charley on/uL 3.80-5 .10 normal Not Available [facility] [address] [facility] [facility], [place], [address], 07/31/2023 09:40:44 07/30/2007/31/2023 CBC (INCL UDES DIFF/ PLT) hemoglobin 13.1 g/dL 11.7-1 5.5 normal Not Available [facility] [address] [place], [address], 07/31/2023 09:40:44 07/30/2007/31/2023 CBC (INCL UDES DIFF/ PLT) hematocrit 40.0 % 35.0-4 5.0 normal Not Available [facility] [address] [place], [address], 07/31/2023 09:40:44 07/30/2007/31/2023 CBC (INCL UDES DIFF/ PLT) MCV 91.5 fL 80.0-1 00.0 normal Not Available [facility] [address] [place], [address], 07/31/2023 09:40:44 07/30/2007/31/2023 CBC (INCL UDES DIFF/ PLT) MCH 30.0 pg 27.0-3 3.0 normal Not Available [facility] [address] [place], [address], 07/31/2023 09:40:44 07/30/2007/31/2023 CBC (INCL UDES DIFF/ PLT) MCHC 32.8 g/dL 32.0-3 6.0 normal Not Available [facility] [address] [place], [address], 07/31/2023 09:40:44 07/30/2007/31/2023 CBC (INCL UDES DIFF/ PLT) RDW 13.4 % 11.0-1 5.0 normal Not Available [facility] [address] [place], [address], 07/31/2023 09:40:44 07/30/2007/31/2023 CBC (INCL UDES DIFF/ PLT) platelet count 222 thous and/u L 140-40 0 normal Not Available [facility] [address] [facility], [place], [address], 07/31/2023 09:40:44 07/30/2007/31/2023 CBC (INCL UDES DIFF/ PLT) MPV 11.6 fL 7.5-12 .5 normal Not Available [facility] [address] [facility] [facility], [place], [address], 07/31/2023 09:40:44 07/30/2007/31/2023 CBC (INCL UDES DIFF/ PLT) absolute neutrophils 3229 cells /uL 1500-7 800 normal Not Available [facility] [address], [place], [address], 07/31/2023 09:40:44 07/30/2007/31/2023 CBC (INCL UDES DIFF/ PLT) absolute lymphocytes 2680 cells /uL 850-39 00 normal Not Available [facility] [facility], [place], [address], 07/31/2023 09:40:44 07/30/2007/31/2023 CBC (INCL UDES DIFF/ PLT) absolute monocytes 643 cells /uL 200-95 0 normal Not Available [facility] [address] [facility] [place], [address], 07/31/2023 09:40:44 07/30/2007/31/2023 CBC (INCL UDES DIFF/ PLT) absolute eosinophils 107 cells /uL 15-500 normal Not Available [facility] [address] [facility] [place], [address], 07/31/2023 09:40:44 07/30/2007/31/2023 CBC (INCL UDES DIFF/ PLT) absolute basophils 40 cells /uL 0-200 normal Not Available [facility] [address] [facility] [place], [address], 07/31/2023 09:40:44 07/30/2007/31/2023 CBC (INCL UDES DIFF/ PLT) neutrophils 48.2 % normal Not Available [facility] [address] [facility] [place], [address], 07/31/2023 09:40:44 07/30/2007/31/2023 CBC (INCL UDES DIFF/ PLT) lymphocytes 40.0 % normal Not Available [facility] [address] [place], [address], 07/31/2023 09:40:44 07/30/2007/31/2023 CBC (INCL UDES DIFF/ PLT) monocytes 9.6 % normal Not Available [facility] [address] [place], [address], 07/31/2023 09:40:44 07/30/2007/31/2023 CBC (INCL UDES DIFF/ PLT) eosinophils 1.6 % normal Not Available [facility] [address] [place], [address], 07/31/2023 09:40:44 07/30/2007/31/2023 CBC (INCL UDES DIFF/ PLT) basophils 0.6 % normal Not Available [facility] [address] [place], [address], 07/31/2023 09:40:44 08/04/2008/06/2023 THINP REP TIS PAP clinical information: normal Lina l exam Not Available [facility] [address], [place], [address], 08/06/2023 14:24:15 08/04/2008/06/2023 THINP REP TIS PAP LMP: normal UNKNO WN Not Available [facility] [address] [facility], [place], [address], 08/06/2023 14:24:15 08/04/2008/06/2023 THINP REP TIS PAP prev. Pap: normal UNKNO WN Not Available [facility] [address] [place], [address], 08/06/2023 14:24:15 08/04/2008/06/2023 THINP REP TIS PAP prev. BX: normal UNKNO WN Not Available [facility] [address] [place], [address], 08/06/2023 14:24:15 08/04/2008/06/2023 THINP REP TIS PAP source: normal Vagin a, Cervi x, Endoc ervix Not Available [facility] [address] [place], [address], 08/06/2023 14:24:15 08/04/2008/06/2023 THINP REP TIS PAP statement of adequacy: normal Satis facto ry for evalu ation . Endoc ervic al/tr ansfo rmati on zone compo nent prese nt. Not Available [facility] [address] [place], [address], 08/06/2023 14:24:15 08/04/2008/06/2023 THINP REP TIS PAP interpretati on/result: normal Cytol ogy Resul ts: Negat homar for intra epith elial lesio n or malig haydee . Not Available [facility] [address] [place], [address], 08/06/2023 14:24:15 08/04/2008/06/2023 THINP REP TIS PAP comment: normal This Pap test has been evalu ated with compu ter perla stefan techn ology . Not Available [facility] [address] [facility] [place], [address], 08/06/2023 14:24:15 08/04/20 23 08/06/2023 THINP REP TIS PAP cytotechnolo gist: normal ESL, CT( CP) CT Scree yvonne Locat ion: [facility] [place] [address] [facility] [place] [address] Not Available [facility] [address] [place], [address], 08/06/2023 14:24:15 08/04/20 23 08/06/2023 THINP REP TIS PAP comment EXPLA NATOR Y NOTE: The Pap is a scree yvonne test for cervi rtini cance r. It is not a diagn [...] matio n. Not Available [facility] [address] [facility], [place], [address], 08/06/2023 14:24:15 08/11/20 23 08/11/2023 nonin vasiv e color ectal cance r DNA + occul t blood scree yvonne, QL, stool cologuard negati ve normal Not Available Not Available 18:04:55 12/27/19 23 12/26/2022 MAMMO , scree yvonne, digit al, bilat eral [facility] [address] [address] Phone: Fax: Name: DEIRDRE ORTEZ Exam Date: 023 : [birth year] Age 62 Gender : F Access ion: [id number] Physic jim: RONDA GAMBLE Facili ty: [...] [facility] Legall y authen ticate d by POPE RONDA Deshpande DO 12-26 15:30: 31 CC'ed Logic: Orderi ng Provid er: CHANCE Blackwell CC Provid er: CHANCE Blackwell Attend ing Provid er: CHANCE Blackwell Referr ing Provid er: CHANCE Blackwell Admitt ing Provid er: CHANCE [email or web address] [place] [address] (Radiology) [address] , [place], [address], 12/28/2022 18:32:26 05/02/20 23 05/02/2023 XR, chest , 2 view No observ ation record ed. franck [facility] [address], [place], [address], 05/02/2023 10:57:17 01/25/20 24 01/25/2024 MAMMO , scree yvonne, digit al, bilat eral [facility] [address] [place] [address] Phone: Fax: Name: DEIRDRE ORTEZ Exam Date: 01/25/20 : [birth year] Age 63 years Gender : F Access ion: [id number] Physic jim: RONDA GAMBLE Facili ty: [facility] Facili ty HSV: Outpat ient Exam: [...] referr ing DEIRDRE [facility]TEZ to [facility]. Legall y authen ticate d by BERNARDO Kaur MD 01-24 13:27: 57 CC'ed Logic: Orderi ng Provid er: CHANCE Blackwell CC Provid er: CHANCE Blackwell Attend ing Provid er: CHANCE Blackwell Referr ing Provid er: CHANCE Blackwell Admitt ing Provid er: CHANCE [email or web address] [facility] (Radiology) [address] [place], [address], 01/25/2024 16:04:49 Result Notes Documentation Provider Name and Address Organization Details Recorded Time Mammo, Screening, Digital, Bilateral : [address] [place] [address] Name: DEIRDRE ORTEZ Exam Date: 12/26/2022 : 1960 Age 62 Gender: F Physician: SENDY MORAN Facility: [facility] Facility HSV: Outpatient Exam: SCREEN MAMMO [...] Thank you for referring DEIRDRE ORTEZ to [facility]. Legally authenticated by POPE RONDA Deshpande DO 2022-12-26 15:30:31 CC'ed Logic: Ordering Provider: LUISA MCCORD CC Provider: LUISA MCCORD Attending Provider: LUISA MCCORD Referring Provider: LUISA MCCORD Admitting Provider: LUISA Moran MD [address] [facility], [address], [place], [address], [place] [facility] PBibianaS[facility]onique 12/28/2022 18:32:26 Mammo, Screening, Digital, Bilateral : [address] [place] [address] Name: DEIRDRE ORTEZ Exam Date: 01/25/2024 : 1960 Age 63 years Gender: F Physician: SENDY MORAN Facility: [facility] Facility HSV: Outpatient Exam: SCREEN MAMMO [...] Thank you for referring DEIRDRE ORTEZ to [facility]. Legally authenticated by MARIA DEL ROSARIO Kaur MD 2024-01-25 13:27:57 CC'ed Logic: Ordering Provider: LUISA YOUNG Provider: LUISA MCCORD Attending Provider: LUISA MCCORD Referring Provider: LUISA MCCORD Admitting Provider: LUISA Moran MD [address] [facility] [address], [address], [facility] 01/25/2024 16:04:49 Problems Name Problem SNOMED Code Status Onset Date Resolution Date Notes Provider Name and Address Organization Details Recorded Time Generalized osteoarthri tis 237475653 Active Not Available [facility] 3 03:01:15 Urinary tract infectious disease 51751858 Active Not Available [facility] 3 03:01:15 Acute bronchopneu monia 855468901 Active Sendy Moran MD [address] [facility], [facility] [address], [address] , [facility] 4 14:26:56 Pain of hip region 84330653 Active Sendy Moran MD [address], [address] [place] [address] , [place] [facility] 4 10:34:43 Anti-nuclea r factor detected 895845322 Active Sendy Moran MD [address], [address] [place] [address] , [place] [facility] 4 10:34:43 Sinusitis 71129265 Active Sendy Moran MD [address], [address] [place] [address] , [place] - [facility] 4 10:34:43 Hyperlipide chinmay 13723946 Active Sendy Moran MD [address], [address] [place] [address] , [place] [facility] 4 10:34:43 Dysuria 34582996 Active Sendy Moran MD [address], [address] [place] [address] , [place] [facility] 4 10:34:43 Palpitation s 63224557 Active Sendy Moran MD [address], [address] [place] [address] , [place] [facility] 4 10:34:43 Arthritis of hip 02885766 Active Sendy Moran MD [address], [address] [place] [address] , [place] [facility] 4 12:09:57 Acute sinusitis 05164240 Active Sendy Moran MD [address], [address] [place] [address] , [place] [facility] 5 14:25:19 Serous otitis media 65087015 Active Sendy Moran MD [address], [address] , [facility] 5 14:25:19 Acute bronchitis 07697220 Active Sendy Moran MD [address] [address], [place], [address] , [facility] 5 14:25:19 Disorder of bursa of shoulder region 19470709 Active 1999 chose not to have surgery Not Available [facility] 3 03:01:15 Problem Notes None recorded. Procedures Surgical History Date Name Laterality Status Provider Name and Address Organization Details Recorded Time 8 I&D completed Sendy Moran MD [address], [address] [place] [address], [facility] 04/10/2018 21:48:32 7 I&D completed Sendy Moran MD [address], [address], [facility] 06/09/2017 14:43:13 7 Tonsillectomy completed Antoinette Macdonaldcatherine [facility] 09/20/2012 13:18:49 Imaging Results None recorded. Procedure Notes None recorded. Medical Equipment None Reported. Allergies Allergen ID Allergen Name Allergen Category Reaction Reaction Severity Criticality Documentation Date Start Date Code Code System Note Provider Name and Address Organization Details Recorded Time 29243 cefdinir medicatio n angioedem a severe high 07/16/2023 51818 RxNorm Sendy Moran MD [address], [address], [facility] 3 14:56:57 Medications Name [...] Available Not Available Not Available Flucelvax Quad 5085-7942 (PF) 60 mcg (15 mcg x 4)/0.5 mL IM syringe TO BE ADMINIST ERED BY PHARMACI ST FOR IMMUNIZA TION 08/12 completed Not Available Not Available Not Available Vitals Date Recorded Body height Body weight Heart rate Oxygen saturation Oxygen saturation in Arterial blood by Pulse oximetry Body temperature Systolic And Diastolic Provider Name and Address Organization Details Last Updated DateTime 3 167.64 cm 51871.6 9 g 86 /min 95 % 95 % 96.6 [degF] 140/85 mm[Hg] [facility] 3 14:25:54 Date Recorded Body height Body mass index (BMI) Body weight Heart rate Oxygen saturation Oxygen saturation in Arterial blood by Pulse oximetry Body temperature Systolic And Diastolic Provider Name and Address Organization Details Last Updated DateTime 2 167.64 cm 30.2 kg/m2 31820.4 7 g 80 /min 98 % 98 % 97 [degF] 129/78 mm[Hg] [facility] 2 10:07:41 Date Recorded Systolic And Diastolic Provider Name and Address Organization Details Last Updated DateTime 07/16/2023 148/83 mm[Hg] Sendy Moran MD [address] [facility], [address], [place], [address], [facility] 07/16/2023 15:07:47 Date Recorded Body height Body mass index (BMI) Body weight Heart rate Oxygen saturation Oxygen saturation in Arterial blood by Pulse oximetry Body temperature Systolic And Diastolic Provider Name and Address Organization Details Last Updated DateTime 3 167.64 cm 28.2 kg/m2 41155.6 6 g 75 /min 96 % 96 % 97.5 [degF] 155/103 mm[Hg] [facility] 3 13:58:29 Date Recorded Body height Body mass index (BMI) Body weight Heart rate Oxygen saturation Oxygen saturation in Arterial blood by Pulse oximetry Body temperature Systolic And Diastolic Provider Name and Address Organization Details Last Updated DateTime 3 167.64 cm 28.4 kg/m2 83613.6 6 g 98 /min 97 % 97 % 97 [degF] 116/80 mm[Hg] [facility] 3 09:13:18 Date Recorded Body height Body mass index (BMI) Body weight Heart rate Oxygen saturation Oxygen saturation in Arterial blood by Pulse oximetry Body temperature Systolic And Diastolic Provider Name and Address Organization Details Last Updated DateTime 2 167.64 cm 29.7 kg/m2 44005.7 g 98 /min 98 % 98 % 96.8 [degF] 126/72 mm[Hg] [facility] 2 09:16:34 Social History Question Answer Notes LastModified by Organizat ion Details LastModified Time Tobacco Smoking Status Never Smoker Not Available [facility] 08/14/2020 03:11:19 Do You Have An Advance Directive? No [id number] Information not available 08/14/2020 Animal Exposure? Yes Informat ion not available 09/20/2012 Auto Related Injury? No Information not available 09/20/2012 Is Blood Transfusion Acceptable In An Emergency? Yes [id number] Information not available 08/14/2020 What Is Your Level Of Caffeine Consumption? Moderate [id number] Information not available 08/14/2020 How Much Tobacco Do You Chew? None [id number] Information not available 08/14/2020 Diabetes No Information no t available 09/20/2012 What Type Of Diet Are You Following? REGULAR [id number] Information not available 08/14/2020 Education 9 GED Information no t available 09/20/2012 What Is The Highest Grade Or Level Of School You Have Completed Or The Highest Degree You Have Received? [id number] Information not available 08/04/2023 Family History Of Heart Disease? Yes Information not available 09/20/2012 Which Of Your Hands Is Dominant? Right [id number] Information not available 08/14/2020 High Blood Pressure No Information not available 09/20/2012 High Cholesterol No Informat ion not available 09/20/2012 Live Alone Or With Others? With Others Information not available 09/20/2012 Marital Status [email or web address] Informatio n not available 11/25/2016 What Was The Date Of Your Most Recent Tobacco Screening? 08/04/2023 Information not available 08/04/2023 How Many Children Do You Have? 2 [id number] Information not available 08/14/2020 What Is Your Relationship Status? Information not available 08/04/2023 Do You Use Your Seat Belt Or Car Seat Routinely? Yes [id number] Information not available 08/14/2020 Seat Belts Used Routinely Yes Information not available 09/20/2012 Smoke Alarm In Home Yes Information not available 09/20/2012 General Stress Level Medium Information not available 09/20/2012 Do You Use Sunscreen Routinely? No [id number] Information not available 08/14/2020 Work Related Injury? No Information not available 09/20/2012 Sex: Unknown Functional Status Question Answer Note LastModified by Organizat ion Details LastModified Time What is your level of alcohol consumption? None [id number] Information not available 08/14/2020 Are you currently employed? No [id number] Information not available 08/14/2020 Are you able to care for yourself independently? Yes [id number] Information not available 08/14/2020 What is your occupation? RETIRED Information not available 09/20/2012 What is your exercise level? Occasional [id number] Information not available 08/14/2020 Mental Status Question Answer Note LastModified by Organization D etails LastModified Time Do you feel stressed (tense, restless, nervous, or anxious, or unable to sleep at night)? [id number] Information not available 08/04/2023 Family History Relationship [...] Blood Diseases N Hyperthyroidism N Hypothyroidism N COPD N Depression N Developmental or Behavioral Disorders N Eczema, [...] preservative 7 completed Sendy Moran MD [address] [facility], [address], [place], [address], [place] [facility] 09/18/2017 23:22:27 Tdap 8 completed Sendy Moran MD [address], [address], [place] - [facility] 12/19/2017 16:17:18 Influenza, split virus, quadrivalent, preservative 8 completed Sendy Moran MD [address], [address], [place] - [facility] 10/15/2018 21:15:51 Influenza, split virus, quadrivalent, preservative 9 completed Sendy Moran MD [address], [address], [place] - [facility] 10/24/2019 11:27:59 Td (adult) 7 completed Sendy Moran MD [address], [address], [place] - [facility] 09/20/2012 14:17:20 zoster recombinant 8 completed Sendy Moran MD [address], [address], [place] - [facility] 08/04/2023 09:58:10 zoster recombinant 8 completed Sendy Moran MD [address] [place] [address], [address], [place] [facility] 08/04/2023 09:58:20 Past Encounters Encounter ID Performer Location Encounter Start Date Encounter Closed Date Diagnosis/Indication Diagnosis SNOMED-CT Code Diagnosis ICD10 Code Diagnosis IMO Codes Diagnosis Note [id number] Sendy Moran MD [facility] [address] [address] 09/20/2012 13:06:49 09/20/2012 19:43:29 [id number] Sendy Moran MD [facility] [address] [address] 06/09/2014 13:29:06 06/09/2014 18:19:24 Acute bronchopneumonia 731554640 [id number] Sendy Moran MD [address] [address] 09/04/2014 08:54:53 09/04/2014 10:50:40 Adult health examination 805771527 Screening for malignant neoplastic disease 16860153 Pain of hip region 51077724 Anti-nucle ar factor detected 606352772 Sinusitis 31363382 Hyperlipidemia 06515967 Screening mammography 50765800 Screening for malignant neoplasm of cervix 021286909 Dysuria 20861488 Palpitations 11308113 [id number] Sendy Moran MD [address] [address] 11/16/2014 13:42:56 11/16/2014 16:46:33 Acute sinusitis 07784978 Serous otitis media 80580207 Acute bronchitis 62482142 [id number] Sendy Moran MD [address] [address] 11/25/2016 08:19:58 11/25/2016 18:31:51 History of urinary disease 515237886 Z87.448 Adult heal th examination 090459381 Z00.01 Screening mammography 24 141146 Z12.31 Screening for malignant neoplasm of cervix 902302469 Z12.4 Body mass index 30+ - obesity 942275509 Z68.33 Hyperlipidemia 29773933 E78.5 Screening for malignant neoplasm of colon 731155466 Z12.11 [id number] Sendy Moran MD [address] [address] 06/09/2017 13:43:53 06/10/2017 09:05:13 Urinary tract infectious disease 82263872 N39.0 Body mass index 30+ - obesity 750894198 Z68.32 [id number] Sendy Moran MD [address] [address] 12/10/2017 13:51:40 12/10/2017 16:01:26 Acute bronchitis 82384102 J20.9 [id number] Sendy Moran MD [address] [address] 12/15/2017 09:40:52 12/23/2017 09:42:32 Adult health examination 169004314 Z00.01 Screening for malignant neoplasm of colon 585882579 Z12.11 Depression screening 171 919670 Z13.89 Hypothyroidism 33688339 E03.9 Body mass index 30+ - obesity 301985194 Z68.30 Hemorrhoids 07794877 K64 .9 Hyperlipidemia 95038819 E78.5 [id number] Sendy Moran MD [facility] [address] [place] [address] 7 04/09/2018 15:10:58 04/12/2018 16:38:05 Urinary tract infectious disease 68578754 N39.0 Hypothyroidism 09372460 E03.9 [id number] Sendy Moran MD [place] [address] 7 08/03/2018 13:49:58 08/04/2018 08:26:12 Atypical chest pain 777293012 R07.89 Intermitte nt palpitations 594659247 R00.2 essu [id number] Sendy Moran MD [place] [address] 7 08/09/2018 10:22:51 08/09/2018 13:42:21 Atypical chest pain 660933058 R07.89 Glucose le bjorn outside reference range 205406236 R73.09 Hyperlipidemia 78962812 E78.5 [id number] Sendy Moran MD [place] [address] 7 12/20/2018 13:24:51 12/26/2018 15:00:54 Adult health examination 127557332 Z00.01 Hypothyroidism 43120329 E03.9 Hyperlipidemia 49961098 E78.5 Depression screening 171 072716 Z13.89 Body mass index 30+ - obesity 461692029 Z68.30 [id number] Sendy Moran MD [facility] [place] [address] 7 09/30/2019 15:14:26 10/03/2019 08:47:20 Increased frequency of urination 319732609 R35.0 Screening for malignant neoplasm of colon 901647195 Z12.11 Hypothyroidism 81691895 E03.9 Hyperlipidemia 94414458 E78.5 k Depression screening 171 651990 Z13.89 Body mass index 30+ - obesity 840538825 Z68.30 [id number] Sendy Moran MD [facility] [address] [address] 10/24/2019 10:25:42 10/24/2019 12:09:05 Acute lower respiratory tract infection 568559197 J22 [id number] Sendy Moran MD [facility] [address] [address] 05/21/2020 08:57:05 05/22/2020 08:12:35 Hyperlipidemia 70187807 E78.5 Adult heal th examination 356159494 Z00.01 Hypothyroidism 04243842 E03.9 Depression screening 171 854819 Z13.89 Body mass index 30+ - obesity 967104982 Z68.30 Screening for malignant neoplasm of cervix 296679278 Z12.4 Hypertensi on screening 828731588 Z13.6 [id number] Sendy Moran MD [facility] [address] [place] [address] 05/24/2021 09:43:08 05/27/2021 09:43:32 Increased frequency of urination 570428605 R35.0 Urinary tr act infectious disease 62656816 N39.0 Adult heal th examination 566770297 Z00.01 Hyperlipidemia 28274162 E78.5 Hypothyroidism 90493655 E03.9 Depression screening 171 646106 Z13.89 Body mass index 30+ - obesity 171215393 Z68.31 Hypertensi on screening 126634747 Z13.6 Screening for malignant neoplasm of colon 471044152 Z12.11 [id number] Sendy Moran MD [facility] [address] [address] 01/27/2022 13:28:44 01/28/2022 08:18:10 Urinary tract infectious disease 62966504 N39.0 Recurrent urinary tract infection 581256126 N39.0 [id number] Sendy Moran MD [facility] [address] [address] 05/27/2022 09:54:52 05/29/2022 10:15:50 Increased frequency of urination 412577758 R35.0 Urinary tr act infectious disease 05285844 N39.0 Adult heal th examination 445328400 Z00.01 Hyperlipidemia 74785227 E78.5 Hypothyroidism 31790129 E03.9 Depression screening 171 803268 Z13.89 Body mass index 30+ - obesity 580790372 Z68.30 Hypertensi on screening 623859492 Z13.6 [id number] Sendy Moran MD [facility] [address] [place] [address] 7 10/17/2022 09:15:18 10/17/2022 16:53:09 Acute lower respiratory tract infection 342905821 J22 Wheezing 85820742 R06.2 [id number] Sendy Moran MD [place] [address] 7 01/22/2023 14:11:35 01/22/2023 15:54:47 Increased frequency of urination 995203548 R35.0 Urinary tr act infectious disease 87414462 N39.0 [id number] Sendy Moran MD [facility] [place] [address] 7 07/16/2023 13:35:28 07/17/2023 09:17:51 Increased frequency of urination 395628819 R35.0 Intercosta l post-herpetic neuralgia 040445017 B02.29 Blood pres sure outside reference range 78168947 Z01.31 [id number] Sendy Moran MD [facility] [place] [address] 08/04/2023 08:38:50 08/06/2023 09:14:30 Adult health examination 305371009 Z00.01 Hyperlipidemia 07211997 E78.5 Hypothyroidism 15732705 E03.9 Depression screening 171 865740 Z13.89 Hypertensi on screening 243839505 Z13.6 Screening for malignant neoplasm of cervix 357745904 Z12.4 Screening for malignant neoplasm of colon 214927486 Z12.11 Lichen sim plex chronicus 62881423 L28.0 Screening mammography 24 022459 Z12.31 Health Concerns Section Related Observation LastModified by Organization Detai ls LastModified Time None Recorded Concern Status LastModified by Organization Details LastModified Time None Recorded Advance Directives Directive N: Payers Insurance Date Sequence Insurance Name Policy Number Policy Diez Covered Member ID Diez Member ID Guarantor Name 05/26/2022 1 [employer] ONE (PPO) [id number] Deirdre Manleyaley [id number] Deirdre Manleyaley 05/26/2022 1 [employer] (PPO) [id number] Deirdre Manleyaley [id number] Deirdre Toney Ari 05/26/2022 1 [id number] Deirdre Toney Ari [id number] Deirdre Toney Ari 05/26/2022 1 [place] [id number] Deirdre Toney Ari [id number] Deirdre Toney Ari 05/26/2022 1 [id number] Deirdre Toney Ari [id number] Deirdre Toney Ari 09/02/2023 1 [facility] Deirdre Manleyaley [id number] Deirdre Harty Notes Date Note Type Note Provider Name and Address Organization Details Recorded Time 05/27/2022 text/html Feels her only problem is arthritis pain; left hip and both knees and ankles especially when she gets up in the morning. Sometimes gets muscle spasms in the toes. Sendy Moran MD [address] [facility], [place] [address], [place], [address], [facility] 05/28/2022 23:49:35 10/17/2022 text/html started with congestion last night and it is productive phlegm. She has a history of past pneumonias She has not had the flu or covid vaccines. She had covid last August. Started with a sore throat. Sendy Moran MD [address] [facility], [place] [address], [place], [address], [facility] 10/17/2022 09:56:54 01/22/2023 text/html started with frequency and dysuria for 3 days No fevers or chills. Sendy Moran MD [address] [place] [address], [place], [address], [facility] 01/22/2023 15:39:48 07/16/2023 text/html she had shingles over left posterior shoulder about 5 months ago and now has a skin sensation that itches and sometimes saha just below the left scapulaNo rash or skin issue noted now.Has lost 12 pounds.She had sinus and was given cefdinir and had neck swelling so they changed her to augmentin. Sendy Moran MD [address] [facility], [place] [address], [place], [address], [facility] 07/17/2023 07:54:06 OBGyn Episode No OBEpisode recorded.
[2025-08-15 14:39] LABS: Blood Urea Nitrogen 17 mg/dl (7-17); Creatinine,Serum 0.90 mg/dl (0.52-1.04); Estimated Glomerular Filt Rate 63 ml/min (>60); GFR (African American) 76 ML/MIN (>60)
--- NOTE | 2025-08-15 15:15 | MR_ITS ---
FINAL REPORT TECHNIQUE: Multiplanar MR, without and with contrast administration CLINICAL HISTORY: TIA/stroke ON 07/06/2025, posterior circulation FINDINGS: Diffusion sequences show no signal abnormalities to indicate acute infarct. There are small scattered foci of abnormal signal in the deep white matter bilaterally which is nonspecific. Ventricles are normal. No edema or hemorrhage is seen. Major vessel flow-voids are intact. The 7th and 8th nerve root complexes are intact. The paranasal sinuses are well aerated. Following contrast administration, there is no mass or abnormal parenchymal enhancement. IMPRESSION: Mild changes of chronic microvascular ischemia. Reviewed, Interpreted and Dictated by Han Gonzalez MD Transcribed by Vandana Woodward Authenticated and [facility]
[2025-08-15] MEDS: GADOTERIDOL INJ 20ML SYRINGE 15 ML IV (15:46)
[2025-08-15] MEDS: SODIUM CHLORIDE 0.9% 10ML SYR (RAD ONLY) 10 ML IV (15:46)
== END 2025-08-15 23:59 | disposition home or self-care (01) ==
LOC: RAD 14:15
PROVIDERS: PCP Nurse Practitioner Family; Visit Provider Specialist
DX: I63.50 Cerebral infarction due to unspecified occlusion or stenosis of unspecified cerebral artery (principal); G45.9 Transient cerebral ischemic attack, unspecified
CPT/HCPCS: 36415; 70553; 82565; 84520; A9576

== ENCOUNTER 2025-08-16 12:03 | Outpatient (CLI) | payer MEDICARE, MEDICAID, SELFPAY ==
--- OUTSIDE RECORDS SUMMARY | 2025-07-06 15:16 | XMS_ITS | Encounter Summary ---
Author Organization [facility] Address [address] [place] [address] Care Team Providers Care Dairy Manager Name Role Phone Bernie Louis APRN Primary Care Provider [phone] Reason for Referral * Consultation (Routine) - Pending Review Specialty Diagnoses / Procedures Referred By Aziza t Referred To Contact Neurology Diagnoses Transient ischemic attack (TIA) Procedures ND OFFICE/OUTPATIENT NEW MODERATE MDM 45 MINUTES Zainab Crump MD [address] [place] [address] Phone: tel: fax: Elizabeth Glez APRN [address] [place] [address] [address] [place] [address] Phone: tel: fax: Referral ID Status Reason Start Date Expiration Date Visits Requested Visits Authorized [id number] Pending Review Specialty Services Required 07/08/2025 10/07/2026 1 1 * Consultation (Routine) - Pending Review Specialty Diagnoses / Procedures Referred By Aziza t Referred To Contact Cardiology Diagnoses Atrial fibrillation, unspecified type Procedures ND OFFICE/OUTPATIENT NEW MODERATE MDM 45 MINUTES Zainab Crump MD [address] [place] [address] Phone: tel: fax: Debi Ann MD [address] [place] [address] Phone: tel: fax: Referral ID Status Reason Start Date Expiration Date Visits Requested Visits Authorized [id number] Pending Review Specialty Services Required 07/08/2025 10/07/2026 1 1 * MRI/CAT/PET Scan (Routine) - Pending Review Specialty Diagnoses / Procedures Referred By Contac t Referred To Contact Procedures CT Outside Head Karlie Mcintyre APRN [address] [place] [address] Phone: tel: fax: Referral ID Status Reason Start Date Expiration Date V isits Requested Visits Authorized [id number] Pending Review 07/06/2025 10/05/2026 1 1 * MRI/CAT/PET Scan (Routine) - Pending Review Specialty Diagnoses / Procedures Referred By Contac t Referred To Contact Procedures CT Outside Head Karlie Mcintyre APRN [facility] [place] [address] Phone: tel: fax: Referral ID Status Reason Start Date Expiration Date V isits Requested Visits Authorized [id number] Pending Review 07/06/2025 10/05/2026 1 1 * MRI/CAT/PET Scan (Routine) - Pending Review Specialty Diagnoses / Procedures Referred By Contac t Referred To Contact Procedures CT Outside Chest Karlie Mcintyre APRN [address] [place] [address] Phone: tel: fax: Referral ID Status Reason Start Date Expiration Date V isits Requested Visits Authorized [id number] Pending Review 07/06/2025 10/05/2026 1 1 Reason for Visit * Auth/Cert Specialty Diagnoses / Procedures Referred By Aziza leyva Referred To Contact Diagnoses Cerebrovascular Accident (cva) Referral ID Status Reason Start Date Expiration Date Visits Re quested Visits Authorized [id number] 1 1 Encounter Details Date Type Department Care Team (Late st Contact Info) Description 07/06/2025 3:16 PM EDT - 07/08/2025 11:35 AM EDT Hospital Encounter [facility] 3F [address] [place] [address] Omid Langley MD [address] [place], [place] [id number] Js Tobar DO [address] [place], [place] [id number] Zainab Crump MD [address] [id number] Atrial fibrillation, unspecified type (Primary Dx); Transient ischemic attack (TIA) Discharge Disposition: Home or Self Care Social History Tobacco Use Types Packs/Day Years Used Date Smoking Tobacco: Never Passive Smoke Exposure: Never Smokeless Tobacco: Never Tobacco Cessation:Counseling Given: No Alcohol Use Standard Drinks/Week Comments Never 0 (1 standard drink = 0.6 oz pur e alcohol) [facility] Utilities Answer Date Recorded In the past 12 months has [employer], oil, or water [employer] threatened to shut off services in your [...] or training? Not on file Preferred Language [place] 07/07/2025 Comments Unknown Sex and Gender Information [...] 3:47 PM EDT Gabriella Toney, RN * [place] Suicide Severity Rating Scale (Screener/Recent Self-Report) Question Answer Date of Assessment Author 6. Suicidal Behavior (Lifetime) No 3:47 PM EDT Ashly Toney RN documented as of this encounter Discharge Summaries * Zainab Crump MD - 07/08/2025 9:22 AM EDT Images from the original note were not included. [facility] Medicine Services DISCHARGE SUMMARY Patient Name: Deirdre [...] to dizziness, N/V, and palpitations. Transferred from [facility] for stroke evaluation. Was found to be in new onset Afib with RVR with rates in 150s at the OSH. CT head andCTA head/neck showed no acute findings. Was given TNK at OSH and transferred to [facility] ICU. Stroke Neurology evaluated the patient. [...] MD 07/07/2025 1:51 PM EDT Workstation ID: [id number] MRI Brain Without Contrast Result Date: 07/07/2025 [...] MD 07/07/2025 4:24 AM EDT Workstation ID: [id number] CT Outside Head Result Date: 07/06/2025 This [...] as: SYNTHROID, LEVOTHROID 75 mcg, Oral, Every Database Tester Allergies Allergen Reactions ??? Cefdinir Anaphylaxis ??? [...] to Resuscitate); Full Support Ordered at: 07/06/25 7936 Code Status (Patient has no pulse and [...] minutes on this discharge activity which included: [id number] with the patient, reviewing the data in [...] History: Procedure Laterality Date TONSILLECTOMY General Information [facility] Name 07/07/25 1526 Physical Therapy Time and [...] -KG Stair Railings, Main Entrance none -KG [facility] Name 07/07/25 1526 Stairs Within Home, Primary Number of Stairs, Within Home, Primary twelve -KG Stair Railings, Within Home, Primary railing on right side (ascending) -KG [facility] Name 07/07/25 1526 Cognition Orientation Status (Cognition) oriented x 4 -KG User Salgado (r) = Recorded By, (t) = Taken By, (c) = Cosigned By Initials Name Provider Type KG Zoila Gold N, PT Physical Therapist Mobility [facility] Name 07/07/25 1527 Bed Mobility Bed Mobility supine-sit;sit-supine -KG Supine-Sit [place] (Bed Mobility) modified independence -KG Sit-Supine [place] (Bed Mobility) modified independence -KG Assistive Device (Bed Mobility) head of bed elevated -KG Comment, (Bed Mobility) Pt demonstrated appropriate sequencing and technique. -KG [facility] Name 07/07/25 152 Transfers Comment, (Transfers) Pt demonstrated appropriate sequencing and safety awareness. -KG Row Name 07/07/25 1527 Sit-Stand Transfer Sit-Stand [place] (Transfers) independent -KG [facility] 07/07/25 1527 Gait/Stairs (Locomotion) [place] Level (Gait) supervision -KG Distance in Feet (Gait) 300 -KG Deviations/Abnormal Patterns (Gait) stride length decreased -KG [place] Level (Stairs) stand by assist -KG Number of Steps (Stairs) 10 -KG Ascending Technique (Stairs) [id number] -KG Descending Technique (Stairs) [id number] -KG Comment, (Gait/Stairs) Pt ambulated 300ft with [...] Type Zoila Loyola PT Physical Therapist Obj/Interventions [facility] 07/07/25 1528 Range of Motion Comprehensive General Range of Motion no range of motion deficits identified -KG Comment, General Range of Motion B LE WFL -KG [facility] Name 07/07/25 1528 Strength Comprehensive (MMT) Comment, General Manual Muscle Testing (MMT) Assessment B LE grossly 4+/5 -KG [facility] Name 07/07/25 1528 Balance Balance Assessment sitting static balance;standing static balance;standing dynamic balance -KG Static Sitting Balance independent -KG Position, Sitting Balance unsupported;sitting edge of bed -KG Static Standing Balance supervision -KG Dynamic Standing Balance supervision -KG Position/Device Used, Standing Balance unsupported -KG [facility] 07/07/25 1528 Sensory Assessment (Somatosensory) Sensory Assessment (Somatosensory) LE sensation intact -KG User Salgado (r) = Recorded By, (t) = Taken By, (c) = Cosigned By Initials Name Provider Type KG Zoila Gold, PT Physical Therapist Goals/Plan No documentation. Clinical Impression [facility] 07/07/25 1529 Pain Pretreatment Pain Rating 0/10 - no pain -KG Posttreatment Pain Rating 0/10 - no pain -KG [facility] 07/07/25 1529 Plan of Care Review Plan of Care Reviewed With patient -KG Outcome Evaluation PT initial evaluation completed. Pt ambulated 300ft with supervision and navigated 10 steps with SBA. Pt demonstrated good balance and stability throughout all mobility. At this time pt is safe to continue ambulating with RN and does not require cream ripener services. Recommend D/Chome with assistance. -KG [facility] Name 07/07/25 1529 Therapy Assessment/Plan (PT) Patient/Family Therapy Goals Statement (PT) return to PLOF -KG Criteria for Skilled Interventions Met (PT) no;no problems identified which require skilled intervention -KG Therapy Frequency (PT) evaluation only -KG [facility] 07/07/25 1529 Vital Signs Pre Systolic BP [...] 8 -CM Row Name 07/07/25152907/07/25 1153 Modified Dwarf Scale Pre-Stroke Modified Dwarf Scale 6 - Unable to determine (UTD) from the medical record documentation -KG 6 - Unable to determine (UTD) from the medical record documentation -KF Modified Dwarf Scale 0 - No Symptoms at all. -KG 0 - No Symptoms at all. -KF Row Name 07/07/25152907/07/25 1153 Functional Assessment Outcome Measure Options AM-PAC 6 Clicks Basic Mobility (PT);Modified Michael -KG AM-PAC 6 Clicks Daily Activity (OT);Modified Dwarf -KF User Salgado (r) = Recorded By, (t) = Taken By, (c) = Cosigned By Initials Name Provider Type Vielka Burgos, RN Registered Nurse KG Zoila Gold, PT Physical Therapist KF Oanh Hunt, OT Occupational Therapist Physical Therapy Education Title: PT OT BEET TOPPER Therapies (In Progress) Topic: Physical Therapy (In [...] ambulating with RN and does not require cream ripener services. Recommend D/C home with assistance. Time [...] Description Service Date Service Provider Modifiers Qty [id number] HC PT EVAL MOD COMPLEXITY 4 07/07/2025 Zoila Gold, PT GP 1 PT G-Codes Outcome Measure Options: AM-PAC 6 Clicks Basic Mobility (PT), Modified Dwarf AM-PAC 6 Clicks Score (PT): 23 AM-PAC 6 Clicks Score (OT): 24 Modified Dwarf Scale: 0 - No Symptoms at all. PT Discharge Summary Anticipated Discharge Disposition (PT): home with assist Reason for Discharge: At baseline function Outcomes Achieved: Refer to plan of care for updates on goals achieved Lizzy Gold, PT 07/07/2025 * Oanh Hunt, OT - 07/07/2025 10:59 AM EDT Images from the original note were not included. Acute Care - Occupational Therapy Discharge [facility] Patient Name: Deirdre Ortez : 1960 [...] Bed Mobility Bed Mobility supine-sit;sit-supine -KF Supine-Sit [place] (Bed Mobility) modified independence - Sit-Supine [place] (Bed Mobility) independent - Row Name 07/07/25 1150 Transfers Transfers sit-stand transfer;stand-sit transfer;toilet transfer - Row Name 07/07/25 1150 Sit-Stand Transfer Sit-Stand [place] (Transfers) independent - Comment, (Sit-Stand Transfer) x1 from EOB, x1 from commode -[facility] Name 07/07/25 115 Stand-Sit Transfer Stand-Sit [place] (Transfers) independent -[facility] Name 07/07/25 1150 Toilet Transfer Type (Toilet Transfer) sit-stand;stand-sit - [place] Level (Toilet Transfer) independent - Assistive Device [...] Name 07/07/25 1150 Upper Body Dressing Assessment/Training [place] Level (Upper Body Dressing) don;doff;front opening garment;set up -KF Position (Upper Body Dressing) edge of bed sitting -KF Row Name 07/07/25 1150 Grooming Assessment/Training [place] Level (Grooming) wash face, hands;supervision -KF Position (Grooming) sink side;unsupported standing -KF [facility] Name 07/07/25 1150 Toileting Assessment/Training [place] Level (Toileting) adjust/manage clothing;perform perineal hygiene;independent -KF Assistive Devices (Toileting) commode;grab bar/safety frame -KF Position (Toileting) unsupported sitting -KF User Salgado (r) = Recorded By, (t) = Taken By, (c) = Cosigned By Initials Name Provider Type KF Oanh Hunt OT Occupational Therapist Obj/Interventions [facility] Name 07/07/25 1151 Sensory Assessment (Somatosensory) Sensory Assessment (Somatosensory) UE sensation intact -[facility] 07/07/25 1151 Vision Assessment/Intervention Visual Impairment/Limitations WFL -KF [facility] Name 07/07/25 1151 Range of Motion Comprehensive General Range of Motion bilateral upper extremity ROM WFL -KF [facility] 07/07/25 1151 Strength Comprehensive (MMT) General Manual Muscle Testing (MMT) Assessment no strength deficits identified -KF Comment, General Manual Muscle Testing (MMT) Assessment BUE grossly 5/5 -KF [facility] Name 07/07/25 1151 Motor Skills Motor Skills coordination -KF Coordination bilateral;upper extremity;fine motor deficit;WFL -KF [facility] 07/07/25 1151 Balance Balance Assessment sitting static [...] Occupational Therapist Goals/Plan No documentation. Clinical Impression [facility] Name 07/07/25 1152 Pain Assessment Pretreatment Pain [...] 24 -CM Row Name 07/07/25 1153 Modified Dwarf Scale Pre-Stroke Modified Dwarf Scale 6 - Unable to determine (UTD) [...] Therapist Occupational Therapy Education Title: PT OT BEET TOPPER Therapies (In Progress) Topic: Occupational Therapy (In Progress) Point: ADL training (Done) Learning Progress Summary Patient Acceptance, E,TB, VU,DU by at 07/07/2025 1059 Point: Precautions (Done) Learning Progress Summary Patient Acceptance, E,TB, VU,DU by at 07/07/2025 1059 Point: Body mechanics (Done) Learning Progress Summary Patient Acceptance, E,TB, VU,DU by at 07/07/2025 1059 User Salgado Initials Effective Dates Name Provider Type Discipline 05/27/23 - Oanh Hunt OT Occupational Therapist OT OT Recommendation [...] Description Service Date Service Provider Modifiers Qty [id number] OT EVAL LOW COMPLEXITY 4 07/07/2025 Oanh [...] sent through Care Everywhere. * Stroke Prevention Jlpj-ps-Lwoo ([place]) * Heart-Healthy Eating Plan ([place]er) * Fall Prevention in the Home Adult Oxor-re-Vxtj ([place]) * Bleeding Precautions When on Anticoagulant Therapy Adult ([place]er) documented in this encounter Medications at Time [...] Js Tobar, - 07/07/2025 1:11 PM EDT ASSISTANT PROFESSOR OF PHYSICS PROGRESS NOTE Hospital: LOS: 1 day Chief [...] social history were reviewed and updated in [facility] as appropriate. Review of Systems Respiratory: Negative [...] MD 07/07/2025 4:24 AM EDT Workstation ID: [id number] Results: Reviewed. - I reviewed the patient's [...] patient/family/caregiver, referring and communicating with other health memory care director, documenting information in the medical record, independently interpreting results and communicating that information with the patient/family/caregiver, care coordination, ordering medications, and obtaining a separately obtained history. -- Js Tobar DO Pulmonary/Critical Care * Osmel-Alexander Grubbs MD - 07/07/2025 9:38 AM EDT Stroke [...] light touch throughout Coordination: no ataxia with uwzsbp-qy-jfio testing Gait/Station: deferred Results Review: I reviewed [...] MD 07/07/2025 4:24 AM EDT Workstation ID: [id number] Results for orders placed during the hospital encounter of 10/25/14 CONVERTED (HISTORICAL) ECHO 10/25/2014 9:02 AM Narrative Patient: DEIRDRE ORTEZ Rec#: [id number] : 1960 Date: 10/25/2014 Age: 53y Height: 167.64 cm / 66.0 in Weight: 92.53 kg / 203.9 lbs Sex: F BSA: 2.02 Room#: [facility] Psychiatric Therapist: Felix Mendez VANESA Referring: RUFUS Reading: Jitendra [...] 3.4 cm LA:Ao ratio (2D) 1.31 ratio -[facility] wo on 07/06/2025 images were personally [...] (noted at OSH ED) who presents to [facility] via transfer from [facility] with complaints of severe dizziness, nausea/vomiting, gait [...] of possible stroke. She was transferred to [facility] for higher level of care and further stroke workup. Antiplatelet LAY OUT MACHINE OPERATOR: None Anticoagulant LAY OUT MACHINE OPERATOR: None #Dizziness, gait instability, N/V #New onset [...] with RVR; management per primary team - PT/OT/BEET TOPPER Stroke will continue to follow pending 24-hour CT head. Please call for any further questions or concerns Alexander Iglesias MD, Msc, PhD Vascular Neurologist [facility] documented in this encounter H&P Notes * Js Tobar DO - 07/06/2025 4:45 PM EDT Intensive Care Admission Note Chief Complaint: Suspected cerebrovascular accident (CVA) History of Present Illness Deirdre Ortez is a 64 y.o. 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 Currently asymptomatic. Split share visit. CREDIT RISK MODELER Time: I spent 10 minutes. Jessica Oden, CREDIT RISK MODELER Problem List, Surgical History, Family, Social History, [...] goal <180 with Nicardipine as needed - PT/OT/BEET TOPPER Cardiac # New onset Afib with RVR [...] patient/family/caregiver, referring and communicating with other health memory care director, documenting information in the medical record, independently interpreting results and communicating that information with the patient/family/caregiver, care coordination, ordering medications, and obtaining a separately obtained history. Js Tobar DO Pulmonary and Critical Care Medicine 07/06/25 21:12 EDT CC: Bernie Louis APRN documented in this encounter Consult Notes * Debi Ann MD - 07/07/2025 9:15 AM EDTAssociated Order(s): IP CONSULT TO CARDIOLOGY [facility] CARDIOLOGY CONSULTATION NOTE Deirdre Ortez : 1960 Date of Admission:07/06/2025 Date of Consultation: 07/07/25 PCP: Bernie Louis APRN IDENTIFICATION: A 64 y.o. 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 Ortez is a 63 y/o female with hypothyroidism, hyperlipidemia, and new onset Afib with RVR who is seen in consultation today. She presented to [facility] yesterday with abrupt onset dizziness/ vertigo sensation, nausea/vomiting and palpitations. She was noted to be in Afibwith RVR on arrival there. [place]-Hallpike maneuver was performed twice with no improvement [...] MD 07/07/2025 4:24 AM EDT Workstation ID: [id number] Current Medications: aspirin, 325 mg, Oral, Daily [...] 2. Dizziness/ nausea/vomiting - per Neuro and retail business analyst - s/p TNKase 07/06 at OSH due to concern for potential CVA/TIA - MRI brain 07/06 with no acute infarct - Repeat CT head today pending 3. Hyperlipidemia - continue Crestor, LDL at goal 4. Hypothyroidism - TSH normal Await results of testing as above. Can likely d/c later today from a cardiology standpoint. Plan tore-establish with Dr. Bianchi in [place] for management of AF and consideration of [...] 8:03 AM EDTAssociated Order(s): IP CONSULT TO FURNITURE INSPECTOR Diabetes Education Patient Name: Deirdre Ortez Date [...] hypothyroidism, and new onset A-fib who presents [facility] via transfer from [facility] with complaints of severe dizziness, nausea/vomiting, gait [...] 150s. Her dizziness and gait instability significantlyworsened. [place]-Hallpike negative x 2. She became nauseated and [...] of possible stroke. She was transferred to [facility] for higher level of care and [...] in upper and lower extremities. Coordination Right: Igxvrw-wu-rzml normal. Rapid alternating movement normal. Qfko-aa-aoaq normal.Left: Cllszs-dw-wbga normal. Rapid alternating movement normal. Gcti-ip-yjjs normal. Gait Not observed. Physical Exam HENT: [...] TIME 1331 Time IV thrombolytic administered at [facility] Meds: Scheduled- [START ON 07/07/2025] aspirin, 325 mg, Oral, Daily Or [START ON 07/07/2025] aspirin, 300 mg, Rectal, Daily [START ON 07/07/2025] levothyroxine, 75 mcg, Oral, Q AM mupirocin, 1 Application, Each Nare, BID rosuvastatin, 40 mg, Oral, Nightly sodium chloride, 10 mL, Intravenous, Q12H Infusions- niCARdipine, 5-15 mg/hr PRNs- ??? sodium chloride ??? sodium chloride Functional Status Prior to Current Stroke/Dwarf Score: 0 NIH Stroke Scale Time:1510 Person [...] 10/25/2014 9:02 AM Narrative Patient: DEIRDRE ORTEZ [facility] Rec#: [id number] : 1960 Date: 10/25/2014 Age: 53y Height: 167.64 cm / 66.0 in Weight: 92.53 kg / 203.9 lbs Sex: F BSA: 2.02 Room#: [facility] Psychiatric Therapist: Felix Mendez [facility] Referring: RUFUS Reading: Jitendra Perez MD Primary: [...] (noted at OSH ED) who presents to [facility] via transfer from [facility] with complaints of severe dizziness, nausea/vomiting, gait [...] of possible stroke. She was transferred to [facility] for higher level of care and further stroke workup. Antiplatelet LAY OUT MACHINE OPERATOR: None Anticoagulant LAY OUT MACHINE OPERATOR: None #Possible posterior circulation TIA/stroke s/p TNK #Dizziness, gait instability, N/V ([place]-Hallpike negative x 2 @OSH) #New onset A-fib [...] Bedrest for 6 hours - N.p.o. - PT/OT/BEET TOPPER - Plan discussed with Dr. Langley OS [...] ambulating with RN and does not require cream ripener services. Recommend D/C home with assistance. Anticipated [...] Progress: (P) no change Anticipated Discharge Disposition (BEET TOPPER): (P) No further BEET TOPPER services warranted, other (see comments) (Contact BEET TOPPER for any concerns) BEET TOPPER Diagnosis: (P) functional speech/language skills, functional cognitive- linguistic skills (07/07/25 0930) Cosigned by Janet Martinez MS CCC-BEET TOPPER at 07/07/2025 11:36 AM EDT Associated attestation - Janet Martinez MS CCC-BEET TOPPER - 07/07/2025 11:36 AM EDT Janet Martinez MS CCC-BEET TOPPER * Ashly Toney RN - 07/06/2025 6:07 PM EDT Goal Outcome Evaluation: Plan of Care Reviewed With: patient Progress: improving documented in this encounter Miscellaneous Notes * Case Management/Social Work - Ragini Olguin RN - 07/07/2025 4:42 PM EDT Discharge Planning Assessment [facility] Patient Name: Deirdre Ortez Today's Date: [...] Plan yes Plan Comments I have met [facility] Ms. Ortez at the bedside today to initiate a discharge plan. She states that she is independent with activities of daily living and mobility. She denies use of DME and current receipt of home health/OP services. Ms. Ortez resides in a home in [facility] with her ex-spouse. She anticipates no discharge [...] Reason for Consult discharge planning Preferred Language [place] Contact Information Permission Granted to Share Info With correctional case records supervisormanager client service Status Row Name 07/07/25 1553 Functional Status, IADL Medications independent Meal Preparation independent Housekeeping independent Laundry independent Shopping independent Employment/ Employment Status retired Ragini Olguin, RN * Therapy Evaluation - Marie Cerrato, Speech Therapy Student - 07/07/2025 10:56 AM EDT Images from the original note were not included. Acute Care - Speech Language Pathology Initial Evaluation [facility] Cognitive-Communication Evaluation Patient Name: Deirdre Ortez : 1960 Today's Date: 07/07/2025 Admit Date: 07/06/2025 Visit Dx: No diagnosis found. 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 BEET TOPPER Diagnosis: (P) functional speech/language skills, functional cognitive- linguistic skills (07/07/25929) SLC Criteria for Skilled Therapy Interventions Met: (P) no problems identified which require skilled intervention (07/07/25929) Anticipated Discharge Disposition (BEET TOPPER): (P) No further BEET TOPPER services warranted, other (see comments) (Contact BEET TOPPER for any concerns) (07/07/25929) Therapy Frequency (BEET TOPPER SLC): (P) evaluation only (07/07/25929) Progress: (P) no change (07/07/25 1055) BEET TOPPER EVALUATION (Last 72 Hours) BEET TOPPER SLC Evaluation Row Name 07/07/25 7229 Communication Assessment/Intervention Document Type evaluation (P) -LS Subjective Information no complaints (P) -LS Patient Observations alert;cooperative (P) -LS Patient/Family/Caregiver Comments/Observations Dtr and ex- present (P) -LS Patient Effort good (P) -LS General Information Patient Profile Reviewed yes (P) -LS Pertinent History Of Current Problem Transfered from [facility] to [facility] for severe dizziness,nausea/emesis, gait instability, and heart palpatations. 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 BEET TOPPER consulted due to stroke protocol. MRI: no [...] (Voice) WFL (P) -LS Cognitive Assessment Intervention- BEET TOPPER Cognitive Function (Cognition) WFL (P) -LS Orientation Status (Cognition) person;place;time;situation;WFL (P) -LS Memory (Cognitive) simple;immediate;delayed;WFL (P) -LS Attention (Cognitive) WFL (P) -LS Thought Organization (Cognitive) mental manipulation;WFL (P) -LS Executive Function (Cognition) self-monitoring/correction;WFL (P) -LS BEET TOPPER Evaluation Clinical Impressions BEET TOPPER Diagnosis functional speech/language skills;functional cognitive-linguistic skills (P) -LS SLC Criteria for Skilled Therapy Interventions Met no problems identified which require skilled intervention (P) -LS Recommendations Therapy Frequency (BEET TOPPER SLC) evaluation only (P) -LS Anticipated Discharge Disposition (BEET TOPPER) No further BEET TOPPER services warranted;other (see comments) (P) Contact BEET TOPPER for any concerns -LS User Salgado (r) = Recorded By, (t) = Taken By, (c) = Cosigned By Initials Name Effective Dates Marie Ornelas, Speech Therapy Student 06/06/25 - EDUCATION The patient has been educated in the following areas: Cognitive Impairment Communication Impairment. Time Calculation: Time Calculation- BEET TOPPER Row Name 07/07/25 1056 Time Calculation- BEET TOPPER BEET TOPPER Start Time 0930 (P) -LS BEET TOPPER Received On 07/07/25 (P) -LS Untimed Charges 93659-HB Eval Speech and Production w/ Language Minutes 53 (P) -LS Total Minutes Untimed Charges Total Minutes 53 (P) -LS Total Minutes 53 (P) -LS User Salgado (r) = Recorded By, (t) = Taken By, (c) = Cosigned By Initials Name Provider Type Marie Ornelas, Speech Therapy Student BEET TOPPER Student Therapy Charges for Today Code Description Service Date Service Provider Modifiers Qty [id number] HC ST EVAL SPEECH AND PROD W LANG 4 07/07/2025 Marie Cerrato Speech Therapy StudentGN 1 Marie Christian Speech Therapy Student 07/07/2025 Cosigned by Janet Martinez MS CCC-BEET TOPPER at 07/07/2025 11:36 AM EDT Associated attestation - Janet Martinez MS CCC-BEET TOPPER - 07/07/2025 11:36 AM EDT Janet Martinez MS CCC-BEET TOPPER documented in this encounter Plan of Treatment [...] MD 07/07/2025 1:51 PM EDT Workstation ID: [id number] Narrative 07/07/2025 1:[address] HEAD [...] MD 07/07/2025 1:51 PM EDT Workstation ID: [id number] us Karlie Mcintyre CREDIT RISK MODELER IMG CT ORDERABLES Final Res ult * [...] in Inferior leads Confirmed by SOCORRO BLACK ([id number]) on 07/10/2025 7:21:24 AM Referred By: Confirmed By: SOCORRO BLACK Sita Grace PA-C ECG ORDERABLES Cora l Result BH ECG * (ABNORMAL) CBC Auto Differential (07/07/2025 3:12 AM EDT) WBC 10.62 3.40 - 10.80 10*3/mm3 07/07/2025 3:27 AM EDT [facility] RBC 4.52 3.77 - 5.28 10*6/mm3 07/07/2025 3:27 AM EDT [facility] Hemoglobin 13.6 12.0 - 15.9 g/dL 07/07/2025 3:27 AM EDT [facility] Hematocrit 41.0 34.0 - 46.6 % 07/07/2025 3:27 AM EDT [facility] MCV 90.7 79.0 - 97.0 fL 07/07/2025 3:27 AM EDT [facility] MCH 30.1 26.6 - 33.0 pg 07/07/2025 3:27 AM EDT [facility] MCHC 33.2 31.5 - 35.7 g/dL 07/07/2025 3:27 AM EDT [facility] RDW 13.7 12.3 - 15.4 % 07/07/2025 3:27 AM EDT [facility] RDW-SD 45.8 37.0 - 54.0 fl 07/07/2025 3:27 AM EDT [facility] MPV 10.8 6.0 - 12.0 fL 07/07/2025 3:27 AM EDT [facility] Platelets 227 140 - 450 10*3/mm3 07/07/2025 3:27 AM EDT [facility] Neutrophil % 62.6 42.7 - 76.0 % 07/07/2025 3:27 AM EDT [facility] Lymphocyte % 26.7 19.6 - 45.3 % 07/07/2025 3:27 AM EDT [facility] Monocyte % 9.7 5.0 - 12.0 % 07/07/2025 3:27 AM EDT [facility] Eosinophil % 0.2(L) 0.3 - 6.2 % 07/07/2025 3:27 AM EDT [facility] Basophil % 0.4 0.0 - 1.5 % 07/07/2025 3:27 AM EDT [facility] Immature Grans % 0.4 0.0 - 0.5 % 07/07/2025 3:27 AM EDT [facility] Neutrophils, Absolute 6.65 1.70 - 7.00 10*3/mm3 07/07/2025 3:27 AM EDT [facility] Lymphocytes, Absolute 2.84 0.70 - 3.10 10*3/mm3 07/07/2025 3:27 AM EDT [facility] Monocytes, Absolute 1.03(H) 0.10 - 0.90 10*3/mm3 07/07/2025 3:27 AM EDT [facility] Eosinophils, Absolute 0.02 0.00 - 0.40 10*3/mm3 07/07/2025 3:27 AM EDT [facility] Basophils, Absolute 0.04 0.00 - 0.20 10*3/mm3 07/07/2025 3:27 AM EDT [facility] Immature Grans, Absolute 0.04 0.00 - 0.05 10*3/mm3 07/07/2025 3:27 AM EDT [facility] nRBC 0.0 0.0 - 0.2 /100 WBC 07/07/2025 3:27 AM EDT [facility] Blood Venipuncture / Unknown 07/07/2025 3:12 AM EDT 07/07/2025 3:23 AM EDT us Jessica Oden CREDIT RISK MODELER LAB BLOOD ORDERABLES Final Result [facility]
[address] [place] [address], * Magnesium (07/07/2025 3:12 AM EDT) Magnesium 2.3 1.6 - 2.4 mg/dL 07/07/2025 3:43 AM EDT [facility] Blood Venipuncture / Unknown 07/07/2025 3:12 AM EDT 07/07/2025 3:23 AM EDT Jessica Oden APRN LAB BLOOD ORDERABLES Final Result Performing Organization Address City/[facility]/ZIP Co de Phone Number [facility]
[address] [place] [address], * Phosphorus (07/07/2025 3:12 AM EDT) Phosphorus 3.5 2.5 - 4.5 mg/dL 07/07/2025 3:43 AM EDT [facility] Blood Venipuncture / Unknown 07/07/2025 3:12 AM EDT 07/07/2025 3:23 AM EDT Jessica Oden CREDIT RISK MODELER LAB BLOOD ORDERABLES Final Result Performing Organization Address City/[facility]/ZIP Co de Phone Number [facility]
[address] [place] [address], * (ABNORMAL) Comprehensive Metabolic Panel (07/07/2025 3:12 AM EDT) Glucose 105(H) 65 - 99 mg/dL 07/07/2025 3:43 AM EDT [facility] BUN 10.5 8.0 - 23.0 mg/dL 07/07/2025 3:43 AM EDT [facility] Creatinine 0.72 0.57 - 1.00 mg/dL 07/07/2025 3:43 AM EDT [facility] Sodium 140 136 - 145 mmol/L 07/07/2025 3:43 AM EDT [facility] Potassium 3.6 3.5 - 5.2 mmol/L 07/07/2025 3:43 AM EDT [facility] Chloride 106 98 - 107 mmol/L 07/07/2025 3:43 AM [facility] CO2 22.8 22.0 - 29.0 mmol/L 07/07/2025 3:43 AM [facility] Calcium 9.6 8.6 - 10.5 mg/dL 07/07/2025 3:43 AM [facility] Total Protein 6.8 6.0 - 8.5 g/dL 07/07/2025 3:43 AM [facility] Albumin 4.2 3.5 - 5.2 g/dL 07/07/2025 3:43 AM [facility] ALT (SGPT) 18 1 - 33 U/L 07/07/2025 3:43 AM [facility] AST (SGOT) 23 1 - 32 U/L 07/07/2025 3:43 AM [facility] Alkaline Phosphatase 82 39 - 117 U/L 07/07/2025 3:43 AM [facility] Total Bilirubin 0.5 0.0 - 1.2 mg/dL 07/07/2025 3:43 AM [facility] Globulin 2.6 gm/dL 07/07/2025 3:43 AM [facility] Comment:Calculated Result A/G Ratio 1.6 g/dL 07/07/2025 3:43 AM [facility] BUN/Creatinine Ratio 14.6 7.0 - 25.0 07/07/2025 3:43 AM [facility] Anion Gap 11.2 5.0 - 15.0 mmol/L 07/07/2025 3:43 AM [facility] eGFR 92.3 >60.0 mL/min/1.7 3 07/07/2025 3:43 AM [facility] Blood Venipuncture / Unknown 07/07/2025 3:12 AM EDT 07/07/2025 3:23 AM [facility] - 07/07/2025 3:43 AM EDT GFR [...] as a factor us Jessica E Akshat CREDIT RISK MODELER LAB BLOOD ORDERABLES Final Result [facility]
[address] [place] [address], * (ABNORMAL) Lipid Panel (07/07/2025 3:12 AM EDT) Total Cholesterol 161 0 - 200 mg/dL 07/07/2025 3:43 AM EDT [facility] Triglycerides 89 0 - 150 mg/dL 07/07/2025 3:43 AM EDT [facility] HDL Cholesterol 71(H) 40 - 60 mg/dL 07/07/2025 3:43 AM EDT [facility] LDL Cholesterol 74 0 - 100 mg/dL 07/07/2025 3:43 AM EDT [facility] VLDL Cholesterol 16 5 - 40 mg/dL 07/07/2025 3:43 AM EDT [facility] LDL/HDL Ratio 1.02 07/07/2025 3:43 AM EDT [facility] Blood Venipuncture / Unknown 07/07/2025 3:12 AM EDT 07/07/2025 3:23 AM EDT [facility] - 07/07/2025 3:43 AM EDT [...] BLOOD ORDERABLES Final Result Performing Organization Address City/[facility]/ZIP Co de Phone Number [facility]
[address] [place] [address], * Hemoglobin A1c (07/07/2025 3:12 AM EDT) Hemoglobin A1C 5.52 4.80 - 5.60 % 07/07/2025 4:18 AM EDT [facility] Blood Venipuncture / Unknown 07/07/2025 3:12 AM EDT 07/07/2025 3:23 AM EDT Narrative [facility] - 07/07/2025 4:18 AM EDT Hemoglobin A1C Ranges: Increased Risk for Diabetes 5.7% to 6.4% Diabetes >= 6.5% Diabetic Goal < 7.0% us Karlie Mcintyre APRN LAB BLOOD ORDERABLES Final Result Performing Organization Address City/[facility]/ZIP Co de Phone Number [facility]
[address] [place] [address], * MRI Brain Without Contrast (07/06/2025 11:56 PM EDT) Anatomical Region Laterality Modality Head, Neck N/A Magnetic Resonan ce 07/07/2025 4:21 AM EDT Impressions 07/07/2025 4:24 AM EDT Impression: Chronic microvascular ischemia. No acute intracranial process. Electronically Signed: Arya Damian MD 07/07/2025 4:24 AM EDT Workstation ID: [id number] Narrative 07/07/2025 4:24 AM EDT MRI BRAIN [...] MD 07/07/2025 4:24 AM EDT Workstation ID: [id number] us Karlie E Francisco Javier MOSS IMG MRI ORDERABLES Final Re sult * POC Glucose Once (07/06/2025 5:34 PM EDT) Glucose 127 70 - 130 mg/dL 07/06/2025 5:36 PM EDT [facility] Comment:Serial Number: [id number] Blood 07/06/2025 5:34 PM EDT 07/06/2025 5:36 PM EDT Js Tobar DO POINT OF CARE TEST ORDERAB LES Final Result [facility]
[address] [place] [address], * (ABNORMAL) CBC Auto Differential (07/06/2025 5:07 PM EDT) Pathologist [facility] WBC 12.15(H) 3.40 - 10.80 10*3/mm3 07/06/2025 5:14 PM EDT [facility] RBC 4.68 3.77 - 5.28 10*6/mm3 07/06/2025 5:14 PM EDT [facility] Hemoglobin 13.8 12.0 - 15.9 g/dL 07/06/2025 5:14 PM EDT [facility] Hematocrit 41.8 34.0 - 46.6 % 07/06/2025 5:14 PM EDT [facility] MCV 89.3 79.0 - 97.0 fL 07/06/2025 5:14 PM EDT [facility] MCH 29.5 26.6 - 33.0 pg 07/06/2025 5:14 PM EDT [facility] MCHC 33.0 31.5 - 35.7 g/dL 07/06/2025 5:14 PM EDT [facility] RDW 13.5 12.3 - 15.4 % 07/06/2025 5:14 PM EDT [facility] RDW-SD 44.1 37.0 - 54.0 fl 07/06/2025 5:14 PM EDT [facility] MPV 11.2 6.0 - 12.0 fL 07/06/2025 5:14 PM EDT [facility] Platelets 218 140 - 450 10*3/mm3 07/06/2025 5:[facility] Neutrophil % 85.9(H) 42.7 - 76.0 % 07/06/2025 5:14 PM [facility] Lymphocyte % 10.5(L) 19.6 - 45.3 % 07/06/2025 5:14 PM [facility] Monocyte % 2.8(L) 5.0 - 12.0 % 07/06/2025 5:14 PM [facility] Eosinophil % 0.0(L) 0.3 - 6.2 % 07/06/2025 5:14 PM [facility] Basophil % 0.3 0.0 - 1.5 % 07/06/2025 5:14 PM [facility] Immature Grans % 0.5 0.0 - 0.5 % 07/06/2025 5:14 PM [facility] Neutrophils, Absolute 10.43(H) 1.70 - 7.00 10*3/mm3 07/06/2025 5:14 PM [facility] Lymphocytes, Absolute 1.28 0.70 - 3.10 10*3/mm3 07/06/2025 5:14 PM [facility] Monocytes, Absolute 0.34 0.10 - 0.90 10*3/mm3 07/06/2025 5:14 PM [facility] Eosinophils, Absolute 0.00 0.00 - 0.40 10*3/mm3 07/06/2025 5:14 PM [facility] Basophils, Absolute 0.04 0.00 - 0.20 10*3/mm3 07/06/2025 5:14 PM [facility] Immature Grans, Absolute 0.06(H) 0.00 - 0.05 10*3/mm3 07/06/2025 5:14 PM [facility] nRBC 0.0 0.0 - 0.2 /100 WBC 07/06/2025 5:14 PM EDT [facility] Blood Line / Unknown 07/06/2025 5: 07 PM EDT 07/06/2025 5:07 PM EDT Jessica Oden CREDIT RISK MODELER LAB BLOOD ORDERABLES Final Result Performing Organization Address City/[facility]/ZIP Co de Phone Number [facility]
[address] [place] [address], * Phosphorus (07/06/2025 5:07 PM EDT) Phosphorus 3.1 2.5 - 4.5 mg/dL 07/06/2025 5:44 PM EDT [facility] Blood Line / Unknown 07/06/2025 5: 07 PM EDT 07/06/2025 5:07 PM EDT Jessica Oden APRN LAB BLOOD ORDERABLES Final Result Performing Organization Address City/[facility]/ZIP Co de Phone Number [facility]
[address] [place] [address], * Magnesium (07/06/2025 5:07 PM EDT) Magnesium 2.2 1.6 - 2.4 mg/dL 07/06/2025 5:44 PM EDT [facility] Blood Line / Unknown 07/06/2025 5: 07 PM EDT 07/06/2025 5:07 PM EDT Jessica Oden CREDIT RISK MODELER LAB BLOOD ORDERABLES Final Result Performing Organization Address City/[facility]/ZIP Co de Phone Number [facility]
[address] [place] [address], * (ABNORMAL) Comprehensive Metabolic Panel (07/06/2025 5:07 PM EDT) [facility] Glucose 135(H) 65 - 99 mg/dL 07/06/2025 5:44 PM T [facility] BUN 11.7 8.0 - 23.0 mg/dL 07/06/2025 5:44 PM T [facility] Creatinine 0.69 0.57 - 1.00 mg/dL 07/06/2025 5:44 PM EDT [facility] Sodium 140 136 - 145 mmol/L 07/06/2025 5:44 PM EDT [facility] Potassium 3.8 3.5 - 5.2 mmol/L 07/06/2025 5:44 PM EDT [facility] Chloride 104 98 - 107 mmol/L 07/06/2025 5:44 PM EDT [facility] CO2 22.0 22.0 - 29.0 mmol/L 07/06/2025 5:44 PM EDT [facility] Calcium 9.1 8.6 - 10.5 mg/dL 07/06/2025 5:44 PM EDT [facility] Total Protein 6.9 6.0 - 8.5 g/dL 07/06/2025 5:44 PM T [facility] Albumin 4.3 3.5 - 5.2 g/dL 07/06/2025 5:44 PM EDT [facility] ALT (SGPT) 17 1 - 33 U/L 07/06/2025 5:44 PM T [facility] AST (SGOT) 22 1 - 32 U/L 07/06/2025 5:44 PM T [facility] Alkaline Phosphatase 94 39 - 117 U/L 07/06/2025 5:44 PM T [facility] Total Bilirubin 0.4 0.0 - 1.2 mg/dL 07/06/2025 5:44 PM T [facility] Globulin 2.6 gm/dL 07/06/2025 5:44 PM T [facility] Comment:Calculated Result A/G Ratio 1.7 g/dL 07/06/2025 5:44 PM EDT [facility] BUN/Creatinine Ratio 17.0 7.0 - 25.0 07/06/2025 5:44 PM EDT [facility] Anion Gap 14.0 5.0 - 15.0 mmol/L 07/06/2025 5:44 PM EDT [facility] eGFR 95.9 >60.0 mL/min/1.7 3 07/06/2025 5:44 PM EDT [facility] Blood Line / Unknown 07/06/2025 5: 07 PM EDT 07/06/2025 5:07 PM EDT Narrative [facility] - 07/06/2025 5:44 PM EDT GFR [...] Oden APRN LAB BLOOD ORDERABLES Final Result [facility]
[address] [place] [address], * T4, Free (07/06/2025 5:07 PM EDT) Free T4 1.53 0.92 - 1.68 ng/dL 07/06/2025 6:01 PM EDT [facility] Blood Line / Unknown 07/06/2025 5: 07 PM EDT 07/06/2025 5:07 PM EDT Jessica Oden APRN LAB BLOOD ORDERABLES Final Result [facility]
[address] [place] [address], [place] [phone] * TSH (07/06/2025 5:07 PM EDT) TSH 0.931 0.270 - 4.200 uIU/mL 07/06/2025 6:01 PM EDT [facility] Blood Line / Unknown 07/06/2025 5: 07 PM EDT 07/06/2025 5:07 PM EDT Jessica Gabriella Oden CREDIT RISK MODELER LAB BLOOD ORDERABLES Final Result [facility]
[address] [place] [address], * CT Outside Head (07/06/2025 4:29 PM [...] in Inferior leads Confirmed by DEBI ANN ([id number]) on 07/07/2025 8:41:10 AM Referred By: Confirmed [...] in Inferior leads Confirmed by DEBI ANN ([id number]) on 07/07/2025 8:41:10 AM Referred By: Confirmed By: DEBI ANN Jessica Oden CREDIT RISK MODELER ECG ORDERABLES Final Resul t BH ECG * CT Outside Chest (07/06/2025 4:28 PM EDT) Narrative SYSTEMGENERATED, DOCUMENTATION - 07/06/2025 4:28 PM EDT This procedure was auto-finalized with no dictation required. Karlie Mcintyre APRN IMG CT ORDERABLES Final Res ult * POC Glucose Once (07/06/2025 3:16 PM EDT) Glucose 115 70 - 130 mg/dL 07/06/2025 3:18 PM EDT [facility] Comment:Serial Number: [id number] Blood 07/06/2025 3:16 PM EDT 07/06/2025 3:18 PM EDT Omid Langley MD POINT OF CARE TEST ORDERABLE S Final Result [facility]
[address] [place] [address], documented in this encounter Visit Diagnoses Diagnosis [...] tablet 75 mcg 75 mcg, Oral, Every Database Tester, First dose on Thu07/07/25 at 0600, Take [...] with warm soapy water or use hand high density press operator. 3. Open the tube of mupirocin 2%. [...] use if patient is older than 65. ([facility]) Medication Applied 07/06/2025 4:43 PM EDT [...] tablet 75 mcg 75 mcg, Oral, Every Database Tester, First dose on Thu07/07/25 at 0600, Take [...] with warm soapy water or use hand high density press operator. 3. Open the tube of mupirocin 2%. [...] together and massage gently for 60 seconds. ([facility]) 1642 (Given - Provider: Ashly Toney [...] use if patient is older than 65. ([facility]) 1643 (Medication Applied - Provider: Ashly [...] 100mL/hr. documented in this encounter Care Teams Dairy Manager Relationship Specialty Start Date End Date Bernie Louis APRN [address] [place] [address] PCP - General Nurse Practitioner 07/06/25 documented as of this encounter
[2025-08-16 14:30] LABS: Free T4 (Free Thyroxine) 1.60 ng/dl (0.78-2.19)
[2025-08-16 14:44] LABS: Thyroid Stimulating Hormone 0.62 uIU/mL (0.465-4.68)
--- OUTSIDE RECORDS SUMMARY | 2025-08-17 14:24 | XMS_ITS | Encounter Summary ---
Author Organization [facility] Address [address] [place] [address] Care Team Providers Care Gear Finisher Name Role Phone Bernie Louis ISA Primary Care Provider [phone] Reason for Visit * Reason Onset Date Comments DR. BIANCHI - SCHEDULING REQUEST 07/10/2025 Encounter Details Date Type Department Care Team (Late st Contact Info) Description 07/10/2025 Telephone [facility] [address] [place] [address] Ronda Bianchi MD [address] [place] [address] DR. BIANCHI - SCHEDULING REQUEST Social History Tobacco Use Types Packs/Day Years Used Date Smoking Tobacco: Never Passive Smoke Exposure: Never Smokeless Tobacco: Never Alcohol Use Standard Drinks/Week Comments Never 0 (1 standard drink = 0.6 oz pur e alcohol) [facility] Utilities Answer Date Recorded In the past 12 months has [employer], gas, oil, or water [employer] threatened to shut off services in your [...] or training? Not on file Preferred Language Indonesian 07/07/2025 Comments Unknown Sex and Gender Information Value Date Recorded Sex Assigned at Not on file Legal Sex Female 1:48 PM EDT Gender Identity Not on file Sexual Orientation Not on file documented as of this encounter Miscellaneous Notes * Telephone Encounter - Georgette Mojica RegSched Rep - 07/10/2025 9:40 AM EDT Caller: Deirdre Chapman Relationship to patient: Self Best call back number: Telephone Information: Type of visit: HOSPITAL FOLLOW UP Requested date: 1 MONTH (08.07.25) Additional notes:PATIENT STATES SHE HAS SEEN DR. BIANCHI PREVIOUSLY. PLEASE RETURN PATIENT CALL WITHA GOOD DATE. documented in this encounter Plan of Treatment Not on file documented as of this encounter Visit Diagnoses Not on filedocumented in this encounter Care Teams Gear Finisher Relationship Specialty Start Date End Date Bernie Louis APRN [address] [place] [address] [place] [address] PCP - General Nurse Practitioner 07/06/25 documented as of this encounter
--- OUTSIDE RECORDS SUMMARY | 2025-08-17 14:24 | XMS_ITS | Clinical Summary ---
Author Organization Healthcare Address [address] [place] [address] Care Team Providers Care Passenger Representative Name Role Phone Sendy Moran MD Primary [...] [facility]-Bone Density Scan 1960 [facility]-Depression Screening 1960 [facility]-/Child/Adol SDOH Screenings 1960 [facility]- SDOH Screenings 1976 [facility]-Adult SDOH Screenings 1976 [facility]-DTaP,Tdap,and Td Vaccines (1 - Tdap) 1977 CT Colonography 2003 Colonoscopy 2003 FIT-DNA 2003 FIT 2003 FOBT 2003 Sigmoidoscopy 2003 [facility]-Colorectal Cancer Screening 2003 [facility]-Pneumococcal Vaccine: 50+ Years (1 of 1 - PCV) 2008 [facility]-Zoster Vaccines (1 of 2) 2008 EJA-ZLFFI-29 Vaccine (2023- season) 2025 [facility]-Influenza Vaccine (#1) [...] Narrative SUNQUEST - 10/15/2005 10:12 AM EST [facility] MR #: [id number] [facility] [place] [address] 1960 (Age: 44) FW Collect Date: 10/08/2005 00:00 Receipt Date: 10/09/2005 11:34 Page 1 DEPARTMENT OF PATHOLOGY AND LABORATORY MEDICINE CYTOPATHOLOGY REPORT Email: [email or web address] [phone] ATTENDING MD/Practitioner: Rishi Hahn [place] [facility] [place] [facility] Reported: 10/15/2005 10:12 Collected: 10/08/2005 00:00 INTERPRETATION THIN PREP (CERVICAL/VAGINAL): NEGATIVE FOR INTRAEPITHELIAL LESION OR MALIGNANCY. SATISFACTORY FOR EVALUATION; ENDOCERVICAL/ TRANSFORMATION ZONE COMPONENT PRESENT. Slide scanned and imaged by [employer] ThinPrep Imaging System with manual review of [...] results is suggested (please call Microbiology at [phone] for results). CLINICAL INFORMATION: Menstrual History: Cyclic Date of Last Menstrual Period: 09/12/05 Other Clinical Conditions: Per computer, patient has a history of previous abnormal pap: and bx 09/2003 If ASCUS and > 24 years of age, HPV/DNA testing requested. SPECIMEN DESCRIPTION: A: THIN PREP (CERVICAL/VAGINAL) THIN PREP PROCESS CELLULAR ENHANCEMENT ICD: 622.11 MILD DYSPLASIA OF CERVIX (NORMAN I) F: A; DX IMAGE [id number] SNOMED CODES: A; [id number] F11400 M-[id number] M-18285 In cases where a pathologist has signed out the report, the service has been rendered in part by a resident. The signing pathologist has performed and is responsible for the reported pathologic evaluation. Ni Washburn APRN LAB PATHOLOGY ORDERABLES [employer] from Last 3 Months or Most Recently Relevant to Health Maintenance Care Teams Passenger Representative Relationship Specialty Start Date End Date Sendy Moran MD [address] [place] [address] [address] [place] [id number] PCP - General 03/01/21
--- OUTSIDE RECORDS SUMMARY | 2025-08-17 14:25 | XMS_ITS | Encounter Summary ---
Author Organization [facility] Address [address] [place] [address] Care Team Providers Care Stave Saw Operator Name Role Phone Bernie Louis APRN Primary Care Provider [phone] Encounter Details Date Type Department Care Team (Latest Contact Info) Description 07/06/2025 Travel Social History Tobacco Use Types Packs/Day Years Used Date Smoking Tobacco: Never Passive Smoke Exposure: Never Smokeless Tobacco: Never Alcohol Use Standard Drinks/Week Comments Never 0 (1 standard drink = 0.6 oz pur e alcohol) [facility] Utilities Answer Date Recorded In the past 12 months has [employer], gas, oil, or water [employer] threatened to shut off services in your [...] or training? Not on file Preferred Language Mongolian 07/07/2025 Comments Unknown Sex and Gender Information Value Date Recorded Sex Assigned at Not on file Legal Sex Female 1:48 PM EDT Gender Identity Not on file Sexual Orientation Not on file documented as of this encounter Functional Status * Question Answer [...] 3:47 PM EDT Gabriella Toney, RN * [place] Suicide Severity Rating Scale (Screener/Recent Self-Report) Question Answer Date of Assessment Author 6. Suicidal Behavior (Lifetime) No 3:47 PM EDT Ashly Toney, RN documented as of this encounter Plan of Treatment Not on file documented as of this encounter Visit Diagnoses Not on filedocumented in this encounter Care Teams Stave Saw Operator Relationship Specialty Start Date End Date Bernie Louis APRN [address] [place] [address] PCP - General Nurse Practitioner 07/06/25 documented as of this encounter
--- OUTSIDE RECORDS SUMMARY | 2025-08-17 14:25 | XMS_ITS | Clinical Summary ---
Author Organization [facility] Address [address] [place] [address] Care Team Providers Care Transplant Immunologist Name Role Phone Bernie Louis APRN Primary Care Provider [phone] Allergies Active Allergy Reactions Criticality Noted Date Comments Cefdinir Anaphylaxis High 07/06/2025 Sulfur Confusion Medium 07/06/2025 Medications levothyroxine (SYNTHROID, LEVOTHROID) 75 MCG tablet Take 1 tablet by mouth Every Morning. Active rosuvastatin (CRESTOR) 40 MG tablet Take 1 tablet by mouth Every Night. 30 tablet 5 10:22 AM EDT 07/08/20 25 Active aspirin 81 MG chewable tablet Chew 1 tablet Daily. 30 tablet 07/09/20 25 Active apixaban (ELIQUIS) 5 MG tablet tabletIndications:A trial Fibrillation - requiring full anticoagulation Take 1 tablet by mouth Every 12 (Twelve) Hours. Indications: Atrial Fibrillation 60 tablet 5 10:22 AM EDT 07/08/20 25 Active metoprolol succinate XL (TOPROL-XL) 25 MG 24 hr tablet Take 0.5 tablets by mouth Daily. 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 WAESPE - SCHEDULING REQUEST 07/06/2025 3:16 PM EDT - 07/08/2025 11:35 AM EDT Hospital Encounter [facility] [address] [place] [address] Omid Langley MD Mitchell, Stephen T, DO Reddy, Mayuri V, MD Atrial fibrillation, unspecified type (Primary Dx); Transient ischemic attack (TIA) Discharge Disposition: Home or Self Care 07/06/2025 Travel from Last 3 Months Social History Tobacco Use Types Packs/Day Years Used Date Smoking Tobacco: Never Passive Smoke Exposure: Never Smokeless Tobacco: Never Tobacco Cessation:Counseling Given: No Alcohol Use Standard Drinks/Week Comments Never 0 (1 standard drink = 0.6 oz pur e alcohol) [facility] Utilities Answer Date Recorded In the past 12 months has [employer], gas, oil, or water [employer] threatened to shut off services in your [...] or training? Not on file Preferred Language Latvian 07/07/2025 Comments Unknown Sex and Gender Information [...] Mass Index 28.52 07/07/2025 12:11 PM EDT Plan of Treatment Health Maintenance Due Date Last Done Comments DXA SCAN 1960 COVID-19 Vaccine (#1) 1963 MAMMOGRAM 1998 COLON CANCER SCREENING 5 YEA R SIGMOIDOSCOPY [address] COLONOGRAPHY 2003 FECAL OCCULT BLOOD TEST 2003 FIT Testing (1 year) 2003 Pneumococcal Vaccine 50+ (1 of 1 - PCV) 2008 ZOSTER VACCINE (1 of 2) 2008 INFLUENZA VACCINE 05/19/2025 07/02/2018, 08/12/2017 ANNUAL WELLNESS VISIT 07/10/2025 HEPATITIS C SCREENING 07/10/2025 TDAP/TD VACCINES (2 - Td or Tdap) 12/15/2027 018 COLOGUARD 01/04/2028 01/03/2025, 07/20, 10/25/2019 COLORECTAL CANCER SCREENING 01/04/2028 Procedures Procedure Name Priority Date/Time Associated Diagnosis Comments CT HEAD WO CONTRAST Routine 07/07/2025 1 :31 PM EDT ECHO COMPLETE W/ DOPPLER AND COLOR FLOW Routine 07/07/2025 12:11 PM EDT ECG 12-LEAD Routine 07/07/2025 11:30 AM EDT CBC AND DIFFERENTIAL Routine 07/07/2025 3:12 AM EDT CBC WITH AUTO DIFFERENTIAL Routine 07/07/2025 3:12 AM EDT MAGNESIUM Routine 07/07/2025 3:12 AM EDT PHOSPHORUS Routine 07/07/2025 3:12 AM EDT COMPREHENSIVE METABOLIC PANEL Routine 07/07/2025 3:12 AM EDT LIPID PANEL Routine 07/07/2025 3:12 AM EDT HEMOGLOBIN A1C Routine 07/07/2025 3:12 AM EDT MRI BRAIN WO CONTRAST Routine 07/06/2025 11:56 PM EDT POCT GLUCOSE FINGERSTICK Routine 07/06/2025 5:34 PM EDT CBC AND DIFFERENTIAL Routine 07/06/2025 5:07 PM EDT CBC WITH AUTO DIFFERENTIAL Routine 07/06/2025 5:07 PM EDT PHOSPHORUS Routine 07/06/2025 5:07 PM EDT MAGNESIUM Routine 07/06/2025 5:07 PM EDT COMPREHENSIVE METABOLIC PANEL Routine 07/06/2025 5:07 PM EDT T4, FREE Routine 07/06/2025 5:07 PM EDT TSH Routine 07/06/2025 5:[address] OUTSIDE HEAD Routine 07/06/2025 4:[address] OUTSIDE HEAD Routine 07/06/2025 4:28 PM EDT ECG 12-LEAD STAT 07/06/2025 4:[address] OUTSIDE CHEST Routine 07/06/2025 4:28 PM EDT POCT GLUCOSE FINGERSTICK Routine 07/06/2025 3:16 PM EDT SCANNED EKG 07/06/2025 SCANNED - LABS 07/06/2025 SCANNED - IMAGING 07/06/2025 SCANNED - IMAGING 07/06/2025 SCANNED - IMAGING 07/06/2025 SCANNED - IMAGING 07/06/2025 from Last 3 Months Results * CT Head Without Contrast (07/07/2025 1:31 PM EDT) Anatomical Region Laterality Modality Head N/A Computed Tomogra phy 07/07/2025 1:50 PM EDT Impressions 07/07/2025 1:51 PM EDT Impression: 1.No acute intracranial abnormality identified. 2.Diffuse brain atrophy with chronic microvascular ischemic changes. Electronically Signed: Derek Deleon MD 07/07/2025 1:51 PM EDT Workstation ID: [id number] Narrative 07/07/2025 1:[address] HEAD [...] MD 07/07/2025 1:51 PM EDT Workstation ID: [id number] Karlie Mcintyre APRN IM CT ORDERABLES Final Res ult * ECHO [...] 20 mL of agitated saline was administered. Karlie Mcintyre APRN CV ECHO ORDERABLES Final Re sult * ECG 12 Lead Rhythm Change (07/07/2025 11:30 AM EDT) Only the most recent of2 resultswithin the time period is included. QT Interval 380 ms ECG QTC Interval [...] BLACK Sita Grace PA-C ECG ORDERABLES Cora newman Result ECG * (ABNORMAL) CBC Auto Differential (07/07/2025 3:12 AM EDT) Only the most recent of2 resultswithin the time period is included. WBC 10.62 3.40 - 10.80 10*3/mm3 07/07/2025 3:27 AM EDT [facility] RBC 4.52 3.77 - 5.28 10*6/mm3 07/07/2025 3:27 AM EDT [facility] Hemoglobin 13.6 12.0 - 15.9 g/dL 07/07/2025 3:27 AM EDT [facility] Hematocrit 41.0 34.0 - 46.6 % 07/07/2025 3:27 AM EDT [facility] MCV 90.7 79.0 - 97.0 fL 07/07/2025 3:27 AM EDT [facility] MCH 30.1 26.6 - 33.0 pg 07/07/2025 3:27 AM EDT [facility] MCHC 33.2 31.5 - 35.7 g/dL 07/07/2025 3:27 AM EDT [facility] RDW 13.7 12.3 - 15.4 % 07/07/2025 3:27 AM EDT [facility] RDW-SD 45.8 37.0 - 54.0 fl 07/07[facility]2025 [facility] MPV 10.8 6.0 - 12.0 fL 07/07/2025 3:[facility] Platelets 227 140 - 450 10*3/mm3 07/07/2025 3:27 AM EDT [facility] Neutrophil % 62.6 42.7 - 76.0 % 07/07/2025 3:[facility] Lymphocyte % 26.7 19.6 - 45.3 % 07/07/2025 3:[facility] Monocyte % 9.7 5.0 - 12.0 % 07/07/2025 3:27 AM EDT [facility] Eosinophil % 0.2(L) 0.3 - 6.2 % 07/07/2025 3:27 AM EDT [facility] Basophil % 0.4 0.0 - 1.5 % 07/07/2025 3:27 AM EDT [facility] Immature Grans % 0.4 0.0 - 0.5 % 07/07/2025 3:27 AM EDT [facility] Neutrophils, Absolute 6.65 1.70 - 7.00 10*3/mm3 07/07/2025 3:27 AM EDT [facility] Lymphocytes, Absolute 2.84 0.70 - 3.10 10*3/mm3 07/07/2025 3:27 AM EDT [facility] Monocytes, Absolute 1.03(H) 0.10 - 0.90 10*3/mm3 07/07/2025 3:27 AM EDT [facility] Eosinophils, Absolute 0.02 0.00 - 0.40 10*3/mm3 07/07/2025 3:27 AM EDT [facility] Basophils, Absolute 0.04 0.00 - 0.20 10*3/mm3 07/07/2025 3:27 AM EDT [facility] Immature Grans, Absolute 0.04 0.00 - 0.05 10*3/mm3 07/07/2025 3:27 AM EDT [facility] nRBC 0.0 0.0 - 0.2 /100 WBC 07/07/2025 3:27 AM EDT [facility] Blood Venipuncture / Unknown 07/07/2025 3:12 AM EDT 07/07/2025 3:23 AM EDT Jessica Oden APRN LAB BLOOD ORDERABLES Final Result [facility]
[address] [place] [address], * Phosphorus (07/07/2025 3:12 AM EDT) Only the most recent of2 resultswithin the time period is included. Phosphorus 3.5 2.5 - 4.5 mg/dL 07/07/2025 3:43 AM EDT [facility] Blood Venipuncture / Unknown 07/07/2025 3:12 AM EDT 07/07/2025 3:23 AM EDT Jessica Oden APRN LAB BLOOD ORDERABLES Final Result [facility]
[address] [place] [address], * Magnesium (07/07/2025 3:12 AM EDT) Only the most recent of2 resultswithin the time period is included. Magnesium 2.3 1.6 - 2.4 mg/dL 07/07/2025 3:43 AM EDT [facility] Blood Venipuncture / Unknown 07/07/2025 3:12 AM EDT 07/07/2025 3:23 AM EDT Jessica Oden APRN LAB BLOOD ORDERABLES Final Result Performing Organization Address City/[facility]/ZIP Co de Phone Number [facility]
[address] [place] [address], * Hemoglobin A1c (07/07/2025 3:12 AM EDT) [facility] Hemoglobin A1C 5.52 4.80 - 5.60 % 07/07/2025 4:18 AM EDT [facility] Blood Venipuncture / Unknown 07/07/2025 3:12 AM EDT 07/07/2025 3:23 AM EDT Narrative [facility] - 07/07/2025 4:18 AM EDT Hemoglobin A1C Ranges: Increased Risk for Diabetes 5.7% to 6.4% Diabetes >= 6.5% Diabetic Goal < 7.0% Karlie Mcintyre APRN LAB BLOOD ORDERABLES Final Result [facility]
[address] [place] [address], * (ABNORMAL) Lipid Panel (07/07/2025 3:12 AM EDT) Pathologist [facility] Total Cholesterol 161 0 - 200 mg/dL 07/07/2025 3:43 AM EDT [facility] Triglycerides 89 0 - 150 mg/dL 07/07/2025 3:43 AM EDT [facility] HDL Cholesterol 71(H) 40 - 60 mg/dL 07/07/2025 3:43 AM EDT [facility] LDL Cholesterol 74 0 - 100 mg/dL 07/07/2025 3:43 AM EDT [facility] VLDL Cholesterol 16 5 - 40 mg/dL 07/07/2025 3:43 AM EDT [facility] LDL/HDL Ratio 1.02 07/07/2025 3:43 AM EDT [facility] Blood Venipuncture / Unknown 07/07/2025 3:12 AM EDT 07/07/2025 3:23 AM EDT [facility] - 07/07/2025 3:43 AM EDT [...] Mcintyre APRN LAB BLOOD ORDERABLES Final Result [facility]
[address] [place] [address], * (ABNORMAL) Comprehensive Metabolic Panel (07/07/2025 3:12 AM EDT) Only the most recent of2 resultswithin the time period is included. Glucose 105(H) 65 - 99 mg/dL 07/07/2025 3:43 AM [facility] BUN 10.5 8.0 - 23.0 mg/dL 07/07/2025 3:43 AM [facility] Creatinine 0.72 0.57 - 1.00 mg/dL 07/07/2025 3:43 AM [facility] Sodium 140 136 - 145 mmol/L 07/07/2025 3:43 AM [facility] Potassium 3.6 3.5 - 5.2 mmol/L 07/07/2025 3:43 AM [facility] Chloride 106 98 - 107 mmol/L 07/07/2025 3:43 AM [facility] CO2 22.8 22.0 - 29.0 mmol/L 07/07/2025 3:43 AM [facility] Calcium 9.6 8.6 - 10.5 mg/dL 07/07/2025 3:43 AM [facility] Total Protein 6.8 6.0 - 8.5 g/dL 07/07/2025 3:43 AM [facility] Albumin 4.2 3.5 - 5.2 g/dL 07/07/2025 3:43 AM [facility] ALT (SGPT) 18 1 - 33 U/L 07/07/2025 3:43 AM [facility] AST (SGOT) 23 1 - 32 U/L 07/07/2025 3:43 AM [facility] Alkaline Phosphatase 82 39 - 117 U/L 07/07/2025 3:43 AM [facility] Total Bilirubin 0.5 0.0 - 1.2 mg/dL 07/07/2025 3:43 AM [facility] Globulin 2.6 gm/dL 07/07/2025 3:43 AM [facility] Comment:Calculated Result A/G Ratio 1.6 g/dL 07/07/2025 3:43 AM EDT [facility] BUN/Creatinine Ratio 14.6 7.0 - 25.0 07/07/2025 3:43 AM EDT [facility] Anion Gap 11.2 5.0 - 15.0 mmol/L 07/07/2025 3:43 AM EDT [facility] eGFR 92.3 >60.0 mL/min/1.7 3 07/07/2025 3:43 AM EDT [facility] Blood Venipuncture / Unknown 07/07/2025 3:12 AM EDT 07/07/2025 3:23 AM EDT Narrative [facility] - 07/07/2025 3:43 AM EDT GFR [...] include race as a factor Jessica Oden [facility] LAB BLOOD ORDERABLES Final Result [facility]
[address] [place] [address], * MRI Brain Without Contrast (07/06/2025 11:56 PM EDT) Anatomical Region Laterality Modality Head, Neck N/A Magnetic Resonan ce 07/07/2025 4:21 AM EDT Impressions 07/07/2025 4:24 AM EDT Impression: Chronic microvascular ischemia. No acute intracranial process. Electronically Signed: Arya Damian MD 07/07/2025 4:24 AM EDT Workstation ID: [id number] Narrative 07/07/2025 4:24 AM EDT MRI BRAIN [...] MD 07/07/2025 4:24 AM EDT Workstation ID: [id number] Karlie Mcintyre APRN IMG MRI ORDERABLES Final Re sult * POC Glucose Once (07/06/2025 5:34 PM EDT) Only the most recent of2 resultswithin the time period is included. Glucose 127 70 - 130 mg/dL 07/06/2025 5:36 PM EDT [facility] Comment:Serial Number: [id number] Blood 07/06/2025 5:34 PM EDT 07/06/2025 5:36 PM EDT us Js Tobar DO POINT OF CARE TEST ORDERAB LES Final Result Performing Organization Address [facility]/ZIP Co de Phone Number [facility]
[address] [place] [address], * TSH (07/06/2025 5:07 PM EDT) TSH 0.931 0.270 - 4.200 uIU/mL 07/06/2025 6:01 PM EDT [facility] Blood Line / Unknown 07/06/2025 5: 07 PM EDT 07/06/2025 5:07 PM EDT Jessica Oden APRN LAB BLOOD ORDERABLES Final Result Performing Organization Address [facility] Co de Phone Number [facility]
[address] [place] [address], [place] [phone] * T4, Free (07/06/2025 5:07 PM EDT) Free T4 1.53 0.92 - 1.68 ng/dL 07/06/2025 6:01 PM EDT [facility] Blood Line / Unknown 07/06/2025 5: 07 PM EDT 07/06/2025 5:07 PM EDT Jessica Oden APPIAN DEVELOPER LAB BLOOD ORDERABLES Final Result Performing Organization Address City/[facility] Co de Phone Number [facility]
[address] [place] [address], * CT Outside Head (07/06/2025 4:29 PM EDT) Only the most recent of2 resultswithin the time period is included. Narrative SYSTEMGENERATED, DOCUMENTATION - 07/06/2025 4:29 PM EDT This procedure was auto-finalized with no dictation required. Karlie Mcintyre APRN IMG CT ORDERABLES Final Res ult * CT Outside Chest (07/06/2025 4:28 PM EDT) Narrative SYSTEMGENERATED, DOCUMENTATION - 07/06/2025 4:28 PM EDT This procedure was auto-finalized with no dictation required. Karlie Mcintyre APPIAN DEVELOPER IMG CT ORDERABLES Final Res ult * ECG Scan (07/06/2025) Ronda Bianchi MD ECG ORDERABLES Final Result * IMAGING SCANNED (07/06/2025) Only the most recent of4 resultswithin the time period is included. Anatomical Region Laterality Modality Radiographic Eliza ging Ronda Bianchi MD IMG DIAGNOSTIC IMAGING ORDER ANGELINA Final Result * LABS SCANNED (07/06/2025) Ronda Bianchi MD LAB BLOOD ORDERABLES Final R esult from Last 3 Months Insurance [facility] MEDICARE ADVANTAGE SNP PPO [place] Member Subscriber Plan / Payer (Ef fective 2025-Present) Name:Deirdre Chapman Relation to Subscriber:Self Name:Deirdre Chapman Payer ID:[id number] Group ID:Not on file Type:Not on file Address: [address] MEDICAID B Advance Directives * CPR (Attempt to Resuscitate) (Latest Code Status on File) Date Activated Date Inactivated Comments 07/06/2025 3:41 PM 07/08/2025 1:35 PM Question Answer Comments Code Status (Patient has no pulse and is not breathing): CPR (Attempt to Resuscitate) Medical Interventions (Patie nt has pulse or is breathing): Full Support Care Teams Transplant Immunologist Relationship Specialty Start Date End Date Bernie Louis APRN [address] [place] [id number] PCP - General Nurse Practitioner 07/06/25
== END 2025-08-16 23:59 | disposition home or self-care (01) ==
LOC: LAB.DROPOF 08-17 14:15
PROVIDERS: Student in an Organized Health Care Education/Training Program; PCP Nurse Practitioner Family; Visit Provider Nurse Practitioner Family
DX: E06.3 Autoimmune thyroiditis (principal); N39.0 Urinary tract infection, site not specified
CPT/HCPCS: 84439; 84443; 87086

== ENCOUNTER → 2025-08-21 20:10 | Outpatient (CLI) | payer MEDICARE, MEDICAID, SELFPAY ==
--- OUTSIDE RECORDS SUMMARY | 2025-07-06 14:16 | XMS_ITS | Encounter Summary ---
Author Organization [facility] Address [address] [place] [address] Care Team Providers Care Director Telehealth Name Role Phone Bernie Louis APRN Primary Care Provider [phone] Reason for Referral * Consultation (Routine) - Pending Review Specialty Diagnoses / Procedures Referred By Aziza t Referred To Contact Neurology Diagnoses Transient ischemic attack (TIA) Procedures AR OFFICE/OUTPATIENT NEW MODERATE MDM 45 MINUTES Zainab Crump MD [address] [place] [address] Phone: tel: fax: Elizabeth Glez APRN [address] [place] [address] [address] [place] [address] Phone: tel: fax: Referral ID Status Reason Start Date Expiration Date Visits Requested Visits Authorized [id number] Pending Review Specialty Services Required 07/08/2025 10/07/2026 1 1 * Consultation (Routine) - Pending Review Specialty Diagnoses / Procedures Referred By Aziza t Referred To Contact Cardiology Diagnoses Atrial fibrillation, unspecified type Procedures AR OFFICE/OUTPATIENT NEW MODERATE MDM 45 MINUTES Zainab Crump MD [address] [place] [address] Phone: tel: fax: Debi Ann MD [address] [place] [address] Phone: tel: fax: Referral ID Status Reason Start Date Expiration Date Visits Requested Visits Authorized [id number] Pending Review Specialty Services Required 07/08/2025 10/07/2026 1 1 * MRI/CAT/PET Scan (Routine) - Pending Review Specialty Diagnoses / Procedures Referred By Contac t Referred To Contact Procedures CT Outside Head Karlie Mcitnyre APRN [address] [place] [address] Phone: tel: fax: Referral ID Status Reason Start Date Expiration Date V isits Requested Visits Authorized [id number] Pending Review 07/06/2025 10/05/2026 1 1 * MRI/CAT/PET Scan (Routine) - Pending Review Specialty Diagnoses / Procedures Referred By Contac t Referred To Contact Procedures CT Outside Head Karlie Mcintyre APRN [facility] [place] [address] Phone: tel: fax: Referral ID Status Reason Start Date Expiration Date V isits Requested Visits Authorized [id number] Pending Review 07/06/2025 10/05/2026 1 1 * MRI/CAT/PET Scan (Routine) - Pending Review Specialty Diagnoses / Procedures Referred By Contac t Referred To Contact Procedures CT Outside Chest Karlie Mcintyre APRN [address] [place] [address] Phone: tel: fax: Referral ID Status Reason Start Date Expiration Date V isits Requested Visits Authorized [id number] Pending Review 07/06/2025 10/05/2026 1 1 Reason for Visit * Auth/Cert Specialty Diagnoses / Procedures Referred By Aziza leyva Referred To Contact Diagnoses Cerebrovascular Accident (cva) Referral ID Status Reason Start Date Expiration Date Visits Re quested Visits Authorized [id number] 1 1 Encounter Details Date Type Department Care Team (Late st Contact Info) Description 07/06/2025 3:16 PM EDT - 07/08/2025 11:35 AM EDT Hospital Encounter [facility] [address]F [address] [place] [address] Omid Langley MD [address] [place], [place] [id number] Js Tobar DO [address] [place], [place] [id number] Zainab Crump MD [id number] [id number] Atrial fibrillation, unspecified type (Primary Dx); Transient ischemic attack (TIA) Discharge Disposition: Home or Self Care Social History Tobacco Use Types Packs/Day Years Used Date Smoking Tobacco: Never Passive Smoke Exposure: Never Smokeless Tobacco: Never Tobacco Cessation:Counseling Given: No Alcohol Use Standard Drinks/Week Comments Never 0 (1 standard drink = 0.6 oz pur e alcohol) [facility] Utilities Answer Date Recorded In the past 12 months has [employer], oil, or water [employer] threatened to shut off services in your home? No 07/07/2025 AUDIT-C Answer Date Recorded Q1: How often do you have a drink containing alcohol? Never 07/06/2025 Q2: How many drinks containi ng alcohol do you have on a typical day when you are drinking? Patient does not drink Q3: How often do you have si x or more drinks on one occasion? Never 07/06/2025 Abuse Screen Answer Date Recorded Feels Unsafe at Home or Work/School no 07/06/2025 Feels Threatened by Someone no 06/19 Does Anyone Try to Keep You From Having Contact with Others or Doing Things Outside Your Home? no 07/06/2025 Physical Signs of Abuse Present no 07/06/2025 Housing Stability Answer Date Recorded Current Living Arrangements home 06/19 Potentially Unsafe Housing Conditions none 07/07/2025 Family and Community Support Answer Jaiden e Recorded Help with Day-to-Day Activities Not on file 07/28/2023 Lonely or Isolated Not on file 07/28/2023 Employment Answer Date Recorded Do you want help finding or keeping work or a nasim b? Not on file 07/28/2023 Disabilities Answer Date Recorded Difficulty Concentrating, Remembering or Making Decisions no 07/06/2025 Difficulty Managing Errands Independently no 07/06/2025 Education Answer Date Recorded Help with school or training? Not on file Preferred Language Emirati 07/07/2025 Comments Unknown Sex and Gender Information Value Date Recorded Sex Assigned at Not on file Legal Sex Female 1:48 PM EDT Gender Identity Not on file Sexual Orientation Not on file documented as of this encounter Last Filed Vital Signs Vital Sign Reading Time Taken Comments Blood Pressure 111/73 07/08/2025 11:02 AM EDT Pulse 61 07/08/2025 11:02 AM EDT Temperature 36.7 C (98 F) 07/08/2025 11:02 AM EDT Respiratory Rate 16 07/08/2025 11:02 AM EDT Oxygen Saturation 99% 07/08/2025 11:02 AM EDT Inhaled Oxygen Concentration - - Weight 80.1 kg (176 lb 9.4 oz) 07/07/2025 12:11 PM EDT Height 167.6 cm (5' 5.98 ) 07/07/2025 12:11 PM E DT Body Mass Index 28.52 07/07/2025 12:11 PM EDT documented in this encounter Functional Status * Question Answer Date of Assessment Author 1. Wish to be (Past 1 Month) No 025 3:47 PM EDT Ashly Toney, RN 2. Non-Specific Active Suici michael Thoughts (Past 1 Month) No 07/06/2025 3:47 PM EDT Ashly Toney, RN * Calculated C-SSRS Risk Score (Lifetime/Recent) Answer Date of Assessment Author No Risk Indicated 07/06/2025 3:47 PM EDT Gabriella Toney, RN * [place] Suicide Severity Rating Scale (Screener/Recent Self-Report) Question Answer Date of Assessment Author 6. Suicidal Behavior (Lifetime) No 3:47 PM EDT Ashly Toney RN documented as of this encounter Discharge Summaries * Zainab Crump MD - 07/08/2025 9:22 AM EDT Images from the original note were not included. [facility] Medicine Services DISCHARGE SUMMARY Patient Name: Deirdre Ortez : 1960 Date of Admission: 07/06/2025 3:16 PM Date of Discharge: 07/08/25 Primary Care Physician: Bernie Louis APRN Consults Date and Time Order Name Status Description 07/06/2025 4:19 PM Inpatient Cardiology Consult Completed 07/06/2025 3:10 PM Inpatient Neurology Consult Stroke Hospital Course Presenting Problem: dizziness, N/V, heart palpitations Active Hospital Problems Diagnosis POA ??? Transient ischemic attack (TIA) [G45.9] Yes ??? Atrial fibrillation, new onset [I48.91] Yes ??? Dyslipidemia [E78.5] Yes ??? 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 Dizziness [R42] 07/08/2025 Yes Hospital Course: Deirdre Ortez is a 64 y.o. 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 Transferred from [facility] for stroke evaluation. Was found to be in new onset Afib with RVR with rates in 150s at the OSH. CT head andCTA head/neck showed no acute findings. Was given TNK at OSH and transferred to [facility] ICU. Stroke Neurology evaluated the patient. MRI brain showed no acute findings. Echo unremarkable. A repeat CT head at 24 hours was unremarkable, no hemorrhage. Symptoms resolved and she converted back to NSR. Seenby Cardiology as well. Started on Metoprolol. She will be started on Eliquis 5 mg BID and continue on ASA 81 mg and increased dose of rosuvastatin 40 mg daily. Stable for discharge home today. Discharge Follow Up Recommendations for outpatient labs/diagnostics: F/U with PCP 1 week F/U with Cardiology/Dr. Ann in 4 weeks F/U with Stroke Neurology in 4-6 weeks Ambulatory referrals placed for both Cardiology and Neurology Day of Discharge HPI: Seen this morning. No complaints. Eager for discharge home. Review of Systems Gen-no fevers, no chills CV-no chest pain, no palpitations Resp-no cough, no dyspnea GI-no N/V/D, no abd pain Vital Signs: Temp: [97.8 ??F (36.6 ??C)-98.3 ??F (36.8 ??C)] 98.3 ??F (36.8 ??C) Heart Rate: [55-80] 77 Resp: [16-18] 16 BP: (96-119)/(57-71) 117/66 Physical Exam: Gen-no acute distress HENT-NCAT, mucous membranes moist CV-RRR, S1 S2 normal, no m/r/g Resp-CTAB, no wheezes or rales Neuro-A&Ox3, no focal deficits Psych-appropriate mood Pertinent and/or Most Recent Results LAB RESULTS: Lab 07/07/2531107/06/25 170 WBC 10.62 12.15* HEMOGLOBIN 13.6 13.8 HEMATOCRIT 41.0 41.8 PLATELETS 227 218 NEUTROS ABS 6.65 10.43* IMMATURE GRANS (ABS) 0.04 0.06* LYMPHS ABS 2.84 1.28 MONOS ABS 1.03* 0.34 EOS ABS 0.02 0.00 MCV 90.7 89.3 Lab 07/07/25 0312 07/06/25 1707 SODIUM 140 140 POTASSIUM 3.6 3.8 CHLORIDE 106 104 CO2 22.8 22.0 ANION GAP 11.2 14.0 BUN 10.5 11.7 CREATININE 0.72 0.69 EGFR 92.3 95.9 GLUCOSE 105* 135* CALCIUM 9.6 9.1 MAGNESIUM 2.3 2.2 PHOSPHORUS 3.5 3.1 HEMOGLOBIN A1C 5.52 -- TSH -- 0.931 Lab 07/07/25 0312 07/06/25 1707 TOTAL PROTEIN 6.8 6.9 ALBUMIN 4.2 4.3 GLOBULIN 2.6 2.6 ALT (SGPT) 18 17 AST (SGOT) 23 22 BILIRUBIN 0.5 0.4 ALK PHOS 82 94 Lab 07/07/25 0312 CHOLESTEROL 161 LDL CHOL 74 HDL CHOL 71* TRIGLYCERIDES 89 Brief Urine Lab Results None Microbiology Results (last 10 days) No results found for the last [address] Head Without Contrast Result Date: 07/07/2025 CT HEAD WO CONTRAST Date of Exam: 07/07/2025 1:27 PM EDT Indication: Stroke, follow up 24 hour post TNK, suspected posterior circulation stroke 24 Hours Post Thrombolytic Administration. Comparison: MRI brain dated 07/06/2025 Technique: Axial CT images were obtained of the head without contrast administration. Automated exposure control and iterative construction methods were used. Findings: The ventricles are normal in size and midline. Diffuse brain atrophy with chronic microvascular ischemic changes There is no diffusion restriction to suggest acute infarct. There is no evidence of acute or chronic intracranial hemorrhage. No mass effect or midline shift. No abnormal extra-axial collections . The major vascular flow voids appear intact. The basal ganglia, brainstem and cerebellum appear within normal limits. Calvarial and superficial soft tissue signal is within normal limits. Orbits appear unremarkable. The paranasal sinuses and the mastoid air cells appear well aerated. Midline structures are intact. Impression: 1.No acute intracranial abnormality identified. 2.Diffuse brain atrophy with chronic microvascular ischemic changes. Electronically Signed: Derek Deleon MD 07/07/2025 1:51 PM EDT Workstation ID: [id number] MRI Brain Without Contrast Result Date: 07/07/2025 MRI BRAIN WO CONTRAST Date of Exam: 07/06/2025 11:28 PM EDT Indication: Stroke, follow up suspected posterior circulation stroke. Comparison: CT head 07/06/2025 Technique: Routine multiplanar/multisequence sequence images of the brain were obtained without contrast administration. Findings: There areareas of increased T2 and FLAIR signal throughout the bilateral periventricular white matter consistent with chronic microvascular ischemia. There is no mass, mass effect or midline shift. There are no abnormal extra-axial fluid collections or areas of acute hemorrhage. The major intracranial flow voids are preserved. The diffusion weighted sequences are normal. The paranasal sinuses and mastoid air cells are clear. The orbital structures are normal. Impression: Chronic microvascular ischemia. No acute intracranial process. Electronically Signed: Arya Damian MD 07/07/2025 4:24 AM EDT Workstation ID: [id number] CT Outside Head Result Date: 07/06/2025 This procedure was auto-finalized with no dictation required. CT Outside Head Result Date: 07/06/2025 This procedure was auto-finalized with no dictation required. CT Outside Chest Result Date: 07/06/2025 This procedure was auto-finalized with no dictation required. Results for orders placed during the hospital encounter of 07/06/25 Adult Transthoracic Echo Complete W/ Cont if Necessary Per Protocol (With Agitated Saline) 07/07/2025 12:21 PM Interpretation Summary ??? Left ventricular systolic function is normal. Calculated left ventricular EF = 64.6% Normal left ventricular cavity size and wall thickness noted. All left ventricular wall segments contract normally. Left ventricular diastolic function was normal. ??? Normal right ventricular cavity size, wall thickness, systolic function and septal motion noted. ??? Normal left atrial size and volume noted. Saline test results are negative. ??? The mitral valve is structurally normal with no regurgitation or significant stenosis present. I have personally reviewed the therapy plans: [x] PT/OT/ ST Therapy Plans Discharge Details Discharge Medications New Medications Instructions Start Date apixaban 5 MG tablet tablet Commonly known as: ELIQUIS 5 mg, Oral, Every 12 Hours Scheduled aspirin 81 MG chewable tablet 81 mg, Oral, Daily Start Date: July 09, 2025 metoprolol succinate XL 25 MG 24 hr tablet Commonly known as: TOPROL-XL 12.5 mg, Oral, Every 24 Hours Scheduled Start Date: July 09, 2025 Changes to Medications Instructions Start Date rosuvastatin 40 MG tablet Commonly known as: CRESTOR What changed: medication strength how much to take when to take this 40 mg, Oral, Nightly Continue These Medications Instructions Start Date levothyroxine 75 MCG tablet Commonly known as: SYNTHROID, LEVOTHROID 75 mcg, Oral, Every Clinical Research Associate Allergies Allergen Reactions ??? Cefdinir Anaphylaxis ??? Sulfur Confusion Discharge Disposition: Home or Self Care Diet: Hospital: Diet Order Procedures ??? Diet: Cardiac; Healthy Heart (2-3 Na+); Texture: Regular (IDDSI 7); Fluid Consistency: Thin (IDDSI 0) Standing Status: Standing Number of Occurrences: 1 Diets:: Cardiac Cardiac Diet:: Healthy Heart (2-3 Na+) Texture:: Regular (IDDSI 7) Fluid Consistency:: Thin (IDDSI 0) Diet Instructions Diet: Cardiac Diets; Healthy Heart (2-3 Na+); Regular (IDDSI 7); Thin (IDDSI 0) Discharge Diet: Cardiac Diets Cardiac Diet: Healthy Heart (2-3 Na+) Texture: Regular (IDDSI 7) Fluid Consistency: Thin (IDDSI 0) Activity: Activity Instructions Activity as Tolerated CODE STATUS: Code Status and Medical Interventions: CPR (Attempt to Resuscitate); Full Support Ordered at: 07/06/25 3260 Code Status (Patient has no pulse and is not breathing): CPR (Attempt to Resuscitate) Medical Interventions (Patient has pulse or is breathing): Full Support No future appointments. Additional Instructions for the Follow-ups that You Need to Schedule Ambulatory Referral to Neurology As directed Stroke Clinic in 4-6 weeks please Order Comments: Stroke Clinic in 4-6 weeks please Discharge Follow-up with PCP As directed Currently Documented PCP: Bernie Louis APRN PCP Follow Up Details: 1 week Zainab Crump MD 07/08/25 Time Spent on Discharge: I spent 32 minutes on this discharge activity which included: [id number] with the patient, reviewing the data in the system, coordination of the care with the nursing staff as well as consultants, documentation, and entering orders. * Zoila Gold PT - 07/07/2025 11:05 AM EDT Patient Name: Deirdre Ortez : 1960 Today's Date: 07/07/2025 Admit Date: 07/06/2025 Visit Dx: No diagnosis found. 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 Dizziness Past Medical History: Diagnosis Date Disease of thyroid gland Elevated cholesterol History of transfusion Past Surgical History: Procedure Laterality Date TONSILLECTOMY General Information [facility] Name 07/07/25 1526 Physical Therapy Time and Intention Document Type discharge evaluation/summary -KG Mode of Treatment physical therapy -KG Row Name 07/07/25 1526 General Information Patient Profile Reviewed yes -KG Prior Level of Function independent:;all household mobility;gait;transfer;ADL's;dressing;bathing -KG Existing Precautions/Restrictions no known precautions/restrictions -KG Barriers to Rehab medically complex -KG Row Name 07/07/25 1526 Living Environment Current Living Arrangements home -KG People in Home spouse -KG Row Name 07/07/25 1526 Home Main Entrance Number of Stairs, Main Entrance one -KG Stair Railings, Main Entrance none -KG [facility] Name 07/07/25 1526 Stairs Within Home, Primary Number of Stairs, Within Home, Primary twelve -KG Stair Railings, Within Home, Primary railing on right side (ascending) -KG [facility] Name 07/07/25 1526 Cognition Orientation Status (Cognition) oriented x 4 -KG User Salgado (r) = Recorded By, (t) = Taken By, (c) = Cosigned By Initials Name Provider Type KG Zoila Gold N, PT Physical Therapist Mobility [facility] Name 07/07/25 1527 Bed Mobility Bed Mobility supine-sit;sit-supine -KG Supine-Sit [place] (Bed Mobility) modified independence -KG Sit-Supine [place] (Bed Mobility) modified independence -KG Assistive Device (Bed Mobility) head of bed elevated -KG Comment, (Bed Mobility) Pt demonstrated appropriate sequencing and technique. -KG [facility] Name 07/07/25 152 Transfers Comment, (Transfers) Pt demonstrated appropriate sequencing and safety awareness. -KG Row Name 07/07/25 1527 Sit-Stand Transfer Sit-Stand [place] (Transfers) independent -KG [facility] 07/07/25 1527 Gait/Stairs (Locomotion) [place] Level (Gait) supervision -KG Distance in Feet (Gait) 300 -KG Deviations/Abnormal Patterns (Gait) stride length decreased -KG [place] Level (Stairs) stand by assist -KG Number of Steps (Stairs) 10 -KG Ascending Technique (Stairs) [id number] -KG Descending Technique (Stairs) [id number] -KG Comment, (Gait/Stairs) Pt ambulated 300ft with supervision demonstrating good balance and stabilitywith appropriate gait speed. Pt navigated 10 steps with SBA and one handrail. Pt demonstrated good balance and coordination with appropriate sequencing. Pt denied any c/o pain with mobility. -KG User Salgado (r) = Recorded By, (t) = Taken By, (c) = Cosigned By Initials Name Provider Type Zoila Loyola PT Physical Therapist Obj/Interventions [facility] 07/07/25 1528 Range of Motion Comprehensive General Range of Motion no range of motion deficits identified -KG Comment, General Range of Motion B LE WFL -KG [facility] Name 07/07/25 1528 Strength Comprehensive (MMT) Comment, General Manual Muscle Testing (MMT) Assessment B LE grossly 4+/5 -KG [facility] Name 07/07/25 1528 Balance Balance Assessment sitting static balance;standing static balance;standing dynamic balance -KG Static Sitting Balance independent -KG Position, Sitting Balance unsupported;sitting edge of bed -KG Static Standing Balance supervision -KG Dynamic Standing Balance supervision -KG Position/Device Used, Standing Balance unsupported -KG [facility] 07/07/25 1528 Sensory Assessment (Somatosensory) Sensory Assessment (Somatosensory) LE sensation intact -KG User Salgado (r) = Recorded By, (t) = Taken By, (c) = Cosigned By Initials Name Provider Type KG Zoila Gold, PT Physical Therapist Goals/Plan No documentation. Clinical Impression [facility] 07/07/25 1529 Pain Pretreatment Pain Rating 0/10 - no pain -KG Posttreatment Pain Rating 0/10 - no pain -KG [facility] 07/07/25 1529 Plan of Care Review Plan of Care Reviewed With patient -KG Outcome Evaluation PT initial evaluation completed. Pt ambulated 300ft with supervision and navigated 10 steps with SBA. Pt demonstrated good balance and stability throughout all mobility. At this time pt is safe to continue ambulating with RN and does not require midlevel provider services. Recommend D/Chome with assistance. -KG [facility] Name 07/07/25 1529 Therapy Assessment/Plan (PT) Patient/Family Therapy Goals Statement (PT) return to PLOF -KG Criteria for Skilled Interventions Met (PT) no;no problems identified which require skilled intervention -KG Therapy Frequency (PT) evaluation only -KG [facility] 07/07/25 1529 Vital Signs Pre Systolic BP Rehab 106 -KG Pre Treatment Diastolic BP 64 -KG Post Systolic BP Rehab 116 -KG Post Treatment Diastolic BP 62 -KG Pretreatment Heart Rate (beats/min) 75 -KG Posttreatment Heart Rate (beats/min) 71 -KG Pre SpO2 (%) 98 -KG O2 Delivery Pre Treatment room air -KG Post SpO2 (%) 97 -KG O2 Delivery Post Treatment room air -KG Pre Patient Position Supine -KG Intra Patient Position Standing -KG Post Patient Position Supine -KG Row Name 07/07/25 1529 Positioning and Restraints Pre-Treatment Position in bed -KG Post Treatment Position bed -KG In Bed notified nsg;supine;call light within reach;encouraged to call for assist;exit alarm on;withfamily/caregiver;side rails up x2 -KG User Salgado (r) = Recorded By, (t) = Taken By, (c) = Cosigned By Initials Name Provider Type Zoila Loyola, PT Physical Therapist Outcome Measures Row Name 07/07/25152907/07/25 0800 How much help from another person do you currently need... Turning from your back to your side while in flat bed without using bedrails? 4 -KG 4 -CM Moving from lying on back to sitting on the side of a flat bed without bedrails? 4 -KG 4 -CM Moving to and from a bed to a chair (including a wheelchair)? 4 -KG 4 -CM Standing up from a chair using your arms (e.g., wheelchair, bedside chair)? 4 - KG 4 -CM Climbing 3-5 steps with a railing? 3 -KG 4 -CM To walk in hospital room? 4 -KG 4 -CM AM-PAC 6 Clicks Score (PT) 23 -KG 24 -CM Highest Level of Mobility Goal Walk 25 Feet or More-7 -KG Walk 250 Feet or More - 8 -CM Row Name 07/07/25152907/07/25 1153 Modified [place] Scale Pre-Stroke Modified [place] Scale 6 - Unable to determine (UTD) from the medical record documentation -KG 6 - Unable to determine (UTD) from the medical record documentation -KF Modified [place] Scale 0 - No Symptoms at all. -KG 0 - No Symptoms at all. -KF Row Name 07/07/25152907/07/25 1153 Functional Assessment Outcome Measure Options AM-PAC 6 Clicks Basic Mobility (PT);Modified Michael -KG AM-PAC 6 Clicks Daily Activity (OT);Modified [place] -KF User Salgado (r) = Recorded By, (t) = Taken By, (c) = Cosigned By Initials Name Provider Type Vielka Burgos, RN Registered Nurse KG Zoila Gold, PT Physical Therapist KF Oanh Hunt, OT Occupational Therapist Physical Therapy Education Title: PT OT CHIEF AIRLINE RADIO OPERATOR Therapies (In Progress) Topic: Physical Therapy (In Progress) Point: Mobility training (Done) Learning Progress Summary Patient Acceptance, E, VU,DU by KG at 07/07/2025 110 Point: Home exercise program (Not Started) Learner Progress: Not documented in this visit. Point: Body mechanics (Done) Learning Progress Summary Patient Acceptance, E, VU,DU by KG at 07/07/2025 110 Point: Precautions (Done) Learning Progress Summary Patient Acceptance, E, VU,DU by KG at 07/07/20251104 User Salgado Initials Effective Dates Name Provider Type Discipline KG 03/09/20 - Zoila Gold, PT Physical Therapist PT PT Recommendation and Plan Recommended discharge disposition is based on the functional assessment performed by PT/OT/Speech therapy (as applicable) and may not reflect the medical necessity determined by your provider or services covered by an individual patient's insurance plan or patient resource. Therapy Frequency (PT): evaluation only Outcome Evaluation: PT initial evaluation completed. Pt ambulated 300ft with supervision and navigated 10 steps with SBA. Pt demonstrated good balance and stability throughout all mobility. At this time pt is safe to continue ambulating with RN and does not require midlevel provider services. Recommend D/C home with assistance. Time Calculation: PT Evaluation Complexity History, PT Evaluation Complexity: 3 or more personal factors and/or comorbidities Examination of Body Systems (PT Eval Complexity): total of 3 or more elements Clinical Presentation (PT Evaluation Complexity): evolving Clinical Decision Making (PT Evaluation Complexity): moderate complexity Overall Complexity (PT Evaluation Complexity): moderate complexity PT Charges Row Name 07/07/251104 Time Calculation Start Time 1105 -KG PT Received On 07/07/25 -KG Untimed Charges PT Eval/Re-eval Minutes 46 -KG Total Minutes Untimed Charges Total Minutes 46 -KG Total Minutes 46 -KG User Salgado (r) = Recorded By, (t) = Taken By, (c) = Cosigned By Initials Name Provider Type KG Zoila Gold, PT Physical Therapist Therapy Charges for Today Code Description Service Date Service Provider Modifiers Qty [id number] HC PT EVAL MOD COMPLEXITY 4 07/07/2025 Zoila Gold, PT GP 1 PT G-Codes Outcome Measure Options: AM-PAC 6 Clicks Basic Mobility (PT), Modified [place] AM-PAC 6 Clicks Score (PT): 23 AM-PAC 6 Clicks Score (OT): 24 Modified [place] Scale: 0 - No Symptoms at all. PT Discharge Summary Anticipated Discharge Disposition (PT): home with assist Reason for Discharge: At baseline function Outcomes Achieved: Refer to plan of care for updates on goals achieved Lizzy Gold, PT 07/07/2025 * Oanh Hunt, OT - 07/07/2025 10:59 AM EDT Images from the original note were not included. Acute Care - Occupational Therapy Discharge [facility] Patient Name: Deirdre Ortez : 1960 Today's Date: 07/07/2025 Admit Date: 07/06/2025 Visit Dx: No diagnosis found. 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 Pt is active at baseline. -KF Existing Precautions/Restrictions no known precautions/restrictions -KF Barriers to Rehab medically complex -KF Row Name 07/07/25 1150 Living Environment Current Living Arrangements home -KF People in Home spouse -KF Row Name 07/07/25 1150 Home Main Entrance Number of Stairs, Main Entrance none -KF Stair Railings, Main Entrance none - Row Name 07/07/25 1150 Stairs Within Home, Primary Stairs, Within Home, Primary Pt's primary bed/bathroom are on the second floor. -KF Number of Stairs, Within Home, Primary twelve -KF Row Name 07/07/25 1150 Cognition Orientation Status (Cognition) oriented x 4 - Row Name 07/07/25 1150 Safety Issues/Impairments Affecting Functional Mobility Safety Issues Affecting Function (Mobility) other (see comments) None identified -KF Impairments Affecting Function (Mobility) other (see comments) None identified -KF User Salgado (r) = Recorded By, (t) = Taken By, (c) = Cosigned By Initials Name Provider Type KF Oanh Hunt OT Occupational Therapist Mobility/ADL's Row Name 07/07/25 1150 Bed Mobility Bed Mobility supine-sit;sit-supine -KF Supine-Sit [place] (Bed Mobility) modified independence - Sit-Supine [place] (Bed Mobility) independent - Row Name 07/07/25 1150 Transfers Transfers sit-stand transfer;stand-sit transfer;toilet transfer - Row Name 07/07/25 1150 Sit-Stand Transfer Sit-Stand [place] (Transfers) independent - Comment, (Sit-Stand Transfer) x1 from EOB, x1 from commode -[facility] Name 07/07/25 115 Stand-Sit Transfer Stand-Sit [place] (Transfers) independent -[facility] Name 07/07/25 1150 Toilet Transfer Type (Toilet Transfer) sit-stand;stand-sit - [place] Level (Toilet Transfer) independent - Assistive Device (Toilet Transfer) commode;grab bars/safety frame - Row Name 07/07/25 1150 Functional Mobility Functional Mobility- Ind. Level supervision required -KF Functional Mobility- Device other (see comments) no AD -KF Functional Mobility-Distance (Feet) -- >household distance -KF Patient was able to Ambulate yes - Row Name 07/07/25 115 Activities of Daily Living BADL Assessment/Intervention upper body dressing;grooming;toileting - Row Name 07/07/25 1150 Upper Body Dressing Assessment/Training [place] Level (Upper Body Dressing) don;doff;front opening garment;set up -KF Position (Upper Body Dressing) edge of bed sitting -KF Row Name 07/07/25 1150 Grooming Assessment/Training [place] Level (Grooming) wash face, hands;supervision -KF Position (Grooming) sink side;unsupported standing -KF [facility] Name 07/07/25 1150 Toileting Assessment/Training [place] Level (Toileting) adjust/manage clothing;perform perineal hygiene;independent -KF Assistive Devices (Toileting) commode;grab bar/safety frame -KF Position (Toileting) unsupported sitting -KF User Salgado (r) = Recorded By, (t) = Taken By, (c) = Cosigned By Initials Name Provider Type KF Oanh Hunt OT Occupational Therapist Obj/Interventions [facility] Name 07/07/25 1151 Sensory Assessment (Somatosensory) Sensory Assessment (Somatosensory) UE sensation intact -[facility] 07/07/25 1151 Vision Assessment/Intervention Visual Impairment/Limitations WFL -KF [facility] Name 07/07/25 1151 Range of Motion Comprehensive General Range of Motion bilateral upper extremity ROM WFL -KF [facility] 07/07/25 1151 Strength Comprehensive (MMT) General Manual Muscle Testing (MMT) Assessment no strength deficits identified -KF Comment, General Manual Muscle Testing (MMT) Assessment BUE grossly 5/5 -KF [facility] Name 07/07/25 1151 Motor Skills Motor Skills coordination -KF Coordination bilateral;upper extremity;fine motor deficit;WFL -KF [facility] 07/07/25 1151 Balance Balance Assessment sitting static balance;sitting dynamic balance;sit to stand dynamic balance;standing static balance;standing dynamic balance -KF Static Sitting Balance independent -KF Dynamic Sitting Balance independent -KF Position, Sitting Balance unsupported;sitting edge of bed;other (see comments) commode -KF Sit to Stand Dynamic Balance independent -KF Static Standing Balance supervision -KF Dynamic Standing Balance supervision -KF Position/Device Used, Standing Balance unsupported -KF Balance Interventions sitting;standing;sit to stand;static;dynamic;occupation based/functional task-KF User Salgado (r) = Recorded By, (t) = Taken By, (c) = Cosigned By Initials Name Provider Type KF Oanh Hunt OT Occupational Therapist Goals/Plan No documentation. Clinical Impression [facility] Name 07/07/25 1152 Pain Assessment Pretreatment Pain Rating 0/10 - no pain -KF Posttreatment Pain Rating 0/10 - no pain -KF Row Name 07/07/25 1152 Plan of Care Review Plan of Care Reviewed With patient -KF Outcome Evaluation OT evaluation completed. The pt presents near her functional baseline of independence during ADLs and functional mobility. Pt with no further need for IP OT services, OT will sign off. Rec a d/c home with assist when medically ready. - Row Name 07/07/25 1152 Therapy Assessment/Plan (OT) Criteria for Skilled Therapeutic Interventions Met (OT) no;no problems identified which require skilled intervention -KF Therapy Frequency (OT) evaluation only -KF Row Name 07/07/25 1152 Therapy Plan Review/Discharge Plan (OT) Anticipated Discharge Disposition (OT) home with assist - Row Name 07/07/25 1152 Vital Signs Pre Systolic BP Rehab 106 -KF Pre Treatment Diastolic BP 64 -KF Post Systolic BP Rehab 116 -KF Post Treatment Diastolic BP 62 -KF Pretreatment Heart Rate (beats/min) 72 -KF Posttreatment Heart Rate (beats/min) 67 -KF Pre SpO2 (%) 97 -KF O2 Delivery Pre Treatment room air -KF Post SpO2 (%) 100 -KF O2 Delivery Post Treatment room air -KF Pre Patient Position Supine -KF Intra Patient Position Standing -KF Post Patient Position Supine -KF Row Name 07/07/25 1152 Positioning and Restraints Pre-Treatment Position in bed -KF Post Treatment Position bed -KF In Bed notified nsg;supine;call light within reach;encouraged to call for assist;exit alarm on;withfamily/caregiver -KF User Salgado (r) = Recorded By, (t) = Taken By, (c) = Cosigned By Initials Name Provider Type Oanh Ly, OT Occupational Therapist Outcome Measures Row Name 07/07/25 1153 How much help from another is currently needed... Putting on and taking off regular lower body clothing? 4 -KF Bathing (including washing, rinsing, and drying) 4 -KF Toileting (which includes using toilet bed gunter or urinal) 4 -KF Putting on and taking off regular upper body clothing 4 -KF Taking care of personal grooming (such as brushing teeth) 4 -KF Eating meals 4 -KF AM-PAC 6 Clicks Score (OT) 24 -KF Row Name 07/07/25 0800 How much help from another person do you currently need... Turning from your back to your side while in flat bed without using bedrails? 4 -CM Moving from lying on back to sitting on the side of a flat bed without bedrails? 4 -CM Moving to and from a bed to a chair (including a wheelchair)? 4 -CM Standing up from a chair using your arms (e.g., wheelchair, bedside chair)? 4 -CM Climbing 3-5 steps with a railing? 4 -CM To walk in hospital room? 4 -CM AM-PAC 6 Clicks Score (PT) 24 -CM Row Name 07/07/25 1153 Modified [place] Scale Pre-Stroke Modified [place] Scale 6 - Unable to determine (UTD) from the medical record documentation - Modified Michael Scale 0 - No Symptoms at all. - Row Name 07/07/25 1153 Functional Assessment Outcome Measure Options AM-PAC 6 Clicks Daily Activity (OT);Modified Michael - User Salgado (r) = Recorded By, (t) = Taken By, (c) = Cosigned By Initials Name Provider Type Vielka Ingram, RN Registered Nurse Oanh Ly OT Occupational Therapist Occupational Therapy Education Title: PT OT CHIEF AIRLINE RADIO OPERATOR Therapies (In Progress) Topic: Occupational Therapy (In Progress) Point: ADL training (Done) Learning Progress Summary Patient Acceptance, E,TB, VU,DU by at 07/07/2025 1059 Point: Precautions (Done) Learning Progress Summary Patient Acceptance, E,TB, VU,DU by at 07/07/2025 1059 Point: Body mechanics (Done) Learning Progress Summary Patient Acceptance, E,TB, VU,DU by at 07/07/2025 1059 User Salgado Initials Effective Dates Name Provider Type Discipline 05/27/23 - Onah Hunt OT Occupational Therapist OT OT Recommendation and Plan Recommended discharge disposition is based on the functional assessment performed by PT/OT/Speech therapy (as applicable) and may not reflect the medical necessity determined by your provider or services covered by an individual patient's insurance plan or patient resource. Therapy Frequency (OT): evaluation only Plan of Care Review Plan of Care Reviewed With: patient Outcome Evaluation: OT evaluation completed. The pt presents near her functional baseline of independence during ADLs and functional mobility. Pt with no further need for IP OT services, OT will signoff. Rec a d/c home with assist when medically ready. Plan of Care Reviewed With: patient Outcome Evaluation: OT evaluation completed. The pt presents near her functional baseline of independence during ADLs and functional mobility. Pt with no further need for IP OT services, OT will signoff. Rec a d/c home with assist when medically ready. Time Calculation: Evaluation Complexity (OT) Review Occupational Profile/Medical/Therapy History Complexity: brief/low complexity Assessment, Occupational Performance/Identification of Deficit Complexity: 1-3 performance deficits Clinical Decision Making Complexity (OT): problem focused assessment/low complexity Overall Complexity of Evaluation (OT): low complexity Time Calculation- OT Row Name 07/07/25 1153 Time Calculation- OT OT Start Time 1059 -KF OT Received On 07/07/25 -KF Untimed Charges OT Eval/Re-eval Minutes 46 -KF Total Minutes Untimed Charges Total Minutes 46 -KF Total Minutes 46 -KF User Salgado (r) = Recorded By, (t) = Taken By, (c) = Cosigned By Initials Name Provider Type KF Oanh Hunt OT Occupational Therapist Therapy Charges for Today Code Description Service Date Service Provider Modifiers Qty [id number] OT EVAL LOW COMPLEXITY 4 07/07/2025 Oanh Hunt OT GO 1 OT Discharge Summary Anticipated Discharge Disposition (OT): home with assist Oanh Hunt OT 07/07/2025 documented in this encounter Discharge Instructions * Discharge Instructions* Sherlyn Hawkins APRN - 07/08/2025 10:01 AM EDT -Continue the following medications: Aspirin 81mg daily and Eliquis 5mg twice daily, rosuvastatin 40 mg nightly -Monitor blood pressure; goal less than 130/80. Please check daily and keep a log for your primary care provider and cardiology. -Increase physical activity as tolerated; goal exercise 30 minutes/day 3-5 times weekly if able -Heart healthy diet -Schedule follow-up with your primary care physician -Follow-up in the stroke clinic. You will be called with an appointment. -Follow-up with Dr. Bianchi as recommended. Further management of anticoagulation per cardiology. -Call 911 for stroke symptoms (unilateral weakness, unilateral numbness, vision loss/double vision,speech difficulty, trouble walking, sudden severe headache or headache with nausea/vomiting/confusion/or decreased level of consciousness) * Attachments The following attachments cannot be sent through Care Everywhere. * Stroke Prevention Wfao-er-Kcxo (Emirati) * Heart-Healthy Eating Plan (Emirati) * Fall Prevention in the Home Adult Lolm-qv-Pmna (Emirati) * Bleeding Precautions When on Anticoagulant Therapy Adult (Emirati) documented in this encounter Medications at Time of Discharge apixaban (ELIQUIS) 5 MG tablet tabletIndications:At ria Fibrillation - requiring full anticoagulation Take 1 tablet by mouth Every 12 (Twelve) Hours. Indications: Atrial Fibrillation 60 tablet 07/08/2025 10:22 AM EDT 5 aspirin 81 MG chewable tablet Chew 1 tablet Daily. 30 tablet 5 levothyroxine (SYNTHROID, LEVOTHROID) 75 MCG tablet Take 1 tablet by mouth Every Morning. metoprolol succinate XL (TOPROL-XL) 25 MG 24 hr tablet Take 0.5 tablets by mouth Daily. 15 tablet 07/08/2025 10:22 AM EDT 5 rosuvastatin (CRESTOR) 40 MG tablet Take 1 tablet by mouth Every Night. 30 tablet 07/08/2025 10:22 AM EDT 5 documented as of this encounter Progress Notes * Js Tobar, - 07/07/2025 1:11 PM EDT TESTER REGULATOR PROGRESS NOTE Hospital: LOS: 1 day Chief Complaint: Dizziness, nausea and vomiting Subjective Interval History: Overnight, there were no acute events. Patient reports improvement in her nausea with no vomiting episodes. She reports having good appetite and will eat this morning. Patient is walking with Occupational Therapy. Patient will have CT head 24 hours after TNK. The patient's relevant past medical, surgical and social history were reviewed and updated in [facility] as appropriate. Review of Systems Respiratory: Negative for cough, chest tightness, shortness of breath and wheezing. Cardiovascular: Negative for chest pain, palpitations and leg swelling. Gastrointestinal: Positive for nausea. Negative for abdominal pain and vomiting. Neurological: Negative for speech difficulty, weakness, light-headedness, numbness and headaches. ALL OTHER SYSTEMS REVIEWED AND ARE NEGATIVE. Objective Intake/Ouptut 24 hrs (7:00AM - 6:59 AM) Intake & Output (last 3 days) 07/04 0701 07/05 0707/05 0707/06 0707/06 0707/07 0707/07 0707/08 0700 P.O. 250 Total Intake(mL/kg) 250 (3.1) Urine (mL/kg/hr) 1000 Total Output 1000 Net -1000 +250 Urine Unmeasured Occurrence 3 x Medications (drips): niCARdipine Respiratory Support: Room air Physical Examination: Vital Signs: Blood pressure 98/57, pulse 75, temperature 97.9 ??F (36.6 ??C), temperature source Axillary, resp. rate 16, height 167.6 cm (65.98 ), weight 80.1 kg (176 lb 9.4 oz), SpO2 99%. Physical Exam Constitutional: Comments: Laying in bed in no acute distress HENT: Head: Normocephalic. Mouth/Throat: Mouth: Mucous membranes are moist. Eyes: Extraocular Movements: Extraocular movements intact. Pupils: Pupils are equal, round, and reactive to light. Cardiovascular: Rate and Rhythm: Normal rate and regular rhythm. Heart sounds: Normal heart sounds. No murmur heard. Pulmonary: Effort: Pulmonary effort is normal. No respiratory distress. Breath sounds: No wheezing, rhonchi or rales. Abdominal: General: Bowel sounds are normal. Palpations: Abdomen is soft. Tenderness: There is no abdominal tenderness. Musculoskeletal: Right lower leg: No edema. Left lower leg: No edema. Neurological: General: No focal deficit present. Mental Status: She is oriented to person, place, and time. Mental status is at baseline. Psychiatric: Mood and Affect: Mood normal. Lines, Drains & Airways Active LDAs Name Placement date Placement time Site Days Peripheral IV 07/07/25 0300 20 G Anterior;Distal;Right Forearm 07/07/25 0300 Forearm less than 1 Results from last 7 days Lab Units 07/07/25 0312 07/06/25 1707 WBC 10*3/mm3 10.62 12.15* HEMOGLOBIN g/dL 13.6 13.8 MCV fL 90.7 89.3 PLATELETS 10*3/mm3 227 218 Results from last 7 days Lab Units 07/07/25 0312 07/06/25 1707 SODIUM mmol/L 140 140 POTASSIUM mmol/L 3.6 3.8 CO2 mmol/L 22.8 22.0 CREATININE mg/dL 0.72 0.69 GLUCOSE mg/dL 105* 135* MAGNESIUM mg/dL 2.3 2.2 PHOSPHORUS mg/dL 3.5 3.1 Estimated Creatinine Clearance: 82 mL/min (by C-G formula based on SCr of 0.72 mg/dL). Results from last 7 days Lab Units 07/07/25 0312 07/06/25 1707 ALK PHOS U/L 82 94 BILIRUBIN mg/dL 0.5 0.4 ALT (SGPT) U/L 18 17 AST (SGOT) U/L 23 22 Images: MRI Brain Without Contrast Result Date: 07/07/2025 Impression: Chronic microvascular ischemia. No acute intracranial process. Electronically Signed: Arya Damian MD 07/07/2025 4:24 AM EDT Workstation ID: [id number] Results: Reviewed. - I reviewed the patient's new laboratory and imaging results. - I independently reviewed the patient's new images. Medications: Reviewed. 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 Neuro # Dizziness, Ataxia, Nausea, Vomiting - Concern for posterior circulation CVA despite negative CT scans - NIH 0 at presentation. Given TNK at OSH - MRIB (07/06) shows no acute intracranial abnormalities - TTE (07/07) shows LVEF 65% with no valvular abnormalities - CTH at 24 hour bebeto s/p TNK - Aspirin 81mg daily if CTH today is negative for hemorrhage - Crestor 40mg QHS - SBP goal <180 with Nicardipine as needed - IV Zofran PRN for nausea Cardiac # New onset Afib with RVR - CHADsVASC = 2 - Converted to normal sinus rhythm on 07/07 in the AM - Will start low dose Toprol today per cardiology - Eliquis 5 mg BID after CTH this afternoon Renal Creatinine at baseline of 0.6-0.7 with good UOP Replacing electrolytes as needed Endocrine # Hypothyroidism: Continue Synthroid 75 mcg each morning Checklist DVT PPX: SCD GI PPX: not indicated Diet: Full Liquid Diet CODE STATUS: FULL CODE Disposition: Transfer to floor after CTH High level of risk due to severe exacerbation of chronic illness and illness with threat to life orbodily function. I conducted multidisciplinary rounds in the plan of care was discussed with the multidisciplinary team at that time. In attendance at multidisciplinary rounds was clinical pharmacist, dietitian, nursing staff and case management. I discussed the patient's findings and my recommendations with patient and nursing staff I spent 32 minutes caring for Deirdre on this date of service. This time includes time spent by me inthe following activities: preparing for the visit, reviewing tests, performing a medically appropriate examination and/or evaluation, counseling and educating the patient/family/caregiver, referring and communicating with other health adult live in caregiver, documenting information in the medical record, independently interpreting results and communicating that information with the patient/family/caregiver, care coordination, ordering medications, and obtaining a separately obtained history. -- Js Tobar DO Pulmonary/Critical Care * Osmel-Alexander Grubsb MD - 07/07/2025 9:38 AM EDT Stroke Progress Note Chief Complaint: Dizziness Subjective Subjective Subjective: The patient is lying down in the bed in NAD. No family were at the bedside. The patient stated thatshe is doing better today compared to yesterday denies having any new stroke or strokelike symptoms. Stated that she continues to have some nausea. I have a detailed discussion with the patient regarding her imaging finding what could possibly explain her symptoms. We also discussed management planmoving forward. All patient's questions and concerns were answered. No other acute complains at this time Review of Systems Gastrointestinal: Nausea Objective Temp: [97.7 ??F (36.5 ??C)-98.4 ??F (36.9 ??C)] 97.9 ??F (36.6 ??C) Heart Rate: [63-124] 63 Resp: [14-18] 14 BP: (84-132)/(51-103) 98/57 Objective GEN: lying in bed; in NAD HENT: normocephalic, non-erythematous oropharynx NEURO: Mental Status: A&O x 3, interactive, able to follow commands Speech: Intact Articulation CN 2-12: II - PERRLA III, IV, - EOMI V - Facial sensation intact VII -no gross facial asymmetry VIII - Auditory acuity intact XII - Tongue protrudes midline Motor: The patient can move all 4 extremities against gravity with no drift appreciated Sensory: intact light touch throughout Coordination: no ataxia with [id number] testing Gait/Station: deferred Results Review: I reviewed the patient's new clinical results. WBC Date Value Ref Range Status 07/07/2025 10.62 3.40 - 10.80 10*3/mm3 Final RBC Date Value Ref Range Status 07/07/2025 4.52 3.77 - 5.28 10*6/mm3 Final Hemoglobin Date Value Ref Range Status 07/07/2025 13.6 12.0 - 15.9 g/dL Final Hematocrit Date Value Ref Range Status 07/07/2025 41.0 34.0 - 46.6 % Final MCV Date Value Ref Range Status 07/07/2025 90.7 79.0 - 97.0 fL Final MCH Date Value Ref Range Status 07/07/2025 30.1 26.6 - 33.0 pg Final MCHC Date Value Ref Range Status 07/07/2025 33.2 31.5 - 35.7 g/dL Final RDW Date Value Ref Range Status 07/07/2025 13.7 12.3 - 15.4 % Final RDW-SD Date Value Ref Range Status 07/07/2025 45.8 37.0 - 54.0 fl Final MPV Date Value Ref Range Status 07/07/2025 10.8 6.0 - 12.0 fL Final Platelets Date Value Ref Range Status 07/07/2025 227 140 - 450 10*3/mm3 Final Neutrophil % Date Value Ref Range Status 07/07/2025 62.6 42.7 - 76.0 % Final Lymphocyte % Date Value Ref Range Status 07/07/2025 26.7 19.6 - 45.3 % Final Monocyte % Date Value Ref Range Status 07/07/2025 9.7 5.0 - 12.0 % Final Eosinophil % Date Value Ref Range Status 07/07/2025 0.2 (L) 0.3 - 6.2 % Final Basophil % Date Value Ref Range Status 07/07/2025 0.4 0.0 - 1.5 % Final Immature Grans % Date Value Ref Range Status 07/07/2025 0.4 0.0 - 0.5 % Final Neutrophils, Absolute Date Value Ref Range Status 07/07/2025 6.65 1.70 - 7.00 10*3/mm3 Final Lymphocytes, Absolute Date Value Ref Range Status 07/07/2025 2.84 0.70 - 3.10 10*3/mm3 Final Monocytes, Absolute Date Value Ref Range Status 07/07/2025 1.03 (H) 0.10 - 0.90 10*3/mm3 Final Eosinophils, Absolute Date Value Ref Range Status 07/07/2025 0.02 0.00 - 0.40 10*3/mm3 Final Basophils, Absolute Date Value Ref Range Status 07/07/2025 0.04 0.00 - 0.20 10*3/mm3 Final Immature Grans, Absolute Date Value Ref Range Status 07/07/2025 0.04 0.00 - 0.05 10*3/mm3 Final nRBC Date Value Ref Range Status 07/07/2025 0.0 0.0 - 0.2 /100 WBC Final Lab Results Component Value Date GLUCOSE 105 (H) 07/07/2025 BUN 10.5 07/07/2025 CREATININE 0.72 07/07/2025 NA 140 07/07/2025 K 3.6 07/07/2025 CL 106 07/07/2025 CALCIUM 9.6 07/07/2025 PROTEINTOT 6.8 07/07/2025 ALBUMIN 4.2 07/07/2025 ALT 18 07/07/2025 AST 23 07/07/2025 ALKPHOS 82 07/07/2025 BILITOT 0.5 07/07/2025 GLOB 2.6 07/07/2025 AGRATIO 1.6 07/07/2025 BCR 14.6 07/07/2025 ANIONGAP 11.2 07/07/2025 EGFR 92.3 07/07/2025 MRI Brain Without Contrast Result Date: 07/07/2025 Impression: Chronic microvascular ischemia. No acute intracranial process. Electronically Signed: Arya Damian MD 07/07/2025 4:24 AM EDT Workstation ID: [id number] Results for orders placed during the hospital encounter of 10/25/14 CONVERTED (HISTORICAL) ECHO 10/25/2014 9:02 AM Narrative Patient: DEIRDRE ORTEZ Rec#: [id number] : 1960 Date: 10/25/2014 Age: 53y Height: 167.64 cm / 66.0 in Weight: 92.53 kg / 203.9 lbs Sex: F BSA: 2.02 Room#: [facility] OPT Multicultural Manager: Felix Mendez VANESA Referring: RUFUS Reading: Jitendra Perez MD Primary: Sendy Moran Transthoracic Echocardiogram Indication: Palpatations HR: 76 Conclusions 1. The estimated ejection fraction is 55-60%. 2. Abnormal left ventricular diastolic filling is observed, consistent with impaired relaxation. Findings Technical Comments: The study quality is good. Left Ventricle: The left ventricular chamber size is normal. Global left ventricular wall motion and contractility are within normal limits. There is normal left ventricular systolic function. The estimated ejection fraction is 55-60%. Abnormal left ventricular diastolic filling is observed, consistent with impaired relaxation. Left Atrium: The left atrial chamber size is normal. Right Ventricle: The right ventricular cavity size is normal. The right ventricular global systolic function is normal. Right Atrium: The right atrial cavity size is normal. No atrial septal defect is visualized. Aortic Valve: The aortic valve is trileaflet. There is no evidence of aortic regurgitation. There is no evidence of aortic stenosis. Mitral Valve: The mitral valve leaflets appear normal. There is no evidence of mitral valve prolapse. There is mild mitral regurgitation. There is no evidence of mitral stenosis. Tricuspid Valve: The tricuspid valve leaflets are normal. Pulmonic Valve: The pulmonic valve appears normal. Pericardium: There is no evidence of pericardial effusion. A pericardial fat pad is visualized. Aorta: There is no dilatation of the ascending aorta. There is no dilatation of the aortic arch. There is no dilatation of the aortic root. Pulmonary Artery: The main pulmonary artery appears normal. Venous: The venous system appears normal. Measurements Chambers Name Value RVIDd (AP) 2D 2.91 cm IVSd (2D) 0.7 cm LVIDd (2D) 4.84 cm LVIDs (2D) 3.44 cm LVPWd (2D) 0.93 cm EF (2D) 55.6 % Ao root diameter (2D) 2.6 cm LA dimension (AP) 2D 3.4 cm LA:Ao ratio (2D) 1.31 ratio -[facility] wo on 07/06/2025 images were personally reviewed and showed no acute ischemic or hemorrhagic stroke -CTA of the head and neck images from 07/06/2025 were personally reviewed and showed no flow limiting stenosis or LVO -MRI brain images from 07/06/2025 were personally reviewed and showed no ischemic or hemorrhagic stroke -Transthoracic echocardiogram is pending -A1c from 07/07/2025 was 5.52% -LDL from 07/07/2025 was 74 Assessment/Plan 64-year-old female with a PMH significant for 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 LKW 10 AM. She was noted to be in A-fib with RVR at the OSH. Initial NIH was 0. Per OSH MD, symptoms worsened with elevation in heart rate. CT head was negative for any acute findings. CTA H/N with no flow-limiting stenosis or LVO. Symptoms were felt to be disabling by the patient. She was given TNK. IV Lopressor given for elevation in heart rate. BP 154/104. Shewas not initially started on IV Cardizem due to risk of dropping her blood pressure quickly in the setting of possible stroke. She was transferred to [facility] for higher level of care and further stroke workup. Antiplatelet CLEANING ASSOCIATE: None Anticoagulant CLEANING ASSOCIATE: None #Dizziness, gait instability, N/V #New onset A-fib with RVR -Etiology of patient's symptoms could possibly represent TIA versus dizziness in the setting of A-fib with RVR and hypotension versus peripheral etiologies -[facility] wo on 07/06/2025 images were personally reviewed and showed no acute ischemic or hemorrhagic stroke -CTA of the head and neck images from 07/06/2025 were personally reviewed and showed no flow limiting stenosis or LVO -MRI brain images from 07/06/2025 were personally reviewed and showed no ischemic or hemorrhagic stroke -Transthoracic echocardiogram is pending -A1c from 07/07/2025 was 5.52% -LDL from 07/07/2025 was 74 Recommendations - TTE pending - 24-hour CT head @1330 on 07/07/2025 - Aspirin 81 mg daily if 24-hour CT head is negative for hemorrhage. - If cardiology is agreeable with Eliquis can consider Eliquis 5 mg twice daily - Rosuvastatin 40 mg nightly for secondary stroke prevention. Target LDL level of less than 70 - SBP less than 180. Less than 110. Nicardipine drip as needed. Management per primary team. 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 Please call for any further questions or concerns Alexander Iglesias MD, Msc, PhD Vascular Neurologist [facility] documented in this encounter H&P Notes * Js Tobar DO - 07/06/2025 4:45 PM EDT Intensive Care Admission Note Chief Complaint: Suspected cerebrovascular accident (CVA) History of Present Illness Deirdre Ortez is a 64 y.o. 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 At OSH, initial NIHSS was 0. She was found to be in atrial fibrillation with RVR in the 150s. Dizziness and gait instability worsened and she became nauseated and began vomiting. Rosy-Hallpike maneuver was performed twice and negative. CT head was negative for acute findings. CTA head/neck with no flow-limiting stenosis or LVO. She was deemed a candidate for TNK, which was administered after administration of IV Lopressor to elevated blood pressure (154/104). She is seen in the ICU on arrival. NIHSS remains 0. She is still nauseated and dizzy. No other complaints. Atrial fibrillation on the monitor. She denies history of atrial fibrillation, but has felt her heart fluttering before today. She reports she was diagnosed with an unspecified arrhythmia 20years ago, but it was skipped beats. Currently asymptomatic. Split share visit. LITIGATION PARALEGAL Time: I spent 10 minutes. Jessica Oden, LITIGATION PARALEGAL Problem List, Surgical History, Family, Social History, and ROS Past Medical History: Diagnosis Date ??? Disease of thyroid gland ??? Elevated cholesterol ??? History of transfusion Past Surgical History: Procedure Laterality Date ??? TONSILLECTOMY Allergies Allergen Reactions ??? Cefdinir Anaphylaxis ??? Sulfur Confusion No current facility-administered medications on file prior to encounter. Current Outpatient Medications on File Prior to Encounter Medication Sig ??? fluconazole (DIFLUCAN) 150 MG tablet TAKE 1 TABLET BY MOUTH EVERY 3 DAYS FOR 2 DOSES ??? rosuvastatin (CRESTOR) 10 MG tablet Take 1 tablet by mouth every night at bedtime. MEDICATION LIST AND ALLERGIES REVIEWED. History reviewed. No pertinent family history. Social History Tobacco Use ??? Smoking status: Never Passive exposure: Never ??? Smokeless tobacco: Never Vaping Use ??? Vaping status: Never Used Substance Use Topics ??? Alcohol use: Never ??? Drug use: Never Social History Social History Narrative ??? Not on file FAMILY AND SOCIAL HISTORY REVIEWED. Review of Systems Respiratory: Negative for cough, chest tightness, shortness of breath and wheezing. Cardiovascular: Negative for chest pain, palpitations and leg swelling. Gastrointestinal: Positive for nausea. Negative for abdominal pain and vomiting. Neurological: Positive for dizziness and light-headedness. Negative for speech difficulty, weaknessand headaches. ALL OTHER SYSTEMS REVIEWED AND ARE NEGATIVE. Physical Exam and Clinical Information BP 108/77 Pulse 110 Temp 98.4 ??F (36.9 ??C) Resp 18 Ht 167.6 cm (66 ) Wt 80.1 kg (176 lb9.4 oz) SpO2 94% BMI 28.50 kg/m?? Physical Exam Constitutional: Comments: Laying in bed in no acute distress HENT: Mouth/Throat: Mouth: Mucous membranes are moist. Eyes: Extraocular Movements: Extraocular movements intact. Pupils: Pupils are equal, round, and reactive to light. Cardiovascular: Rate and Rhythm: Tachycardia present. Rhythm irregular. Heart sounds: Normal heart sounds. No murmur heard. Pulmonary: Effort: Pulmonary effort is normal. No respiratory distress. Breath sounds: No wheezing, rhonchi or rales. Abdominal: General: Bowel sounds are normal. Palpations: Abdomen is soft. Tenderness: There is no abdominal tenderness. Musculoskeletal: Right lower leg: No edema. Left lower leg: No edema. Neurological: General: No focal deficit present. Mental Status: She is oriented to person, place, and time. Mental status is at baseline. Results from last 7 days Lab Units 07/06/25 1707 WBC 10*3/mm3 12.15* HEMOGLOBIN g/dL 13.8 PLATELETS 10*3/mm3 218 Results from last 7 days Lab Units 07/06/25 1707 SODIUM mmol/L 140 POTASSIUM mmol/L 3.8 CO2 mmol/L 22.0 BUN mg/dL 11.7 CREATININE mg/dL 0.69 MAGNESIUM mg/dL 2.2 PHOSPHORUS mg/dL 3.1 GLUCOSE mg/dL 135* Estimated Creatinine Clearance: 85.6 mL/min (by C-G formula based on SCr of 0.69 mg/dL). No results found for: LACTATE I reviewed the patient's results/ images and I agree with the reports. 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 Given TNK at OSH - Remains Dizzy. Received IV Zofran. 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 This time includes time spent by me inthe following activities: preparing for the visit, reviewing tests, performing a medically appropriate examination and/or evaluation, counseling and educating the patient/family/caregiver, referring and communicating with other health adult live in caregiver, documenting information in the medical record, independently interpreting results and communicating that information with the patient/family/caregiver, care coordination, ordering medications, and obtaining a separately obtained history. Js Tobar DO Pulmonary and Critical Care Medicine 07/06/25 21:12 EDT CC: Bernie Louis APRN documented in this encounter Consult Notes * Debi Ann MD - 07/07/2025 9:15 AM EDTAssociated Order(s): IP CONSULT TO CARDIOLOGY [facility] CARDIOLOGY CONSULTATION NOTE Deirdre Ortez : 1960 Date of Admission:07/06/2025 Date of Consultation: 07/07/25 PCP: Bernie Louis APRN IDENTIFICATION: A 64 y.o. 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 Ortez is a 63 y/o female with hypothyroidism, hyperlipidemia, and new onset Afib with RVR who is seen in consultation today. She presented to [facility] yesterday with abrupt onset dizziness/ vertigo sensation, nausea/vomiting and palpitations. She was noted to be in Afibwith RVR on arrival there. [address]-Hallpike maneuver was performed twice with no improvement and she was given TNK due to concern for possible CVA vs TIA. She was transferred to our hospital for further evaluation. Brain imaging negative, MRI head with no acute process. She converted to NSR this AM, she denies prior similar episode or symptoms. Denies any angina or PERALES, and no prior Afib history. Sheis active working in her garden without any concerns. ROS: All systems have been reviewed and are negative with the exception of those mentioned in the HPI and problem list above. Surgical History: Past Surgical History: Procedure Laterality Date TONSILLECTOMY Social History: Social History Socioeconomic History Marital status: Tobacco Use Smoking status: Never Passive exposure: Never Smokeless tobacco: Never Vaping Use Vaping status: Never Used Substance and Sexual Activity Alcohol use: Never Drug use: Never Sexual activity: Defer Family History: History reviewed. No pertinent family history. Objective BP 115/65 Pulse 75 Temp 97.9 ??F (36.6 ??C) (Axillary) Resp 14 Ht 167.6 cm (66 ) Wt 80.1 kg (176 lb 9.4 oz) SpO2 97% BMI 28.50 kg/m?? Intake/Output Summary (Last 24 hours) at 07/07/2025 0916 Last data filed at 07/06/2025 1900 Gross per 24 hour Intake -- Output 1000 ml Net -1000 ml PHYSICAL EXAM: CONSTITUTIONAL: Well nourished, cooperative, in no acute distress HEENT: Normocephalic, atraumatic, PERRLA, no JVD CARDIOVASCULAR: Regular rhythm and normal rate, no murmur, gallop, rub. RESPIRATORY: Clear to auscultation, normal respiratory effort, no wheezing, rales or rhonchi EXTREMITIES: No gross deformities, no edema. SKIN: Warm, dry. No bleeding, bruising or rash NEUROLOGICAL: No gross focal deficits, detailed exam per Neuro Labs/Diagnostic Data Results from last 7 days Lab Units 07/07/25 0312 07/06/25 1707 SODIUM mmol/L 140 140 POTASSIUM mmol/L 3.6 3.8 CHLORIDE mmol/L 106 104 CO2 mmol/L 22.8 22.0 BUN mg/dL 10.5 11.7 CREATININE mg/dL 0.72 0.69 GLUCOSE mg/dL 105* 135* CALCIUM mg/dL 9.6 9.1 Results from last 7 days Lab Units 07/07/25 0312 07/06/25 1707 WBC 10*3/mm3 10.62 12.15* HEMOGLOBIN g/dL 13.6 13.8 HEMATOCRIT % 41.0 41.8 PLATELETS 10*3/mm3 227 218 Results from last 7 days Lab Units 07/07/25 0312 MAGNESIUM mg/dL 2.3 Results from last 7 days Lab Units 07/07/25 0312 CHOLESTEROL mg/dL 161 TRIGLYCERIDES mg/dL 89 HDL CHOL mg/dL 71* LDL CHOL mg/dL 74 Results from last 7 days Lab Units 07/06/25 1707 TSH uIU/mL 0.931 FREE T4 ng/dL 1.53 Results from last 7 days Lab Units 07/07/25 0312 HEMOGLOBIN A1C % 5.52 I personally reviewed the patient's EKG/Telemetry data Radiology Data: MRI Brain Without Contrast Result Date: 07/07/2025 Impression: Chronic microvascular ischemia. No acute intracranial process. Electronically Signed: Arya Damian MD 07/07/2025 4:24 AM EDT Workstation ID: [id number] Current Medications: aspirin, 325 mg, Oral, Daily Or aspirin, 300 mg, Rectal, Daily levothyroxine, 75 mcg, Oral, Q AM mupirocin, 1 Application, Each Nare, BID rosuvastatin, 40 mg, Oral, Nightly Scopolamine, 1 patch, Transdermal, Q72H sodium chloride, 10 mL, Intravenous, Q12H niCARdipine, 5-15 mg/hr Assessment and Plan: 1. PAF with RVR - converted to NSR this AM, obtain EKG - CHADsVASC=2, recommend Eliquis 5mg BID when OK with neurology, head CT planned for later today - echo is pending - start Toprol daily and continue to monitor for recurrent Afib 2. Dizziness/ nausea/vomiting - per Neuro and sock turner - s/p TNKase 07/06 at OSH due to concern for potential CVA/TIA - MRI brain 07/06 with no acute infarct - Repeat CT head today pending 3. Hyperlipidemia - continue Crestor, LDL at goal 4. Hypothyroidism - TSH normal Await results of testing as above. Can likely d/c later today from a cardiology standpoint. Plan tore-establish with Dr. Bianchi in [place] for management of AF and consideration of sleep evaluation. Electronically signed by Sita Grace PA-C, 07/07/25, 10:17 AM EDT. I personally performed the services described in this documentation as scribed by the above named individual in my presence, and it is both accurate and complete. Sixto Ann MD 07/07/25 11:00 EDT * Radha Vasquez RN - 07/07/2025 8:03 AM EDTAssociated Order(s): IP CONSULT TO EMBEDDED PROCESSOR Diabetes Education Patient Name: Deirdre Ortez Date of : 1960 Admit Date: 07/06/2025 Pt does not meet criteria for diabetes education. Current A1c is 5.5 noted during chart review. Pt is on no home meds exclusively for diabetes and has no documented history of diabetes per H&P. Thank you. Electronically signed by: Radha Vasquez RN 07/07/25 08:03 EDT * Sherlyn Hawkins APRN - 07/06/2025 1:43 PM EDT Stroke Consult Note Patient Name: Deirdre Ortez Age: 64 y.o. 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 LKW 10 AM. Per OSH MD, the patient reported word a sudden onsetof heart palpitations and dizziness at approximately 10 AM. When she presented to the OSH ED, initial NIH was 0. She was noted to be in atrial fibrillation. Per OSH MD, she went into A-fib with RVR in the 150s. Her dizziness and gait instability significantlyworsened. [address]-Hallpike negative x 2. She became nauseated and began vomiting. OSH CT head was negative for any acute findings. OSH CTA H/N with no flow-limiting stenosis or occlusion noted. She was deemed to be a candidate for TNK. IV Lopressor given for elevation in heart rate. BP 154/104. She wasnot initially started on IV Cardizem due to risk of dropping her blood pressure quickly in the setting of possible stroke. She was transferred to [facility] for higher level of care and further stroke workup.. Last Known Normal Date/Time: 1000 EST Review of Systems Constitutional: Negative for chills and fever. HENT: Negative for congestion and trouble swallowing. Eyes: Negative for photophobia and visual disturbance. Respiratory: Negative for cough and shortness of breath. Gastrointestinal: Positive for nausea. Musculoskeletal: Positive for gait problem. Neurological: Positive for dizziness. Negative for speech difficulty, weakness, light-headedness, numbness and headaches. Past Medical History: Diagnosis Date ??? Disease of thyroid gland ??? Elevated cholesterol ??? History of transfusion Past Surgical History: Procedure Laterality Date ??? TONSILLECTOMY History reviewed. No pertinent family history. Social History Socioeconomic History ??? Marital status: Tobacco Use ??? Smoking status: Never Passive exposure: Never ??? Smokeless tobacco: Never Vaping Use ??? Vaping status: Never Used Substance and Sexual Activity ??? Alcohol use: Never ??? Drug use: Never ??? Sexual activity: Defer Allergies Allergen Reactions ??? Cefdinir Anaphylaxis ??? Sulfur Confusion Prior to Admission medications Not on File Neurological Exam Mental Status Alert. Oriented to person, place, time and situation. Speech is normal. Follows complex commands. Cranial Nerves CN II: Right visual acuity: Counts fingers. Left visual acuity: Counts fingers. CN III, IV, : Extraocular movements intact bilaterally. Pupils equal round and reactive to light bilaterally. CN V: Facial sensation is normal. CN VII: Full and symmetric facial movement. CN IX, X: Palate elevates symmetrically CN XI: Shoulder shrug strength is normal. CN XII: Tongue midline without atrophy or fasciculations. Motor Strength is 5/5 throughout all four extremities. Sensory Light touch is normal in upper and lower extremities. Coordination Right: [id number] normal. Rapid alternating movement normal. [id number]-[id number] normal.Left: Jlpbmt-sv-[id number] normal. Rapid alternating movement normal. Uyye-ee-[id number] normal. Gait Not observed. Physical Exam HENT: Head: Normocephalic and atraumatic. Eyes: Extraocular Movements: Extraocular movements intact. Pupils: Pupils are equal, round, and reactive to light. Cardiovascular: Rate and Rhythm: Tachycardia present. Rhythm irregular. Pulmonary: Effort: Pulmonary effort is normal. No respiratory distress. Musculoskeletal: Right lower leg: No edema. Left lower leg: No edema. Skin: General: Skin is warm and dry. Capillary Refill: Capillary refill takes less than 2 seconds. Neurological: Mental Status: She is alert. Motor: Motor strength is normal. Psychiatric: Speech: Speech normal. Acute Stroke Data Thrombolytic Inclusion / Exclusion Criteria Person Administering Scale: Sherlyn Hawkins APRN YES NO INCLUSION CRITERIA CLASS I [] [] Suspected diagnosis of acute ischemic stroke with measureable neurological deficit. Low NIHSS with disabling stroke symptoms. [] [] Onset of stroke symptoms < 3 hours before beginning treatment >/ 18 years old Stroke symptom onset = time patient was last seen well or without symptoms (LKW) [] [] Onset of symptoms between 3-4.5 hours: >/= 80 years old (safe Class IIa) with history of both diabetes and prior CVA (reasonable Class IIb) AND NIHSS </= 25 *If not eligible for IV Thrombolytic consider neuro intervention for LKW within 24 hours YES NO EXCLUSION CRITERIA (CONTRAINDICATIONS) CLASS III EVIDENCE HARM [] [] Blood pressure >185/110 medically refractory to IV medications [] [] Active bleeding at a non-compressible site [] [] Active intracranial hemorrhage (ICH) [] [] Symptoms suggestive of subarachnoid hemorrhage (SAH) [] [] GI bleed within 21 days [] [] Ischemic stroke within 3 months [] [] Severe head trauma within 3 months [] [] Intracranial or intraspinal surgery within 3 months [] [] Current GI malignancy [] [] Intracranial neoplasm [] [] Infective endocarditis [] [] Aortic arch dissection [] [] Active coagulopathy with INR >1.7, platelets <100,000, PTT > 40 sec, PT > 15 sec *For warfarin, administration can begin before blood tests resulted. Discontinue for above values. [] [] Treatment dose* of LMWH (Lovenox) in last 24 hours *prophylactic dosages are not a contraindication [] [] Concurrent use of antiplatelet agents' glycoprotein inhibitors IIb/IIIa (Integrilin, etc.) [] [] Thrombin or factor Xa inhibitors (Eliquis, Xarelto, Arixtra) taken in last 48 hours YES NO CLASS II: AIS WITH THE FOLLOWING CONDITIONS - TREATMENT RISKS SHOULD BE WEIGHED AGAINST POSSIBLE BENEFITS. [] [] Major trauma in last 14 days, recent major surgery in last 14 days, intracranial arterial dissection, giant unruptured and unsecured intracranial aneurysm, pericarditis [] [] The risks, benefits, and alternatives have been discussed with the patient or family related to the administration of IV thrombolytic therapy for stroke symptoms. [] [] I have discussed and reviewed the patient's case and imaging with the attending prior to IV thrombolytic therapy. TIME 1331 Time IV thrombolytic administered at [facility] Meds: Scheduled- [START ON 07/07/2025] aspirin, 325 mg, Oral, Daily Or [START ON 07/07/2025] aspirin, 300 mg, Rectal, Daily [START ON 07/07/2025] levothyroxine, 75 mcg, Oral, Q AM mupirocin, 1 Application, Each Nare, BID rosuvastatin, 40 mg, Oral, Nightly sodium chloride, 10 mL, Intravenous, Q12H Infusions- niCARdipine, 5-15 mg/hr PRNs- ??? sodium chloride ??? sodium chloride Functional Status Prior to Current Stroke/Maunie Score: 0 NIH Stroke Scale Time:1510 Person Administering Scale: Sherlyn Hawkins APRN 1a Level of consciousness: 0=alert; keenly responsive 1b. LOC questions: 0=Answers both questions correctly 1c. LOC commands: 0=Performs both tasks correctly 2. Best Gaze: 0=normal 3. Visual: 0=No visual loss 4. Facial Palsy: 0=Normal symmetric movement 5a. Motor left arm: 0=No drift, limb holds 90 (or 45) degrees for full 10 seconds 5b. Motor right arm: 0=No drift, limb holds 90 (or 45) degrees for full 10 seconds 6a. motor left le=No drift, limb holds 90 (or 45) degrees for full 10 seconds 6b Motor right le=No drift, limb holds 90 (or 45) degrees for full 10 seconds 7. Limb Ataxia: 0=Absent 8. Sensory: 0=Normal; no sensory loss 9. Best Language: 0=No aphasia, normal 10. Dysarthria: 0=Normal 11. Extinction and Inattention: 0=No abnormality Total: 0 Results Reviewed: I have personally reviewed current lab, radiology, and data and agree with results. Results for orders placed during the hospital encounter of 10/25/14 CONVERTED (HISTORICAL) ECHO 10/25/2014 9:02 AM Narrative Patient: DEIRDRE ORTEZ [facility] Rec#: [id number] : 1960 Date: 10/25/2014 Age: 53y Height: 167.64 cm / 66.0 in Weight: 92.53 kg / 203.9 lbs Sex: F BSA: 2.02 Room#: [facility] OPT Multicultural Manager: Felix Mendez [facility] Referring: RUFUS Reading: Jitendra Perez MD Primary: Sendy Moran Transthoracic Echocardiogram Indication: Palpatations HR: 76 Conclusions 1. The estimated ejection fraction is 55-60%. 2. Abnormal left ventricular diastolic filling is observed, consistent with impaired relaxation. Findings Technical Comments: The study quality is good. Left Ventricle: The left ventricular chamber size is normal. Global left ventricular wall motion and contractility are within normal limits. There is normal left ventricular systolic function. The estimated ejection fraction is 55-60%. Abnormal left ventricular diastolic filling is observed, consistent with impaired relaxation. Left Atrium: The left atrial chamber size is normal. Right Ventricle: The right ventricular cavity size is normal. The right ventricular global systolic function is normal. Right Atrium: The right atrial cavity size is normal. No atrial septal defect is visualized. Aortic Valve: The aortic valve is trileaflet. There is no evidence of aortic regurgitation. There is no evidence of aortic stenosis. Mitral Valve: The mitral valve leaflets appear normal. There is no evidence of mitral valve prolapse. There is mild mitral regurgitation. There is no evidence of mitral stenosis. Tricuspid Valve: The tricuspid valve leaflets are normal. Pulmonic Valve: The pulmonic valve appears normal. Pericardium: There is no evidence of pericardial effusion. A pericardial fat pad is visualized. Aorta: There is no dilatation of the ascending aorta. There is no dilatation of the aortic arch. There is no dilatation of the aortic root. Pulmonary Artery: The main pulmonary artery appears normal. Venous: The venous system appears normal. 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 LKW 10 AM. She was noted to be in A-fib with RVR at the OSH. Initial NIH was 0. Per OSH MD, symptoms worsened with elevation in heart rate. CT head was negative for any acute findings. CTA H/N with no flow-limiting stenosis or LVO. Symptoms were felt to be disabling by the patient. She was given TNK. IV Lopressor given for elevation in heart rate. BP 154/104. Shewas not initially started on IV Cardizem due to risk of dropping her blood pressure quickly in the setting of possible stroke. She was transferred to [facility] for higher level of care and further stroke workup. Antiplatelet CLEANING ASSOCIATE: None Anticoagulant CLEANING ASSOCIATE: None #Possible posterior circulation TIA/stroke s/p TNK #Dizziness, gait instability, N/V ([address]-Hallpike negative x 2 @OSH) #New onset A-fib with RVR - Admit to the ICU - Ischemic stroke with thrombolytic order set - MRI brain pending - TTE pending - 24-hour CT head @1330 on 07/07/2025 - Aspirin 81 mg daily if 24-hour CT head is negative for hemorrhage. - Will ultimately need OAC. Will review MRI to assess for any stroke burden prior to initiation. - Rosuvastatin 40 mg nightly - Lipid panel, hemoglobin A1c in a.m. - SBP less than 180. Less than 110. Nicardipine drip as needed. Management per primary team. - A-fib with RVR; management per primary team - Bedrest for 6 hours - N.p.o. - PT/OT/CHIEF AIRLINE RADIO OPERATOR - Plan discussed with Dr. Langley OS , the patient, and nursing staff. Stroke neurology will continue to follow. Please call with any questions or concerns. Sherlyn Hawkins APRN, AGACNP- July 06, 2025 13:43 EDT documented in this encounter Nursing Notes * Zoila Gold, PT - 07/07/2025 11:05 AM EDT Goal Outcome Evaluation: Plan of Care Reviewed With: patient Outcome Evaluation: PT initial evaluation completed. Pt ambulated 300ft with supervision and navigated 10 steps with SBA. Pt demonstrated good balance and stability throughout all mobility. At this time pt is safe to continue ambulating with RN and does not require midlevel provider services. Recommend D/C home with assistance. Anticipated Discharge Disposition (PT): home with assist * Oanh Hunt, OT - 07/07/2025 10:59 AM EDT Goal Outcome Evaluation: Plan of Care Reviewed With: patient Outcome Evaluation: OT evaluation completed. The pt presents near her functional baseline of independence during ADLs and functional mobility. Pt with no further need for IP OT services, OT will signoff. Rec a d/c home with assist when medically ready. Anticipated Discharge Disposition (OT): home with assist * Marie Cerrato, Speech Therapy Student - 07/07/2025 10:56 AM EDT Goal Outcome Evaluation: Plan of Care Reviewed With: (P) patient, family Progress: (P) no change Anticipated Discharge Disposition (CHIEF AIRLINE RADIO OPERATOR): (P) No further CHIEF AIRLINE RADIO OPERATOR services warranted, other (see comments) (Contact CHIEF AIRLINE RADIO OPERATOR for any concerns) CHIEF AIRLINE RADIO OPERATOR Diagnosis: (P) functional speech/language skills, functional cognitive- linguistic skills (07/07/25 0930) Cosigned by Janet Martinez MS CCC-CHIEF AIRLINE RADIO OPERATOR at 07/07/2025 11:36 AM EDT Associated attestation - Janet Martinez MS CCC-CHIEF AIRLINE RADIO OPERATOR - 07/07/2025 11:36 AM EDT Janet Martinez MS CCC-CHIEF AIRLINE RADIO OPERATOR * Ashly Toney RN - 07/06/2025 6:07 PM EDT Goal Outcome Evaluation: Plan of Care Reviewed With: patient Progress: improving documented in this encounter Miscellaneous Notes * Case Management/Social Work - Ragini Olguin RN - 07/07/2025 4:42 PM EDT Discharge Planning Assessment [facility] Patient Name: Deirdre Ortez Today's Date: 07/07/2025 Admit Date: 07/06/2025 Plan: Home Discharge Needs Assessment Row Name 07/07/25 1623 Living Environment People in Home other (see comments) Unique Family Situation Gage Ortez- ex-spouse Current Living Arrangements home Potentially Unsafe Housing Conditions none In the past 12 months has the electric, gas, oil, or water company threatened to shut off services in your home? No Primary Care Provided by self Provides Primary Care For no one Family Caregiver if Needed child(abimbola), adult Family Caregiver Names Mist Price- daughter Quality of Family Relationships helpful;involved;supportive Able to Return to Prior Arrangements yes Transition Planning Patient/Family Anticipates Transition to home Patient/Family Anticipated Services at Transition none Transportation Anticipated family or friend will provide Discharge Needs Assessment Readmission Within the Last 30 Days no previous admission in last 30 days Equipment Currently Used at Home none Concerns to be Addressed discharge planning Current Discharge Risk chronically ill Row Name 07/07/25 1526 Living Environment Potentially Unsafe Housing Conditions none In the past 12 months has the electric, gas, oil, or water company threatened to shut off services in your home? No Primary Care Provided by self Provides Primary Care For no one Family Caregiver if Needed child(abimbola), adult Discharge Plan Row Name 07/07/25 1635 Plan Plan Home Patient/Family in Agreement with Plan yes Plan Comments I have met [facility] Ms. Ortez at the bedside today to initiate a discharge plan. She states that she is independent with activities of daily living and mobility. She denies use of DME and current receipt of home health/OP services. Ms. Ortez resides in a home in [facility] with her ex-spouse. She anticipates no discharge needs. I have confirmed that her insurance is [employer] and her PCP is Bernie Louis APRN. She states that her daughter will provide assistance andtransportation as needed. CM will cont to follow plan of care and provide assistance with dischargeplanning as recommendations become available. Final Discharge Disposition Code 01 - home or self-care Continued Care and Services - Admitted Since 07/06/2025 No active coordination exists. Demographic Summary Row Name 07/07/25 1551 General Information Admission Type inpatient Arrived From home Referral Source admission list Reason for Consult discharge planning Preferred Language Emirati Contact Information Permission Granted to Share Info With high risk case managerweb marketing manager Status Row Name 07/07/25 1553 Functional Status, IADL Medications independent Meal Preparation independent Housekeeping independent Laundry independent Shopping independent Employment/ Employment Status retired Ragini Olguin, RN * Therapy Evaluation - Marie Cerrato, Speech Therapy Student - 07/07/2025 10:56 AM EDT Images from the original note were not included. Acute Care - Speech Language Pathology Initial Evaluation [facility] Cognitive-Communication Evaluation Patient Name: Deirdre Ortez : 1960 Today's Date: 07/07/2025 Admit Date: 07/06/2025 Visit Dx: No diagnosis found. 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 CHIEF AIRLINE RADIO OPERATOR Diagnosis: (P) functional speech/language skills, functional cognitive- linguistic skills (07/07/25929) SLC Criteria for Skilled Therapy Interventions Met: (P) no problems identified which require skilled intervention (07/07/25929) Anticipated Discharge Disposition (CHIEF AIRLINE RADIO OPERATOR): (P) No further CHIEF AIRLINE RADIO OPERATOR services warranted, other (see comments) (Contact CHIEF AIRLINE RADIO OPERATOR for any concerns) (07/07/25929) Therapy Frequency (CHIEF AIRLINE RADIO OPERATOR SLC): (P) evaluation only (07/07/25929) Progress: (P) no change (07/07/25 1055) CHIEF AIRLINE RADIO OPERATOR EVALUATION (Last 72 Hours) CHIEF AIRLINE RADIO OPERATOR SLC Evaluation Row Name 07/07/25 0133 Communication Assessment/Intervention Document Type evaluation (P) -LS Subjective Information no complaints (P) -LS Patient Observations alert;cooperative (P) -LS Patient/Family/Caregiver Comments/Observations Dtr and ex- present (P) -LS Patient Effort good (P) -LS General Information Patient Profile Reviewed yes (P) -LS Pertinent History Of Current Problem Transfered from [facility] to [facility] for severe dizziness,nausea/emesis, gait instability, and heart palpatations. 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 CHIEF AIRLINE RADIO OPERATOR consulted due to stroke protocol. MRI: no acute findings. (P) -LS Precautions/Limitations, Vision WFL;corrective lenses needed for reading (P) -LS Precautions/Limitations, Hearing WFL;for purposes of eval (P) -LS Prior Level of Function-Communication WFL (P) -LS Plans/Goals Discussed with patient and family;agreed upon (P) -LS Barriers to Rehab none identified (P) -LS Patient's Goals for Discharge patient did not state (P) -LS Pain Additional Documentation Pain Scale: FACES Pre/Post-Treatment (Group) (P) -LS Pain Scale: FACES Pre/Post-Treatment Pain: FACES Scale, Pretreatment 0-->no hurt (P) -LS Posttreatment Pain Rating 0-->no hurt (P) -LS Comprehension Assessment/Intervention Comprehension Assessment/Intervention Auditory Comprehension;Reading Comprehension (P) -LS Auditory Comprehension Assessment/Intervention Auditory Comprehension (Communication) WFL (P) -LS Able to Identify Objects/Pictures (Communication) pictures of common objects;WFL (P) -LS Answers Questions (Communication) yes/no;wh questions;personal;simple;WFL (P) -LS Able to Follow Commands (Communication) 1-step;2-step;WFL (P) -LS Reading Comprehension Assessment/Intervention Reading Comprehension (Communication) WFL (P) -LS Expression Assessment/Intervention Expression Assessment/Intervention verbal expression (P) -LS Verbal Expression Assessment/Intervention Verbal Expression WFL (P) -LS Automatic Speech (Communication) response to greeting;days of week;WFL (P) -LS Phrase Completion unpredictable;WFL (P) -LS Oral Motor Structure and Function Oral Motor Structure and Function WFL (P) -LS Oral Musculature and Cranial Nerve Assessment Oral Motor General Assessment WFL (P) -LS Motor Speech Assessment/Intervention Motor Speech Function WFL (P) -LS Cursory Voice Assessment/Intervention Quality and Resonance (Voice) WFL (P) -LS Cognitive Assessment Intervention- CHIEF AIRLINE RADIO OPERATOR Cognitive Function (Cognition) WFL (P) -LS Orientation Status (Cognition) person;place;time;situation;WFL (P) -LS Memory (Cognitive) simple;immediate;delayed;WFL (P) -LS Attention (Cognitive) WFL (P) -LS Thought Organization (Cognitive) mental manipulation;WFL (P) -LS Executive Function (Cognition) self-monitoring/correction;WFL (P) -LS CHIEF AIRLINE RADIO OPERATOR Evaluation Clinical Impressions CHIEF AIRLINE RADIO OPERATOR Diagnosis functional speech/language skills;functional cognitive-linguistic skills (P) -LS SLC Criteria for Skilled Therapy Interventions Met no problems identified which require skilled intervention (P) -LS Recommendations Therapy Frequency (CHIEF AIRLINE RADIO OPERATOR SLC) evaluation only (P) -LS Anticipated Discharge Disposition (CHIEF AIRLINE RADIO OPERATOR) No further CHIEF AIRLINE RADIO OPERATOR services warranted;other (see comments) (P) Contact CHIEF AIRLINE RADIO OPERATOR for any concerns -LS User Salgado (r) = Recorded By, (t) = Taken By, (c) = Cosigned By Initials Name Effective Dates Marie Ornelas, Speech Therapy Student 06/06/25 - EDUCATION The patient has been educated in the following areas: Cognitive Impairment Communication Impairment. Time Calculation: Time Calculation- CHIEF AIRLINE RADIO OPERATOR Row Name 07/07/25 1056 Time Calculation- CHIEF AIRLINE RADIO OPERATOR CHIEF AIRLINE RADIO OPERATOR Start Time 0930 (P) -LS CHIEF AIRLINE RADIO OPERATOR Received On 07/07/25 (P) -LS Untimed Charges 76671-[id number] Eval Speech and Production w/ Language Minutes 53 (P) -LS Total Minutes Untimed Charges Total Minutes 53 (P) -LS Total Minutes 53 (P) -LS User Salgado (r) = Recorded By, (t) = Taken By, (c) = Cosigned By Initials Name Provider Type Marie Ornelas, Speech Therapy Student CHIEF AIRLINE RADIO OPERATOR Student Therapy Charges for Today Code Description Service Date Service Provider Modifiers Qty [id number] HC [facility] EVAL SPEECH AND PROD W LANG 4 07/07/2025 Marie Cerrato Speech Therapy StudentGN 1 Marie Christian Speech Therapy Student 07/07/2025 Cosigned by Janet Martinez MS CCC-CHIEF AIRLINE RADIO OPERATOR at 07/07/2025 11:36 AM EDT Associated attestation - Janet Martinez MS CCC-CHIEF AIRLINE RADIO OPERATOR - 07/07/2025 11:36 AM EDT Janet Martinez MS CCC-CHIEF AIRLINE RADIO OPERATOR documented in this encounter Plan of Treatment Scheduled Referrals Name Type Priority Associated Diagnoses Orde r Schedule Ambulatory Referral to Cardiology for Atrial Fibrillation Outpatient Referral Routine Atrial fibrillation, unspecified type Ordered: 07/08/2025 Ambulatory Referral to Neurology Outpatient Referral Routine Transient ischemic attack (TIA) Ordered: 07/08/2025 documented as of this encounter Procedures Procedure Name Priority Date/Time Associated Diagnosis Comments CT HEAD WO CONTRAST Routine 07/07/2025 1 :31 PM EDT ECHO COMPLETE W/ DOPPLER AND COLOR FLOW Routine 07/07/2025 12:11 PM EDT ECG 12-LEAD Routine 07/07/2025 11:30 AM EDT CBC WITH AUTO DIFFERENTIAL Routine 07/07/2025 3:12 AM EDT CBC AND DIFFERENTIAL Routine 07/07/2025 3:12 AM EDT PHOSPHORUS Routine 07/07/2025 3:12 AM EDT MAGNESIUM Routine 07/07/2025 3:12 AM EDT HEMOGLOBIN A1C Routine 07/07/2025 3:12 AM EDT LIPID PANEL Routine 07/07/2025 3:12 AM EDT COMPREHENSIVE METABOLIC PANEL Routine 07/07/2025 3:12 AM EDT MRI BRAIN WO CONTRAST Routine 07/06/2025 11:56 PM EDT POCT GLUCOSE FINGERSTICK Routine 07/06/2025 5:34 PM EDT CBC WITH AUTO DIFFERENTIAL Routine 07/06/2025 5:07 PM EDT CBC AND DIFFERENTIAL Routine 07/06/2025 5:07 PM EDT TSH Routine 07/06/2025 5:07 PM EDT T4, FREE Routine 07/06/2025 5:07 PM EDT PHOSPHORUS Routine 07/06/2025 5:07 PM EDT MAGNESIUM Routine 07/06/2025 5:07 PM EDT COMPREHENSIVE METABOLIC PANEL Routine 07/06/2025 5:[address] OUTSIDE HEAD Routine 07/06/2025 4:[address] OUTSIDE HEAD Routine 07/06/2025 4:28 PM EDT ECG 12-LEAD STAT 07/06/2025 4:[address] OUTSIDE CHEST Routine 07/06/2025 4:28 PM EDT POCT GLUCOSE FINGERSTICK Routine 07/06/2025 3:16 PM EDT documented in this encounter Results * CT Head Without Contrast (07/07/2025 1:31 PM EDT) Anatomical Region Laterality Modality Head N/A Computed Tomogra phy 07/07/2025 1:50 PM EDT Impressions 07/07/2025 1:51 PM EDT Impression: 1.No acute intracranial abnormality identified. 2.Diffuse brain atrophy with chronic microvascular ischemic changes. Electronically Signed: Derek Deleon MD 07/07/2025 1:51 PM EDT Workstation ID: [id number] Narrative 07/07/2025 1:[address] HEAD WO CONTRAST Date of Exam: 07/07/2025 1:27 PM EDT Indication: Stroke, follow up 24 hour post TNK, suspected posterior circulation stroke 24 Hours Post Thrombolytic Administration. Comparison: MRI brain dated 07/06/2025 Technique: Axial CT images were obtained of the head without contrast administration. Automated exposure control and iterative construction methods were used. Findings: The ventricles are normal in size and midline. Diffuse brain atrophy with chronic microvascular ischemic changes There is no diffusion restriction to suggest acute infarct. There is no evidence of acute or chronic intracranial hemorrhage. No mass effect or midline shift. No abnormal extra-axial collections. The major vascular flow voids appear intact. The basal ganglia, brainstem and cerebellum appear within normal limits. Calvarial and superficial soft tissue signal is within normal limits. Orbits appear unremarkable. The paranasal sinuses and the mastoid air cells appear well aerated. Midline structures are intact. Procedure Note Derek Deleon MD - 07/07/2025 CT HEAD WO CONTRAST Date of Exam: 07/07/2025 1:27 PM EDT Indication: Stroke, follow up 24 hour post TNK, suspected posterior circulation stroke 24 Hours Post Thrombolytic Administration. Comparison: MRI brain dated 07/06/2025 Technique: Axial CT images were obtained of the head without contrastadministration. Automated exposure control and iterative constructionmethods were used. Findings: The ventricles are normal in size and midline. Diffuse brainatrophy with chronic microvascular ischemic changes There is no diffusion restriction to suggest acute infarct. There is noevidence of acute or chronic intracranial hemorrhage. No mass effect ormidline shift. No abnormal extra-axial collections. The major vascularflow voids appear intact. The basal ganglia, brainstem and cerebellum appear within normal limits. Calvarialand superficial soft tissue signal is within normal limits. Orbits appearunremarkable. The paranasal sinuses and the mastoid air cells appear wellaerated. Midline structures are intact. IMPRESSION: Impression: 1.No acute intracranial abnormality identified. 2.Diffuse brain atrophy with chronic microvascular ischemic changes. Electronically Signed: Derek Deleon MD 07/07/2025 1:51 PM EDT Workstation ID: [id number] us Karlie Mcintyre LITIGATION PARALEGAL IMG CT ORDERABLES Final Res ult * ECHO COMPLETE W/ DOPPLER AND COLOR FLOW (07/07/2025 12:11 PM EDT) EF(MOD-bp) 64.6 % LVIDd 4.7 cm LVIDs 2.9 cm IVSd 0.90 cm LVPWd 0.90 cm FS 38.3 % IVS/LVPW 1.00 cm ESV(cubed) 24.4 ml LV Sys Vol (BSA corrected) 14.7 cm2 EDV(cubed) 103.8 ml LV Abad Vol (BSA corrected) 46.0 cm2 LV mass(C)d 142.7 grams LVOT area 3.1 cm2 LVOT diam 2.00 cm EDV(MOD-sp2) 53.1 ml EDV(MOD-sp4) 87.1 ml ESV(MOD-sp2) 22.3 ml ESV(MOD-sp4) 27.9 ml SV(MOD-sp2) 30.8 ml SV(MOD-sp4) 59.2 ml SVi(MOD-SP2) 16.3 ml/m2 SVi(MOD-SP4) 31.3 ml/m2 SVi (LVOT) 28.2 ml/m2 EF(MOD-sp2) 58.0 % EF(MOD-sp4) 68.0 % MV E max edward 54.0 cm/sec MV A max edward 59.2 cm/sec MV dec time 0.20 sec MV E/A 0.91 LA ESV Index (BP) 13.4 ml/m2 Med Peak E' Edward 8.6 cm/sec Lat Peak E' Edward 9.8 cm/sec Avg E/e' ratio 5.87 SV(LVOT) 53.4 ml RV Base 2.8 cm RV Mid 2.30 cm RV Length 6.2 cm TAPSE (>1.6) 3.2 cm RV S' 9.8 cm/sec LA dimension (2D) 2.40 cm LV V1 max 101.0 cm/sec LV V1 max PG 4.1 mmHg LV V1 mean PG 2.00 mmHg LV V1 VTI 17.0 cm Ao pk edward 152.0 cm/sec Ao max PG 9.2 mmHg Ao mean PG 5.0 mmHg Ao V2 VTI 27.5 cm ELAYNE(I,D) 1.94 cm2 Dimensionless Index 0.62 (DI) MV max PG 2.43 mmHg MV mean PG 1.00 mmHg MV V2 VTI 22.6 cm MV P1/2t 90.7 msec MVA(P1/2t) 2.43 cm2 MVA(VTI) 2.36 cm2 MV dec slope 258.0 cm/sec2 PA acc time 0.12 sec Ao root diam 2.20 cm BH CV ECHO SHUNT ASSESSMENT PERFORMED (HIDDEN SCRIPTING) 1 Anatomical Region Laterality Modality Ultrasound Narrative 07/07/2025 12:21 PM EDT Left ventricular systolic function is normal. Calculated left ventricular EF = 64.6% Normal left ventricular cavity size and wall thickness noted. All left ventricular wall segments contract normally. Left ventricular diastolic function was normal. Normal right ventricular cavity size, wall thickness, systolic function and septal motion noted. Normal left atrial size and volume noted. Saline test results are negative. The mitral valve is structurally normal with no regurgitation or significant stenosis present. Left Ventricle Left ventricular systolic function is normal. Calculated left ventricular EF = 64.6% Normal left ventricular cavity size and wall thickness noted. All left ventricular wall segments contract normally. Left ventricular diastolic function was normal. Right Ventricle Normal right ventricular cavity size, wall thickness, systolic function and septal motion noted. Left Atrium Normal left atrial size and volume noted. Saline test results are negative. Right Atrium Normal right atrial cavity size noted. Right atrial volume is 14.4 ml. Mitral Valve The mitral valve is structurally normal with no regurgitation or significant stenosis present. Tricuspid Valve The tricuspid valve is normal in structure. Physiologic tricuspid valve regurgitation is present. Estimated right ventricular systolic pressure from tricuspid regurgitation is normal (<35 mmHg). Aortic Valve The aortic valve is structurally normal with no regurgitation or stenosis present. Pulmonic Valve The pulmonic valve is structurally normal with no significant stenosis present. There is trace pulmonic valve regurgitation present. Pericardium The pericardium is normal. There is no evidence of pericardial effusion. . Greater Vessels No dilation of the aortic root is present. No dilation of the sinuses of Valsalva is present. Study Quality The study is technically good for diagnosis. Normal sinus was the predominant rhythm observed during the procedure. Shunt Assessment Verbal consent was obtained from the patient for use of agitated saline to assess for shunting. A total of 20 mL of agitated saline was administered. us Karlie Mcintyre ISA CV ECHO ORDERABLES Final Re sult * ECG 12 Lead Rhythm Change (07/07/2025 11:30 AM EDT) QT Interval 380 ms ECG QTC Interval 401 ms ECG 07/07/2025 11:3 0 AM EDT 07/10/2025 7:21 AM EDT Narrative ECG - 07/10/2025 7:21 AM EDT Test Reason : Rhythm Change Blood Pressure : */* mmHG Vent. Rate : 67 BPM Atrial Rate : 67 BPM P-R Int : 136 ms QRS Dur : 92 ms QT Int : 380 ms P-R-T Axes : 57 46 44 degrees QTcB Int : 401 ms Normal sinus rhythm Normal ECG When compared with ECG of 06-Jul-2025 16:28, Sinus rhythm has replaced Atrial fibrillation Vent. rate has decreased by 45 bpm Nonspecific T wave abnormality no longer evident in Inferior leads Confirmed by SOCORRO BLACK ([id number]) on 07/10/2025 7:21:24 AM Referred By: Confirmed By: SOCORRO BLACK Procedure Note Socorro Black MD - 07/10/2025 Test Reason : Rhythm Change Blood Pressure : */* mmHG Vent. Rate : 67 BPM Atrial Rate : 67 BPM P-R Int : 136 ms QRS Dur : 92 ms QT Int : 380 ms P-R-T Axes : 57 46 44 degrees QTcB Int : 401 ms Normal sinus rhythm Normal ECG When compared with ECG of 06-Jul-2025 16:28, Sinus rhythm has replaced Atrial fibrillation Vent. rate has decreased by 45 bpm Nonspecific T wave abnormality no longer evident in Inferior leads Confirmed by SOCORRO BLACK ([id number]) on 07/10/2025 7:21:24 AM Referred By: Confirmed By: SOCORRO BLACK Sita Grace PA-C ECG ORDERABLES Cora l Result BH ECG * (ABNORMAL) CBC Auto Differential (07/07/2025 3:12 AM EDT) WBC 10.62 3.40 - 10.80 10*3/mm3 07/07/2025 3:27 AM EDT [facility] RBC 4.52 3.77 - 5.28 10*6/mm3 07/07/2025 3:27 AM EDT [facility] Hemoglobin 13.6 12.0 - 15.9 g/dL 07/07/2025 3:27 AM EDT [facility] Hematocrit 41.0 34.0 - 46.6 % 07/07/2025 3:27 AM EDT [facility] MCV 90.7 79.0 - 97.0 fL 07/07/2025 3:27 AM EDT [facility] MCH 30.1 26.6 - 33.0 pg 07/07/2025 3:27 AM EDT [facility] MCHC 33.2 31.5 - 35.7 g/dL 07/07/2025 3:27 AM EDT [facility] RDW 13.7 12.3 - 15.4 % 07/07/2025 3:27 AM EDT [facility] RDW-SD 45.8 37.0 - 54.0 fl 07/07/2025 3:27 AM EDT [facility] MPV 10.8 6.0 - 12.0 fL 07/07/2025 3:27 AM EDT [facility] Platelets 227 140 - 450 10*3/mm3 07/07/2025 3:27 AM EDT [facility] Neutrophil % 62.6 42.7 - 76.0 % 07/07/2025 3:27 AM EDT [facility] Lymphocyte % 26.7 19.6 - 45.3 % 07/07/2025 3:27 AM EDT [facility] Monocyte % 9.7 5.0 - 12.0 % 07/07/2025 3:27 AM EDT [facility] Eosinophil % 0.2(L) 0.3 - 6.2 % 07/07/2025 3:27 AM EDT [facility] Basophil % 0.4 0.0 - 1.5 % 07/07/2025 3:27 AM EDT [facility] Immature Grans % 0.4 0.0 - 0.5 % 07/07/2025 3:27 AM EDT [facility] Neutrophils, Absolute 6.65 1.70 - 7.00 10*3/mm3 07/07/2025 3:27 AM EDT [facility] Lymphocytes, Absolute 2.84 0.70 - 3.10 10*3/mm3 07/07/2025 3:27 AM EDT [facility] Monocytes, Absolute 1.03(H) 0.10 - 0.90 10*3/mm3 07/07/2025 3:27 AM EDT [facility] Eosinophils, Absolute 0.02 0.00 - 0.40 10*3/mm3 07/07/2025 3:27 AM EDT [facility] Basophils, Absolute 0.04 0.00 - 0.20 10*3/mm3 07/07/2025 3:27 AM EDT [facility] Immature Grans, Absolute 0.04 0.00 - 0.05 10*3/mm3 07/07/2025 3:27 AM EDT [facility] nRBC 0.0 0.0 - 0.2 /100 WBC 07/07/2025 3:27 AM EDT [facility] Blood Venipuncture / Unknown 07/07/2025 3:12 AM EDT 07/07/2025 3:23 AM EDT us Jessica Oden LITIGATION PARALEGAL LAB BLOOD ORDERABLES Final Result [facility]
[address] [place] [address], * Magnesium (07/07/2025 3:12 AM EDT) Magnesium 2.3 1.6 - 2.4 mg/dL 07/07/2025 3:43 AM EDT [facility] Blood Venipuncture / Unknown 07/07/2025 3:12 AM EDT 07/07/2025 3:23 AM EDT Jessica Oden APRN LAB BLOOD ORDERABLES Final Result Performing Organization Address City/[facility]/ZIP Co de Phone Number [facility]
[address] [place] [address], * Phosphorus (07/07/2025 3:12 AM EDT) Phosphorus 3.5 2.5 - 4.5 mg/dL 07/07/2025 3:43 AM EDT [facility] Blood Venipuncture / Unknown 07/07/2025 3:12 AM EDT 07/07/2025 3:23 AM EDT Jessica Oden LITIGATION PARALEGAL LAB BLOOD ORDERABLES Final Result Performing Organization Address City/[facility]/ZIP Co de Phone Number [facility]
[address] [place] [address], * (ABNORMAL) Comprehensive Metabolic Panel (07/07/2025 3:12 AM EDT) Glucose 105(H) 65 - 99 mg/dL 07/07/2025 3:43 AM EDT [facility] BUN 10.5 8.0 - 23.0 mg/dL 07/07/2025 3:43 AM EDT [facility] Creatinine 0.72 0.57 - 1.00 mg/dL 07/07/2025 3:43 AM EDT [facility] Sodium 140 136 - 145 mmol/L 07/07/2025 3:43 AM EDT [facility] Potassium 3.6 3.5 - 5.2 mmol/L 07/07/2025 3:43 AM EDT [facility] Chloride 106 98 - 107 mmol/L 07/07/2025 3:43 AM [facility] CO2 22.8 22.0 - 29.0 mmol/L 07/07/2025 3:43 AM [facility] Calcium 9.6 8.6 - 10.5 mg/dL 07/07/2025 3:43 AM [facility] Total Protein 6.8 6.0 - 8.5 g/dL 07/07/2025 3:43 AM [facility] Albumin 4.2 3.5 - 5.2 g/dL 07/07/2025 3:43 AM [facility] ALT (SGPT) 18 1 - 33 U/L 07/07/2025 3:43 AM [facility] AST (SGOT) 23 1 - 32 U/L 07/07/2025 3:43 AM [facility] Alkaline Phosphatase 82 39 - 117 U/L 07/07/2025 3:43 AM [facility] Total Bilirubin 0.5 0.0 - 1.2 mg/dL 07/07/2025 3:43 AM [facility] Globulin 2.6 gm/dL 07/07/2025 3:43 AM [facility] Comment:Calculated Result A/G Ratio 1.6 g/dL 07/07/2025 3:43 AM [facility] BUN/Creatinine Ratio 14.6 7.0 - 25.0 07/07/2025 3:43 AM [facility] Anion Gap 11.2 5.0 - 15.0 mmol/L 07/07/2025 3:43 AM [facility] eGFR 92.3 >60.0 mL/min/1.7 3 07/07/2025 3:43 AM [facility] Blood Venipuncture / Unknown 07/07/2025 3:12 AM EDT 07/07/2025 3:23 AM [facility] - 07/07/2025 3:43 AM EDT GFR Categories in Chronic Kidney Disease (CKD) GFR Category GFR (mL/min/1.73) Interpretation G1 90 or greater Normal or high (1) G2 60-89 Mild decrease (1) G3a 45-59 Mild to moderate decrease G3b 30-44 Moderate to severe decrease G4 15-29 Severe decrease G5 14 or less Kidney failure (1)In the absence of evidence of kidney disease, neither GFR category G1 or G2 fulfill the criteria for CKD. eGFR calculation 2020 CKD-EPI creatinine equation, which does not include race as a factor us Jessica E Akshat LITIGATION PARALEGAL LAB BLOOD ORDERABLES Final Result [facility]
[address] [place] [address], * (ABNORMAL) Lipid Panel (07/07/2025 3:12 AM EDT) Total Cholesterol 161 0 - 200 mg/dL 07/07/2025 3:43 AM EDT [facility] Triglycerides 89 0 - 150 mg/dL 07/07/2025 3:43 AM EDT [facility] HDL Cholesterol 71(H) 40 - 60 mg/dL 07/07/2025 3:43 AM EDT [facility] LDL Cholesterol 74 0 - 100 mg/dL 07/07/2025 3:43 AM EDT [facility] VLDL Cholesterol 16 5 - 40 mg/dL 07/07/2025 3:43 AM EDT [facility] LDL/HDL Ratio 1.02 07/07/2025 3:43 AM EDT [facility] Blood Venipuncture / Unknown 07/07/2025 3:12 AM EDT 07/07/2025 3:23 AM EDT [facility] - 07/07/2025 3:43 AM EDT Cholesterol Reference Ranges (U.S. Department of Health and Human Services ATP III Classifications) Desirable <200 mg/dL Borderline High 200-239 mg/dL High Risk >240 mg/dL Triglyceride Reference Ranges (U.S. Department of Health and Human Services ATP III Classifications) Normal <150 mg/dL Borderline High 150-199 mg/dL High 200-499 mg/dL Very High >500 mg/dL HDL Reference Ranges (U.S. Department of Health and Human Services ATP III Classifications) Low <40 mg/dl (major risk factor for CHD) High >60 mg/dl ('negative' risk factor for CHD) LDL Reference Ranges (U.S. Department of Health and Human Services ATP III Classifications) Optimal <100 mg/dL Near Optimal 100-129 mg/dL Borderline High 130-159 mg/dL High 160-189 mg/dL Very High >189 mg/dL LDL is calculated using the NIH LDL-C calculation. us Karlie Mcintyre APRN LAB BLOOD ORDERABLES Final Result Performing Organization Address City/[facility]/ZIP Co de Phone Number [facility]
[address] [place] [address], * Hemoglobin A1c (07/07/2025 3:12 AM EDT) Hemoglobin A1C 5.52 4.80 - 5.60 % 07/07/2025 4:18 AM EDT [facility] Blood Venipuncture / Unknown 07/07/2025 3:12 AM EDT 07/07/2025 3:23 AM EDT Narrative [facility] - 07/07/2025 4:18 AM EDT Hemoglobin A1C Ranges: Increased Risk for Diabetes 5.7% to 6.4% Diabetes >= 6.5% Diabetic Goal < 7.0% us Karlie Mcintyre APRN LAB BLOOD ORDERABLES Final Result Performing Organization Address City/[facility]/ZIP Co de Phone Number [facility]
[address] [place] [address], * MRI Brain Without Contrast (07/06/2025 11:56 PM EDT) Anatomical Region Laterality Modality Head, Neck N/A Magnetic Resonan ce 07/07/2025 4:21 AM EDT Impressions 07/07/2025 4:24 AM EDT Impression: Chronic microvascular ischemia. No acute intracranial process. Electronically Signed: Arya Damian MD 07/07/2025 4:24 AM EDT Workstation ID: [id number] Narrative 07/07/2025 4:24 AM EDT MRI BRAIN WO CONTRAST Date of Exam: 07/06/2025 11:28 PM EDT Indication: Stroke, follow up suspected posterior circulation stroke. Comparison: CT head 07/06/2025 Technique: Routine multiplanar/multisequence sequence images of the brain were obtained without contrast administration. Findings: There are areas of increased T2 and FLAIR signal throughout the bilateral periventricular white matter consistent with chronic microvascular ischemia. There is no mass, mass effect or midline shift. There are no abnormal extra-axial fluid collections or areas of acute hemorrhage. The major intracranial flow voids are preserved. The diffusion weighted sequences are normal. The paranasal sinuses and mastoid air cells are clear. The orbital structures are normal. Procedure Note Arya Damian MD - 07/07/2025 MRI BRAIN WO CONTRAST Date of Exam: 07/06/2025 11:28 PM EDT Indication: Stroke, follow up suspected posterior circulation stroke. Comparison: CT head 07/06/2025 Technique: Routine multiplanar/multisequence sequence images of the brainwere obtained without contrast administration. Findings: There are areas of increased T2 and FLAIR signal throughout the bilateralperiventricular white matter consistent with chronic microvascularischemia. There is no mass, mass effect or midline shift. There are noabnormal extra-axial fluid collections or areas of acute hemorrhage. The major intracranial flow voids arepreserved. The diffusion weighted sequences are normal. The paranasalsinuses and mastoid air cells are clear. The orbital structures arenormal. IMPRESSION: Impression: Chronic microvascular ischemia. No acute intracranial process. Electronically Signed: Arya Damian MD 07/07/2025 4:24 AM EDT Workstation ID: [id number] us Karlie E Francisco Javier MOSS IMG MRI ORDERABLES Final Re sult * POC Glucose Once (07/06/2025 5:34 PM EDT) Glucose 127 70 - 130 mg/dL 07/06/2025 5:36 PM EDT [facility] Comment:Serial Number: [id number]: [id number] Blood 07/06/2025 5:34 PM EDT 07/06/2025 5:36 PM EDT Js Tobar DO POINT OF CARE TEST ORDERAB LES Final Result [facility]
[address] [place] [address], * (ABNORMAL) CBC Auto Differential (07/06/2025 5:07 PM EDT) Pathologist [facility] WBC 12.15(H) 3.40 - 10.80 10*3/mm3 07/06/2025 5:14 PM EDT [facility] RBC 4.68 3.77 - 5.28 10*6/mm3 07/06/2025 5:14 PM EDT [facility] Hemoglobin 13.8 12.0 - 15.9 g/dL 07/06/2025 5:14 PM EDT [facility] Hematocrit 41.8 34.0 - 46.6 % 07/06/2025 5:14 PM EDT [facility] MCV 89.3 79.0 - 97.0 fL 07/06/2025 5:14 PM EDT [facility] MCH 29.5 26.6 - 33.0 pg 07/06/2025 5:14 PM EDT [facility] MCHC 33.0 31.5 - 35.7 g/dL 07/06/2025 5:14 PM EDT [facility] RDW 13.5 12.3 - 15.4 % 07/06/2025 5:14 PM EDT [facility] RDW-SD 44.1 37.0 - 54.0 fl 07/06/2025 5:14 PM EDT [facility] MPV 11.2 6.0 - 12.0 fL 07/06/2025 5:14 PM EDT [facility] Platelets 218 140 - 450 10*3/mm3 07/06/2025 5:14 [facility] Neutrophil % 85.9(H) 42.7 - 76.0 % 07/06/2025 5:14 PM [facility] Lymphocyte % 10.5(L) 19.6 - 45.3 % 07/06/2025 5:14 PM [facility] Monocyte % 2.8(L) 5.0 - 12.0 % 07/06/2025 5:14 PM [facility] Eosinophil % 0.0(L) 0.3 - 6.2 % 07/06/2025 5:14 PM [facility] Basophil % 0.3 0.0 - 1.5 % 07/06/2025 5:14 PM [facility] Immature Grans % 0.5 0.0 - 0.5 % 07/06/2025 5:14 PM [facility] Neutrophils, Absolute 10.43(H) 1.70 - 7.00 10*3/mm3 07/06/2025 5:14 PM [facility] Lymphocytes, Absolute 1.28 0.70 - 3.10 10*3/mm3 07/06/2025 5:14 PM [facility] Monocytes, Absolute 0.34 0.10 - 0.90 10*3/mm3 07/06/2025 5:14 PM [facility] Eosinophils, Absolute 0.00 0.00 - 0.40 10*3/mm3 07/06/2025 5:14 PM [facility] Basophils, Absolute 0.04 0.00 - 0.20 10*3/mm3 07/06/2025 5:14 PM [facility] Immature Grans, Absolute 0.06(H) 0.00 - 0.05 10*3/mm3 07/06/2025 5:14 PM [facility] nRBC 0.0 0.0 - 0.2 /100 WBC 07/06/2025 5:14 PM EDT [facility] Blood Line / Unknown 07/06/2025 5: 07 PM EDT 07/06/2025 5:07 PM EDT Jessica Oden LITIGATION PARALEGAL LAB BLOOD ORDERABLES Final Result Performing Organization Address City/[facility]/ZIP Co de Phone Number [facility]
[address] [place] [address], * Phosphorus (07/06/2025 5:07 PM EDT) Phosphorus 3.1 2.5 - 4.5 mg/dL 07/06/2025 5:44 PM EDT [facility] Blood Line / Unknown 07/06/2025 5: 07 PM EDT 07/06/2025 5:07 PM EDT Jessica Oden APRN LAB BLOOD ORDERABLES Final Result Performing Organization Address City/[facility]/ZIP Co de Phone Number [facility]
[address] [place] [address], * Magnesium (07/06/2025 5:07 PM EDT) Magnesium 2.2 1.6 - 2.4 mg/dL 07/06/2025 5:44 PM EDT [facility] Blood Line / Unknown 07/06/2025 5: 07 PM EDT 07/06/2025 5:07 PM EDT Jessica Oden LITIGATION PARALEGAL LAB BLOOD ORDERABLES Final Result Performing Organization Address City/[facility]/ZIP Co de Phone Number [facility]
[address] [place] [address], * (ABNORMAL) Comprehensive Metabolic Panel (07/06/2025 5:07 PM EDT) [facility] Glucose 135(H) 65 - 99 mg/dL 07/06/2025 5:44 PM T [facility] BUN 11.7 8.0 - 23.0 mg/dL 07/06/2025 5:44 PM T [facility] Creatinine 0.69 0.57 - 1.00 mg/dL 07/06/2025 5:44 PM EDT [facility] Sodium 140 136 - 145 mmol/L 07/06/2025 5:44 PM EDT [facility] Potassium 3.8 3.5 - 5.2 mmol/L 07/06/2025 5:44 PM EDT [facility] Chloride 104 98 - 107 mmol/L 07/06/2025 5:44 PM EDT [facility] CO2 22.0 22.0 - 29.0 mmol/L 07/06/2025 5:44 PM EDT [facility] Calcium 9.1 8.6 - 10.5 mg/dL 07/06/2025 5:44 PM EDT [facility] Total Protein 6.9 6.0 - 8.5 g/dL 07/06/2025 5:44 PM T [facility] Albumin 4.3 3.5 - 5.2 g/dL 07/06/2025 5:44 PM EDT [facility] ALT (SGPT) 17 1 - 33 U/L 07/06/2025 5:44 PM T [facility] AST (SGOT) 22 1 - 32 U/L 07/06/2025 5:44 PM T [facility] Alkaline Phosphatase 94 39 - 117 U/L 07/06/2025 5:44 PM T [facility] Total Bilirubin 0.4 0.0 - 1.2 mg/dL 07/06/2025 5:44 PM T [facility] Globulin 2.6 gm/dL 07/06/2025 5:44 PM T [facility] Comment:Calculated Result A/G Ratio 1.7 g/dL 07/06/2025 5:44 PM EDT [facility] BUN/Creatinine Ratio 17.0 7.0 - 25.0 07/06/2025 5:44 PM EDT [facility] Anion Gap 14.0 5.0 - 15.0 mmol/L 07/06/2025 5:44 PM EDT [facility] eGFR 95.9 >60.0 mL/min/1.7 3 07/06/2025 5:44 PM EDT [facility] Blood Line / Unknown 07/06/2025 5: 07 PM EDT 07/06/2025 5:07 PM EDT Narrative [facility] - 07/06/2025 5:44 PM EDT GFR Categories in Chronic Kidney Disease (CKD) GFR Category GFR (mL/min/1.73) Interpretation G1 90 or greater Normal or high (1) G2 60-89 Mild decrease (1) G3a 45-59 Mild to moderate decrease G3b 30-44 Moderate to severe decrease G4 15-29 Severe decrease G5 14 or less Kidney failure (1)In the absence of evidence of kidney disease, neither GFR category G1 or G2 fulfill the criteria for CKD. eGFR calculation 2020 CKD-EPI creatinine equation, which does not include race as a factor Jessica Oden APRN LAB BLOOD ORDERABLES Final Result [facility]
[address] [place] [address], * T4, Free (07/06/2025 5:07 PM EDT) Free T4 1.53 0.92 - 1.68 ng/dL 07/06/2025 6:01 PM EDT [facility] Blood Line / Unknown 07/06/2025 5: 07 PM EDT 07/06/2025 5:07 PM EDT Jessica Oden APRN LAB BLOOD ORDERABLES Final Result [facility]
[address] [place] [address], [place] [phone] * TSH (07/06/2025 5:07 PM EDT) TSH 0.931 0.270 - 4.200 uIU/mL 07/06/2025 6:01 PM EDT [facility] Blood Line / Unknown 07/06/2025 5: 07 PM EDT 07/06/2025 5:07 PM EDT Jessica Gabriella Oden LITIGATION PARALEGAL LAB BLOOD ORDERABLES Final Result [facility]
[address] [place] [address], * CT Outside Head (07/06/2025 4:29 PM EDT) Narrative SYSTEMGENERATED, DOCUMENTATION - 07/06/2025 4:29 PM EDT This procedure was auto-finalized with no dictation required. Karlie Mcintyre APRN IMG CT ORDERABLES Final Res ult * CT Outside Head (07/06/2025 4:28 PM EDT) Narrative SYSTEMGENERATED, DOCUMENTATION - 07/06/2025 4:28 PM EDT This procedure was auto-finalized with no dictation required. us Karlie Mcintyre APRN IMG CT ORDERABLES Final Res ult * ECG 12 Lead Tachycardia (07/06/2025 4:28 PM EDT) QT Interval 336 ms ECG QTC Interval 458 ms ECG 07/06/2025 4:28 PM EDT 07/07/2025 8:41 AM EDT Narrative [facility] ECG - 07/07/2025 8:41 AM EDT Test Reason : Tachycardia Blood Pressure : */* mmHG Vent. Rate : 112 BPM Atrial Rate : * BPM P-R Int : * ms QRS Dur : 90 ms QT Int : 336 ms P-R-T Axes : * 50 4 degrees QTcB Int : 458 ms Atrial fibrillation with rapid ventricular response with premature ventricular or aberrantly conducted complexes Nonspecific ST abnormality Abnormal ECG When compared with ECG of 25-Oct-2014 10:34, Atrial fibrillation has replaced Sinus rhythm Vent. rate has increased by 41 bpm Nonspecific T wave abnormality now evident in Inferior leads Confirmed by DEBI ANN ([id number]) on 07/07/2025 8:41:10 AM Referred By: Confirmed By: DEBI ANN Procedure Note Debi Ann MD - 07/07/2025 Test Reason : Tachycardia Blood Pressure : */* mmHG Vent. Rate : 112 BPM Atrial Rate : * BPM P-R Int : * ms QRS Dur : 90 ms QT Int : 336 ms P-R-T Axes : * 50 4 degrees QTcB Int : 458 ms Atrial fibrillation with rapid ventricular response with premature ventricular or aberrantly conducted complexes Nonspecific ST abnormality Abnormal ECG When compared with ECG of 25-Oct-2014 10:34, Atrial fibrillation has replaced Sinus rhythm Vent. rate has increased by 41 bpm Nonspecific T wave abnormality now evident in Inferior leads Confirmed by DEBI ANN ([id number]) on 07/07/2025 8:41:10 AM Referred By: Confirmed By: DEBI ANN Jessica Oden LITIGATION PARALEGAL ECG ORDERABLES Final Resul t BH ECG * CT Outside Chest (07/06/2025 4:28 PM EDT) Narrative SYSTEMGENERATED, DOCUMENTATION - 07/06/2025 4:28 PM EDT This procedure was auto-finalized with no dictation required. Karlie Mcintyre APRN IMG CT ORDERABLES Final Res ult * POC Glucose Once (07/06/2025 3:16 PM EDT) Glucose 115 70 - 130 mg/dL 07/06/2025 3:18 PM EDT [facility] Comment:Serial Number: [id number] Blood 07/06/2025 3:16 PM EDT 07/06/2025 3:18 PM EDT Omid Langley MD POINT OF CARE TEST ORDERABLE S Final Result [facility]
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 Dizziness Dizziness and giddiness Atrial fibrillation, new onset Atrial fibrillation documented in this encounter Admitting Diagnoses Diagnosis Suspected cerebrovascular accident (CVA) documented in this encounter Administered Medications Inactive Administered Medications - up to 3 most recent administrations Medication Order MAR Action Action Date Dose Rate Site apixaban (ELIQUIS) tablet 5 mg 5 mg, Oral, Every 12 Hours Scheduled, First dose on Thu07/07/25 at 2100, Tablet may be crushed and suspended in 60 mL of water or D5W and immediately delivered via NG tube., Indications: Atrial Fibrillation - requiring full anticoagulationIndications:Atrial Fibrillation - requiring full anticoagulation Given 07/08/2025 9:05 AM EDT 5 mg Given 07/07/2025 8:00 PM EDT 5 mg aspirin chewable tablet 81 mg 81 mg, Oral, Daily, First dose on Thu07/07/25 at 1500, Herbal/drug interaction: Avoid use with ginkgo biloba. Based on patient request - if ordered for moderate or severe pain, provider allows for administration of a medication prescribed for a lower pain scale. Do not exceed 4 grams of aspirin in a 24 hr period. If given for pain, use the following pain scale: Mild Pain = Pain Score of 1-3, CPOT 1-2 Moderate Pain = Pain Score of 4-6, CPOT 3-4 Severe Pain = Pain Score of 7-10, CPOT 5-8 Given 07/08/2025 9:05 AM EDT 81 mg Given 07/07/2025 2:34 PM EDT 81 mg levothyroxine (SYNTHROID, LEVOTHROID) tablet 75 mcg 75 mcg, Oral, Every [employer], First dose on Thu07/07/25 at 0600, Take on empty stomach. Given 07/08/2025 5:52 AM EDT 75 mcg Given 07/07/2025 5:56 AM EDT 75 mcg metoprolol succinate XL (TOPROL-XL) 24 hr tablet 12.5 mg 12.5 mg, Oral, Every 24 Hours Scheduled, First dose on Thu07/07/25 at 1415, Hold for SBP less than 100, DBP less than 60, or heart rate less than 50 Do not crush or chew the capsules or tablets. The drug may not work as designed if the capsule or tablet is crushed or chewed. Swallow whole. Do not crush or chew. Given 07/08/2025 9:05 AM EDT 12.5 mg Given 07/07/2025 2:34 PM EDT 12.5 mg mupirocin (BACTROBAN) 2 % nasal ointment 1 Application 1 Application, Each Nare, 2 Times Daily, First dose on Yanet 07/06/25 at 1600, For 5 days, Begin on day 1 of ICU admission and continue for 5 days, even if patient transferred out of critical care. MUPIROCIN APPLICATION: 1. Place patient's bed at 30 degrees, if tolerated. 2. Wash your hands with warm soapy water or use hand career guidance counselor. 3. Open the tube of mupirocin 2%. 4. Squeeze about 0.5 g (blueberry-size) of mupirocin from the tube onto a sterile applicator or a cotton swab. 5. Apply the swab directly into nostril. Ensure coating of the sides of the nostril. 6. Repeat with second sterile applicator for other nostril. 7. Gently press the sides of the nostrils together and massage gently for 60 seconds. (BK) Given 07/08/2025 9:05 AM EDT 1 Ap plication Given 07/07/2025 8:00 PM EDT 1 Application Given 07/07/2025 9:04 AM EDT 1 Application ondansetron (ZOFRAN) injection 4 mg 4 mg, Intravenous, Every 6 Hours PRN, Nausea, Vomiting, Starting on Thu07/07/25 at 0815, If multiple N/V medications ordered, use in the following order: Ondansetron, Prochlorperazine, Promethazine. Use PO unless patient refuses or patient unable to swallow. Given 07/07/2025 9: 04 AM EDT 4 mg Pharmacy Meds to Bed Consult Daily, First dose on 07/08/25 at 1000, Until Discontinued, Please contact [facility] prior to patient discharge prochlorperazine (COMPAZINE) injection 5 mg 5 mg, Intravenous, Once, On Yanet 07/06/25 at 1700, For 1 dose, If multiple N/V medications ordered, use in the following order: Ondansetron, Prochlorperazine, Promethazine. Use PO unless patient refuses or patient unable to swallow. Given 07/06/2025 4:43 PM EDT 5 mg rosuvastatin (CRESTOR) tablet 40 mg 40 mg, Oral, Nightly, First dose on Yanet 07/06/25 at 2100, Avoid grapefruit juice. Given 07/07/2025 8:00 PM EDT 40 mg Given 07/06/2025 8:06 PM EDT 40 mg scopolamine patch 1 mg/72 hr 1 patch, Transdermal, Administer over 72 Hours, Every 72 Hours, First dose on Yanet 07/06/25 at 1700, Do not apply if patient has history of glaucoma. Not recommended for use if patient is older than 65. ([facility]) Medication Applied 07/06/2025 4:43 PM EDT 1 patch Behind Right Ear sodium chloride 0.9 % flush 10 mL 10 mL, Intravenous, Every 12 Hours Scheduled, First dose on Yanet 07/06/25 at 2100 Given 07/08/2025 9:06 AM EDT 10 mL Given 07/07/2025 8:01 PM EDT 10 mL Given 07/07/2025 9:04 AM EDT 10 mL sodium chloride 0.9 % flush 10 mL 10 mL, Intravenous, As Needed, Line Care, Starting on Yanet 07/06/25 at 1523 sodium chloride 0.9 % infusion 40 mL 40 mL, Intravenous, at 100 mL/hr, As Needed, Line Care, Starting on Yanet 07/06/25 at 1523, Following administration of an IV intermittent medication, flush line with 40mL NS at 100mL/hr. documented in this encounter Active and Recently Administered Medications Times are shown in EDT. Scheduled Medication Order 07/06/2025 07/07/2025 07/08/2025 apixaban (ELIQUIS) tablet 5 mg 5 mg, Oral, Every 12 Hours Scheduled, First dose on Thu07/07/25 at 2100, Tablet may be crushed and suspended in 60 mL of water or D5W and immediately delivered via NG tube., Indications: Atrial Fibrillation - requiring full anticoagulation 1999 (Given - Provider: Marina West, BRIDGETT) 904 (Given - Provider: Spencer Fitzgerald, BRIDGETT) aspirin chewable tablet 81 mg 81 mg, Oral, Daily, First dose on Thu07/07/25 at 1500, Herbal/drug interaction: Avoid use with ginkgo biloba. Based on patient request - if ordered for moderate or severe pain, provider allows for administration of a medication prescribed for a lower pain scale. Do not exceed 4 grams of aspirin in a 24 hr period. If given for pain, use the following pain scale: Mild Pain = Pain Score of 1-3, CPOT 1-2 Moderate Pain = Pain Score of 4-6, CPOT 3-4 Severe Pain = Pain Score of 7-10, CPOT 5-8 1434 (Given - Provider: Vielka Ingram RN) 0905 (Given - Provider: Spencer Fitzgerald RN) levothyroxine (SYNTHROID, LEVOTHROID) tablet 75 mcg 75 mcg, Oral, Every Clinical Research Associate, First dose on Thu07/07/25 at 0600, Take on empty stomach. 0556 (Given - Provider: Marina West RN) 0552 (Given - Provider: Jordi Martins RN) metoprolol succinate XL (TOPROL-XL) 24 hr tablet 12.5 mg 12.5 mg, Oral, Every 24 Hours Scheduled, First dose on Thu07/07/25 at 1415, Hold for SBP less than 100, DBP less than 60, or heart rate less than 50 Do not crush or chew the capsules or tablets. The drug may not work as designed if the capsule or tablet is crushed or chewed. Swallow whole. Do not crush or chew. 1434 (Given - Provider: Vielka Ingram RN) 0905 (Given - Provider: Spencer Fitzgerald RN) mupirocin (BACTROBAN) 2 % nasal ointment 1 Application 1 Application, Each Nare, 2 Times Daily, First dose on Yanet 07/06/25 at 1600, For 5 days, Begin on day 1 of ICU admission and continue for 5 days, even if patient transferred out of critical care. MUPIROCIN APPLICATION: 1. Place patient's bed at 30 degrees, if tolerated. 2. Wash your hands with warm soapy water or use hand career guidance counselor. 3. Open the tube of mupirocin 2%. 4. Squeeze about 0.5 g (blueberry-size) of mupirocin from the tube onto a sterile applicator or a cotton swab. 5. Apply the swab directly into nostril. Ensure coating of the sides of the nostril. 6. Repeat with second sterile applicator for other nostril. 7. Gently press the sides of the nostrils together and massage gently for 60 seconds. ([facility]) 1642 (Given - Provider: Ashly Toney RN)2003 (Not Given - Provider: Marina West RN - Reason: Other - Comment: Too close to previous dose) 903 (Given - Provider: Vielka Ingram RN)1999 (Given - Provider: Marina West RN) 0905 (Given - Provider: Spencer Fitzgerald RN) Pharmacy Meds to Bed Consult Daily, First dose on 07/08/25 at 1000, Until Discontinued, Please contact [facility] prior to patient discharge 1000 (Due) prochlorperazine (COMPAZINE) injection 5 mg (COMPLETED) 5 mg, Intravenous, Once, On Yanet 07/06/25 at 1700, For 1 dose, If multiple N/V medications ordered, use in the following order: Ondansetron, Prochlorperazine, Promethazine. Use PO unless patient refuses or patient unable to swallow. 1642 (Given - Provider: Ashly Toney RN) rosuvastatin (CRESTOR) tablet 40 mg 40 mg, Oral, Nightly, First dose on Yanet 07/06/25 at 2100, Avoid grapefruit juice. 2005 (Given - Provider: Marina West RN) 1999 (Given - Provider: Marina West, BRIDGETT) scopolamine patch 1 mg/72 hr 1 patch, Transdermal, Administer over 72 Hours, Every 72 Hours, First dose on Yanet 07/06/25 at 1700, Do not apply if patient has history of glaucoma. Not recommended for use if patient is older than 65. ([facility]) 1643 (Medication Applied - Provider: Ashly Toney, RN) 1135 (Due: Medication Removed - Provider: Automatic Discharge Provider - Comment: Time automatically adjusted from order being discontinued) sodium chloride 0.9 % flush 10 mL 10 mL, Intravenous, Every 12 Hours Scheduled, First dose on Yanet 07/06/25 at 2100 2006 (Given - Provider: Marina West, RN) 09 (Given - Provider: Vielka Ingram, RN)2000 (Given - Provider: Marina West, BRIDGETT) 905 (Given - Provider: Spencer Fitzgerald RN) PRN Medication Order 07/06/2025 07/07/2025 07/08/2025 ondansetron (ZOFRAN) injection 4 mg 4 mg, Intravenous, Every 6 Hours PRN, Nausea, Vomiting, Starting on Thu07/07/25 at 0815, If multiple N/V medications ordered, use in the following order: Ondansetron, Prochlorperazine, Promethazine. Use PO unless patient refuses or patient unable to swallow. 903 (Given - Provider: Vielka Ingram, RN) sodium chloride 0.9 % flush 10 mL 10 mL, Intravenous, As Needed, Line Care, Starting on Yanet 07/06/25 at 1523 sodium chloride 0.9 % infusion 40 mL 40 mL, Intravenous, at 100 mL/hr, As Needed, Line Care, Starting on Yanet 07/06/25 at 1523, Following administration of an IV intermittent medication, flush line with 40mL NS at 100mL/hr. documented in this encounter Care Teams Director Telehealth Relationship Specialty Start Date End Date Bernie Louis APRN [address] [place] [id number] PCP - General Nurse Practitioner 07/06/25 documented as of this encounter
--- OUTSIDE RECORDS SUMMARY | 2025-08-21 20:13 | XMS_ITS | Encounter Summary ---
Author Organization [facility] Address [address] [place] [address] Care Team Providers Care Information Systems Audit Manager Name Role Phone Bernie Louis APRN Primary Care Provider [phone] Encounter Details Date Type Department Care Team (Latest Contact Info) Description 07/06/2025 Travel Social History Tobacco Use Types Packs/Day Years Used Date Smoking Tobacco: Never Passive Smoke Exposure: Never Smokeless Tobacco: Never Alcohol Use Standard Drinks/Week Comments Never 0 (1 standard drink = 0.6 oz pur e alcohol) [facility] Utilities Answer Date Recorded In the past 12 months has [employer], gas, oil, or water [employer] threatened to shut off services in your [...] or training? Not on file Preferred Language Serbian 07/07/2025 Comments Unknown Sex and Gender Information [...] 1 Month) No 07/06/2025 3:47 PM EDT Aslhy Toney, RN * Calculated C-SSRS Risk Score (Lifetime/Recent) Answer Date of Assessment Author No Risk Indicated 07/06/2025 3:47 PM EDT Gabriella Toney, RN * [place] Suicide Severity Rating Scale (Screener/Recent Self-Report) Question Answer Date of Assessment Author 6. Suicidal Behavior (Lifetime) No 3:47 PM EDT Ashly Toney, RN documented as of this encounter Plan of Treatment Not on file documented as of this encounter Visit Diagnoses Not on filedocumented in this encounter Care Teams Information Systems Audit Manager Relationship Specialty Start Date End Date Bernie Louis APRN [address] [place] [id number] PCP - General Nurse Practitioner 07/06/25 documented as of this encounter
--- OUTSIDE RECORDS SUMMARY | 2025-08-21 20:13 | XMS_ITS | Clinical Summary ---
Author Organization [facility] Address [address] [place] [address] Care Team Providers Care Lead Sprinkler Name Role Phone Sendy Moran MD Primary Care Provider [phone] Family History Medical History Relation Name Comments [...] 2008 [facility]-Zoster Vaccines (1 of 2) 2008 CYJ-UNFPY-25 Vaccine (2023- season) 2025 [facility]-Influenza Vaccine (#1) [...] Narrative SUNQUEST - 10/15/2005 10:12 AM EST [facility] MR #: [id number] [facility] [place] [address] 1960 (Age: 44) FW Collect Date: 10/08/2005 00:00 Receipt Date: 10/09/2005 11:34 Page 1 DEPARTMENT OF PATHOLOGY AND LABORATORY MEDICINE CYTOPATHOLOGY REPORT Email: [email or web address] ATTENDING MD/Practitioner: Rishi Hahn Service: [facility] Location: [facility] Reported: 10/15/2005 10:12 Collected: 10/08/2005 00:00 INTERPRETATION THIN PREP (CERVICAL/VAGINAL): NEGATIVE FOR INTRAEPITHELIAL LESION OR MALIGNANCY. SATISFACTORY FOR EVALUATION; ENDOCERVICAL/ TRANSFORMATION ZONE COMPONENT PRESENT. Slide scanned and imaged by Patient Communicator ThinPrep Imaging System with manual review of [...] results is suggested (please call Microbiology at [phone] for results). CLINICAL INFORMATION: Menstrual History: Cyclic Date of Last Menstrual Period: 09/12/05 Other Clinical Conditions: Per computer, patient has a history of previous abnormal pap: and bx 09/2003 If ASCUS and > 24 years of age, HPV/DNA testing requested. 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 The signing pathologist has performed and is responsible for the reported pathologic evaluation. Ni Washburn APRN LAB PATHOLOGY ORDERABLES F inal Result [employer] from Last 3 Months or Most Recently Relevant to Health Maintenance Care Teams Lead Sprinkler Relationship Specialty Start Date End Date Sendy Moran MD [address] [place] [address] [address] [place] [id number] PCP - General 03/01/21
--- OUTSIDE RECORDS SUMMARY | 2025-08-21 20:13 | XMS_ITS | Encounter Summary ---
Author Organization [facility] Address [address] [place] [address] Care Team Providers Care Core Stripper Name Role Phone Bernie Louis ISA Primary Care Provider [phone] Reason for Visit * Reason Onset Date Comments DR. BIANCHI - SCHEDULING REQUEST 07/10/2025 Encounter Details Date Type Department Care Team (Late st Contact Info) Description 07/10/2025 Telephone [facility] [address] [place] [phone] Ronda Bianchi MD [address] [place] [address] DR. BIANCHI - SCHEDULING REQUEST Social History Tobacco Use Types Packs/Day Years Used Date Smoking Tobacco: Never Passive Smoke Exposure: Never Smokeless Tobacco: Never Alcohol Use Standard Drinks/Week Comments Never 0 (1 standard drink = 0.6 oz pur e alcohol) [facility] Utilities Answer Date Recorded In the past 12 months has [employer], gas, oil, or water [employer] threatened to shut off services in your [...] or training? Not on file Preferred Language Pashto 07/07/2025 Comments Unknown Sex and Gender Information [...] on filedocumented in this encounter Care Teams Core Stripper Relationship Specialty Start Date End Date Bernie Louis APRN [address] [place] [address] PCP - General Nurse Practitioner 07/06/25 documented as of this encounter
--- OUTSIDE RECORDS SUMMARY | 2025-08-21 20:14 | XMS_ITS | Data Portability ---
Author Organization [facility] Address [address] [place] [address] Assessment Encounter Date Assessment Date Assessment LastModified [...] available 3 23:19:39 pap, LB 2022 023 [facility], [address], [place], [address], 3 14:24:16 urinalysis, dipstick [address], [address] [place], [address], 3 13:59:24 culture, urine 2022 023 [facility], [address], [place], [address], 3 07:38:25 urinalysis, dipstick [address], [address] [place], [address], 3 14:32:26 SARS CoV 2 RNA (COVID-19), QL, tinner helper-PCR, respiratory specimen [address] [facility], [address] [place], [address], 3 09:35:24 respiratory pathogens DNA and RNA panel, PCR, nasopharynx [address] [facility], [address] [place], [address], 3 09:35:24 rapid flu (A+B) 2021 022 [facility], [address] [place], [address], 2 09:54:23 culture, urine 2021 022 [facility], [address] [place], [address], 2 02:16:46 urinalysis, dipstick [address] [facility], [address] [place], [address], 2 10:11:47 Referral None recorded. Procedures None recorded. Surgeries None recorded. Imaging MAMMO, screening, digital, bilateral - due after 12/27/2320[address] [place] [address] ([facility]), [address] [place], [address], 4 16:05:01 Medication Orders triamcinolo ne acetonide 0.1 % topical cream 2022 023 [facility]armacy #[id number], [address] [place], [address], 3 10:10:05 nitrofurant oin monohydrate /macrocryst als 100 mg capsule [address]/Pharmacy #3016, [address] [place], [address], 3 09:14:30 gentamicin 40 mg/mL injection solution [address]/Pharmacy #3016, [address] [place], [address], 3 09:14:25 azithromyci n 250 mg tablet [address]/Pharmacy #3016, [address] [place], [address], 3 14:26:36 methylpredn isolone 4 mg tablets in a dose pack 2021 [email or web address] n5 [facility], [address] [place], [address], 3 09:14:34 dexamethaso ne sodium phosphate 4 mg/mL injection solution 2021 022 jstapleto n5 [facility]/Pharmacy #3016, [address] [place], [address], 3 14:26:33 Ventolin HFA 90 mcg/actuati on aerosol inhaler 2021 REINALDO [facility]/Pharmacy #3016, [address] [place], [address], 09:54:27 Patient TargetsNo targets recorded. Patient Instructions Encounter Date Encounter Id Patient Instructions Last Modified By Organization Details Last Modified Time 05/27/2022 [id number] learning about healthy weight Not available 05/28/2022 23:49:29 Reason for Referral None Reported. Results Created Date Observation Date Name Description Value Unit Range Abnormal Flag Note LastModifiedBy Organization Detail LastModifiedTime 05/26/2005/27/2022 LIPID PANEL , STAND EDVIN cholesterol, total 162 mg/dL <200 normal Not Available [facility] [place] [facility] [address] [place], [address], 05/27/2022 08:18:56 05/26/2005/27/2022 LIPID PANEL , STAND EDVIN HDL cholesterol 71 mg/dL > or = 50 normal Not Available [facility] [place] [facility] [address] [place], [address], 05/27/2022 08:18:56 05/26/2005/27/2022 LIPID PANEL , STAND EDVIN triglyceride s 113 mg/dL <150 normal Not Available [facility] [place] [facility] [address] [place], [address], 05/27/2022 08:18:56 05/26/20 22 05/27/2022 LIPID PANEL [...] 2061- 2068 (http ://ed ucati on.Qu Cornell Tistagames. com/f aq/FA Q164) Not Available [facility] [place] [facility] [address] [facility] [place], [address], 05/27/2022 08:18:56 05/26/20 22 05/27/2022 LIPID PANEL , STAND EDVIN chol/HDLC ratio 2.3 (calc ) <5.0 normal Not Available [facility] [place] [facility] [address] [facility], [place], [address], 05/27/2022 08:18:56 05/26/20 22 05/27/2022 LIPID PANEL , STAND EDVIN non HDL cholesterol 91 mg/dL _(trini c) <130 normal For patie nts with diabe ovi plus 1 major ASCVD risk facto r, treat ing to a non-H DL-C goal of <100 mg/dL (LDL- C of <70 mg/dL ) is consi dered a thera peuti c optio n. Not Available [facility] [place] [facility] [address] [facility], [place], [address], 05/27/2022 08:18:56 05/26/20 22 05/27/2022 COMPR EHENS HOMAR METAB OLIC PANEL glucose 105 mg/dL 65-99 high Fasti ng refer ence inter edy For someo ne witho ut known diabe ovi, a gluco se value betwe en 100 and 125 mg/dL is consi stent with predi abete s and shoul d be confi rmed with a follo w-up test. Not Available [facility] [place] [facility] [address] [place], [address], 05/27/2022 08:18:57 05/26/20 22 05/27/2022 COMPR EHENS HOMAR METAB OLIC PANEL urea nitrogen (BUN) 14 mg/dL 7-25 normal Not Available [facility] [place] [facility] [address] [place], [address], 05/27/2022 08:18:57 05/26/20 22 05/27/2022 COMPR EHENS HOMAR METAB OLIC PANEL creatinine 0.83 mg/dL 0.50-1 .05 normal Not Available [facility] [place] [facility] [address] [place], [address], 05/27/2022 08:18:57 05/26/20 22 05/27/2022 COMPR EHENS [...] culat or Not Available [facility] [place] [facility] [address] [place], [address], 05/27/2022 08:18:57 05/26/20 22 05/27/2022 COMPR EHENS HOMAR METAB OLIC PANEL BUN/creatini ne ratio NOT APPLIC ABLE (calc ) 6-22 Not Available [facility] [place] [facility] [address] [place], [address], 05/27/2022 08:18:57 05/26/20 22 05/27/2022 COMPR EHENS HOMAR METAB OLIC PANEL sodium 140 mmol/ L 135-14 6 normal Not Available [facility] [address] [place], [address], 05/27/2022 08:18:57 05/26/20 22 05/27/2022 COMPR EHENS HOMAR METAB OLIC PANEL potassium 4.1 mmol/ L 3.5-5. 3 normal Not Available [facility] [address] [place], [address], 05/27/2022 08:18:57 05/26/20 22 05/27/2022 COMPR EHENS HOMAR METAB OLIC PANEL chloride 108 mmol/ L 98-110 normal Not Available [facility] [address] [place], [address], 05/27/2022 08:18:57 05/26/20 22 05/27/2022 COMPR EHENS HOMAR METAB OLIC PANEL carbon dioxide 25 mmol/ L 20-32 normal Not Available [facility] [address] [place], [address], 05/27/2022 08:18:57 05/26/20 22 05/27/2022 COMPR EHENS HOMAR METAB OLIC PANEL calcium 9.5 mg/dL 8.6-10 .4 normal Not Available [facility] [address] [place], [address], 05/27/2022 08:18:57 05/26/20 22 05/27/2022 COMPR EHENS HOMAR METAB OLIC PANEL protein, total 6.4 g/dL 6.1-8. 1 normal Not Available [facility] [address] [place], [address], 05/27/2022 08:18:57 05/26/20 22 05/27/2022 COMPR EHENS HOMAR METAB OLIC PANEL albumin 4.3 g/dL 3.6-5. 1 normal Not Available [facility] [address] [place], [address], 05/27/2022 08:18:57 05/26/20 22 05/27/2022 COMPR EHENS HOMAR METAB OLIC PANEL globulin 2.1 g/dL_ (calc ) 1.9-3. 7 normal Not Available [facility] [address] [place], [address], 05/27/2022 08:18:57 05/26/20 22 05/27/2022 COMPR EHENS HOMAR METAB OLIC PANEL albumin/glob ulin ratio 2.0 (calc ) 1.0-2. 5 normal Not Available [facility] [address] [place], [address], 05/27/2022 08:18:57 05/26/20 22 05/27/2022 COMPR EHENS HOMAR METAB OLIC PANEL bilirubin, total 0.6 mg/dL 0.2-1. 2 normal Not Available [facility] [address] [place], [address], 05/27/2022 08:18:57 05/26/20 22 05/27/2022 COMPR EHENS HOMAR METAB OLIC PANEL alkaline phosphatase 93 U/L 37-153 normal Not Available [facility] [address] [place], [address], 05/27/2022 08:18:57 05/26/20 22 05/27/2022 COMPR EHENS HOMAR METAB OLIC PANEL AST 17 U/L 10-35 normal Not Available [facility] [address] [place], [address], 05/27/2022 08:18:57 05/26/20 22 05/27/2022 COMPR EHENS HOMAR METAB OLIC PANEL ALT 14 U/L 6-29 normal Not Available [facility] [address] [place], [address], 05/27/2022 08:18:57 05/26/20 22 05/27/2022 TSH TSH 1.03 mIU/L 0.40-4 .50 normal Not Available [facility] [address] [place], [address], 05/27/2022 08:18:58 05/26/20 22 05/27/2022 CBC (INCL UDES DIFF/ PLT) white blood cell count 6.0 thous and/u L 3.8-10 .8 normal Not Available [facility] [address] [place], [address], 05/27/2022 08:18:58 05/26/20 22 05/27/2022 CBC (INCL UDES DIFF/ PLT) red blood cell count 4.48 charley on/uL 3.80-5 .10 normal Not Available [facility] [address] [place], [address], 05/27/2022 08:18:58 05/26/20 22 05/27/2022 CBC (INCL UDES DIFF/ PLT) hemoglobin 13.2 g/dL 11.7-1 5.5 normal Not Available [facility] [address] [place], [address], 05/27/2022 08:18:58 05/26/20 22 05/27/2022 CBC (INCL UDES DIFF/ PLT) hematocrit 41.4 % 35.0-4 5.0 normal Not Available [facility] [address] [place], [address], 05/27/2022 08:18:58 05/26/20 22 05/27/2022 CBC (INCL UDES DIFF/ PLT) MCV 92.4 fL 80.0-1 00.0 normal Not Available [facility] [address] [place], [address], 05/27/2022 08:18:58 05/26/20 22 05/27/2022 CBC (INCL UDES DIFF/ PLT) MCH 29.5 pg 27.0-3 3.0 normal Not Available [facility] [place] [facility] [address] [place], [address], 05/27/2022 08:18:58 05/26/20 22 05/27/2022 CBC (INCL UDES DIFF/ PLT) MCHC 31.9 g/dL 32.0-3 6.0 low Not Available [facility] [address] [place], [address], 05/27/2022 08:18:58 05/26/20 22 05/27/2022 CBC (INCL UDES DIFF/ PLT) RDW 13.2 % 11.0-1 5.0 normal Not Available [facility] [place] [facility] [address] [place], [address], 05/27/2022 08:18:58 05/26/20 22 05/27/2022 CBC (INCL UDES DIFF/ PLT) platelet count 210 thous and/u L 140-40 0 normal Not Available [facility] [address] [place], [address], 05/27/2022 08:18:58 05/26/20 22 05/27/2022 CBC (INCL UDES DIFF/ PLT) MPV 11.0 fL 7.5-12 .5 normal Not Available [facility] [place] [facility] [address] [place], [address], 05/27/2022 08:18:58 05/26/20 22 05/27/2022 CBC (INCL UDES DIFF/ PLT) absolute neutrophils 2724 cells /uL 1500-7 800 normal Not Available [facility] [place] [facility] [address] [place], [address], 05/27/2022 08:18:58 05/26/20 22 05/27/2022 CBC (INCL UDES DIFF/ PLT) absolute lymphocytes 2580 cells /uL 850-39 00 normal Not Available [facility] [place] [facility] [address] [place], [address], 05/27/2022 08:18:58 05/26/20 22 05/27/2022 CBC (INCL UDES DIFF/ PLT) absolute monocytes 558 cells /uL 200-95 0 normal Not Available [facility] [address], [place], [address], 05/27/2022 08:18:58 05/26/20 22 05/27/2022 CBC (INCL UDES DIFF/ PLT) absolute eosinophils 90 cells /uL 15-500 normal Not Available [facility] [place] [facility] [address], [place], [address], 05/27/2022 08:18:58 05/26/20 22 05/27/2022 CBC (INCL UDES DIFF/ PLT) absolute basophils 48 cells /uL 0-200 normal Not Available [facility] [place] [facility] [address], [place], [address], 05/27/2022 08:18:58 05/26/20 22 05/27/2022 CBC (INCL UDES DIFF/ PLT) neutrophils 45.4 % normal Not Available [facility] [place] [facility] [address], [place], [address], 05/27/2022 08:18:58 05/26/20 22 05/27/2022 CBC (INCL UDES DIFF/ PLT) lymphocytes 43.0 % normal Not Available [facility] [place] [facility] [address], [place], [address], 05/27/2022 08:18:58 05/26/20 22 05/27/2022 CBC (INCL UDES DIFF/ PLT) monocytes 9.3 % normal Not Available [facility] [place] [facility] [address] [place], [address], 05/27/2022 08:18:58 05/26/20 22 05/27/2022 CBC (INCL UDES DIFF/ PLT) eosinophils 1.5 % normal Not Available [facility] [place] [facility] [address] [place], [address], 05/27/2022 08:18:58 05/26/20 22 05/27/2022 CBC (INCL UDES DIFF/ PLT) basophils 0.8 % normal Not Available [facility] [place] [facility] [address] [place], [address], 05/27/2022 08:18:58 05/27/20 22 05/29/2022 CULTU RE, URINE , ROUTI NE culture, urine, routine CULTU RE, URINE , ROUTI NE Micro Numbe r: [id number] Test Statu s: Final Speci men [...] port Tube. Not Available [facility] [place] [facility] [address] [facility], [place], [address], 05/29/2022 02:16:45 05/27/2005/27/2022 urina lysis , dipst ick Leukocytes Modera te Not Available [address], [place], [address], 05/27/2022 10:11:09 05/27/20 22 05/27/2022 urina lysis , dipst ick Nitrite negati ve Not Available [facility] [address] [place], [address], 05/27/2022 10:11:09 05/27/20 22 05/27/2022 urina lysis , dipst ick Urobilinogen .2 Not Available [facility] [address] [place], [address], 05/27/2022 10:11:09 05/27/20 22 05/27/2022 urina lysis , dipst ick Protein Negati ve Not Available [facility] [address] [place], [address], 05/27/2022 10:11:05/27/20 22 05/27/2022 urina lysis , dipst ick pH 6.0 Not Available [facility] [address] [place], [address], 05/27/2022 10:11:09 05/27/20 22 05/27/2022 urina lysis , dipst ick Blood Negati ve Not Available [facility] [address] [place], [address], 05/27/2022 10:11:09 05/27/20 22 05/27/2022 urina lysis , dipst ick Specific [place] 1.010 Not Available [facility] [address] [place], [address], 05/27/2022 10:11:09 05/27/20 22 05/27/2022 urina lysis , dipst ick Ketone Negati ve Not Available [facility] [address] [place], [address], 05/27/2022 10:11:09 05/27/20 22 05/27/2022 urina lysis , dipst ick Bilirubin Negati ve Not Available [facility] [address] [place], [address], 05/27/2022 10:11:09 05/27/20 22 05/27/2022 urina lysis , dipst ick Glucose Negati ve Not Available [facility] [address] [facility], [place], [address], 05/27/2022 10:11:09 10/17/20 22 10/18/2022 SARS COV2 [...] the [facility] websi te: www.Uzabase uGracelock [employer]D Healthkart/ Covid 19. For patie nts with a Detec stefan or Incon clusi ve test resul t, pleas e see CDC's COVID -19 Treat ments and Medic ation s page locat ed at https ://ww w.cdc .gov/ coron aviru s/201 9-nco v/you r-hea [facility]/t reatm ents- for- sever e-ill ness. [...] vacci isha. Not Available [facility] [address], [place], [address], 10/18/2022 19:58:56 10/17/20 22 10/18/2022 SARS COV2 RNA(C OVID1 9) AND RESP PATHO GEN PNL, NAAT adenovirus NOT DETECT ED not detect ed normal Not Available [facility] [facility] [address], [place], [address], 10/18/2022 19:58:56 10/17/20 22 10/18/2022 SARS COV2 RNA(C OVID1 9) AND RESP PATHO GEN PNL, NAAT rhinovirus/e nterovirus NOT DETECT ED not detect ed normal Not Available [facility] [place] [facility] [address] [place], [address], 10/18/2022 19:58:56 10/17/20 22 10/18/2022 SARS COV2 RNA(C OVID1 9) AND RESP PATHO GEN PNL, NAAT influenza A NOT DETECT ED not detect ed normal Not Available [facility] [address] [place], [address], 10/18/2022 19:58:56 10/17/20 22 10/18/2022 SARS COV2 RNA(C OVID1 9) AND RESP PATHO GEN PNL, NAAT influenza A subtype H1 NOT DETECT ED not detect ed normal Not Available [facility] [facility] [address] [place], [address], 10/18/2022 19:58:56 10/17/20 22 10/18/2022 SARS COV2 RNA(C OVID1 9) AND RESP PATHO GEN PNL, NAAT influenza A subtype H3 NOT DETECT ED not detect ed normal Not Available [facility] [address] [place], [address], 10/18/2022 19:58:56 10/17/20 22 10/18/2022 SARS COV2 RNA(C OVID1 9) AND RESP PATHO GEN PNL, NAAT influenza B NOT DETECT ED not detect ed normal Not Available [facility] [address] [place], [address], 10/18/2022 19:58:56 10/17/20 22 10/18/2022 SARS COV2 RNA(C OVID1 9) AND RESP PATHO GEN PNL, NAAT human metapneumovi wendy NOT DETECT ED not detect ed normal Not Available [facility] [place] [facility] [address], [place], [address], 10/18/2022 19:58:56 10/17/20 22 10/18/2022 SARS COV2 RNA(C OVID1 9) AND RESP PATHO GEN PNL, NAAT human RSV A NOT DETECT ED not detect ed normal Not Available [facility] [address] [facility], [place], [address], 10/18/2022 19:58:56 10/17/20 22 10/18/2022 SARS COV2 RNA(C OVID1 9) AND RESP PATHO GEN PNL, NAAT human RSV B NOT DETECT ED not detect ed normal Not Available [facility] [place] [facility] [address], [place], [address], 10/18/2022 19:58:56 10/17/20 22 10/18/2022 SARS COV2 RNA(C OVID1 9) AND RESP PATHO GEN PNL, NAAT human parainflu virus 1 NOT DETECT ED not detect ed normal Not Available [facility] [address] [facility] [facility], [place], [address], 10/18/2022 19:58:56 10/17/20 22 10/18/2022 SARS COV2 RNA(C OVID1 9) AND RESP PATHO GEN PNL, NAAT human parainflu virus 2 NOT DETECT ED not detect ed normal Not Available [facility] [facility] [address], [place], [address], 10/18/2022 19:58:56 10/17/20 22 10/18/2022 SARS COV2 RNA(C OVID1 9) AND RESP PATHO GEN PNL, NAAT human parainflu virus 3 NOT DETECT ED not detect ed normal Not Available [facility] [address], [place], [address], 10/18/2022 19:58:56 10/17/20 22 10/18/2022 SARS COV2 RNA(C OVID1 9) AND RESP PATHO GEN PNL, NAAT human parainflu virus 4 NOT DETECT ED not detect ed normal Not Available [facility] [address] [facility] [facility] [facility], [place], [address], 10/18/2022 19:58:56 10/17/20 22 10/18/2022 SARS COV2 RNA(C OVID1 9) AND RESP PATHO GEN PNL, NAAT coronavirus 229E NOT DETECT ED not detect ed normal Not Available [facility] [facility] [address], [place], [address], 10/18/2022 19:58:56 10/17/20 22 10/18/2022 SARS COV2 RNA(C OVID1 9) AND RESP PATHO GEN PNL, NAAT coronavirus oc43 NOT DETECT ED not detect ed normal Not Available [facility] [place] [facility] [address], [place], [address], 10/18/2022 19:58:56 10/17/20 22 10/18/2022 SARS COV2 RNA(C OVID1 9) AND RESP PATHO GEN PNL, NAAT coronavirus nl63 NOT DETECT ED not detect ed normal Not Available [facility] [address], [place], [address], 10/18/2022 19:58:56 10/17/20 22 10/18/2022 SARS COV2 RNA(C OVID1 9) AND RESP PATHO GEN PNL, NAAT coronavirus hku1 NOT DETECT ED not detect ed normal Not Available [facility] [address], [place], [address], 10/18/2022 19:58:56 10/17/20 22 10/18/2022 SARS COV2 RNA(C OVID1 9) AND RESP PATHO GEN PNL, NAAT human bocavirus NOT DETECT ED not detect ed normal Not Available [facility] [address], [place], [address], 10/18/2022 19:58:56 10/17/20 22 10/18/2022 SARS COV2 RNA(C OVID1 9) AND RESP PATHO GEN PNL, NAAT chlamydophil a pneumoniae NOT DETECT ED not detect ed normal Not Available [facility] [place] [facility] [address] [facility], [place], [address], 10/18/2022 19:58:56 10/17/20 22 10/18/2022 SARS COV2 RNA(C OVID1 9) AND RESP PATHO GEN PNL, NAAT mycoplasma pneumoniae NOT DETECT ED not detect ed normal Not Available [facility] [place] [facility] [address] [facility], [place], [address], 10/18/2022 19:58:56 10/17/20 22 10/18/2022 SARS COV2 RNA(C OVID1 9) AND RESP PATHO GEN PNL, NAAT comment THIS ASSAY WILL NOT DETEC T SARS- CoV-2 (COVI D-19) This test is perfo rmed using the numberFire Lumin ex Techn ology . Limit ation [...] virus es. Not Available [facility] [place] [facility] [address] [facility] [facility], [place], [address], 10/18/2022 19:58:56 10/17/20 22 10/17/2022 rapid flu (A+B) rapid flu negati ve Not Available [address], [place], [address], 10/17/2022 09:50:59 01/23/20 23 01/24/2023 CULTU RE, URINE , ROUTI NE culture, urine, routine CULTU RE, URINE , ROUTI NE Micro Numbe r: [id number] Test Statu s: Final Speci men [...] port Tube. Not Available [facility] [address] [facility], [place], [address], 01/24/2023 07:38:25 01/23/20 23 01/22/2023 urina lysis , dipst ick Leukocytes Small Not Available [facility] [address] [place], [address], 01/22/2023 14:31:20 01/23/20 23 01/22/2023 urina lysis , dipst ick Nitrite negati ve Not Available [facility] [address] [place], [address], 01/22/2023 14:31:20 01/23/20 23 01/22/2023 urina lysis , dipst ick Urobilinogen .2 Not Available [facility] [address] [place], [address], 01/22/2023 14:31:20 01/23/20 23 01/22/2023 urina lysis , dipst ick Protein Negati ve Not Available [facility] [address] [place], [address], 01/22/2023 14:31:20 01/23/20 23 01/22/2023 urina lysis , dipst ick pH 6.0 Not Available [facility] [address] [place], [address], 01/22/2023 14:31:20 01/23/20 23 01/22/2023 urina lysis , dipst ick Blood Negati ve Not Available [facility] [address] [place], [address], 01/22/2023 14:31:20 01/23/20 23 01/22/2023 urina lysis , dipst ick Specific [place] 1.030 Not Available [facility] [address] [place], [address], 01/22/2023 14:31:20 01/23/20 23 01/22/2023 urina lysis , dipst ick Ketone Negati ve Not Available [facility] [address] [place], [address], 01/22/2023 14:31:20 01/23/20 23 01/22/2023 urina lysis , dipst ick Bilirubin Negati ve Not Available [facility] [address] [place], [address], 01/22/2023 14:31:20 01/23/20 23 01/22/2023 urina lysis , dipst ick Glucose Negati ve Not Available [facility] [address] [place], [address], 01/22/2023 14:31:20 07/16/20 23 07/16/2023 urina lysis , dipst ick Leukocytes Negati ve Not Available [facility] [address] [place], [address], 07/16/2023 13:59:01 07/16/20 23 07/16/2023 urina lysis , dipst ick Nitrite negati ve Not Available [facility] [address] [place], [address], 07/16/2023 13:59:01 07/16/20 23 07/16/2023 urina lysis , dipst ick Urobilinogen .2 Not Available [facility] [place] [address] [place], [address], 07/16/2023 13:59:01 07/16/20 23 07/16/2023 urina lysis , dipst ick Protein Negati ve Not Available [facility] [address] [place], [address], 07/16/2023 13:59:01 07/16/20 23 07/16/2023 urina lysis , dipst ick pH 6.0 Not Available [facility] [address] [place], [address], 07/16/2023 13:59:01 07/16/20 23 07/16/2023 urina lysis , dipst ick Blood Negati ve Not Available [facility] [address] [place], [address], 07/16/2023 13:59:01 07/16/20 23 07/16/2023 urina lysis , dipst ick Specific [place] 1.010 Not Available [address], [address], 07/16/2023 13:59:01 07/16/20 23 07/16/2023 urina lysis , dipst ick Ketone Negati ve Not Available [facility] [address] [place], [address], 07/16/2023 13:59:01 07/16/20 23 07/16/2023 urina lysis , dipst ick Bilirubin Negati ve Not Available [facility] [address], [place], [address], 07/16/2023 13:59:01 07/16/20 23 07/16/2023 urina lysis , dipst ick Glucose Negati ve Not Available [facility] [address] [facility], [place], [address], 07/16/2023 13:59:01 07/30/2007/31/2023 LIPID PANEL (REFL ) cholesterol, total 168 mg/dL <200 normal Not Available [facility] [address], [place], [address], 07/31/2023 09:40:42 07/30/2007/31/2023 LIPID PANEL (REFL ) HDL cholesterol 69 mg/dL > or = 50 normal Not Available [facility] [address], [place], [address], 07/31/2023 09:40:42 07/30/2007/31/2023 LIPID PANEL (REFL ) triglyceride s 75 mg/dL <150 normal Not Available [facility] [address], [place], [address], 07/31/2023 09:40:42 07/30/2007/31/2023 LIPID PANEL (REFL ) [...] aq/FA Q164) Not Available [facility] [address], [place], [address], 07/31/2023 09:40:42 07/30/2007/31/2023 LIPID PANEL (REFL ) chol/HDLC ratio 2.4 (calc ) <5.0 normal Not Available [facility] [address] [place], [address], 07/31/2023 09:40:42 07/30/2007/31/2023 LIPID PANEL (REFL ) non HDL cholesterol 99 mg/dL _(trini c) <130 normal For patie nts with diabe ovi plus 1 major ASCVD risk facto r, treat ing to a non-H DL-C goal of <100 mg/dL (LDL- C of <70 mg/dL ) is consi dered a thera peuti c optio n. Not Available [facility] [address] [place] [place], [address], 07/31/2023 09:40:42 07/30/2007/31/2023 COMPR EHENS HOMAR METAB OLIC PANEL glucose 101 mg/dL 65-99 high Fasti ng refer ence inter edy For someo ne witho ut known diabe ovi, a gluco se value betwe en 100 and 125 mg/dL is consi stent with predi abete s and shoul d be confi rmed with a follo w-up test. Not Available [facility] [address] [place] [place], [address], 07/31/2023 09:40:42 07/30/2007/31/2023 COMPR EHENS HOMAR METAB OLIC PANEL urea nitrogen (BUN) 23 mg/dL 7-25 normal Not Available [facility] [address] [place] [place], [address], 07/31/2023 09:40:42 07/30/2007/31/2023 COMPR EHENS HOMAR METAB OLIC PANEL creatinine 1.03 mg/dL 0.50-1 .05 normal Not Available [facility] [address] [place], [address], 07/31/2023 09:40:42 07/30/2007/31/2023 COMPR EHENS HOMAR METAB OLIC PANEL eGFR 61 mL/mi n/1.7 3m2 > or = 60 normal Not Available [facility] [address] [place], [address], 07/31/2023 09:40:42 07/30/2007/31/2023 COMPR EHENS HOMAR METAB OLIC PANEL BUN/creatini ne ratio SEE NOTE: (calc ) 6-22 Not Repor stefan: BUN and Creat inine are withi n refer ence range . Not Available [facility] [address] [place], [address], 07/31/2023 09:40:42 07/30/2007/31/2023 COMPR EHENS HOMAR METAB OLIC PANEL sodium 139 mmol/ L 135-14 6 normal Not Available [facility] [address] [place], [address], 07/31/2023 09:40:42 07/30/2007/31/2023 COMPR EHENS HOMAR METAB OLIC PANEL potassium 4.2 mmol/ L 3.5-5. 3 normal Not Available [facility] [address] [place], [address], 07/31/2023 09:40:42 07/30/2007/31/2023 COMPR EHENS HOMAR METAB OLIC PANEL chloride 107 mmol/ L 98-110 normal Not Available [facility] [address] [place], [address], 07/31/2023 09:40:42 07/30/2007/31/2023 COMPR EHENS HOMAR METAB OLIC PANEL carbon dioxide 25 mmol/ L 20-32 normal Not Available [facility] [address] [place], [address], 07/31/2023 09:40:42 07/30/2007/31/2023 COMPR EHENS HOMAR METAB OLIC PANEL calcium 9.3 mg/dL 8.6-10 .4 normal Not Available [facility] [address] [place], [address], 07/31/2023 09:40:42 07/30/2007/31/2023 COMPR EHENS HOMAR METAB OLIC PANEL protein, total 6.4 g/dL 6.1-8. 1 normal Not Available [facility] [address] [place], [address], 07/31/2023 09:40:42 07/30/2007/31/2023 COMPR EHENS HOMAR METAB OLIC PANEL albumin 4.1 g/dL 3.6-5. 1 normal Not Available [facility] [address] [place], [address], 07/31/2023 09:40:42 07/30/2007/31/2023 COMPR EHENS HOMAR METAB OLIC PANEL globulin 2.3 g/dL_ (calc ) 1.9-3. 7 normal Not Available [facility] [address] [place], [address], 07/31/2023 09:40:42 07/30/2007/31/2023 COMPR EHENS HOMAR METAB OLIC PANEL albumin/glob ulin ratio 1.8 (calc ) 1.0-2. 5 normal Not Available [facility] [address] [place], [address], 07/31/2023 09:40:42 07/30/2007/31/2023 COMPR EHENS HOMAR METAB OLIC PANEL bilirubin, total 0.4 mg/dL 0.2-1. 2 normal Not Available [facility] [address] [place], [address], 07/31/2023 09:40:42 07/30/2007/31/2023 COMPR EHENS HOMAR METAB OLIC PANEL alkaline phosphatase 69 U/L 37-153 normal Not Available [facility] [address] [facility], [place], [address], 07/31/2023 09:40:42 07/30/2007/31/2023 COMPR EHENS HOMAR METAB OLIC PANEL AST 15 U/L 10-35 normal Not Available [facility] [address] [facility], [place], [address], 07/31/2023 09:40:42 07/30/2007/31/2023 COMPR EHENS HOMAR METAB OLIC PANEL ALT 13 U/L 6-29 normal Not Available [facility] [address] [facility], [place], [address], 07/31/2023 09:40:42 07/30/2007/31/2023 TSH TSH 2.44 mIU/L 0.40-4 .50 normal Not Available [facility] [address] [place], [address], 07/31/2023 09:40:43 07/30/2007/31/2023 CBC (INCL UDES DIFF/ PLT) white blood cell count 6.7 thous and/u L 3.8-10 .8 normal Not Available [facility] [address] [facility], [place], [address], 07/31/2023 09:40:44 07/30/2007/31/2023 CBC (INCL UDES DIFF/ PLT) red blood cell count 4.37 charley on/uL 3.80-5 .10 normal Not Available [facility] [address] [facility], [place], [address], 07/31/2023 09:40:44 07/30/2007/31/2023 CBC (INCL UDES DIFF/ PLT) hemoglobin 13.1 g/dL 11.7-1 5.5 normal Not Available [facility] [address] [place], [address], 07/31/2023 09:40:44 07/30/2007/31/2023 CBC (INCL UDES DIFF/ PLT) hematocrit 40.0 % 35.0-4 5.0 normal Not Available [facility] [address] [place], [address], 07/31/2023 09:40:44 07/30/2007/31/2023 CBC (INCL UDES DIFF/ PLT) MCV 91.5 fL 80.0-1 00.0 normal Not Available [facility] [address] [place], [address], 07/31/2023 09:40:44 07/30/2007/31/2023 CBC (INCL UDES DIFF/ PLT) MCH 30.0 pg 27.0-3 3.0 normal Not Available [facility] [address] [place], [address], 07/31/2023 09:40:44 07/30/2007/31/2023 CBC (INCL UDES DIFF/ PLT) MCHC 32.8 g/dL 32.0-3 6.0 normal Not Available [facility] [address] [place], [address], 07/31/2023 09:40:44 07/30/2007/31/2023 CBC (INCL UDES DIFF/ PLT) RDW 13.4 % 11.0-1 5.0 normal Not Available [facility] [address] [place], [address], 07/31/2023 09:40:44 07/30/2007/31/2023 CBC (INCL UDES DIFF/ PLT) platelet count 222 thous and/u L 140-40 0 normal Not Available [facility] [address] [facility], [place], [address], 07/31/2023 09:40:44 07/30/2007/31/2023 CBC (INCL UDES DIFF/ PLT) MPV 11.6 fL 7.5-12 .5 normal Not Available [facility] [address] [facility], [place], [address], 07/31/2023 09:40:44 07/30/2007/31/2023 CBC (INCL UDES DIFF/ PLT) absolute neutrophils 3229 cells /uL 1500-7 800 normal Not Available [facility], [place], [address], 07/31/2023 09:40:44 07/30/2007/31/2023 CBC (INCL UDES DIFF/ PLT) absolute lymphocytes 2680 cells /uL 850-39 00 normal Not Available [facility] [facility], [place], [address], 07/31/2023 09:40:44 07/30/2007/31/2023 CBC (INCL UDES DIFF/ PLT) absolute monocytes 643 cells /uL 200-95 0 normal Not Available [facility] [address] [facility], [place], [address], 07/31/2023 09:40:44 07/30/2007/31/2023 CBC (INCL UDES DIFF/ PLT) absolute eosinophils 107 cells /uL 15-500 normal Not Available [facility] [address] [facility], [place], [address], 07/31/2023 09:40:44 07/30/2007/31/2023 CBC (INCL UDES DIFF/ PLT) absolute basophils 40 cells /uL 0-200 normal Not Available [facility] [address] [place], [address], 07/31/2023 09:40:44 07/30/2007/31/2023 CBC (INCL UDES DIFF/ PLT) neutrophils 48.2 % normal Not Available [facility] [address] [facility] [place], [address], 07/31/2023 09:40:44 07/30/2007/31/2023 CBC (INCL UDES DIFF/ PLT) lymphocytes 40.0 % normal Not Available [facility] [address] [place], [address], 07/31/2023 09:40:44 07/30/2007/31/2023 CBC (INCL UDES DIFF/ PLT) monocytes 9.6 % normal Not Available [facility] [address] [place], [address], 07/31/2023 09:40:44 07/30/2007/31/2023 CBC (INCL UDES DIFF/ PLT) eosinophils 1.6 % normal Not Available [facility] [address] [place], [address], 07/31/2023 09:40:44 07/30/2007/31/2023 CBC (INCL UDES DIFF/ PLT) basophils 0.6 % normal Not Available [facility] [address] [place], [address], 07/31/2023 09:40:44 08/04/2008/06/2023 THINP REP TIS PAP clinical information: normal Lina l exam Not Available [facility] [address], [place], [address], 08/06/2023 14:24:15 08/04/2008/06/2023 THINP REP TIS PAP LMP: normal UNKNO WN Not Available [facility] [address] [facility], [place], [address], 08/06/2023 14:24:15 08/04/2008/06/2023 THINP REP TIS PAP prev. Pap: normal UNKNO WN Not Available [facility] [address] [place], [address], 08/06/2023 14:24:15 08/04/2008/06/2023 THINP REP TIS PAP prev. BX: normal UNKNO WN Not Available [facility] [address] [place], [address], 08/06/2023 14:24:15 08/04/2008/06/2023 THINP REP TIS PAP source: normal Vagin a, Cervi x, Endoc ervix Not Available [facility] [address] [place], [address], 08/06/2023 14:24:15 08/04/2008/06/2023 THINP REP TIS PAP statement of adequacy: normal Satis facto ry for evalu ation . Endoc ervic al/tr ansfo rmati on zone compo nent prese nt. Not Available [facility] [address] [place], [address], 08/06/2023 14:24:15 08/04/2008/06/2023 THINP REP TIS PAP interpretati on/result: normal Cytol ogy Resul ts: Negat homar for intra epith elial lesio n or malig haydee . Not Available [facility] [address] [place], [address], 08/06/2023 14:24:15 08/04/2008/06/2023 THINP REP TIS PAP comment: normal This Pap test has been evalu ated with compu ter perla stefan techn ology . Not Available [facility] [address] [facility], [place], [address], 08/06/2023 14:24:15 08/04/20 23 08/06/2023 THINP REP TIS PAP cytotechnolo gist: normal ESL, CT( CP) CT Scree yvonne Locat ion: [facility] [place] [address] [facility] [place] [address] Not Available [facility] [address] [place], [address], 08/06/2023 14:24:15 08/04/20 23 08/06/2023 THINP REP [...] matio n. Not Available [facility] [address] [facility], [place], [address], 08/06/2023 14:24:15 08/11/20 23 08/11/2023 nonin vasiv e color ectal cance r DNA + occul t blood scree yvonne, QL, stool cologuard negati ve normal Not Available Not Available 18:04:55 12/27/19 23 12/26/2022 MAMMO , scree yvonne, digit al, bilat eral [facility] [address] [address] Phone: Fax: Name: DEIRDRE ORTEZ Exam Date: 023 : [birth year] Age 62 Gender : F Access ion: [id number] Physic jim: RONDA GAMBLE Facili ty: [facility] Facili ty HSV: Outpat ient Exam: SCREEN [...] [facility] Legall y authen ticate d by POPE RONDA Deshapnde DO 12-26 15:30: 31 CC'ed Logic: Orderi ng Provid er: CHANCE Blackwell CC Provid er: CHANCE Blackwell Attend ing Provid er: CHANCE Blackwell Referr ing Provid er: CHANCE Blackwell Admitt ing Provid er: CHANCE [email or web address] [place] [address] (Radiology) [address] , [place], [address], 12/28/2022 18:32:26 05/02/20 23 05/02/2023 XR, chest , 2 view No observ ation record ed. franck [facility] [address], [place], [address], 05/02/2023 10:57:17 01/25/20 24 01/25/2024 MAMMO , scree yvonne, digit al, bilat eral [facility] [address] [place] [address] Phone: Fax: Name: DEIRDRE ORTEZ Exam Date: 01/25/20 : [birth year] Age 63 years Gender : F Access ion: [id number] Physic jim: RONDA GAMBLE Facili ty: [facility] Facili ty HSV: Outpat ient Exam: SCREEN [...] referr ing DEIRDRE ORTEZ to [facility]. Legall y authen ticate d by BERNARDO Kaur MD 01-24 13:27: 57 CC'ed Logic: Orderi ng Provid er: CHANCE Blackwell CC Provid er: CHANCE Blackwell Attend ing Provid er: CHANCE Blackwell Referr ing Provid er: CHANCE Blackwell Admitt ing Provid er: CHANCE [email or web address] [facility] (Radiology) [address] [place], [address], 01/25/2024 16:04:49 Result Notes Documentation Provider Name and Address Organization Details Recorded Time Mammo, Screening, Digital, Bilateral : [address] [place] [address] Name: DEIRDRE ORTEZ Exam Date: 12/26/2022 : 1960 Age 62 Gender: F Physician: SENDY MORAN Facility: [facility] Facility HSV: Outpatient Exam: SCREEN MAMMO W [...] Thank you for referring DEIRDRE ORTEZ to [facility]. Legally authenticated by POPE RONDA Deshpande DO 2022-12-26 15:30:31 CC'ed Logic: Ordering Provider: LUISA MCCORD CC Provider: LUISA MCCORD Attending Provider: LUISA MCCORD Referring Provider: LUISA MCCORD Admitting Provider: LUISA Moran MD [address] [facility], [address], [place], [address], [place] [facility] PB[facility]ianaS[facility]on[facility] 12/28/2022 18:32:26 Mammo, Screening, Digital, Bilateral : [address] [place] [address] Name: DEIRDRE ORTEZ Exam Date: 01/25/2024 : 1960 Age 63 years Gender: F Physician: SENDY MORAN Facility: [facility] Facility HSV: Outpatient Exam: SCREEN MAMMO W [...] Thank you for referring DEIRDRE ORTEZ to [facility]. Legally authenticated by MARIA DEL ROSARIO Kaur MD 2024-01-25 13:27:57 CC'ed Logic: Ordering Provider: LUISA YOUNG Provider: LUISA MCCORD Attending Provider: LUISA MCCORD Referring Provider: LUISA MCCORD Admitting Provider: LUISA Moran MD [address] [facility] [address], [address], [facility] 01/25/2024 16:04:49 Problems Name Problem SNOMED Code Status Onset Date Resolution Date Notes Provider Name and Address Organization Details Recorded Time Generalized osteoarthri tis 277991644 Active Not Available [facility] 3 03:01:15 Urinary tract infectious disease 58095998 Active Not Available [facility] 3 03:01:15 Acute bronchopneu monia 640007115 Active Sendy Moran MD [address] [facility], [facility] [address], [address] , [place] [facility] 4 14:26:56 Pain of hip region 95917681 Active Sendy Moran MD [address], [address] [place] [address] , [place] [facility] 4 10:34:43 Anti-nuclea r factor detected 304942580 Active Sendy Moran MD [address], [address] [place] [address] , [place] [facility] 4 10:34:43 Sinusitis 67470683 Active Sendy Moran MD [address], [address] [place] [address] , [place] - [facility] 4 10:34:43 Hyperlipide chinmay 33078472 Active Sendy Moran MD [address], [address] [place] [address] , [place] [facility] 4 10:34:43 Dysuria 93207183 Active Sendy Moran MD [address], [address] [place] [address] , [place] [facility] 4 10:34:43 Palpitation s 15554281 Active Sendy Moran MD [address], [address] [place] [address] , [place] [facility] 4 10:34:43 Arthritis of hip 08519647 Active Sendy Moran MD [address], [address] [place] [address] , [place] [facility] 4 12:09:57 Acute sinusitis 82097495 Active Sendy Moran MD [address], [address] [place] [address] , [place] [facility] 5 14:25:19 Serous otitis media 01550436 Active Sendy Moran MD [address], [address] , [place] [facility] 5 14:25:19 Acute bronchitis 52217922 Active Sendy Moran MD [address] [address], [place], [address] , [place] [facility] 5 14:25:19 Disorder of bursa of shoulder region 89085755 Active 1999 chose not to have surgery Not Available [facility] 3 03:01:15 Problem Notes None recorded. Procedures Surgical History Date Name Laterality Status Provider Name and Address Organization Details Recorded Time 8 I&D completed Sendy Moran MD [address], [address] [place] [address], [place] [facility] 04/10/2018 21:48:32 7 I&D completed Sendy Moran MD [address], [address], [place] 06/09/2017 14:43:13 7 Tonsillectomy completed Antoinette Macdonaldcatherine [facility] 09/20/2012 13:18:49 Imaging Results None recorded. Procedure Notes None recorded. Medical Equipment None Reported. Allergies Allergen ID Allergen Name Allergen Category Reaction Reaction Severity Criticality Documentation Date Start Date Code Code System Note Provider Name and Address Organization Details Recorded Time 02779 cefdinir medicatio n angioedem a severe high 07/16/2023 34113 RxNorm Sendy Moran MD [address], [address], [place] [facility] 3 14:56:57 Medications [...] Available Not Available Not Available Flucelvax Quad 2588-3873 (PF) 60 mcg (15 mcg x 4)/0.5 [...] Details Last Updated DateTime 3 167.64 cm 97018.6 9 g 86 /min 95 % 95 % 96.6 [degF] 140/85 mm[Hg] [facility] 3 14:25:54 Date Recorded Body height Body mass index (BMI) Body weight Heart rate Oxygen saturation Oxygen saturation in Arterial blood by Pulse oximetry Body temperature Systolic And Diastolic Provider Name and Address Organization Details Last Updated DateTime 2 167.64 cm 30.2 kg/m2 75071.4 7 g 80 /min 98 % 98 % 97 [degF] 129/78 mm[Hg] [facility] 2 10:07:41 Date Recorded Systolic And Diastolic Provider Name and Address Organization Details Last Updated DateTime 07/16/2023 148/83 mm[Hg] Sendy Moran MD [address] [facility], [address], [place], [address], [facility] 07/16/2023 15:07:47 Date Recorded Body height Body mass index (BMI) Body weight Heart rate Oxygen saturation Oxygen saturation in Arterial blood by Pulse oximetry Body temperature Systolic And Diastolic Provider Name and Address Organization Details Last Updated DateTime 3 167.64 cm 28.2 kg/m2 13080.6 6 g 75 /min 96 % 96 % 97.5 [degF] 155/103 mm[Hg] [facility] 3 13:58:29 Date Recorded Body height Body mass index (BMI) Body weight Heart rate Oxygen saturation Oxygen saturation in Arterial blood by Pulse oximetry Body temperature Systolic And Diastolic Provider Name and Address Organization Details Last Updated DateTime 3 167.64 cm 28.4 kg/m2 26357.6 6 g 98 /min 97 % 97 % 97 [degF] 116/80 mm[Hg] [facility] 3 09:13:18 Date Recorded Body height Body mass index (BMI) Body weight Heart rate Oxygen saturation Oxygen saturation in Arterial blood by Pulse oximetry Body temperature Systolic And Diastolic Provider Name and Address Organization Details Last Updated DateTime 2 167.64 cm 29.7 kg/m2 55674.7 g 98 /min 98 % 98 % 96.8 [degF] 126/72 mm[Hg] [facility] 2 09:16:34 Social History Question Answer Notes LastModified by Organizat ion Details LastModified Time Tobacco Smoking Status Never Smoker Not Available [facility] 08/14/2020 03:11:19 Do You Have An Advance Directive? No [id number] Information not available 08/14/2020 Animal Exposure? Yes Informat ion not available 09/20/2012 Auto Related Injury? No Information not available 09/20/2012 Is Blood Transfusion Acceptable In An Emergency? Yes [id number] Information not available 08/14/2020 What Is Your Level Of Caffeine Consumption? Moderate [id number] Information not available 08/14/2020 How Much Tobacco Do You Chew? None [id number] Information not available 08/14/2020 Diabetes No Information no t available 09/20/2012 What Type Of Diet Are You Following? REGULAR [id number] Information not available 08/14/2020 Education 9 GED Information no t available 09/20/2012 What Is The Highest Grade Or Level Of School You Have Completed Or The Highest Degree You Have Received? [id number] Information not available 08/04/2023 Family History Of Heart Disease? Yes Information not available 09/20/2012 Which Of Your Hands Is Dominant? Right [id number] Information not available 08/14/2020 High Blood Pressure No Information not available 09/20/2012 High Cholesterol No Informat ion not available 09/20/2012 Live Alone Or With Others? With Others Information not available 09/20/2012 Marital Status [email or web address] Informatio n not available 11/25/2016 What Was The Date Of Your Most Recent Tobacco Screening? 08/04/2023 Information not available 08/04/2023 How Many Children Do You Have? 2 [id number] Information not available 08/14/2020 What Is Your Relationship Status? Information not available 08/04/2023 Do You Use Your Seat Belt Or Car Seat Routinely? Yes [id number] Information not available 08/14/2020 Seat Belts Used Routinely Yes Information not available 09/20/2012 Smoke Alarm In Home Yes Information not available 09/20/2012 General Stress Level Medium Information not available 09/20/2012 Do You Use Sunscreen Routinely? No [id number] Information not available 08/14/2020 Work Related Injury? No Information not available 09/20/2012 Sex: Unknown Functional Status Question Answer Note LastModified by Organizat ion Details LastModified Time What is your level of alcohol consumption? None [id number] Information not available 08/14/2020 Are you currently employed? No [id number] Information not available 08/14/2020 Are you able to care for yourself independently? Yes [id number] Information not available 08/14/2020 What is your occupation? RETIRED Information not available 09/20/2012 What is your exercise level? Occasional [id number] Information not available 08/14/2020 Mental Status Question Answer Note LastModified by Organization D etails LastModified Time Do you feel stressed (tense, restless, nervous, or anxious, or unable to sleep at night)? [id number] Information not available 08/04/2023 Family History Relationship [...] preservative 7 completed Sendy Moran MD [address] [facility], [address], [place], [address], [place] [facility] 09/18/2017 23:22:27 Tdap 8 completed Sendy Moran MD [address], [address], [place] - [facility] 12/19/2017 16:17:18 Influenza, split virus, quadrivalent, preservative 8 completed Sendy Moran MD [address], [address], [place] - [facility] 10/15/2018 21:15:51 Influenza, split virus, quadrivalent, preservative 9 completed Sendy Moran MD [address], [address], [place] - [facility] 10/24/2019 11:27:59 Td (adult) 7 completed Sendy Moran MD [address], [address], [place] - [facility] 09/20/2012 14:17:20 zoster recombinant 8 completed Sendy Moran MD [address], [address], [place] - [facility] 08/04/2023 09:58:10 zoster recombinant 8 completed Sendy Moran MD [address] [place] [address], [address], [place] [facility] 08/04/2023 09:58:20 Past Encounters Encounter ID Performer Location Encounter Start Date Encounter Closed Date Diagnosis/Indication Diagnosis SNOMED-CT Code Diagnosis ICD10 Code Diagnosis IMO Codes Diagnosis Note [id number] Sendy Moran MD [facility] [address] [address] 09/20/2012 13:06:49 09/20/2012 19:43:29 [id number] Sendy Moran MD [facility] [address] [address] 06/09/2014 13:29:06 06/09/2014 18:19:24 Acute bronchopneumonia [id number] Sendy Moran MD [address] [address] 09/04/2014 08:54:53 09/04/2014 10:50:40 Adult health examination 311159722 Screening for malignant neoplastic disease 52256181 Pain of hip region 49987930 Anti-nucle ar factor detected 149742437 Sinusitis 64527684 Hyperlipidemia 71083245 Screening mammography 97971687 Screening for malignant neoplasm of cervix 233385996 Dysuria 60311237 Palpitations 39576122 [id number] Sendy Moran MD [address] [address] 11/16/2014 13:42:56 11/16/2014 16:46:33 Acute sinusitis 27642690 Serous otitis media 06110381 Acute bronchitis 84102535 [id number] Sendy Moran MD [address] [address] 11/25/2016 08:19:58 11/25/2016 18:31:51 History of urinary disease 173237461 Z87.448 Adult heal th examination 334922697 Z00.01 Screening mammography 24 330669 Z12.31 Screening for malignant neoplasm of cervix 796354001 Z12.4 Body mass index 30+ - obesity 834425895 Z68.33 Hyperlipidemia 35205185 E78.5 Screening for malignant neoplasm of colon 811441058 Z12.11 [id number] Sendy Moran MD [address] [address] 06/09/2017 13:43:53 06/10/2017 09:05:13 Urinary tract infectious disease 73611183 N39.0 Body mass index 30+ - obesity 395310408 Z68.32 [id number] Sendy Moran MD [address] [address] 12/10/2017 13:51:40 12/10/2017 16:01:26 Acute bronchitis 95580100 J20.9 [id number] Sendy Moran MD [address] [address] 12/15/2017 09:40:52 12/23/2017 09:42:32 Adult health examination 966374198 Z00.01 Screening for malignant neoplasm of colon 083371436 Z12.11 Depression screening 171 144545 Z13.89 Hypothyroidism 84446497 E03.9 Body mass index 30+ - obesity 041419565 Z68.30 Hemorrhoids 07238300 K64 .9 Hyperlipidemia 82293953 E78.5 [id number] Sendy Moran MD [facility] [address] [place] [address] 7 04/09/2018 15:10:58 04/12/2018 16:38:05 Urinary tract infectious disease 64415126 N39.0 Hypothyroidism 09444810 E03.9 [id number] Sendy Moran MD [place] [address] 7 08/03/2018 13:49:58 08/04/2018 08:26:12 Atypical chest pain 241929279 R07.89 Intermitte nt palpitations 283199583 R00.2 essu [id number] Sendy Moran MD [place] [address] 7 08/09/2018 10:22:51 08/09/2018 13:42:21 Atypical chest pain 017134216 R07.89 Glucose le bjorn outside reference range 146249723 R73.09 Hyperlipidemia 95035128 E78.5 [id number] Sendy Moran MD [place] [address] 7 12/20/2018 13:24:51 12/26/2018 15:00:54 Adult health examination 418377633 Z00.01 Hypothyroidism 12667414 E03.9 Hyperlipidemia 34712648 E78.5 Depression screening 171 347146 Z13.89 Body mass index 30+ - obesity 397630480 Z68.30 [id number] Sendy Moran MD [facility] [place] [address] 7 09/30/2019 15:14:26 10/03/2019 08:47:20 Increased frequency of urination 458940834 R35.0 Screening for malignant neoplasm of colon 786031120 Z12.11 Hypothyroidism 19799662 E03.9 Hyperlipidemia 35215919 E78.5 k Depression screening 171 011674 Z13.89 Body mass index 30+ - obesity 694731845 Z68.30 [id number] Sendy Moran MD [facility] [address] [address] 10/24/2019 10:25:42 10/24/2019 12:09:05 Acute lower respiratory tract infection 068897565 J22 [id number] Sendy Moran MD [facility] [address] [address] 05/21/2020 08:57:05 05/22/2020 08:12:35 Hyperlipidemia 49026160 E78.5 Adult heal th examination 829219357 Z00.01 Hypothyroidism 56034722 E03.9 Depression screening 171 035620 Z13.89 Body mass index 30+ - obesity 923207779 Z68.30 Screening for malignant neoplasm of cervix 250507991 Z12.4 Hypertensi on screening 688733230 Z13.6 [id number] Sendy Moran MD [facility] [address] [place] [address] 05/24/2021 09:43:08 05/27/2021 09:43:32 Increased frequency of urination 639586459 R35.0 Urinary tr act infectious disease 31989131 N39.0 Adult heal th examination 422707247 Z00.01 Hyperlipidemia 42923177 E78.5 Hypothyroidism 12550320 E03.9 Depression screening 171 528566 Z13.89 Body mass index 30+ - obesity 076960952 Z68.31 Hypertensi on screening 918074809 Z13.6 Screening for malignant neoplasm of colon 303302985 Z12.11 [id number] Sendy Moran MD [facility] [address] [address] 01/27/2022 13:28:44 01/28/2022 08:18:10 Urinary tract infectious disease 04058806 N39.0 Recurrent urinary tract infection 064365376 N39.0 [id number] Sendy Moran MD [facility] [address] [address] 05/27/2022 09:54:52 05/29/2022 10:15:50 Increased frequency of urination 379189124 R35.0 Urinary tr act infectious disease 04686073 N39.0 Adult heal th examination 181773755 Z00.01 Hyperlipidemia 92387057 E78.5 Hypothyroidism 65034980 E03.9 Depression screening 171 015951 Z13.89 Body mass index 30+ - obesity 003975510 Z68.30 Hypertensi on screening 899863198 Z13.6 [id number] Sendy Moran MD [facility] [address] [place] [address] 7 10/17/2022 09:15:18 10/17/2022 16:53:09 Acute lower respiratory tract infection 149415680 J22 Wheezing 99251872 R06.2 [id number] Sendy Moran MD [place] [address] 7 01/22/2023 14:11:35 01/22/2023 15:54:47 Increased frequency of urination 886896317 R35.0 Urinary tr act infectious disease 01411286 N39.0 [id number] Sendy Moran MD [facility] [place] [address] 7 07/16/2023 13:35:28 07/17/2023 09:17:51 Increased frequency of urination 215294391 R35.0 Intercosta l post-herpetic neuralgia 941829920 B02.29 Blood pres sure outside reference range 81568152 Z01.31 [id number] Sendy Moran MD [facility] [place] [address] 7 08/04/2023 08:38:50 08/06/2023 09:14:30 Adult health examination 803638224 Z00.01 Hyperlipidemia 67827482 E78.5 Hypothyroidism 57154818 E03.9 Depression screening 171 451394 Z13.89 Hypertensi on screening 732926417 Z13.6 Screening for malignant neoplasm of cervix 587498902 Z12.4 Screening for malignant neoplasm of colon 718147403 Z12.11 Lichen sim plex chronicus 80863192 L28.0 Screening mammography 24 364978 Z12.31 Health Concerns Section Related Observation LastModified by Organization Detai ls LastModified Time None Recorded Concern Status LastModified by Organization Details LastModified Time None Recorded Advance Directives Directive N: Payers Insurance Date Sequence Insurance Name Policy Number Policy Diez Covered Member ID Diez Member ID Guarantor Name 05/26/2022 1 [employer] ONE (PPO) [id number] Deirdre Manleyaley [id number] Deirdre Manleyaley 05/26/2022 1 [employer] (PPO) [id number] Deirdre Manleyaley [id number] Deirdre Toney Ari 05/26/2022 1 [id number] Deirdre Toney Ari [id number] Deirdre Toney Ari 05/26/2022 1 [place] [id number] Deirdre Toney Ari [id number] Deirdre Toney Ari 05/26/2022 1 [id number] Deirdre Toney Ari [id number] Deirdre Toney Ari 09/02/2023 1 [facility] (MEDICAID HMO) Deirdre Manleyaley [id number] Deirdre Harty Notes Date Note Type Note Provider Name and Address Organization Details Recorded Time 05/27/2022 text/html Feels her only problem is arthritis pain; left hip and both knees and ankles especially when she gets up in the morning. Sometimes gets muscle spasms in the toes. Sendy Moran MD [address] [facility], [place] [address], [place], [address], [facility] 05/28/2022 23:49:35 10/17/2022 text/html started with congestion last night and it is productive phlegm. She has a history of past pneumonias She has not had the flu or covid vaccines. She had covid last August. Started with a sore throat. Sendy Moran MD [address] [facility], [place] [address], [place], [address], [facility] 10/17/2022 09:56:54 01/22/2023 text/html started with frequency and dysuria for 3 days No fevers or chills. Sendy Moran MD [address] [place] [address], [place], [address], [facility] 01/22/2023 15:39:48 07/16/2023 text/html [...] Sendy Moran MD [address] [facility], [place] [address], [place], [address], [facility] 07/17/2023 07:54:06 OBGyn Episode No OBEpisode recorded.
--- OUTSIDE RECORDS SUMMARY | 2025-08-21 20:14 | XMS_ITS | Clinical Summary ---
Author Organization [facility] Address [address] [place] [address] Care Team Providers Care Cafeteria Monitor Name Role Phone Bernie Louis APRN Primary Care Provider [phone] Allergies Active Allergy Reactions Criticality Noted Date [...] Type Department Care Team Description 07/10/2025 Telephone [facility] [address] [place] [address] WAESPE - SCHEDULING REQUEST 07/06/2025 3:16 PM EDT - 07/08/2025 11:35 AM EDT Hospital Encounter [facility] [address] [place] [address] Omid Langley MD Mitchell, Stephen [...] drink = 0.6 oz pur e alcohol) [facility] Utilities Answer Date Recorded In the past 12 months has [employer], gas, oil, or water [employer] threatened to shut off services in your [...] or training? Not on file Preferred Language Belizean 07/07/2025 Comments Unknown Sex and Gender Information [...] MD 07/07/2025 1:51 PM EDT Workstation ID: [id number] Narrative 07/07/2025 1:[address] HEAD [...] MD 07/07/2025 1:51 PM EDT Workstation ID: [id number] Karlie Mcintyre APRN IM CT ORDERABLES Final [...] - 10.80 10*3/mm3 07/07/2025 3:27 AM EDT [facility] RBC 4.52 3.77 - 5.28 10*6/mm3 07/07/2025 3:27 AM EDT [facility] Hemoglobin 13.6 12.0 - 15.9 g/dL 07/07/2025 3:27 AM EDT [facility] Hematocrit 41.0 34.0 - 46.6 % 07/07/2025 3:27 AM EDT [facility] MCV 90.7 79.0 - 97.0 fL 07/07/2025 3:27 AM EDT [facility] MCH 30.1 26.6 - 33.0 pg 07/07/2025 3:27 AM EDT [facility] MCHC 33.2 31.5 - 35.7 g/dL 07/07/2025 3:27 AM EDT [facility] RDW 13.7 12.3 - 15.4 % 07/07/2025 3:27 AM EDT [facility] RDW-SD 45.8 37.0 - 54.0 fl 07/07/2025 3:27 AM [facility] MPV 10.8 6.0 - 12.0 fL 07/07/2025 3:27 AM [facility] Platelets 227 140 - 450 10*3/mm3 07/07/2025 3:27 AM EDT [facility] Neutrophil % 62.6 42.7 - 76.0 % 07/07/2025 3:27 AM [facility] Lymphocyte % 26.7 19.6 - 45.3 % 07/07/2025 3:27 AM [facility] Monocyte % 9.7 5.0 - 12.0 % 07/07/2025 3:27 AM EDT [facility] Eosinophil % 0.2(L) 0.3 - 6.2 % 07/07/2025 3:27 AM EDT [facility] Basophil % 0.4 0.0 - 1.5 % 07/07/2025 3:27 AM EDT [facility] Immature Grans % 0.4 0.0 - 0.5 % 07/07/2025 3:27 AM EDT [facility] Neutrophils, Absolute 6.65 1.70 - 7.00 10*3/mm3 07/07/2025 3:27 AM EDT [facility] Lymphocytes, Absolute 2.84 0.70 - 3.10 10*3/mm3 07/07/2025 3:27 AM EDT [facility] Monocytes, Absolute 1.03(H) 0.10 - 0.90 10*3/mm3 07/07/2025 3:27 AM EDT [facility] Eosinophils, Absolute 0.02 0.00 - 0.40 10*3/mm3 07/07/2025 3:27 AM EDT [facility] Basophils, Absolute 0.04 0.00 - 0.20 10*3/mm3 07/07/2025 3:27 AM EDT [facility] Immature Grans, Absolute 0.04 0.00 - 0.05 10*3/mm3 07/07/2025 3:27 AM EDT [facility] nRBC 0.0 0.0 - 0.2 /100 WBC 07/07/2025 3:27 AM EDT [facility] Blood Venipuncture / Unknown 07/07/2025 3:12 AM EDT 07/07/2025 3:23 AM EDT Jessica Oden APRN LAB BLOOD ORDERABLES Final Result [facility]
[address] [place] [address], * Phosphorus (07/07/2025 3:12 AM EDT) Only the most recent of2 resultswithin the time period is included. Phosphorus 3.5 2.5 - 4.5 mg/dL 07/07/2025 3:43 AM EDT [facility] Blood Venipuncture / Unknown 07/07/2025 3:12 AM EDT 07/07/2025 3:23 AM EDT Jessica Oden APRN LAB BLOOD ORDERABLES Final Result [facility]
[address] [place] [address], * Magnesium (07/07/2025 3:12 AM EDT) Only the most recent of2 resultswithin the time period is included. Magnesium 2.3 1.6 - 2.4 mg/dL 07/07/2025 3:43 AM EDT [facility] Blood Venipuncture / Unknown 07/07/2025 3:12 AM EDT 07/07/2025 3:23 AM EDT Jessica Oden APRN LAB BLOOD ORDERABLES Final Result Performing Organization Address City/[facility]/ZIP Co de Phone Number [facility]
[address] [place] [address], * Hemoglobin A1c (07/07/2025 3:12 AM EDT) [facility] Hemoglobin A1C 5.52 4.80 - 5.60 % 07/07/2025 4:18 AM EDT [facility] Blood Venipuncture / Unknown 07/07/2025 3:12 AM EDT 07/07/2025 3:23 AM EDT Narrative [facility] - 07/07/2025 4:18 AM EDT Hemoglobin A1C Ranges: Increased Risk for Diabetes 5.7% to 6.4% Diabetes >= 6.5% Diabetic Goal < 7.0% Karlie Mcintyre APRN LAB BLOOD ORDERABLES Final Result [facility]
[address] [place] [address], * (ABNORMAL) Lipid Panel (07/07/2025 3:12 AM EDT) Pathologist [facility] Total Cholesterol 161 0 - 200 mg/dL 07/07/2025 3:43 AM EDT [facility] Triglycerides 89 0 - 150 mg/dL 07/07/2025 3:43 AM EDT [facility] HDL Cholesterol 71(H) 40 - 60 mg/dL 07/07/2025 3:43 AM EDT [facility] LDL Cholesterol 74 0 - 100 mg/dL 07/07/2025 3:43 AM EDT [facility] VLDL Cholesterol 16 5 - 40 mg/dL 07/07/2025 3:43 AM EDT [facility] LDL/HDL Ratio 1.02 07/07/2025 3:43 AM EDT [facility] Blood Venipuncture / Unknown 07/07/2025 3:12 AM EDT 07/07/2025 3:23 AM EDT [facility] - 07/07/2025 3:43 AM [...] Mcintyre APRN LAB BLOOD ORDERABLES Final Result [facility]
[address] [place] [address], * (ABNORMAL) Comprehensive Metabolic Panel (07/07/2025 3:12 AM EDT) Only the most recent of2 resultswithin the time period is included. Glucose 105(H) 65 - 99 mg/dL 07/07/2025 3:43 AM [facility] BUN 10.5 8.0 - 23.0 mg/dL 07/07/2025 3:43 AM [facility] Creatinine 0.72 0.57 - 1.00 mg/dL 07/07/2025 3:43 AM [facility] Sodium 140 136 - 145 mmol/L 07/07/2025 3:43 AM [facility] Potassium 3.6 3.5 - 5.2 mmol/L 07/07/2025 3:43 AM [facility] Chloride 106 98 - 107 mmol/L 07/07/2025 3:43 AM [facility] CO2 22.8 22.0 - 29.0 mmol/L 07/07/2025 3:43 AM [facility] Calcium 9.6 8.6 - 10.5 mg/dL 07/07/2025 3:43 AM [facility] Total Protein 6.8 6.0 - 8.5 g/dL 07/07/2025 3:43 AM [facility] Albumin 4.2 3.5 - 5.2 g/dL 07/07/2025 3:43 AM [facility] ALT (SGPT) 18 1 - 33 U/L 07/07/2025 3:43 AM [facility] AST (SGOT) 23 1 - 32 U/L 07/07/2025 3:43 AM [facility] Alkaline Phosphatase 82 39 - 117 U/L 07/07/2025 3:43 AM [facility] Total Bilirubin 0.5 0.0 - 1.2 mg/dL 07/07/2025 3:43 AM [facility] Globulin 2.6 gm/dL 07/07/2025 3:43 AM [facility] Comment:Calculated Result A/G Ratio 1.6 g/dL 07/07/2025 3:43 AM EDT [facility] BUN/Creatinine Ratio 14.6 7.0 - 25.0 07/07/2025 3:43 AM EDT [facility] Anion Gap 11.2 5.0 - 15.0 mmol/L 07/07/2025 3:43 AM EDT [facility] eGFR 92.3 >60.0 mL/min/1.7 3 07/07/2025 3:43 AM EDT [facility] Blood Venipuncture / Unknown 07/07/2025 3:12 AM EDT 07/07/2025 3:23 AM EDT Narrative [facility] - 07/07/2025 3:43 AM EDT GFR [...] include race as a factor Jessica Oden [facility] LAB BLOOD ORDERABLES Final Result [facility]
[address] [place] [address], * MRI Brain Without Contrast (07/06/2025 11:56 PM EDT) Anatomical Region Laterality Modality Head, Neck N/A Magnetic Resonan ce 07/07/2025 4:21 AM EDT Impressions 07/07/2025 4:24 AM EDT Impression: Chronic microvascular ischemia. No acute intracranial process. Electronically Signed: Arya Damian MD 07/07/2025 4:24 AM EDT Workstation ID: [id number] Narrative 07/07/2025 4:24 AM EDT MRI BRAIN [...] MD 07/07/2025 4:24 AM EDT Workstation ID: [id number] Karlie Mcintyre APRN IMG MRI ORDERABLES Final Re sult * POC Glucose Once (07/06/2025 5:34 PM EDT) Only the most recent of2 resultswithin the time period is included. Glucose 127 70 - 130 mg/dL 07/06/2025 5:36 PM EDT [facility] Comment:Serial Number: [id number]: [id number] Blood 07/06/2025 5:34 PM EDT 07/06/2025 5:36 PM EDT us Js Tobar DO POINT OF CARE TEST ORDERAB LES Final Result Performing Organization Address [facility]/ZIP Co de Phone Number [facility]
[address] [place] [address], * TSH (07/06/2025 5:07 PM EDT) TSH 0.931 0.270 - 4.200 uIU/mL 07/06/2025 6:01 PM EDT [facility] Blood Line / Unknown 07/06/2025 5: 07 PM EDT 07/06/2025 5:07 PM EDT Jessica Oden APRN LAB BLOOD ORDERABLES Final Result Performing Organization Address [facility] Co de Phone Number [facility]
[address] [place] [address], [place] [phone] * T4, Free (07/06/2025 5:07 PM EDT) Free T4 1.53 0.92 - 1.68 ng/dL 07/06/2025 6:01 PM EDT [facility] Blood Line / Unknown 07/06/2025 5: 07 PM EDT 07/06/2025 5:07 PM EDT Jessica Oden DEPUTY K 9 LAB BLOOD ORDERABLES Final Result Performing Organization Address City/[facility] Co de Phone Number [facility]
[address] [place] [address], * CT Outside Head (07/06/2025 4:29 PM [...] auto-finalized with no dictation required. Karlie Mcintyre DEPUTY K [address] ORDERABLES Final Res ult * [...] R esult from Last 3 Months Insurance [facility] MEDICARE ADVANTAGE SNP PPO [place] Member Subscriber Plan / Payer (Ef fective 2025-Present) Name:Deirdre Chapman Relation to Subscriber:Self Name:Deirdre Chapman Payer ID:[id number] Group ID:Not on file Type:Not on file Address: [address] MEDICAID B Advance Directives * CPR (Attempt to Resuscitate) (Latest Code Status on File) Date Activated Date Inactivated Comments 07/06/2025 3:41 PM 07/08/2025 1:35 PM Question Answer Comments Code Status (Patient has no pulse and is not breathing): CPR (Attempt to Resuscitate) Medical Interventions (Patie nt has pulse or is breathing): Full Support Care Teams Cafeteria Monitor Relationship Specialty Start Date End Date Bernie Louis APRN [address] [place] [address] PCP - General Nurse Practitioner 07/06/25
--- OUTSIDE RECORDS SUMMARY | 2025-08-21 20:14 | XMS_ITS | Data Portability ---
Author Organization [facility] ADMIN Address [address] [place] [phone] Assessment No assessment recorded. 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 Medical [...] ICD10 Code Diagnosis IMO Codes Diagnosis Note [id number] JACKIE HAYS ENT Associate s [facility] [id number] [address] [facility], [facility] [place] [address] 09/01/2023 13:17:08 09/01/2023 13:34:36 Mixed conductive and sensorineural hearing loss of right ear [id number] 9105 H90.A31 Health Concerns Section Related Observation LastModified by Organization Detai ls LastModified Time None Recorded Concern Status LastModified by Organization Details LastModified Time None Recorded Advance Directives Directive None Recorded Payers Insurance Date Sequence Insurance Name Policy Number Policy Diez Covered Member ID Diez Member ID Guarantor Name 09/01/2023 1 [facility] (MEDICAID HMO) Deirdre Chapman [id number] Deirdre Chapman Notes Date Note Type Note [...] that she wants to do. JACKIE HAYS [address] [facility], [place], [address], [facility] [place] & [place] 09/01/2023 13:40:13 OBGyn Episode No OBEpisode recorded.
== END ==
LOC: SL 20:12
PROVIDERS: PCP Nurse Practitioner Family; Visit Provider Specialist
DX: I63.50 Cerebral infarction due to unspecified occlusion or stenosis of unspecified cerebral artery (principal); G45.9 Transient cerebral ischemic attack, unspecified; G47.61 Periodic limb movement disorder
CPT/HCPCS: 95810

== ENCOUNTER 2025-09-11 11:23 | Emergency (ER) | payer MEDICARE, MEDICAID, SELFPAY ==
[2025-09-11 11:28] VITALS: BP 146/95; PULSE 86; RESP 18; TEMP 36.7; O2SAT 98; BMI 29.2
--- NOTE | 2025-09-11 11:32 | XR_ITS ---
FINAL REPORT TECHNIQUE: 2 view chest CLINICAL HISTORY: cough, fever COMPARISON: 05/02/2023 FINDINGS: PA and lateral views of the chest were obtained. The cardiac and mediastinal silhouettes are within normal limits. The lungs are clear. There is no pleural effusion or pneumothorax. No acute osseous abnormality is identified. IMPRESSION: No radiographic evidence of acute cardiac or pulmonary disease. Reviewed, Interpreted and Dictated by Snow Mitchell MD Transcribed by Mylene Lechuga Authenticated and [facility]
[2025-09-11 11:43] LABS: Adenovirus,PCR Not Detected (NotDetected); Chlamydophila Pneumoniae, PCR Not Detected (NotDetected); Coronavirus 19, PCR Not Detected (NotDetected); Coronovirus HKU1,PCR Not Detected (NotDetected); Influenza A, PCR Not Detected (NotDetected); Influenza AH1, 2009 Not Detected (NotDetected); Influenza AH1, PCR Not Detected (NotDetected); Influenza AH3,PCR Not Detected (NotDetected); Influenza B, PCR Not Detected (NotDetected); Mycoplasma Pneumoniae, PCR Not Detected (NotDetected); Parainfluenza 1, PCR Not Detected (NotDetected); Parainfluenza 2, PCR Not Detected (NotDetected); Parainfluenza 3, PCR Not Detected (NotDetected); Parainfluenza 4, PCR Not Detected (NotDetected)
[2025-09-11] MEDS: IPRATROPIUM/ALBUTEROL 3 ML NEB IH (11:43)
[2025-09-11] MEDS: BROMPHEN/DM/PSE COUGH SYRUP 5ML 5 ML PO (11:43)
--- NOTE | 2025-09-11 11:47 | ED_ITS ---
Discharge Plan Disposition Patient Disposition: Home, Self-Care Prescriptions Prescriptions: New itfjvvcazcwrkwn-hhecsaanz-TP 2-30-10 mg/5 mL syrup 5 ml PO Q6H PRN (Reason: cold symptoms) 7 Days Qty: 118 0RF No Action aspirin 81 mg tablet 81 mg PO DAILY Eliquis 5 mg tablet 5 mg PO BID Qty: 180 3RF rosuvastatin 40 mg tablet 40 mg PO QHS Qty: 90 3RF metoprolol succinate 25 mg tablet extended release 24 hr 12.5 mg PO DAILY Qty: 45 3RF Rx Instructions: 1/2 tablet daily nitrofurantoin monohyd/m-cryst 100 mg capsule 100 mg PO Q12H 7 Days Qty: 14 0RF Rx Instructions: must administer with a meal/food levothyroxine 75 mcg tablet 75 mcg PO DAILY Qty: 90 1RF Referrals Follow up/Referrals: Berine Louis APRN [Primary Care Provider, Family Practice] - See instructions Activity Restrictions/Add. Instructions Additional Instructions/Restrictions: No emergent medical condition identified today. Specifically no evidence of any pneumonia or cardiopulmonary emergency. Your symptoms are consistent with bronchitis which is most likely viral. No indication at the moment for antibiotics. Please take your cough medicine as needed which is supportive as discussed. You may continue with your nebulizer treatments at home every 4 hours or as needed for coughing fits. Return to the emergency point with increased shortness of breath high fevers or other concerns. Clinical Impressions Clinical Impression: Bronchitis Print Language Print Language: Czech Discharge ED Provider: Feng Kc General Adult HPI General Chief complaint: Shortness of Breath/Dyspnea Stated complaint: SOA, cough, pain while breathing Time Seen by Provider: 09/11/25 11:26 Mode of Arrival: Ambulatory Source of Information: Patient Description of Symptoms (Recalled from ER Triage Doc. by RN): Patient reports increased shortness of breath. States she began to feel sick with congestion and cough on Thursday and it has continued to get worse. Reports history of getting bronchitis and pneumonia frequently. History of Present Illness HPI narrative: Patient is a 64-year-old female with past medical history of a stroke anticoagulated on Eliquis who has had recurrent bronchitis and states she has had pneumonia in the past presents today with cough and congestion since Thursday. States she is not short of breath at baseline only when she is coughing. She had Tessalon Perles at home without any improvement in her symptoms. Also had subjective fevers no objective measurement was taken. No chest pain associated with this no dyspnea outside of the cough. No lower extremity swelling no history of cardiopulmonary disease to her knowledge. Related Data Home Medications ?Medication ?Instructions ?Recorded ?Confirmed aspirin 81 mg tablet 81 mg PO DAILY 07/13/2507/20 Previous Rx's ?Medication ?Instructions ?Recorded apixaban 5 mg tablet (Eliquis) 5 mg PO BID #180 tabs 0 07/13/25 metoprolol succinate 25 mg 12.5 mg (10/20 x 25 mg) PO DA TRELL #45 07/13/25 tablet,extended release 24 hr tabs rosuvastatin 40 mg tablet 40 mg PO QHS #90 tabs levothyroxine 75 mcg tablet 75 mcg PO DAILY #90 tabs 0 07/18/25 nitrofurantoin 100 mg PO Q12H 7 days #14 ca ps 08/16/25 monohydrate/macrocrystals 100 mg capsule pxgpfwontocndsf-yntjypyqnexszzw-YY 5 ml PO Q6H PRN col d symptoms 7 09/11/25 2 mg-30 mg-10 mg/5 mL oral syrup days #118 mL Allergies Allergy/AdvReac Type Severity Reaction Status Date / Time Sulfa (Sulfonamide Allergy Anaphylaxis Verified 08/16/25 11:10 Antibiotics) cefdinir AdvReac Unknown Verified 08/16/25 11:10 allergy reaction PFSH PFSH Disclaimer: The information contained in this section may have been updated after the patient was seen, as this information can be updated by other users. Medical History Nocturnal hypoxemia Posterior circulation stroke History of thyroid disease History of TIA (transient ischemic attack) History of hyperlipidemia History of atrial fibrillation Stroke-like symptoms Screening for lipid disorders Encounter for screening examination for sexually transmitted disease UTI (urinary tract infection) Annual physical exam Establishing care with new doctor, encounter for Recurrent urinary tract infection Pneumonia Pneumonia due to COVID-19 virus Acute bronchitis Degenerative disorder of bone Hyperlipemia Borderline diabetes Surgical History Hx of tonsillectomy age 5 Family History Mother , age 80s Cancer oral Father , age 80s Cancer lung Other Heart attack Social History Smoking Status: Never smoker alcohol intake: never substance use type: denies use current occupational status: retired Travel in the last 8 weeks?: None Have you lived/traveled outside US in past 30 days?: No Contact w/someone who lives/traveled outside US past 30 days?: No Exposure to someone with infectious disease in past 14 days?: No Do you have a fever (greater than 100.4 F or 38 C)?: No Have you tested positive for COVID-19?: No Exposed to someone with COVID-19 in past 14 days?: No Do you have a sore throat?: No Do you have a cough?: No Do you have any weakness?: No Do you have any diarrhea?: No Are you experiencing any unusual bleeding?: No Do you have any muscle aches/pain?: No Do you have any abdominal pain?: No Are you experiencing loss of taste or smell?: No Other Medical History Have you received the Flu Vaccine for this season: No Have you received the Pneumonia Vaccine: Yes ROS Obtained: Yes All systems reviewed & no additional complaints except as documented Physical Exam General General appearance: alert and in no apparent distress Respiratory Respiratory exam: Present normal lung sounds bilaterally and other (Breathing comfortably on room air no focal adventitious lung sounds oxygen saturation is 99% on room air); Absent respiratory distress Cardiovascular Cardiovascular exam: Present regular rate and normal rhythm Neurological Exam Neurological exam: Present alert and oriented X3 Medical Decision Making Medical Records Screening: Per USPSTF and CDC recommendations, given the prevalence of disease in our region, it is our hospital?s policy to screen for HIV and viral Hepatitis for all patients aged 18 and over and those with ongoing risk factors. Jignesh Inquiry Pt receiving controlled substance: No Vital Signs: 09/11/25 11:28 Temperature 98.0 F Temperature Source Oral Pulse Rate [Radial] 86 Respiratory Rate 18 Blood Pressure [Right Arm] 146/95 H Blood Pressure Mean [Right Arm] 112 Blood Pressure Source [Right Arm] Automatic Cuff Blood Pressure Position [Right Arm] Sitting 02 Sat by Pulse Oximetry 98 Oxygen Delivery Method Room Air Orders (Tests/Meds): ED MEDICATIONS Discontinued Medications Generic Name Dose Route Start Last Admin Trade Name Freq PRN Reason Stop Dose Admin Albuterol/Ipratropium 3 ml 09/11/25 11:32 09/11/25 11:43 Ipratropium/Albuterol 3 Ml Neb IH 09/11/25 11:33 3 ml ONCE ONE Administration Bromphen/Dextromethorphan/Pseudoeph 5 ml 09/11/25 11:32 09/11/25 11:43 Bromphen/Dm/Pse Cough Syrup 5ml PO 09/11/25 11:33 5 ml ONCE ONE Administration ORDERS Category Date Time Status Chest XR 2 view (NOT portable) [XR chest 2V] Stat Exams 09/11/25 11:32 Taken Full Resp Panel w/COVID ([facility]) Routine Lab 09/11/25 11:38 Received ECG Data Tracing #1: I reviewed this ECG and interpreted as documented below: Ventricular rate of 77 normal sinus rhythm no acute ischemic changes noted no significant conduction abnormalities Medical Decision Narrative: 64-year-old with above history and physical actively coughing has infectious type symptoms symptoms not consistent with acute coronary syndrome pulmonary embolism heart failure etc. Oxygen saturations are normal lung auscultation exam is normal likelihood that she has a focal consolidation is very low but that is her main concern today we will get a two-view chest x-ray to rule out pneumonia. I discussed with her this most likely a viral syndrome causing her symptoms namely viral bronchitis. I told her the average duration of symptoms is 2 to 3 weeks and that medications that we have to treat this are only supportive and will not be curative and to expect a prolonged course of a cough. In addition to the Tessalon Perles that she has at home I gave her a dose of Bromfed as well as a DuoNeb to see if that helps from her activity standpoint. Will reassess after this initial workup is complete. Full respiratory viral pa sven has been sent as well but that will not return during her ED stay. Reassessment 12:58 PM chest x-ray performed I personally interpreted shows no acute cardiopulmonary emergency specifically no evidence of any pneumonia. Patient appears very well on serial assessments no respiratory distress EKG was unremarkable no evidence of any pulmonary edema or any alternative explanation of patient's symptoms today. This is most likely viral bronchitis supportive care is indicated no indication for antibiotics at the moment return precautions emphasized patient discharged in stable condition with symptomatic medications prescribed Critical Care Critical Care Time Critical Care Time: No
--- OUTSIDE RECORDS SUMMARY | 2025-09-11 11:52 | XMS_ITS | Clinical Summary ---
Author Organization Healthcare Address [address] [place] [address] Care Team Providers Care Vocational Training Director Name Role Phone Sendy Moran MD Primary [...] 2008 UKY-Zoster Vaccines (1 of 2) 2008 [id number]-39 Vaccine ( - 2024- season) 2025 UKY-Influenza Vaccine (#1) 2025 UKY-RSV [...] Narrative SUNQUEST - 10/15/2005 10:12 AM EST [facility] MR #: [id number] [facility] [address] 1960 (Age: 44) FW Collect Date: 10/08/2005 00:00 Receipt Date: 10/09/2005 11:34 Page 1 DEPARTMENT OF PATHOLOGY AND LABORATORY MEDICINE CYTOPATHOLOGY REPORT Email: [email or web address] [phone] ATTENDING MD/Practitioner: Rishi Hahn Service: [facility] Location: [facility] Reported: 10/15/2005 10:12 Collected: 10/08/2005 00:00 INTERPRETATION THIN PREP (CERVICAL/VAGINAL): NEGATIVE FOR INTRAEPITHELIAL LESION OR MALIGNANCY. SATISFACTORY FOR EVALUATION; ENDOCERVICAL/ TRANSFORMATION ZONE COMPONENT PRESENT. Slide scanned and imaged by [employer] ThinPrep Imaging System with manual review of [...] results is suggested (please call Microbiology at [phone] for results). CLINICAL INFORMATION: Menstrual History: Cyclic Date of Last Menstrual Period: 09/12/05 Other Clinical Conditions: Per computer, patient has a history of previous abnormal pap: and bx 09/2003 If ASCUS and > 24 years of age, HPV/DNA testing requested. SPECIMEN DESCRIPTION: A: THIN PREP (CERVICAL/VAGINAL) THIN PREP PROCESS CELLULAR ENHANCEMENT ICD: 622.11 MILD DYSPLASIA OF CERVIX (NORMAN I) F: A; DX IMAGE [id number] SNOMED CODES: A; H4L610 [id number] [id number] [id number] In cases where a pathologist has signed out the report, the service has been rendered in part by a resident. The signing pathologist has performed and is responsible for the reported pathologic evaluation. Ni Washburn APRN LAB PATHOLOGY ORDERABLES F inal Result Talk Local from Last 3 Months or Most Recently Relevant to Health Maintenance Care Teams Vocational Training Director Relationship Specialty Start Date End Date Sendy Moran MD [address] [place] [address] [address] [place] [phone] PCP - General 03/01/21
--- OUTSIDE RECORDS SUMMARY | 2025-09-11 11:52 | XMS_ITS | Clinical Summary ---
Author Organization [facility] Address [address] [place] [address] Care Team Providers Care Athletics Teacher Name Role Phone Bernie Louis APRN Primary Care Provider [phone] Allergies Active Allergy Reactions Criticality Noted Date [...] Type Department Care Team Description 07/10/2025 Telephone [facility] CARDIOLOG[facility] [address] [place] [id number] WAESPE - SCHEDULING REQUEST 07/06/2025 3:16 PM EDT - 07/08/2025 11:35 AM EDT Hospital Encounter [facility] [address] [place] [address] Omid Langley MD Mitchell, Stephen [...] oz pur e alcohol) [facility] Utilities Answer Date Recorded In the past 12 months has [employer], gas, oil, or water [employer] threatened to shut off services in your [...] or training? Not on file Preferred Language Greenlandic 07/07/2025 Comments Unknown Sex and Gender Information [...] MD 07/07/2025 1:51 PM EDT Workstation ID: [id number] Narrative 07/07/2025 1:[address] HEAD [...] MD 07/07/2025 1:51 PM EDT Workstation ID: [id number] Karlie Mcintyre APRN IM CT ORDERABLES Final [...] 37.0 - 54.0 fl 07/07[facility] MPV 10.8 6.0 - 12.0 fL 07/07/2025 3:27 [facility] Platelets 227 140 - 450 10*3/mm3 07/07/2025 3:27 AM EDT [facility] Neutrophil % 62.6 42.7 - 76.0 % 07/07/2025 3:27 [facility] Lymphocyte % 26.7 19.6 - 45.3 % 07/07/2025 3:27 [facility] Monocyte % 9.7 5.0 - [...] Result [facility]
[address] [place] [address], * Phosphorus (07/07/2025 3:12 AM EDT) Only the most recent of2 resultswithin the time period is included. Phosphorus 3.5 2.5 - 4.5 mg/dL 07/07/2025 3:43 AM EDT [facility] Blood Venipuncture / Unknown 07/07/2025 3:12 AM EDT 07/07/2025 3:23 AM EDT Jessica Oden APRN LAB BLOOD ORDERABLES Final Result [facility]
[address] [place] [address], * Magnesium (07/07/2025 3:12 AM EDT) Only the most recent of2 resultswithin the time period is included. Magnesium 2.3 1.6 - 2.4 mg/dL 07/07/2025 3:43 AM EDT [facility] Blood Venipuncture / Unknown 07/07/2025 3:12 AM EDT 07/07/2025 3:23 AM EDT Jessica Oden APRN LAB BLOOD ORDERABLES Final Result Performing Organization Address City/[facility]/ZIP Co de Phone Number [facility]
[address] [place] [address], * Hemoglobin A1c (07/07/2025 3:12 AM EDT) [facility] Hemoglobin A1C 5.52 4.80 - 5.60 % [...] Final Result [facility]
[address] [place] [address], * (ABNORMAL) Lipid Panel (07/07/2025 3:12 AM EDT) Pathologist [facility] Total Cholesterol 161 0 - 200 [...] 3:12 AM EDT 07/07/2025 3:23 AM EDT [facility] - 07/07/2025 3:43 AM [...] Final Result [facility]
[address] [place] [address], * (ABNORMAL) Comprehensive Metabolic Panel (07/07/2025 3:12 AM EDT) Only the most recent of2 resultswithin the time period is included. Glucose 105(H) 65 - 99 mg/dL 07/07/2025 3:43 AM [facility] BUN 10.5 8.0 - 23.0 mg/dL 07/07/2025 3:43 AM [facility] Creatinine 0.72 0.57 - 1.00 mg/dL 07/07/2025 3:43 AM [facility] Sodium 140 136 - 145 mmol/L 07/07/2025 3:43 AM [facility] Potassium 3.6 3.5 - 5.2 mmol/L 07/07/2025 3:43 AM [facility] Chloride 106 98 - 107 mmol/L 07/07/2025 3:43 AM [facility] CO2 22.8 22.0 - 29.0 mmol/L 07/07/2025 3:43 AM [facility] Calcium 9.6 8.6 - 10.5 mg/dL 07/07/2025 3:43 AM [facility] Total Protein 6.8 6.0 - 8.5 g/dL 07/07/2025 3:43 AM [facility] Albumin 4.2 3.5 - 5.2 g/dL 07/07/2025 3:43 AM [facility] ALT (SGPT) 18 1 - 33 U/L 07/07/2025 3:43 AM [facility] AST (SGOT) 23 1 - 32 U/L 07/07/2025 3:43 AM [facility] Alkaline Phosphatase 82 39 - 117 U/L 07/07/2025 3:43 AM [facility] Total Bilirubin 0.5 0.0 - 1.2 mg/dL 07/07/2025 3:43 AM [facility] Globulin 2.6 gm/dL 07/07/2025 3:43 AM [facility] Comment:Calculated Result A/G Ratio 1.6 [...] include race as a factor Jessica Oden [facility] LAB BLOOD ORDERABLES Final Result [facility]
[address] [place] [address], * MRI Brain Without Contrast (07/06/2025 11:56 PM EDT) Anatomical Region Laterality Modality Head, Neck N/A Magnetic Resonan ce 07/07/2025 4:21 AM EDT Impressions 07/07/2025 4:24 AM EDT Impression: Chronic microvascular ischemia. No acute intracranial process. Electronically Signed: Arya Damian MD 07/07/2025 4:24 AM EDT Workstation ID: [id number] Narrative 07/07/2025 4:24 AM EDT MRI BRAIN [...] MD 07/07/2025 4:24 AM EDT Workstation ID: [id number] Karlie Mcintyre APRN IMG MRI ORDERABLES Final Re sult * POC Glucose Once (07/06/2025 5:34 PM EDT) Only the most recent of2 resultswithin the time period is included. Glucose 127 70 - 130 mg/dL 07/06/2025 5:36 PM EDT [facility] Comment:Serial Number: [id number] Blood 07/06/2025 5:34 PM EDT 07/06/2025 5:36 PM EDT us Js Tobar DO POINT OF CARE TEST ORDERAB LES Final Result Performing Organization Address [facility]/ZIP Co de Phone Number [facility]
[address] [place] [address], * TSH (07/06/2025 5:07 PM EDT) TSH 0.931 0.270 - 4.200 uIU/mL 07/06/2025 6:01 PM EDT [facility] Blood Line / Unknown 07/06/2025 5: 07 PM EDT 07/06/2025 5:07 PM EDT Jessica Oden APRN LAB BLOOD ORDERABLES Final Result Performing Organization Address [facility] Co de Phone Number [facility]
[address] [place] [address], [place] [phone] * T4, Free (07/06/2025 5:07 PM EDT) Free T4 1.53 0.92 - 1.68 ng/dL 07/06/2025 6:01 PM EDT [facility] Blood Line / Unknown 07/06/2025 5: 07 PM EDT 07/06/2025 5:07 PM EDT Jessica Oden INTERACTIVE ART DIRECTOR LAB BLOOD ORDERABLES Final Result Performing Organization Address City/[facility] Co de Phone Number [facility]
[address] [place] [address], * CT Outside Head (07/06/2025 4:29 PM [...] auto-finalized with no dictation required. Karlie Mcintyre INTERACTIVE ART DIRECTOR IMG CT ORDERABLES Final Res ult * [...] R esult from Last 3 Months Insurance [facility] MEDICARE ADVANTAGE SNP PPO MEDICAID [place] Member Subscriber Plan / Payer (Ef fective 2025-Present) Name:Deirdre Chapman Relation to Subscriber:Self Name:Deirdre Chapman Payer ID:[id number] Group ID:Not on file Type:Not on file Address: [address] MEDICAID B Advance Directives * CPR (Attempt to Resuscitate) (Latest Code Status on File) Date Activated Date Inactivated Comments 07/06/2025 3:41 PM 07/08/2025 1:35 PM Question Answer Comments Code Status (Patient has no pulse and is not breathing): CPR (Attempt to Resuscitate) Medical Interventions (Patie nt has pulse or is breathing): Full Support Care Teams Athletics Teacher Relationship Specialty Start Date End Date Bernie Louis APRN [address] [place] [address] PCP - General Nurse Practitioner 07/06/25
--- OUTSIDE RECORDS SUMMARY | 2025-09-11 11:52 | XMS_ITS | Encounter Summary ---
Author Organization [facility] Address [address] [place] [address] Care Team Providers Care Scouring Pads Supervisor Name Role Phone Bernie Louis ISA Primary Care Provider [phone] Reason for Visit * Reason Onset Date Comments DR. BIANCHI - SCHEDULING REQUEST 07/10/2025 Encounter Details Date Type Department Care Team (Late st Contact Info) Description 07/10/2025 Telephone [facility]IOLOG[facility] [address] [place] [phone] Ronda Bianchi MD [address] [place] [address] DR. BIANCHI - SCHEDULING REQUEST Social History Tobacco Use Types Packs/Day Years Used Date Smoking Tobacco: Never Passive Smoke Exposure: Never Smokeless Tobacco: Never Alcohol Use Standard Drinks/Week Comments Never 0 (1 standard drink = 0.6 oz pur e alcohol) [facility] Utilities Answer Date Recorded In the past 12 months has [employer], gas, oil, or water [employer] threatened to shut off services in [...] or training? Not on file Preferred Language Georgian 07/07/2025 Comments Unknown Sex and Gender Information [...] on filedocumented in this encounter Care Teams Scouring Pads Supervisor Relationship Specialty Start Date End Date Bernie Louis APRN [address] [place] [address] PCP - General Nurse Practitioner 07/06/25 documented as of this encounter
[2025-09-11 12:58] VITALS: BP 121/67; PULSE 79; RESP 18; TEMP 36.9; O2SAT 98
== END 2025-09-11 13:00 | disposition home or self-care (01) ==
PROVIDERS: Emergency Provider Student in an Organized Health Care Education/Training Program; PCP Nurse Practitioner Family
DX: R07.1 Chest pain on breathing (principal); R06.02 Shortness of breath; J20.9 Acute bronchitis, unspecified
CPT/HCPCS: 0223U; 71046; 99284